=== PATIENT | female | born 1950 | race American Indian/Alaskan Native ===

== ENCOUNTER 2019-11-20 19:24 | Inpatient (IN) | payer MEDICAID, MEDICARE ==
--- NOTE | 2019-11-20 20:35 | Emergency Department Report ---
ED Shortness of Breath HPI - General Chief Complaint: Dyspnea/Respdistress Stated Complaint: SOB Time Seen by Provider: 11/20/19 20:21 Source: patient, old records reviewed Mode of arrival: Stretcher Limitations: No Limitations - History of Present Illness Initial Comments: 69-year-old female with a past medical history of morbid obesity, lymphedema, CH F, diabetes, hypertension, and on chronic anticoagulation/Eliquis presents to the hospital with complaints of shortness of breath that started earlier today. Patient is primarily wheelchair bound but also uses a walker on occasion Patient states while sitting she felt short of breath like her breath is been taking away. She denies associated symptoms including palpitations, chest pain, nausea, vomiting, and diaphoresis. Patient thinks she takes Eliquis due to previous blood clot but she is unsure. She was discharged 1 week ago from [facility] after 8 to 9 days of chest pain work-up. She states she tested negative for COVID at that time. She currently denies any cough but states she has been feeling slightly feverish since discharge. Unfortunately patient's current medications are unknown and there is no past medical history in [facility] for review since this is patient's first visit here. Patient also denies sleep apnea and home CPAP use/oxygen use. - Related Data Home Medications Medication Instructions Recorded Confirmed Last Taken Unobtainable 11/20/19 11/20/19 Unknown Allergies Allergy/AdvReac Type Severity Reaction Status Date / Time Sulfa (Sulfonamide Allergy Unknown Verified 11/20/19 20:05 Antibiotics) ED Review of Systems ROS: Stated complaint: SOB Other details as noted in HPI Comment: All other systems reviewed and negative ED Past Medical Hx - Past Medical History Previous Medical History?: Yes Hx Hypertension: Yes Hx Congestive Heart Failure: Yes Hx Diabetes: Yes - Surgical History Past Surgical History?: Yes Additional Surgical History: Right foot metatarsal amputation - Social History Smoking Status: Never Smoker Substance Use Type: None - Medications Home Medications: Home Medications Medication Instructions Recorded Confirmed Last Taken Type Unobtainable 11/20/19 11/20/19 Unknown History ED Physical Exam - General Limitations: No Limitations - Other Other exam information: General: No acute distress Head: Atraumatic Eyes: normal appearance ENT: Moist mucous membranes Neck: Normal appearance, no midline tenderness Chest: Clear to auscultation bilaterally, chest wall nontender CV: Bradycardic regular rhythm Abdomen: Soft, normal bowel sounds, nontender, nondistended, no rebound or guarding Back: Normal inspection Extremity: Right mid metatarsal foot amputation, bilateral lymphedema with chronic skin changes and superficial ulcerations without warmth, erythema, or drainage Neuro: Alert O x 3, no facial asymmetry, speech clear, no gross motor sensory deficit Psych: Appropriate behavior Skin: No rash ED Course Vital Signs 11/20/19 11/20/19 11/20/19 20:05 20:07 20:16 Temperature 100 F H Pulse Rate 46 L Respiratory 16 Rate Blood Pressure 115/50 115/50 O2 Sat by Pulse 96 98 96 Oximetry 11/20/19 11/20/19 11/20/19 20:30 20:46 21:00 Temperature Pulse Rate Respiratory Rate Blood Pressure 106/52 135/59 135/59 O2 Sat by Pulse 97 96 97 Oximetry 11/20/19 21:17 Temperature Pulse Rate Respiratory Rate Blood Pressure 135/59 O2 Sat by Pulse Oximetry - Reevaluation(s) Reevaluation #1: 11/20/19 23:05 pt moaning, complaining of chronic pain to bilateral legs and buttock area. She states that me prescribed ibuprofen 800 mg and tramadol for this pain. 1 dose of [place] ordered ED Medical Decision Making - Lab Data Result diagrams: 11/20/19 21:22 11/20/19 21:22 Lab Results 11/20/19 11/20/19 11/20/19 Range/Units 20:37 21:22 21:22 WBC 9.0 (4.5-11.0) K/mm3 RBC 3.38 L (3.65-5.03) M/mm3 Hgb 9.2 L (10.1-14.3) gm/dl Hct 28.7 L (30.3-42.9) % MCV 85 (79-97) fl MCH 27 L (28-32) pg MCHC 32 (30-34) % RDW 15.7 H (13.2-15.2) % Plt Count 496 H (140-440) K/mm3 Lymph % (Auto) 18.3 (13.4-35.0) % [place] % (Auto) 4.7 (0.0-7.3) % Eos % (Auto) 3.9 (0.0-4.3) % Baso % (Auto) 1.5 (0.0-1.8) % Lymph # 1.6 (1.2-5.4) K/mm3 [place] # 0.4 (0.0-0.8) K/mm3 Eos # 0.4 (0.0-0.4) K/mm3 Baso # 0.1 (0.0-0.1) K/mm3 Seg Neutrophils % 71.6 H (40.0-70.0) % Seg Neutrophils # 6.4 (1.8-7.7) K/mm3 PT (12.2-14.9) Sec. INR (0.87-1.13) APTT (24.2-36.6) Sec. D-Dimer (0-234) ng/mlDDU Sodium 135 L (137-145) mmol/L Potassium 4.2 (3.6-5.0) mmol/L Chloride 100.8 (98-107) mmol/L Carbon Dioxide 20 L (22-30) mmol/L Anion Gap 18 mmol/L BUN 45 H (7-17) mg/dL Creatinine 2.0 H (0.6-1.2) mg/dL Estimated GFR 25 ml/min BUN/Creatinine Ratio 23 % Glucose 298 H (65-100) mg/dL POC Glucose 286 H (70-105) Calcium 8.6 (8.4-10.2) mg/dL Total Bilirubin 0.20 (0.1-1.2) mg/dL AST 13 (5-40) units/L ALT 15 (7-56) units/L Alkaline Phosphatase 81 (35-129) units/L Troponin T (0.00-0.029) ng/mL NT-Pro-B Natriuret Pep (0-900) pg/mL Total Protein 7.1 (6.3-8.2) g/dL Albumin 2.9 L (3.9-5) g/dL Albumin/Globulin Ratio 0.7 % Triglycerides (2-149) mg/dL Cholesterol (50-199) mg/dL LDL Cholesterol Direct (50-130) mg/dL HDL Cholesterol (40-59) mg/dL Cholesterol/HDL Ratio % TSH (0.270-4.200) mlU/mL Free T4 (0.76-1.46) ng/dL 11/20/19 11/20/19 11/20/19 Range/Units 21:22 21:22 21:22 WBC (4.5-11.0) K/mm3 RBC (3.65-5.03) M/mm3 Hgb (10.1-14.3) gm/dl Hct (30.3-42.9) % MCV (79-97) fl MCH (28-32) pg MCHC (30-34) % RDW (13.2-15.2) % Plt Count (140-440) K/mm3 Lymph % (Auto) (13.4-35.0) % [place] % (Auto) (0.0-7.3) % Eos % (Auto) (0.0-4.3) % Baso % (Auto) (0.0-1.8) % Lymph # (1.2-5.4) K/mm3 [place] # (0.0-0.8) K/mm3 Eos # (0.0-0.4) K/mm3 Baso # (0.0-0.1) K/mm3 Seg Neutrophils % (40.0-70.0) % Seg Neutrophils # (1.8-7.7) K/mm3 PT 17.0 H (12.2-14.9) Sec. INR 1.35 H (0.87-1.13) APTT 38.8 H (24.2-36.6) Sec. D-Dimer 596.16 H (0-234) ng/mlDDU Sodium (137-145) mmol/L Potassium (3.6-5.0) mmol/L Chloride (98-107) mmol/L Carbon Dioxide (22-30) mmol/L Anion Gap mmol/L BUN (7-17) mg/dL Creatinine (0.6-1.2) mg/dL Estimated GFR ml/min BUN/Creatinine Ratio % Glucose (65-100) mg/dL POC Glucose (70-105) Calcium (8.4-10.2) mg/dL Total Bilirubin (0.1-1.2) mg/dL AST (5-40) units/L ALT (7-56) units/L Alkaline Phosphatase (35-129) units/L Troponin T 0.030 H (0.00-0.029) ng/mL NT-Pro-B Natriuret Pep 3993 H (0-900) pg/mL Total Protein (6.3-8.2) g/dL Albumin (3.9-5) g/dL Albumin/Globulin Ratio % Triglycerides 214 H (2-149) mg/dL Cholesterol 139 (50-199) mg/dL LDL Cholesterol Direct 96 (50-130) mg/dL HDL Cholesterol 30 L (40-59) mg/dL Cholesterol/HDL Ratio 4.63 % TSH 1.430 (0.270-4.200) mlU/mL Free T4 1.34 (0.76-1.46) ng/dL - EKG Data -: EKG Interpreted by Ga EKG shows normal: sinus rhythm, ST-T waves (no stemi) Rate: bradycardia - Radiology Data Radiology results: report reviewed (cxr: naf) Ventilation perfusion scintigraphy Indication: elevated ddimer sob, Covid positive COMPARISON: Portable chest x-ray today Ventilation study was not performed. Perfusion study was performed with intravenous administration of 5.4 mCi of 99m technetium MAA. Perfusion findings: Patient could not complete the examination due to pain and the RPO and MONTSERRATIAN images are not available. Only small peripheral bilateral perfusion defects are noted. Impression: Low probability for pulmonary thromboembolism. - Medical Decision Making Patient has shortness of breath with elevated BNP and mildly elevated troponin. Patient has underlying renal insufficiency. Patient states she was on Eliquis however full med list is not available. Patient does not have hypoxia on room air but does noticeable dyspnea with mild activity and a unremarkable chest x- ray. Patient is new to our facility with a recent [facility] admission and unfortunately these records are not available for review at this time. Mild troponin elevation noted however, patient has renal insufficiency. Repeat pending. Aspirin provided. 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 3rd set pending Critical Care Time: No Critical care attestation.: If time is entered above; I have spent that time in minutes in the direct care of this critically ill patient, excluding procedure time. ED Disposition Clinical Impression: Dyspnea, CHF (congestive heart failure), Lymphedema, Renal insufficiency, Elevated troponin, D-dimer, elevated, FDC (current) use of anticoagulants, Elevated brain natriuretic peptide (BNP) level Disposition: 09 OP ADMIT IP TO THIS HOSP Is pt being admited?: Yes Does the pt Need Aspirin: Yes Condition: Stable Referrals: PRIMARY CARE, [Primary Care Provider] - 3-5 Days Time of Disposition: 00:17 (Dr Rodriguez/hosp)
--- NOTE | 2019-11-20 21:03 | XRay Report ---
CHEST 1 VIEW INDICATION / CLINICAL INFORMATION: Dyspnea. COMPARISON: None available. FINDINGS: SUPPORT DEVICES: None. HEART / MEDIASTINUM: Enlargement of the cardiac silhouette may be related to AP technique. LUNGS / PLEURA: No significant pulmonary or pleural abnormality. No pneumothorax. ADDITIONAL FINDINGS: No significant additional findings. IMPRESSION: 1. No acute cardiac pulmonary abnormality. 2. Enlargement of the cardiac silhouette may be related to AP technique. Signer Name: Marvel Rodrigues MD Signed: 11/20/2019 8:59 PM Workstation Name: [id number]
[2019-11-20 21:43] LABS: Basophils # (Auto) 0.1 K/mm3 (0.0-0.1); Basophils % (Auto) 1.5 % (0.0-1.8); Eosinophils # (Auto) 0.4 K/mm3 (0.0-0.4); Eosinophils % (Auto) 3.9 % (0.0-4.3); Hematocrit 28.7 % (30.3-42.9); Hemoglobin 9.2 gm/dl (10.1-14.3); Lymphocytes # (Auto) 1.6 K/mm3 (1.2-5.4); Lymphocytes % (Auto) 18.3 % (13.4-35.0); Mean Corpuscular HGB Conc 32 % (30-34); Mean Corpuscular Volume 85 fl (79-97); Monocytes # (Auto) 0.4 K/mm3 (0.0-0.8); Monocytes % (Auto) 4.7 % (0.0-7.3); Platelet Count 496 K/mm3 (140-440); Red Blood Count 3.38 M/mm3 (3.65-5.03); Red Cell Distribution Width 15.7 % (13.2-15.2)
[2019-11-20 21:54] LABS: INR 1.35 (0.87-1.13); Partial Thromboplastin Time 38.8 Sec. (24.2-36.6)
[2019-11-20 21:59] LABS: Albumin 2.9 g/dL (3.9-5); Calcium 8.6 mg/dL (8.4-10.2)
[2019-11-20] MEDS ORDERED: ASPIRIN 325 MG TAB PO ONE (22:21)
[2019-11-20 22:33] LABS: Chol/HDL Ratio 4.63 %
[2019-11-20 22:39] LABS: Free T4 (Free Thyroxine) 1.34 ng/dL (0.76-1.46)
[2019-11-20] MEDS ORDERED: HYDROcodone/ACETAMINOPHEN 5-325 MG TAB PO ONE (23:04)
[2019-11-20] MEDS ORDERED: MORPHINE 4 MG/1 ML INJ IV ONE (23:42)
[2019-11-20] MEDS ORDERED: ONDANSETRON 4 MG/2 ML INJ IV ONE (23:42)
[2019-11-20] MEDS ORDERED: ONDANSETRON 4 MG/2 ML INJ ONE (23:44)
[2019-11-20] MEDS ORDERED: MORPHINE 4 MG/1 ML INJ ONE (23:44)
--- NOTE | 2019-11-21 00:17 | Nuclear Medicine Report ---
Ventilation perfusion scintigraphy Indication: elevated ddimer sob, Covid positive COMPARISON: Portable chest x-ray today Ventilation study was not performed. Perfusion study was performed with intravenous administration of 5.4 mCi of 99m technetium MAA. Perfusion findings: Patient could not complete the examination due to pain and the RPO and GEORGIAN images are not available. Only small peripheral bilateral perfusion defects are noted. Impression: Low probability for pulmonary thromboembolism. Signer Name: Faisal Thompson MD Signed: 11/21/2019 12:13 AM Workstation Name: [id number]
[2019-11-21] MEDS ORDERED: HYDROcodone/ACETAMINOPHEN 5-325 MG TAB ONE (01:11)
[2019-11-21] MEDS ORDERED: DEXTROSE 50% IN WATER (25GM) 50 ML SYRINGE IV PRN (03:19)
[2019-11-21] MEDS ORDERED: ONDANSETRON 4 MG/2 ML INJ IV PRN (03:19)
[2019-11-21] MEDS ORDERED: hydrALAZINE 20 MG/1 ML INJ IV PRN (03:19)
[2019-11-21] MEDS ORDERED: NITROGLYCERIN 0.4 MG TAB SUBL SL PRN (03:19)
--- NOTE | 2019-11-21 03:47 | History and Physical Report ---
History of Present Illness Date of examination: 11/21/19 Date of admission: 11/21/19 01:45 Chief complaint: Shortness of breath Chest pain History of present illness: 69-year-old female with known history of hypertension, diabetes mellitus, obesity and lymphedema presents to the emergency room complaining of shortness of breath and chest pain. Symptoms were said to started earlier today. Shortness of breath is worse on exertion. Patient is wheelchair-bound but she ambulates occasionally with a walker. She denies any nausea or vomiting, no headache or dizziness, no palpitation, no diaphoresis. Patient was recently discharged from [facility] for similar symptoms. She is chronically on Eliquis for anticoagulation-for possible previous blood clot. Patient is not a very good historian. She also indicates she was tested for COVID-19 while at [facility] and was found to be negative. She has had some mild cough which is nonproductive and he also indicates she had a low-grade fever when she was discharged. Evaluation here in the emergency shows elevated d-dimer , elevated troponin and elevated BNP. Chest x-ray shows cardiomegaly. VQ scan was not done was low probability for pulmonary embolism. Past History Past Medical History: diabetes, hypertension, other (Obesity, lymphedema) Past Surgical History: Other (Partial right foot amputation) Social history: no significant social history Family history: no significant family history Medications and Allergies Allergies Allergy/AdvReac Type Severity Reaction Status Date / Time Sulfa (Sulfonamide Allergy Unknown Verified 11/20/19 20:05 Antibiotics) Home Medications Medication Instructions Recorded Confirmed Last Taken Type Unobtainable 11/20/19 11/20/19 Unknown History Active Meds: Active Medications Acetaminophen (Tylenol) 650 mg PO Q4H PRN PRN Reason: Pain MILD(1-3)/Fever >100.5/AVERY Ondansetron HCl (Zofran) 4 mg IV Q8H PRN PRN Reason: Nausea And Vomiting Sodium Chloride (Sodium Chloride Flush Syringe 10 Ml) 10 ml IV BID GABRIELLE Review of Systems Constitutional: no fever, no chills Ears, nose, mouth and throat: no nasal congestion, no sore throat Cardiovascular: chest pain, no palpitations Respiratory: shortness of breath, no cough Gastrointestinal: no abdominal pain, no nausea, no vomiting, no diarrhea Genitourinary Female: no flank pain, no dysuria, no hematuria Musculoskeletal: no neck pain, no low back pain Integumentary: no rash, no pruritis Neurological: no headaches, no confusion Exam - Constitutional Vitals: Temp Pulse Resp BP Pulse Ox 98.7 F 42 L 18 107/66 97 11/21/19 02:30 11/21/19 02:30 11/21/19 02:30 11/21/19 02:30 11/21/19 02:30 General appearance: Present: no acute distress, well-nourished, obese - EENT Eyes: Present: PERRL, EOM intact. Absent: scleral icterus ENT: hearing intact, clear oral mucosa, dentition normal - Neck Neck: Present: supple, normal ROM - Respiratory Respiratory effort: normal Respiratory: bilateral: CTA - Cardiovascular Rhythm: regular Heart Sounds: Present: S1 & S2. Absent: gallop, systolic murmur, diastolic murmur, rub - Extremities Extremities: no ischemia, pulses intact, pulses symmetrical, No edema, Full ROM Extremity abnormal: edema (Bilateral lymphedema), pulses diminished, other (Partial right foot amputation) - Abdominal General gastrointestinal: Present: soft, non-tender, non-distended, normal bowel sounds. Absent: mass - Integumentary Integumentary: Present: clear, warm, dry - Musculoskeletal Musculoskeletal: strength equal bilaterally - Psychiatric Psychiatric: appropriate mood/affect, intact judgment & insight, memory intact, cooperative - Neurologic Neurologic: CNII-XII intact, no focal deficits, moves all extremities HEART Score - HEART Score Troponin: Troponin T 0.039 ng/mL (0.00-0.029) H D 11/21/19 00:19 Results - Labs CBC & Chem 7: 11/21/19 10:02 11/21/19 10:02 Labs: Abnormal lab results 11/20/19 11/20/19 11/20/19 Range/Units 20:37 21:22 21:22 RBC 3.38 L (3.65-5.03) M/mm3 Hgb 9.2 L (10.1-14.3) gm/dl Hct 28.7 L (30.3-42.9) % MCH 27 L (28-32) pg RDW 15.7 H (13.2-15.2) % Plt Count 496 H (140-440) K/mm3 Seg Neutrophils % 71.6 H (40.0-70.0) % PT (12.2-14.9) Sec. INR (0.87-1.13) APTT (24.2-36.6) Sec. D-Dimer (0-234) ng/mlDDU Sodium 135 L (137-145) mmol/L Carbon Dioxide 20 L (22-30) mmol/L BUN 45 H (7-17) mg/dL Creatinine 2.0 H (0.6-1.2) mg/dL Glucose 298 H (65-100) mg/dL POC Glucose 286 H (70-105) Troponin T (0.00-0.029) ng/mL NT-Pro-B Natriuret Pep (0-900) pg/mL Albumin 2.9 L (3.9-5) g/dL Triglycerides (2-149) mg/dL HDL Cholesterol (40-59) mg/dL 11/20/19 11/20/19 11/21/19 Range/Units 21:22 21:22 00:19 RBC (3.65-5.03) M/mm3 Hgb (10.1-14.3) gm/dl Hct (30.3-42.9) % MCH (28-32) pg RDW (13.2-15.2) % Plt Count (140-440) K/mm3 Seg Neutrophils % (40.0-70.0) % PT 17.0 H (12.2-14.9) Sec. INR 1.35 H (0.87-1.13) APTT 38.8 H (24.2-36.6) Sec. D-Dimer 596.16 H (0-234) ng/mlDDU Sodium (137-145) mmol/L Carbon Dioxide (22-30) mmol/L BUN (7-17) mg/dL Creatinine (0.6-1.2) mg/dL Glucose (65-100) mg/dL POC Glucose (70-105) Troponin T 0.030 H 0.039 H D (0.00-0.029) ng/mL NT-Pro-B Natriuret Pep 3993 H (0-900) pg/mL Albumin (3.9-5) g/dL Triglycerides 214 H (2-149) mg/dL HDL Cholesterol 30 L (40-59) mg/dL Assessment and Plan - Patient Problems (1) Dyspnea Current Visit: Yes Status: Acute Plan to address problem: Possibly secondary to underlying CHF.. Patient admitted and placed on telemetry. (2) CHF (congestive heart failure) Current Visit: Yes Status: Acute Plan to address problem: We will place patient on diuretics. Will monitor input and output and also monitor daily weight. We will schedule patient for echocardiogram. (3) Elevated troponin Current Visit: Yes Status: Acute Plan to address problem: We will check serial cardiac enzymes. Patient placed on aspirin, sublingual nitroglycerin and IV morphine as needed for chest pain. We will place a consult to cardiology for evaluation. (4) Diabetes mellitus Current Visit: Yes Status: Chronic Plan to address problem: We will monitor Accu-Cheks. (5) Renal insufficiency Current Visit: Yes Status: Acute Plan to address problem: Probably chronic. Will monitor. (6) DVT prophylaxis Current Visit: Yes Status: Acute Plan to address problem: We will place patient on subcutaneous heparin (7) Full code status Current Visit: Yes Status: Acute
[2019-11-21] MEDS: FUROSEMIDE 40 MG/4 ML INJ IV SCH ×2 (06:55→18:28)
[2019-11-21] MEDS: HEPARIN 5,000 UNIT/1 ML VIAL SUB-Q SCH ×2 (06:55→13:33)
[2019-11-21 10:16] LABS: Hematocrit 28.9 % (30.3-42.9); Hemoglobin 9.5 gm/dl (10.1-14.3); Mean Corpuscular HGB Conc 33 % (30-34); Mean Corpuscular Volume 83 fl (79-97); Platelet Count 469 K/mm3 (140-440); Red Blood Count 3.47 M/mm3 (3.65-5.03); Red Cell Distribution Width 15.2 % (13.2-15.2)
[2019-11-21] MEDS: INSULIN LISPRO 100 UNIT/ML VIAL 3 mL SUB-Q SCH ×4 (10:28→22:41)
[2019-11-21] MEDS ORDERED: LIDOCAINE-MPF (1%) 10 MG/1 ML VIAL 5 ML INFILTRATI ONE (10:30)
[2019-11-21] MEDS: ACETAMINOPHEN 325 MG TAB PO PRN ×3 (10:32→22:41)
--- NOTE | 2019-11-21 10:34 | Progress Note ---
Assessment and Plan v Assessment and Plan - Patient Problems (1) Dyspnea Current Visit: Yes Status: Acute Plan to address problem: Possibly secondary to underlying CHF.. Patient admitted and placed on telemetry. (2) CHF (congestive heart failure) Current Visit: Yes Status: Acute Plan to address problem: We will place patient on diuretics. Will monitor input and output and also monitor daily weight. We will schedule patient for echocardiogram. (3) Elevated troponin Current Visit: Yes Status: Acute Plan to address problem: Continue cardioprotective measure Check serial cardiac enzymes. continue aspirin, sublingual nitroglycerin and IV morphine as needed for chest pain. consulted cardiology for evaluation. (4) Diabetes mellitus Current Visit: Yes Status: Acute Plan to address problem: Monitor blood sugar [id number] with result (5) Renal insufficiency Current Visit: Yes Status: Acute Plan to address problem: Monitor kidney function Avoid nephrotoxic drugs Probably chronic. 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 Resume home cardiac regimen, including ASA 81, plavix, statin, Imdur. No BB in setting of bradycardia. No ACEI/ARB in setting of renal insufficiency. 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 Recommend nephrology consultation and will defer volume optimization to nephrology team in setting of renal insufficiency. The coronary flow reserve is severely impaired which may limit the diagnostic sensitivity this study for ischemia. TTE done 10/12/2019 showed EF 35-40%, grade 1 diastolic dysfunction. No plans for additional cardiac w/u at this time. - Patient Problems (1) Leukocytosis (leucocytosis) Current Visit: Yes Status: Acute Plan to address problem: start empiric abx Blood culture and urine culture-f/u with result Monitor WBC Subjective Date of service: 11/21/19 Interval history: patient seen-up sitting at bedside -on oxygen per N/C Reviewed specialist note-input greatly appreciated Objective - Constitutional Vitals: Vital Signs - 12hr 11/21/19 11/21/19 02:30 04:14 Temperature 98.7 F Pulse Rate 42 L 42 L Pulse Rate [ 44 L From Monitor] Respiratory 18 20 Rate Blood Pressure 107/66 [Left] O2 Sat by Pulse 97 97 Oximetry General appearance: Present: mild distress, well-nourished - EENT Eyes: PERRL, EOM intact ENT: hearing intact, clear oral mucosa Ears: bilateral: normal - Neck Neck: supple, normal ROM - Respiratory Respiratory effort: normal Respiratory: bilateral: diminished - Breasts Breasts: normal - Cardiovascular Rhythm: other (Bradycardia-hold BB) Heart Sounds: Present: S1 & S2. Absent: gallop, rub Extremities: pulses intact, No edema, normal color, Full ROM - Gastrointestinal General gastrointestinal: Present: soft, non-tender, non-distended, normal bowel sounds - Genitourinary Female genitourinary: normal - Integumentary Integumentary: clear, warm, dry - Musculoskeletal Musculoskeletal: 1, strength equal bilaterally - Neurologic Neurologic: moves all extremities - Psychiatric Psychiatric: memory intact, appropriate mood/affect, intact judgment & insight - Labs CBC & Chem 7: 11/21/19 10:02 11/21/19 10:02 Labs: Abnormal lab results 11/20/19 11/20/19 11/20/19 Range/Units 20:37 21:22 21:22 WBC (4.5-11.0) K/mm3 RBC 3.38 L (3.65-5.03) M/mm3 Hgb 9.2 L (10.1-14.3) gm/dl Hct 28.7 L (30.3-42.9) % MCH 27 L (28-32) pg RDW 15.7 H (13.2-15.2) % Plt Count 496 H (140-440) K/mm3 Seg Neutrophils % 71.6 H (40.0-70.0) % PT (12.2-14.9) Sec. INR (0.87-1.13) APTT (24.2-36.6) Sec. D-Dimer (0-234) ng/mlDDU Sodium 135 L (137-145) mmol/L Carbon Dioxide 20 L (22-30) mmol/L BUN 45 H (7-17) mg/dL Creatinine 2.0 H (0.6-1.2) mg/dL Glucose 298 H (65-100) mg/dL POC Glucose 286 H (70-105) Troponin T (0.00-0.029) ng/mL NT-Pro-B Natriuret Pep (0-900) pg/mL Albumin 2.9 L (3.9-5) g/dL Triglycerides (2-149) mg/dL HDL Cholesterol (40-59) mg/dL 11/20/19 11/20/19 11/21/19 Range/Units 21:22 21:22 00:19 WBC (4.5-11.0) K/mm3 RBC (3.65-5.03) M/mm3 Hgb (10.1-14.3) gm/dl Hct (30.3-42.9) % MCH (28-32) pg RDW (13.2-15.2) % Plt Count (140-440) K/mm3 Seg Neutrophils % (40.0-70.0) % PT 17.0 H (12.2-14.9) Sec. INR 1.35 H (0.87-1.13) APTT 38.8 H (24.2-36.6) Sec. D-Dimer 596.16 H (0-234) ng/mlDDU Sodium (137-145) mmol/L Carbon Dioxide (22-30) mmol/L BUN (7-17) mg/dL Creatinine (0.6-1.2) mg/dL Glucose (65-100) mg/dL POC Glucose (70-105) Troponin T 0.030 H 0.039 H D (0.00-0.029) ng/mL NT-Pro-B Natriuret Pep 3993 H (0-900) pg/mL Albumin (3.9-5) g/dL Triglycerides 214 H (2-149) mg/dL HDL Cholesterol 30 L (40-59) mg/dL 11/21/19 11/21/19 11/21/19 Range/Units 02:56 07:57 10:02 WBC 21.4 H (4.5-11.0) K/mm3 RBC 3.47 L (3.65-5.03) M/mm3 Hgb 9.5 L (10.1-14.3) gm/dl Hct 28.9 L (30.3-42.9) % MCH 27 L (28-32) pg RDW (13.2-15.2) % Plt Count 469 H (140-440) K/mm3 Seg Neutrophils % (40.0-70.0) % PT (12.2-14.9) Sec. INR (0.87-1.13) APTT (24.2-36.6) Sec. D-Dimer (0-234) ng/mlDDU Sodium (137-145) mmol/L Carbon Dioxide (22-30) mmol/L BUN (7-17) mg/dL Creatinine (0.6-1.2) mg/dL Glucose (65-100) mg/dL POC Glucose 349 H (70-105) Troponin T 0.030 H D (0.00-0.029) ng/mL NT-Pro-B Natriuret Pep (0-900) pg/mL Albumin (3.9-5) g/dL Triglycerides (2-149) mg/dL HDL Cholesterol (40-59) mg/dL HEART Score - HEART Score Troponin: Troponin T 0.030 ng/mL (0.00-0.029) H D 11/21/19 02:56
[2019-11-21 10:35] LABS: Calcium 8.4 mg/dL (8.4-10.2)
[2019-11-21] MEDS: MORPHINE 2 MG/1 ML INJ IV PRN (10:50)
[2019-11-21] MEDS ORDERED: cefTRIAXone/NS 2 GM/100 ML 2 GM/100 ML BAG IV SCH (11:00)
[2019-11-21 11:19] LABS: Anisocytosis 1+; Band Neutrophils # (Manual) 1.5 K/mm3; Basophils % (Manual) 0 % (0.0-1.8); Eosinophils % (Manual) 0 % (0.0-4.3); Platelet Estimate Consistent w Auto; Total Cells Counted 100
--- NOTE | 2019-11-21 11:20 | Consultation ---
History of Present Illness Consult date: 11/21/19 Requesting physician: VENKATA CHERRY Consult reason: shortness of breath History of present illness: The pt is a 69 YO female with a past medical history of HTN, DM, CKD III, PVD s/p right trans metatarsal amputation, lymphedema, DVT/PE, anticoagulated with Eliquis, obesity, bradycardia and junctional rhythm. She is previously unknown to our practice, although she has been hospitalized several times at [facility]. She presented with c/o SOB for the past several weeks. She denies any chest pain, palpitations, n/v, diaphoresis, dizziness or syncope. Pt was discharged from [facility] on 11/15/2019. Per discharge summary, pt presented with with chest pain, troponin peaked at 0.36, started on heparin drip NSTEMI and nitro drip for chest pain. Chest pain resolved. Cardiology consulted, patient refused angiogram. Medical management recommended. She completed heparin drip after 48 hours, continued on statin and aspirin. Was started on Plavix which is recommended for at least 1 year. Was also diuresed due to bilateral lower extremity edema. Cardiac PET done at [facility] 07/2019 showed a large (total defect 30-35%) defect over the mid to apical septal and apical segments consistent with predominant myocardial infarction with a smaller area of ischemia. There is a second defect (total defect 20-25%) over the basal to mid inferolateral and mid inferior willis consistent with predominant myocardial infarction with a smaller area of ischemia. Today's findings are grossly similar to the prior study with the exception of the overall defect territory and ischemia is slightly larger. The coronary flow reserve is severely impaired which may limit the diagnostic sensitivity this study for ischemia. TTE done 10/12/2019 showed EF 35-40%, grade 1 diastolic dysfunction. Past History Past Medical History: diabetes, hypertension, other (as per HPI) Past Surgical History: Other (Partial right foot amputation) Social history: no significant social history Family history: no significant family history Medications and Allergies Allergies Allergy/AdvReac Type Severity Reaction Status Date / Time Sulfa (Sulfonamide Allergy Unknown Verified 11/20/19 20:05 Antibiotics) Home Medications Medication Instructions Recorded Confirmed Last Taken Type Unobtainable 11/20/19 11/20/19 Unknown History Active Meds: Active Medications Acetaminophen (Tylenol) 650 mg PO Q4H PRN PRN Reason: Pain MILD(1-3)/Fever >100.5/AVERY Last Admin: 11/21/19 10:32 Dose: 650 mg Documented by: Aspirin (Ecotrin) 325 mg PO QDAY [facility] Dextrose (D50w (25gm) Syringe) 0 ml IV Q30MIN PRN; Protocol PRN Reason: Hypoglycemia Furosemide (Lasix) 40 mg IV BID@0600,1800 [facility] Last Admin: 11/21/19 06:55 Dose: 40 mg Documented by: Heparin Sodium (Porcine) (Heparin) 5,000 unit SUB-Q Q8HR [facility] Last Admin: 11/21/19 06:55 Dose: 5,000 unit Documented by: Hydralazine HCl (Apresoline) 10 mg IV Q6H PRN PRN Reason: FOR SBP > target Ceftriaxone Sodium (Rocephin/Ns 2 Gm/100 Ml) 2 gm in 100 mls @ 200 mls/hr IV Q24HR [facility]; Protocol Stop: 11/21/19 11:29 Insulin Human Lispro (Humalog) 0 unit SUB-Q ACHS [facility]; Protocol Last Admin: 11/21/19 10:28 Dose: 6 unit Documented by: Morphine Sulfate (Morphine) 2 mg IV Q5MIN PRN PRN Reason: Chest Pain unrelieved by NTG Last Admin: 11/21/19 10:50 Dose: 2 mg Documented by: Nitroglycerin (Nitrostat) 0.4 mg SL Q5M PRN PRN Reason: Chest Pain Ondansetron HCl (Zofran) 4 mg IV Q8H PRN PRN Reason: Nausea And Vomiting Sodium Chloride (Sodium Chloride Flush Syringe 10 Ml) 10 ml IV BID [facility] Last Admin: 11/21/19 10:29 Dose: 10 ml Documented by: Sodium Chloride (Sodium Chloride Flush Syringe 10 Ml) 10 ml IV PRN PRN PRN Reason: LINE FLUSH Sodium Chloride (Sodium Chloride Flush Syringe 10 Ml) 10 ml IV PRN PRN PRN Reason: LINE FLUSH Review of Systems Constitutional: no fever, no chills, no sweats Ears, nose, mouth and throat: no ear pain, no nose pain, no sinus pressure, no sinus pain Cardiovascular: orthopnea, edema, shortness of breath, dyspnea on exertion, leg edema, no chest pain, no palpitations, no rapid/irregular heart beat, no syncope, no lightheadedness Respiratory: shortness of breath, dyspnea on exertion, no cough, no congestion, no wheezing, no pain on inspiration Gastrointestinal: no abdominal pain, no nausea, no vomiting, no diarrhea, no constipation, no change in bowel habits Genitourinary Female: no pelvic pain, no flank pain, no dysuria, no urinary frequency, no urgency Musculoskeletal: no neck stiffness, no neck pain, no shooting arm pain, no arm numbness/tingling, no low back pain, no shooting leg pain Integumentary: other (BLE chronic skin changes noted, BLE blistering) Neurological: no head injury, no paralysis, no weakness, no parathesias, no numbness, no tingling, no seizures, no syncope Psychiatric: no anxiety Endocrine: no cold intolerance, no heat intolerance Hematologic/Lymphatic: no easy bruising, no easy bleeding Allergic/Immunologic: no urticaria Physical Examination Vital Signs Temp Pulse Resp BP Pulse Ox 100 F H 46 L 16 115/50 96 11/20/19 20:05 11/20/19 20:05 11/20/19 20:05 11/20/19 20:05 11/20/19 20:05 General appearance: no acute distress HEENT: Positive: PERRL, Normocephaly, Mucus Membranes Moist Neck: Positive: neck supple, trachea midline Cardiac: Positive: Regular Rhythm, S1/S2, Bradycardia Lungs: Positive: Decreased Breath Sounds Neuro: Positive: Grossly Intact Abdomen: Negative: Ascites Skin: Positive: Other (BLE chroc skin changes noted, BLE blistering) Musculoskeletal: other (right trans metatarsal amputation, BLE lymphedema) Extremities: Present: +3 Edema (lymphedema) Results 11/21/19 10:02 11/21/19 10:02 Cardiac Enzymes 11/20/19 Range/Units 21:22 AST 13 (5-40) units/L Coagulation 11/20/19 Range/Units 21:22 PT 17.0 H (12.2-14.9) Sec. INR 1.35 H (0.87-1.13) APTT 38.8 H (24.2-36.6) Sec. Lipids 11/20/19 Range/Units 21:22 Triglycerides 214 H (2-149) mg/dL Cholesterol 139 (50-199) mg/dL HDL Cholesterol 30 L (40-59) mg/dL Cholesterol/HDL Ratio 4.63 % CBC 11/20/19 11/21/19 Range/Units 21:22 10:02 WBC 9.0 21.4 H (4.5-11.0) K/mm3 RBC 3.38 L 3.47 L (3.65-5.03) M/mm3 Hgb 9.2 L 9.5 L (10.1-14.3) gm/dl Hct 28.7 L 28.9 L (30.3-42.9) % Plt Count 496 H 469 H (140-440) K/mm3 Lymph # 1.6 (1.2-5.4) K/mm3 Crisp # 0.4 (0.0-0.8) K/mm3 Eos # 0.4 (0.0-0.4) K/mm3 Baso # 0.1 (0.0-0.1) K/mm3 Comprehensive Metabolic Panel 11/20/19 11/21/19 Range/Units 21:22 10:02 Sodium 135 L 135 L (137-145) mmol/L Potassium 4.2 4.5 (3.6-5.0) mmol/L Chloride 100.8 103.8 (98-107) mmol/L Carbon Dioxide 20 L 16 L (22-30) mmol/L BUN 45 H 50 H (7-17) mg/dL Creatinine 2.0 H 2.4 H (0.6-1.2) mg/dL Glucose 298 H 399 H (65-100) mg/dL Calcium 8.6 8.4 (8.4-10.2) mg/dL AST 13 (5-40) units/L ALT 15 (7-56) units/L Alkaline Phosphatase 81 (35-129) units/L Total Protein 7.1 (6.3-8.2) g/dL Albumin 2.9 L (3.9-5) g/dL - Imaging and Cardiology Echo: report reviewed (10/12/2019 showed EF 35-40%, grade 1 diastolic dysfunction. ) EKG: report reviewed, image reviewed EKG interpretations - Telemetry EKG Rhythm: Junctional - EKG Supraventricular dysrhythmia: junctional rhythm Assessment and Plan DDimer elevated - V/Q scan low prob for PE. Resume home cardiac regimen, including ASA 81, plavix, statin, Imdur. No BB in setting of bradycardia. No ACEI/ARB in setting of renal insufficiency. 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 Pt is currently receiving IV lasix BID per primary - recommend nephrology consultation and will defer volume optimization to nephrology team in setting of renal insufficiency. Pt is noted to be in junctional rhythm, HR low 42bpm since initiation of remote telemetry. She has been noted to have intermittent junctional rhythm on [facility] documentation. She states that pacemaker implantation has been discussed with her in the past, she states "I'm afraid of a pacemaker". Thyroid profile WNL. Hold AV [place] blocking agents and cont to monitor on telemetry. Pt denies any current chest pain. ECG with no acute ischemic changes. Minimal troponin elevation appears nonspecific at this time. Cardiac PET done at [facility] 07/2019 showed a large (total defect 30-35%) defect over the mid to apical septal and apical segments consistent with predominant myocardial infarction with a smaller area of ischemia. There is a second defect (total defect 20-25%) over the basal to mid inferolateral and mid inferior willis consistent with predominant myocardial infarction with a smaller area of ischemia. Findings are grossly similar to the prior study with the exception of the overall defect territory and ischemia is slightly larger. The coronary flow reserve is severely impaired which may limit the diagnostic sensitivity this study for ischemia. TTE done 10/12/2019 showed EF 35-40%, grade 1 diastolic dysfunction. No plans for additional cardiac w/u at this time. Will follow. The patient has been seen in conjunction with Dr. Ybarra who agrees with the assessment and plan of care. - Patient Problems (1) Acute HFrEF (heart failure with reduced ejection fraction) Current Visit: Yes Status: Acute (2) Cardiomyopathy Current Visit: Yes Status: Acute (3) Junctional bradycardia Current Visit: Yes Status: Acute (4) CKD (chronic kidney disease) Current Visit: Yes Status: Acute Plan to address problem: per [facility] records, cr fluctuates between 2-3 (5) HTN (hypertension) Current Visit: Yes Status: Chronic (6) Diabetes mellitus Current Visit: Yes Status: Chronic (7) PVD (peripheral vascular disease) Current Visit: Yes Status: Chronic (8) S/P transmetatarsal amputation of foot Current Visit: Yes Status: Chronic (9) Lymphedema Current Visit: Yes Status: Chronic (10) Elevated troponin Current Visit: Yes Status: Acute (11) Obesity Current Visit: Yes Status: Chronic
--- NOTE | 2019-11-21 17:23 | Progress Note ---
Assessment and Plan (1) Acute HFrEF (heart failure with reduced ejection fraction) Current Visit: Yes Status: Acute (2) Cardiomyopathy Current Visit: Yes Status: Acute (3) Junctional bradycardia Current Visit: Yes Status: Acute (4) CKD (chronic kidney disease) Current Visit: Yes Status: Acute Plan to address problem: per [facility] records, cr fluctuates between 2-3 (5) HTN (hypertension) Current Visit: Yes Status: Chronic (6) Diabetes mellitus Current Visit: Yes Status: Chronic (7) PVD (peripheral vascular disease) Current Visit: Yes Status: Chronic (8) S/P transmetatarsal amputation of foot Current Visit: Yes Status: Chronic (9) Lymphedema Current Visit: Yes Status: Chronic (10) Elevated troponin Current Visit: Yes Status: Acute (11) Obesity Current Visit: Yes Status: Chronic Subjective Date of service: 11/21/19 Objective - Constitutional Vitals: Vital Signs - 12hr 11/21/19 11/21/19 11/21/19 09:49 11:55 12:14 Temperature 98.3 F Pulse Rate 53 L Pulse Rate [ 44 L From Monitor] Respiratory 20 20 Rate Blood Pressure 126/54 O2 Sat by Pulse 97 Oximetry - Labs CBC & Chem 7: 11/21/19 10:02 11/21/19 10:02 Labs: Abnormal lab results 11/20/19 11/20/19 11/20/19 Range/Units 20:37 21:22 21:22 WBC (4.5-11.0) K/mm3 RBC 3.38 L (3.65-5.03) M/mm3 Hgb 9.2 L (10.1-14.3) gm/dl Hct 28.7 L (30.3-42.9) % MCH 27 L (28-32) pg RDW 15.7 H (13.2-15.2) % Plt Count 496 H (140-440) K/mm3 Seg Neutrophils % 71.6 H (40.0-70.0) % Seg Neuts % (Manual) (40.0-70.0) % Lymphocytes % (Manual) (13.4-35.0) % Seg Neutrophils # Man (1.8-7.7) K/mm3 Lymphocytes # (Manual) (1.2-5.4) K/mm3 PT (12.2-14.9) Sec. INR (0.87-1.13) APTT (24.2-36.6) Sec. D-Dimer (0-234) ng/mlDDU Sodium 135 L (137-145) mmol/L Carbon Dioxide 20 L (22-30) mmol/L BUN 45 H (7-17) mg/dL Creatinine 2.0 H (0.6-1.2) mg/dL Glucose 298 H (65-100) mg/dL POC Glucose 286 H (70-105) Troponin T (0.00-0.029) ng/mL NT-Pro-B Natriuret Pep (0-900) pg/mL Albumin 2.9 L (3.9-5) g/dL Triglycerides (2-149) mg/dL HDL Cholesterol (40-59) mg/dL 11/20/19 11/20/19 11/21/19 Range/Units 21:22 21:22 00:19 WBC (4.5-11.0) K/mm3 RBC (3.65-5.03) M/mm3 Hgb (10.1-14.3) gm/dl Hct (30.3-42.9) % MCH (28-32) pg RDW (13.2-15.2) % Plt Count (140-440) K/mm3 Seg Neutrophils % (40.0-70.0) % Seg Neuts % (Manual) (40.0-70.0) % Lymphocytes % (Manual) (13.4-35.0) % Seg Neutrophils # Man (1.8-7.7) K/mm3 Lymphocytes # (Manual) (1.2-5.4) K/mm3 PT 17.0 H (12.2-14.9) Sec. INR 1.35 H (0.87-1.13) APTT 38.8 H (24.2-36.6) Sec. D-Dimer 596.16 H (0-234) ng/mlDDU Sodium (137-145) mmol/L Carbon Dioxide (22-30) mmol/L BUN (7-17) mg/dL Creatinine (0.6-1.2) mg/dL Glucose (65-100) mg/dL POC Glucose (70-105) Troponin T 0.030 H 0.039 H D (0.00-0.029) ng/mL NT-Pro-B Natriuret Pep 3993 H (0-900) pg/mL Albumin (3.9-5) g/dL Triglycerides 214 H (2-149) mg/dL HDL Cholesterol 30 L (40-59) mg/dL 11/21/19 11/21/19 11/21/19 Range/Units 02:56 07:57 10:02 WBC 21.4 H (4.5-11.0) K/mm3 RBC 3.47 L (3.65-5.03) M/mm3 Hgb 9.5 L (10.1-14.3) gm/dl Hct 28.9 L (30.3-42.9) % MCH 27 L (28-32) pg RDW (13.2-15.2) % Plt Count 469 H (140-440) K/mm3 Seg Neutrophils % (40.0-70.0) % Seg Neuts % (Manual) 89.0 H (40.0-70.0) % Lymphocytes % (Manual) 1.0 L (13.4-35.0) % Seg Neutrophils # Man 19.0 H (1.8-7.7) K/mm3 Lymphocytes # (Manual) 0.2 L (1.2-5.4) K/mm3 PT (12.2-14.9) Sec. INR (0.87-1.13) APTT (24.2-36.6) Sec. D-Dimer (0-234) ng/mlDDU Sodium (137-145) mmol/L Carbon Dioxide (22-30) mmol/L BUN (7-17) mg/dL Creatinine (0.6-1.2) mg/dL Glucose (65-100) mg/dL POC Glucose 349 H (70-105) Troponin T 0.030 H D (0.00-0.029) ng/mL NT-Pro-B Natriuret Pep (0-900) pg/mL Albumin (3.9-5) g/dL Triglycerides (2-149) mg/dL HDL Cholesterol (40-59) mg/dL 11/21/19 11/21/19 11/21/19 Range/Units 10:02 11:56 16:31 WBC (4.5-11.0) K/mm3 RBC (3.65-5.03) M/mm3 Hgb (10.1-14.3) gm/dl Hct (30.3-42.9) % MCH (28-32) pg RDW (13.2-15.2) % Plt Count (140-440) K/mm3 Seg Neutrophils % (40.0-70.0) % Seg Neuts % (Manual) (40.0-70.0) % Lymphocytes % (Manual) (13.4-35.0) % Seg Neutrophils # Man (1.8-7.7) K/mm3 Lymphocytes # (Manual) (1.2-5.4) K/mm3 PT (12.2-14.9) Sec. INR (0.87-1.13) APTT (24.2-36.6) Sec. D-Dimer (0-234) ng/mlDDU Sodium 135 L (137-145) mmol/L Carbon Dioxide 16 L (22-30) mmol/L BUN 50 H (7-17) mg/dL Creatinine 2.4 H (0.6-1.2) mg/dL Glucose 399 H (65-100) mg/dL POC Glucose 397 H 329 H (70-105) Troponin T (0.00-0.029) ng/mL NT-Pro-B Natriuret Pep (0-900) pg/mL Albumin (3.9-5) g/dL Triglycerides (2-149) mg/dL HDL Cholesterol (40-59) mg/dL HEART Score - HEART Score Troponin: Troponin T 0.023 ng/mL (0.00-0.029) 11/21/19 10:02
[2019-11-21] MEDS: APIXABAN 5 MG TAB PO SCH (22:41)
[2019-11-21] MEDS ORDERED: VANCOMYCIN PHARMACY TO DOSE IV SCH (23:00)
[2019-11-21] MEDS ORDERED: VANCOMYCIN 2,000 MG in SODIUM CHLORIDE 0.9% 500 ML 500 ML IV ONE (23:35)
[2019-11-22] MEDS: ACETAMINOPHEN 325 MG TAB PO PRN ×3 (05:28→20:59)
[2019-11-22] MEDS: FUROSEMIDE 40 MG/4 ML INJ IV SCH (05:50)
[2019-11-22 07:06] LABS: Bacteria,Urine 3+ /HPF (Negative); Bilirubin,Urine NEG (Negative); Blood,Urine MOD (Negative); Color,Urine Yellow (Yellow); Urobilinogen,Urine < 2.0 mg/dL (<2.0)
[2019-11-22 07:48] LABS: Hematocrit 26.6 % (30.3-42.9); Hemoglobin 8.7 gm/dl (10.1-14.3); Mean Corpuscular HGB Conc 33 % (30-34); Mean Corpuscular Volume 82 fl (79-97); Platelet Count 379 K/mm3 (140-440); Red Blood Count 3.24 M/mm3 (3.65-5.03); Red Cell Distribution Width 15.2 % (13.2-15.2)
[2019-11-22 07:58] LABS: INR 1.78 (0.87-1.13)
[2019-11-22 08:11] LABS: Calcium 8.3 mg/dL (8.4-10.2)
[2019-11-22] MEDS: INSULIN LISPRO 100 UNIT/ML VIAL 3 mL SUB-Q SCH ×4 (09:36→23:58)
[2019-11-22] MEDS: ASPIRIN 81 MG TAB CHEW PO SCH (09:37)
[2019-11-22] MEDS: APIXABAN 5 MG TAB PO SCH (09:37)
[2019-11-22] MEDS: CLOPIDOGREL 75 MG TAB PO SCH (09:37)
[2019-11-22 09:41] LABS: Anisocytosis 1+; Band Neutrophils # (Manual) 0.2 K/mm3; Basophils % (Manual) 0.5 % (0.0-1.8); Burr Cells Few; Eosinophils % (Manual) 0 % (0.0-4.3); Monocytes % (Manual) 1.5 % (0.0-7.3); Platelet Estimate Consistent w Auto; Total Cells Counted 200
[2019-11-22] MEDS ORDERED: ASPIRIN EC 325 MG TAB PO SCH (10:00)
--- NOTE | 2019-11-22 10:59 | Progress Note ---
Assessment and Plan DDimer elevated - V/Q scan low prob for PE. Resume home cardiac regimen, including ASA 81, plavix, statin, Imdur. No BB in setting of bradycardia. No ACEI/ARB in setting of renal insufficiency. 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 Pt is currently receiving IV lasix BID per primary - recommend nephrology consultation and will defer volume optimization to nephrology team in setting of renal insufficiency. Pt is noted to be in junctional rhythm, HR low 42bpm since initiation of remote telemetry. She has been noted to have intermittent junctional rhythm on [facility] documentation. She states that pacemaker implantation has been discussed with her in the past, she states "I'm afraid of a pacemaker". Thyroid profile WNL. Hold AV [place] blocking agents and cont to monitor on telemetry. Pt denies any current chest pain. ECG with no acute ischemic changes. Minimal troponin elevation appears nonspecific at this time. Cardiac PET done at [facility] 07/2019 showed a large (total defect 30-35%) defect over the mid to apical septal and apical segments consistent with predominant myocardial infarction with a smaller area of ischemia. There is a second defect (total defect 20-25%) over the basal to mid inferolateral and mid inferior willis consistent with predominant myocardial infarction with a smaller area of ischemia. Findings are grossly similar to the prior study with the exception of the overall defect territory and ischemia is slightly larger. The coronary flow reserve is severely impaired which may limit the diagnostic sensitivity this study for ischemia. TTE done 10/12/2019 showed EF 35-40%, grade 1 diastolic dysfunction. tte reviewed hold lasix - again, recommend nephrology consult Decrease eliquis dosing (GFR ~ 20) No plans for additional cardiac w/u at this time. Will follow. - Patient Problems (1) Acute HFrEF (heart failure with reduced ejection fraction) Current Visit: Yes Status: Acute (2) CHF (congestive heart failure) Current Visit: Yes Status: Acute (3) CKD (chronic kidney disease) Current Visit: Yes Status: Acute (4) Cardiomyopathy Current Visit: Yes Status: Acute (5) half-way (current) use of anticoagulants Current Visit: Yes Status: Acute (6) Renal insufficiency Current Visit: Yes Status: Acute (7) Diabetes mellitus Current Visit: Yes Status: Chronic (8) HTN (hypertension) Current Visit: Yes Status: Chronic (9) Lymphedema Current Visit: Yes Status: Chronic (10) PVD (peripheral vascular disease) Current Visit: Yes Status: Chronic (11) S/P transmetatarsal amputation of foot Current Visit: Yes Status: Chronic Subjective Date of service: 11/22/19 Interval history: pt feels better Objective Vital Signs Temp Pulse Pulse Resp BP BP Pulse Ox 11/22/19 09:37 119/70 11/22/19 08:31 119/65 11/22/19 08:25 95 11/22/19 04:41 101.5 F H 11/22/19 04:36 65 20 144/68 94 11/22/19 04:00 63 11/22/19 00:10 100.4 F H 11/21/19 23:00 20 11/21/19 22:15 101.2 F H 62 22 134/62 97 11/21/19 20:00 53 L 11/21/19 16:30 100.9 F H 55 L 20 144/85 100 11/21/19 12:14 53 L 11/21/19 11:55 44 L 20 97 - Physical Examination HEENT: Positive: PERRL, Normocephaly, Mucus Membranes Moist Neck: Positive: neck supple, trachea midline Neuro: Positive: Grossly Intact Abdomen: Negative: Ascites Skin: Positive: Other (BLE chroc skin changes noted, BLE blistering) Musculoskeletal: other (right trans metatarsal amputation, BLE lymphedema) Extremities: Present: +3 Edema (lymphedema) - Labs and Meds Coagulation 11/22/19 Range/Units 07:40 PT 21.1 H (12.2-14.9) Sec. INR 1.78 H (0.87-1.13) CBC 11/22/19 Range/Units 07:40 WBC 24.0 H (4.5-11.0) K/mm3 RBC 3.24 L (3.65-5.03) M/mm3 Hgb 8.7 L (10.1-14.3) gm/dl Hct 26.6 L (30.3-42.9) % Plt Count 379 (140-440) K/mm3 Comprehensive Metabolic Panel 11/22/19 Range/Units 07:40 Sodium 135 L (137-145) mmol/L Potassium 4.6 (3.6-5.0) mmol/L Chloride 104.1 (98-107) mmol/L Carbon Dioxide 16 L (22-30) mmol/L BUN 59 H (7-17) mg/dL Creatinine 2.9 H (0.6-1.2) mg/dL Glucose 277 H (65-100) mg/dL Calcium 8.3 L (8.4-10.2) mg/dL - Imaging and Cardiology EKG: report reviewed, image reviewed Echo: report reviewed (10/12/2019 showed EF 35-40%, grade 1 diastolic dysfunction. )
--- NOTE | 2019-11-22 14:42 | Event Note ---
Date: 11/21/19 Patient seen and examined The pt is a 69 YO female with a past medical history of HTN, DM, CKD III, PVD s/p right trans metatarsal amputation, chronic bilateral lymphedema, DVT/PE anticoagulated with Eliquis, morbid obesity presented to the hospital with worsening shortness of breath Patient being evaluated for possible PE and CHF exacerbation Continue current management and plan, cardiology following Monitor renal function, continue supportive care, resume home meds
--- NOTE | 2019-11-22 14:54 | Progress Note ---
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) - monitor at telemetry bed - monitor with serial CE and EKG - cont on Aspirin, statin, and Lasix IV - consulted cardiology -TTE done 10/12/2019 showed EF 35-40% with grade 1 diastolic dysfunction - daily weights, monitor in's and O's /Acute hypoxic respiratory failure -O2 sat on room air is 85% -Likely due to CHF exacerbation, continue diuretics and breathing treatment -Supplemental O2 to keep oxygen saturation greater than 92% //Acute metabolic encephalopathy, multifactorial - cont supportive care /Leukocytosis, cannot rule out sepsis -likely from UTI and bilateral lower extremity cellulitis UA suggestive for UTI, patient also have significant bilateral lower extremity erythremia and rash cont on antibiotics, follow blood culture We will consult ID /UTI with sepsis continue antibiotics for now follow culture /Bilateral lower extremity cellulitis, continue antibiotics, / CKD (chronic kidney disease) per [facility] records, cr fluctuates between 2-3 cr today 2.9, will consult nephrology / HTN (hypertension) resumed home meds / Diabetes mellitus type 2 Consistent carb diet, sliding scale of insulin / PVD (peripheral vascular disease) Continue aspirin and statin / S/P transmetatarsal amputation of foot Continue supportive care /Chronic lymphedema IV diuretics as tolerated / Elevated troponin-NSTEMI type II Continue medical management, cardiology following /Morbid obesity -Dietary education when clinically stable /Elevated d-dimer, VQ scan showed low probability for PE --DVT prophylaxis, continue on Eliquis 10/21: Patient's white count elevated up to 24,000, blood culture is negative. UA suggestive for UTI also has significant erythema and rash on bilateral lower extremity. Will change antibiotic to Rocephin. Will consult ID. We will continue IV diuretics. Creatinine increased from 2.0-2.9. We will also consult nephrology. Repeat BMP in the morning. Brief history: The pt is a 69 YO female with a past medical history of HTN, DM, CKD III, PVD s/p right trans metatarsal amputation, chronic bilateral lymphedema, DVT/PE anticoagulated with Eliquis, morbid obesity presented to the hospital with worsening shortness of breath. Patient also noted UTI and lower extremity cellulitis with sepsis. Subjective Date of service: 11/22/19 Interval history: Patient seen and examined appears appears confused, restless poor historian vitals noted Objective - Exam Narrative Exam: General appearance: Alert agiated confused in NAD Eyes: anicteric sclerae, moist conjunctivae; no lid-lag; PERRLA HENT: Atraumatic; oropharynx limited Lungs: CTA CV: RRR no murmur Abdomen: Soft, non-tender; unbilicus with nodules Extremities: alanna marked edema papillomatosis Skin: alanna legs lymphadema skin changes Psych: agitated confused Neuro: alert and oriented x 3. Moving all extermities - Constitutional Vitals: Vital Signs - 12hr 11/22/19 11/22/19 11/22/19 04:00 04:36 04:41 Temperature 101.5 F H Pulse Rate 63 65 Respiratory 20 Rate Blood Pressure 144/68 Blood Pressure [Left] O2 Sat by Pulse 94 Oximetry 11/22/19 11/22/19 11/22/19 08:25 08:31 09:37 Temperature Pulse Rate Respiratory Rate Blood Pressure 119/65 119/70 Blood Pressure [Left] O2 Sat by Pulse 95 Oximetry 11/22/19 11/22/19 11/22/19 09:45 11:00 12:49 Temperature 99.2 F 100.6 F H Pulse Rate 60 Respiratory 20 20 Rate Blood Pressure Blood Pressure 151/67 [Left] O2 Sat by Pulse Oximetry - Labs CBC & Chem 7: 11/24/19 09:55 11/24/19 04:50 Labs: Abnormal lab results 11/21/19 11/21/19 11/22/19 Range/Units 16:31 22:24 07:40 WBC 24.0 H (4.5-11.0) K/mm3 RBC 3.24 L (3.65-5.03) M/mm3 Hgb 8.7 L (10.1-14.3) gm/dl Hct 26.6 L (30.3-42.9) % MCH 27 L (28-32) pg Seg Neuts % (Manual) 96.0 H (40.0-70.0) % Lymphocytes % (Manual) 1.0 L (13.4-35.0) % Seg Neutrophils # Man 23.0 H (1.8-7.7) K/mm3 Lymphocytes # (Manual) 0.2 L (1.2-5.4) K/mm3 PT (12.2-14.9) Sec. INR (0.87-1.13) Sodium (137-145) mmol/L Carbon Dioxide (22-30) mmol/L BUN (7-17) mg/dL Creatinine (0.6-1.2) mg/dL Glucose (65-100) mg/dL POC Glucose 329 H 297 H (70-105) Calcium (8.4-10.2) mg/dL Urine WBC (Auto) (0.0-6.0) /HPF 11/22/19 11/22/19 11/22/19 Range/Units 07:40 07:40 11:17 WBC (4.5-11.0) K/mm3 RBC (3.65-5.03) M/mm3 Hgb (10.1-14.3) gm/dl Hct (30.3-42.9) % MCH (28-32) pg Seg Neuts % (Manual) (40.0-70.0) % Lymphocytes % (Manual) (13.4-35.0) % Seg Neutrophils # Man (1.8-7.7) K/mm3 Lymphocytes # (Manual) (1.2-5.4) K/mm3 PT 21.1 H (12.2-14.9) Sec. INR 1.78 H (0.87-1.13) Sodium 135 L (137-145) mmol/L Carbon Dioxide 16 L (22-30) mmol/L BUN 59 H (7-17) mg/dL Creatinine 2.9 H (0.6-1.2) mg/dL Glucose 277 H (65-100) mg/dL POC Glucose 265 H (70-105) Calcium 8.3 L (8.4-10.2) mg/dL Urine WBC (Auto) (0.0-6.0) /HPF 11/22/19 Range/Units Unknown WBC (4.5-11.0) K/mm3 RBC (3.65-5.03) M/mm3 Hgb (10.1-14.3) gm/dl Hct (30.3-42.9) % MCH (28-32) pg Seg Neuts % (Manual) (40.0-70.0) % Lymphocytes % (Manual) (13.4-35.0) % Seg Neutrophils # Man (1.8-7.7) K/mm3 Lymphocytes # (Manual) (1.2-5.4) K/mm3 PT (12.2-14.9) Sec. INR (0.87-1.13) Sodium (137-145) mmol/L Carbon Dioxide (22-30) mmol/L BUN (7-17) mg/dL Creatinine (0.6-1.2) mg/dL Glucose (65-100) mg/dL POC Glucose (70-105) Calcium (8.4-10.2) mg/dL Urine WBC (Auto) 159.0 H (0.0-6.0) /HPF HEART Score - HEART Score Troponin: Troponin T 0.023 ng/mL (0.00-0.029) 11/21/19 10:02
--- NOTE | 2019-11-22 15:24 | Consultation ---
History of Present Illness - Reason for Consult Consult date: 11/22/19 Sepsis Requesting physician: IRASEMA MCMANUS - History of Present Illness 69 years old female with history of hypertension, diabetes mellitus, obesity, bilateral leg lymphedema, CHF, possible DVT on Eliquis, admitted on 11/20/2019 due to 24 hours history of worsening shortness of breath and chest pain. Patient also reported dyspnea on exertion. She does report mild cough. Patient is a wheelchair-bound, ambulates occasionally with a walker. Patient denies any nausea, vomiting, headaches, diarrhea, cough. Patient was recently discharged from [facility] for similar symptoms. During that admission, COVID-19 test was negative. On arrival, temperature 100, HR 46, RR 16, O2 sat 96%, blood pressure 115/50. Initial WBC 21.4. Hemoglobin 9.2. Platelets 496. CRP 2. Glucose 286. Chest x-ray negative for consolidation. VQ scan low probability for PE. Urinalysis shows 159 WBCs and large leukocytes esterase. MRSA PCR positive. Blood culture 11/21/2019 no growth today. Review of Systems: positive in bold print General: fever, chills, malaise Cutaneous: rash, pruritus Head: headaches or injury Eyes: changes in vision, eye pain, double vision Ears: ear pain, ear discharge, ringing or hearing loss Nose: nose bleeding, stuffiness Mouth & throat: bleeding gums, horseness, no dental problems, or swollen glands Neck: no pain, node enlargement/lumps, tyroid enlargement or tenderness Respiratory: SOB, cough, PALACIOS, wheezing, sputum, hemoptysis, pleuritic chest pain Cardiovascular: chest pain, leg edema, cyanosis, PALACIOS, orthopnea Musculoskeletal: edema, deformities, pain Gastrointestinal: nausea, vomiting, hematemesis, diarrhea, constipation, melena, bright red blood in stools, fecal incontinence, jaundice Genitourinary/Reproductive: frequent urination, dysuria, hematuria, incontinence Neurogical: seizures, headaches, weakness, paresthesias, loss of speech or vision; memory loss, vertigo, tremors, numbness Psychiatric: stable mood; excessive anxiety, sadness or moodiness Past History Past Medical History: diabetes, hypertension, other (Obesity, lymphedema) Past Surgical History: Other (Partial right foot amputation) Social history: no significant social history Family history: no significant family history Medications and Allergies Allergies Allergy/AdvReac Type Severity Reaction Status Date / Time Sulfa (Sulfonamide Allergy Unknown Verified 11/20/19 20:05 Antibiotics) Home Medications Medication Instructions Recorded Confirmed Last Taken Type Unobtainable 11/20/19 11/20/19 Unknown History Active Meds: Active Medications Acetaminophen (Tylenol) 650 mg PO Q4H PRN PRN Reason: Pain MILD(1-3)/Fever >100.5/AVERY Last Admin: 11/22/19 12:08 Dose: 650 mg Documented by: Apixaban (Eliquis) 2.5 mg PO Q12HR [facility]; Protocol Aspirin (Baby Aspirin) 81 mg PO QDAY [facility] Last Admin: 11/22/19 09:37 Dose: 81 mg Documented by: Atorvastatin Calcium (Lipitor) 40 mg PO QHS [facility] Last Admin: 11/21/19 22:41 Dose: 40 mg Documented by: Clopidogrel Bisulfate (Plavix) 75 mg PO QDAY [facility] Last Admin: 11/22/19 09:37 Dose: 75 mg Documented by: Dextrose (D50w (25gm) Syringe) 0 ml IV Q30MIN PRN; Protocol PRN Reason: Hypoglycemia Hydralazine HCl (Apresoline) 10 mg IV Q6H PRN PRN Reason: FOR SBP > target Ceftriaxone Sodium (Rocephin/Ns 2 Gm/100 Ml) 2 gm in 100 mls @ 200 mls/hr IV Q12H [facility]; Protocol Insulin Human Lispro (Humalog) 0 unit SUB-Q ACHS [facility]; Protocol Last Admin: 11/22/19 12:44 Dose: 4 unit Documented by: Isosorbide Mononitrate (Imdur) 30 mg PO QDAY [facility] Last Admin: 11/22/19 09:37 Dose: 30 mg Documented by: Morphine Sulfate (Morphine) 2 mg IV Q5MIN PRN PRN Reason: Chest Pain unrelieved by NTG Last Admin: 11/21/19 10:50 Dose: 2 mg Documented by: Nitroglycerin (Nitrostat) 0.4 mg SL Q5M PRN PRN Reason: Chest Pain Ondansetron HCl (Zofran) 4 mg IV Q8H PRN PRN Reason: Nausea And Vomiting Sodium Chloride (Sodium Chloride Flush Syringe 10 Ml) 10 ml IV BID [facility] Last Admin: 11/22/19 09:46 Dose: 10 ml Documented by: Sodium Chloride (Sodium Chloride Flush Syringe 10 Ml) 10 ml IV PRN PRN PRN Reason: LINE FLUSH Physical Examination - Physical Exam Narrative exam: General appearance: Alert agiated confused in NAD Eyes: anicteric sclerae, moist conjunctivae; no lid-lag; PERRLA HENT: Atraumatic; oropharynx limited Lungs: CTA CV: RRR no murmur Abdomen: Soft, non-tender; unbilicus with nodules Extremities: alanna marked edema papillomatosis Skin: alanna legs lymphadema skin changes Psych: agitated confused Neuro: alert and oriented x 3. Moving all extermities - Constitutional Vitals: Vital Signs Temp Pulse Resp BP Pulse Ox 100.6 F H 60 20 151/67 95 11/22/19 12:49 11/22/19 12:49 11/22/19 12:49 11/22/19 12:49 11/22/19 08:25 Temperature -Last 24 Hours Temperature 100.6 F Temperature 99.2 F Temperature 101.5 F Temperature 100.4 F Temperature 101.2 F Temperature 100.9 F Results - Labs CBC & Chem 7: 11/22/19 07:40 11/22/19 07:40 Labs: Abnormal lab results 11/21/19 11/21/19 11/22/19 Range/Units 16:31 22:24 07:40 WBC 24.0 H (4.5-11.0) K/mm3 RBC 3.24 L (3.65-5.03) M/mm3 Hgb 8.7 L (10.1-14.3) gm/dl Hct 26.6 L (30.3-42.9) % MCH 27 L (28-32) pg Seg Neuts % (Manual) 96.0 H (40.0-70.0) % Lymphocytes % (Manual) 1.0 L (13.4-35.0) % Seg Neutrophils # Man 23.0 H (1.8-7.7) K/mm3 Lymphocytes # (Manual) 0.2 L (1.2-5.4) K/mm3 PT (12.2-14.9) Sec. INR (0.87-1.13) Sodium (137-145) mmol/L Carbon Dioxide (22-30) mmol/L BUN (7-17) mg/dL Creatinine (0.6-1.2) mg/dL Glucose (65-100) mg/dL POC Glucose 329 H 297 H (70-105) Calcium (8.4-10.2) mg/dL Urine WBC (Auto) (0.0-6.0) /HPF 11/22/19 11/22/19 11/22/19 Range/Units 07:40 07:40 11:17 WBC (4.5-11.0) K/mm3 RBC (3.65-5.03) M/mm3 Hgb (10.1-14.3) gm/dl Hct (30.3-42.9) % MCH (28-32) pg Seg Neuts % (Manual) (40.0-70.0) % Lymphocytes % (Manual) (13.4-35.0) % Seg Neutrophils # Man (1.8-7.7) K/mm3 Lymphocytes # (Manual) (1.2-5.4) K/mm3 PT 21.1 H (12.2-14.9) Sec. INR 1.78 H (0.87-1.13) Sodium 135 L (137-145) mmol/L Carbon Dioxide 16 L (22-30) mmol/L BUN 59 H (7-17) mg/dL Creatinine 2.9 H (0.6-1.2) mg/dL Glucose 277 H (65-100) mg/dL POC Glucose 265 H (70-105) Calcium 8.3 L (8.4-10.2) mg/dL Urine WBC (Auto) (0.0-6.0) /HPF 11/22/19 Range/Units Unknown WBC (4.5-11.0) K/mm3 RBC (3.65-5.03) M/mm3 Hgb (10.1-14.3) gm/dl Hct (30.3-42.9) % MCH (28-32) pg Seg Neuts % (Manual) (40.0-70.0) % Lymphocytes % (Manual) (13.4-35.0) % Seg Neutrophils # Man (1.8-7.7) K/mm3 Lymphocytes # (Manual) (1.2-5.4) K/mm3 PT (12.2-14.9) Sec. INR (0.87-1.13) Sodium (137-145) mmol/L Carbon Dioxide (22-30) mmol/L BUN (7-17) mg/dL Creatinine (0.6-1.2) mg/dL Glucose (65-100) mg/dL POC Glucose (70-105) Calcium (8.4-10.2) mg/dL Urine WBC (Auto) 159.0 H (0.0-6.0) /HPF Assessment and Plan Cultures: MRSA PCR positive Blood cultures no growth today Assessment: 69 years old female with history of hypertension, diabetes mellitus, morbid obesity, bilateral leg lymphedema, CHF, possible DVT on Eliquis, admitted on 11/20/2019 due to 24 hours history of worsening shortness of breath and chest pain: #Sepsis: present on admission with fever, hypoxia, source likely UTI #UTI: urine culture pending #Bilateral lymphedema with stasis dermatitis > cellulitis #Possible CHF exacerbation #Acute kidney disease: remally adjust abx #Diabetes mellitus with hyperglycemia Recommendations: Follow-up blood culture and urine culture Continue ceftriaxone 2 g IV once a day Continue vancomycin renally adjusted tight glucose control Will follow. Jacqueline Ac MD Infectious Diseases [employer] Supervisor [facility] M [phone] O [phone]
[2019-11-22 15:43] LABS: ABG Base Excess -4.4 mmol/L (-2.0-3.0); ABG HCO3 19.3 mmol/L (20.0-26.0); ABG Methemoglobin 0.6 % (0.0-1.5); ABG PCO2 30.2 mm Hg; ABG PH 7.424 pH Units (7.350-7.450); ABG PO2 66.5 mm Hg (80.0-90.0)
[2019-11-22] MEDS: cefTRIAXone/NS 2 GM/100 ML 2 GM/100 ML BAG IV SCH (16:21)
[2019-11-22] MEDS ORDERED: VANCOMYCIN/NS 1 GM/250 ML 1 GM/250 ML BAG IV SCH (17:00)
[2019-11-22] MEDS ORDERED: VANCOMYCIN PHARMACY TO DOSE IV SCH (17:00)
[2019-11-22] MEDS: APIXABAN 2.5 MG TAB PO SCH (21:00)
[2019-11-22] MEDS ORDERED: ACETAMINOPHEN 650 MG RECT SUPP PR PRN (21:06)
[2019-11-23] MEDS: cefTRIAXone/NS 2 GM/100 ML 2 GM/100 ML BAG IV SCH (04:12)
[2019-11-23] MEDS: ACETAMINOPHEN 325 MG TAB PO PRN ×3 (04:12→21:20)
[2019-11-23] MEDS: INSULIN LISPRO 100 UNIT/ML VIAL 3 mL SUB-Q SCH ×4 (07:30→21:21)
--- NOTE | 2019-11-23 09:02 | Consultation ---
History of Present Illness - Reason for Consult Consult date: 11/23/19 acute renal failure - History of Present Illness The patient is a 69 YO female with history significant for Morbid Obesity, Hypertension, Diabetes mellitus, chronic lymphedema and prior DVT/PE on Eliquis who presented to [facility] ED 11/19 with complaints of shortness of breath and chest pain of one day duration. Patient is a very poor historian and there was no family member at the bedside. Shortness of breath worse on exertion. Patient is wheelchair-bound but she ambulates occasionally with a walker. She denied any nausea, vomiting, headache, dizziness, palpitation or diaphoresis. Patient was recently discharged from [facility] for similar symptoms. Per notes she was tested for COVID-19 while at [facility] and was found to be negative. She has had some mild cough which was nonproductive and he also indicated she had a low-grade fever when she was discharged. Evaluation in the ED showed elevated d-dimer , elevated troponin and elevated BNP. Chest x-ray shows cardiomegaly. V/Q scan showed low probability for pulmonary embolism. Her BP has been low and having fever in the hospital. Creatinine level has gradually increased to 2.9 from 2. Nephrology was consulted for further evaluation. Past History Past Medical History: arrhythmia, CAD, diabetes, hypertension, pulmonary embolism, other (Obesity, lymphedema) Past Surgical History: Other (Partial right foot amputation) Social history: no significant social history Family history: no significant family history Medications and Allergies Allergies Allergy/AdvReac Type Severity Reaction Status Date / Time Sulfa (Sulfonamide Allergy Unknown Verified 11/20/19 20:05 Antibiotics) Home Medications Medication Instructions Recorded Confirmed Last Taken Type Unobtainable 11/20/19 11/20/19 Unknown History Active Meds: Active Medications Acetaminophen (Tylenol) 650 mg PO Q4H PRN PRN Reason: Pain MILD(1-3)/Fever >100.5/AVERY Last Admin: 11/23/19 04:12 Dose: 650 mg Documented by: Acetaminophen (Tylenol) 650 mg CO Q4H PRN PRN Reason: Pain, Mild (1-3) Last Admin: 11/22/19 21:15 Dose: 650 mg Documented by: Apixaban (Eliquis) 2.5 mg PO Q12HR [facility]; Protocol Last Admin: 11/22/19 21:00 Dose: 2.5 mg Documented by: Aspirin (Baby Aspirin) 81 mg PO QDAY [facility] Last Admin: 11/22/19 09:37 Dose: 81 mg Documented by: Atorvastatin Calcium (Lipitor) 40 mg PO QHS [facility] Last Admin: 11/22/19 21:00 Dose: 40 mg Documented by: Clopidogrel Bisulfate (Plavix) 75 mg PO QDAY [facility] Last Admin: 11/22/19 09:37 Dose: 75 mg Documented by: Dextrose (D50w (25gm) Syringe) 0 ml IV Q30MIN PRN; Protocol PRN Reason: Hypoglycemia Hydralazine HCl (Apresoline) 10 mg IV Q6H PRN PRN Reason: FOR SBP > target Ceftriaxone Sodium (Rocephin/Ns 2 Gm/100 Ml) 2 gm in 100 mls @ 200 mls/hr IV Q24HR [facility]; Protocol Insulin Human Lispro (Humalog) 0 unit SUB-Q ACHS [facility]; Protocol Last Admin: 11/22/19 23:58 Dose: 3 unit Documented by: Isosorbide Mononitrate (Imdur) 30 mg PO QDAY [facility] Last Admin: 11/22/19 09:37 Dose: 30 mg Documented by: Morphine Sulfate (Morphine) 2 mg IV Q5MIN PRN PRN Reason: Chest Pain unrelieved by NTG Last Admin: 11/21/19 10:50 Dose: 2 mg Documented by: Nitroglycerin (Nitrostat) 0.4 mg SL Q5M PRN PRN Reason: Chest Pain Ondansetron HCl (Zofran) 4 mg IV Q8H PRN PRN Reason: Nausea And Vomiting Sodium Chloride (Sodium Chloride Flush Syringe 10 Ml) 10 ml IV BID [facility] Last Admin: 11/22/19 21:00 Dose: 10 ml Documented by: Sodium Chloride (Sodium Chloride Flush Syringe 10 Ml) 10 ml IV PRN PRN PRN Reason: LINE FLUSH Review of Systems ROS unobtainable: due to mental status Exam - Vital Signs Vital signs: Vital Signs Temp Pulse Resp BP Pulse Ox 100 F H 46 L 16 115/50 96 11/20/19 20:05 11/20/19 20:05 11/20/19 20:05 11/20/19 20:05 11/20/19 20:05 - General Appearance General appearance: well-developed, well-nourished, appears stated age, obese, other (no distress) EENT: ATNC, PERRL, hearing intact, vision intact Neck: Present: neck supple, trachea midline Respiratory: Clear to Ascultation Heart: regular, S1S2, no murmurs Gastrointestinal: Present: normoactive bowel sounds, obese. Absent: tenderness Integumentary: chronic venous stasis, other (R leg dressing) Neurologic: confused, disoriented, other (able to move extremities) Musculoskeletal: Present: other (b/l LE lymphedema noted, R TMA) Psychiatric: cooperative Results - Lab Results 11/22/19 07:40 11/23/19 08:57 Most recent lab results ABG pH 7.424 pH Units (7.350-7.450) 11/22/19 15:24 ABG pCO2 30.2 mm Hg 11/22/19 15:24 ABG pO2 66.5 mm Hg (80.0-90.0) L 11/22/19 15:24 ABG HCO3 19.3 mmol/L (20.0-26.0) L 11/22/19 15:24 ABG O2 Saturation 94.0 % (95.0-99.0) L 11/22/19 15:24 Calcium 8.3 mg/dL (8.4-10.2) L 11/22/19 07:40 - Image Kidney/bladder ultrasound: pending Assessment and Plan 1. Acute kidney injury: Vasomotor JI superimposed on CKD stage 3 in the setting of hypotension. Urine studies and Renal US ordered. Monitor renal function. Creatinine level is slightly better today. Avoid nephrotoxic agents. Meds dosage based on GFR. 2. FEN: Metabolic acidosis, Sodium bicarbonate, monitor. Monitor lytes and volume status. 3. Acute combined systolic and diastolic HFrEF: Followed Cardiology. TTE done 10/12/2019 showed EF 35-40% with grade 1 diastolic dysfunction Daily weights, monitor in's and O's. 4. Elevated troponin-NSTEMI type II: Continue medical management, Cardiology following. 5. Acute hypoxic respiratory failure: O2 sat on room air was 85%. Likely due to CHF exacerbation. Supplemental O2. 6. SIRS: Leukocytosis. UTI vs LE wound infection. Continue abx. 7. Acute metabolic encephalopathy, POA. Continue supportive care. 8. Hypertension: BP is on the lowside. Monitor. 9. Normochromic anemia, POA. 10. Diabetes mellitus type 2: Consistent low carb diet and sliding scale of insulin. 11. Chronic lymphedema. 12. Elevated d-dimer: V/Q scan showed low probability for PE.
[2019-11-23 09:30] LABS: Calcium 8.7 mg/dL (8.4-10.2)
[2019-11-23] MEDS: CLOPIDOGREL 75 MG TAB PO SCH (09:49)
[2019-11-23] MEDS: APIXABAN 2.5 MG TAB PO SCH ×2 (09:49→21:21)
[2019-11-23] MEDS: ASPIRIN 81 MG TAB CHEW PO SCH (09:49)
[2019-11-23] MEDS: MORPHINE 2 MG/1 ML INJ IV PRN ×2 (10:43→14:50)
[2019-11-23] MEDS ORDERED: VANCOMYCIN/NS 1 GM/250 ML 1 GM/250 ML BAG IV ONE (11:00)
--- NOTE | 2019-11-23 11:00 | Progress Note ---
Assessment and Plan clinically improving tele unremarkable tte reviewed nephrology on board for a/ckd Decrease eliquis dosing (GFR ~ 20) No plans for additional cardiac w/u at this time. Will follow. - Patient Problems (1) Acute HFrEF (heart failure with reduced ejection fraction) Current Visit: Yes Status: Acute (2) CHF (congestive heart failure) Current Visit: Yes Status: Acute (3) CKD (chronic kidney disease) Current Visit: Yes Status: Acute (4) Cardiomyopathy Current Visit: Yes Status: Acute (5) custodial (current) use of anticoagulants Current Visit: Yes Status: Acute (6) Renal insufficiency Current Visit: Yes Status: Acute (7) Diabetes mellitus Current Visit: Yes Status: Chronic (8) HTN (hypertension) Current Visit: Yes Status: Chronic (9) Lymphedema Current Visit: Yes Status: Chronic (10) PVD (peripheral vascular disease) Current Visit: Yes Status: Chronic (11) S/P transmetatarsal amputation of foot Current Visit: Yes Status: Chronic Subjective Interval history: pt feels better Objective Vital Signs Temp Pulse Resp BP BP Pulse Ox 11/23/19 09:49 106 H 132/76 11/23/19 08:00 97.9 F 106 H 19 132/70 2 L 11/23/19 04:41 99.6 F 108 H 22 141/71 96 11/23/19 04:00 101 H 11/23/19 00:26 99.7 F H 99 H 18 165/78 100 11/22/19 23:00 20 11/22/19 22:19 100.8 F H 11/22/19 21:10 98 11/22/19 20:24 102.5 F H 99 H 22 154/77 97 11/22/19 15:32 98.9 F 86 20 137/74 97 11/22/19 12:49 100.6 F H 60 20 151/67 11/22/19 12:00 88 11/22/19 11:00 20 - Physical Examination HEENT: Positive: PERRL, Normocephaly, Mucus Membranes Moist Neck: Positive: neck supple, trachea midline Neuro: Positive: Grossly Intact Abdomen: Negative: Ascites Skin: Positive: Other (BLE chroc skin changes noted, BLE blistering) Musculoskeletal: other (right trans metatarsal amputation, BLE lymphedema) Extremities: Present: +3 Edema (lymphedema) - Labs and Meds Comprehensive Metabolic Panel 11/23/19 Range/Units 08:57 Sodium 141 (137-145) mmol/L Potassium 3.8 (3.6-5.0) mmol/L Chloride 108.5 H (98-107) mmol/L Carbon Dioxide 16 L (22-30) mmol/L BUN 53 H (7-17) mg/dL Creatinine 2.3 H (0.6-1.2) mg/dL Glucose 244 H (65-100) mg/dL Calcium 8.7 (8.4-10.2) mg/dL - Imaging and Cardiology EKG: report reviewed, image reviewed Echo: report reviewed (10/12/2019 showed EF 35-40%, grade 1 diastolic dysfunction. )
[2019-11-23] MEDS: SODIUM BICARBONATE 650 MG TAB PO SCH ×2 (13:18→21:20)
[2019-11-23 14:44] LABS: Hematocrit 29.2 % (30.3-42.9); Hemoglobin 9.2 gm/dl (10.1-14.3); Mean Corpuscular HGB Conc 31 % (30-34); Mean Corpuscular Volume 87 fl (79-97); Platelet Count 448 K/mm3 (140-440); Red Blood Count 3.36 M/mm3 (3.65-5.03); Red Cell Distribution Width 15.9 % (13.2-15.2)
--- NOTE | 2019-11-23 17:47 | Progress Note ---
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) - monitor at telemetry bed - monitor with serial CE and EKG - cont on Aspirin, statin, and Lasix IV - consulted cardiology -TTE done 10/12/2019 showed EF 35-40% with grade 1 diastolic dysfunction - daily weights, monitor in's and O's /Acute hypoxic respiratory failure -O2 sat on room air is 85% -Likely due to CHF exacerbation, continue diuretics and breathing treatment -Supplemental O2 to keep oxygen saturation greater than 92% /Acute metabolic encephalopathy, multifactorial - cont supportive care /Leukocytosis with sepsis -likely from UTI and bilateral lower extremity cellulitis UA suggestive for UTI, patient also have significant bilateral lower extremity erythremia and rash cont on antibiotics, follow blood culture consulted ID /UTI with sepsis continue antibiotics for now follow culture /Bilateral lower extremity cellulitis, continue antibiotics, / CKD (chronic kidney disease) per [place] records, cr fluctuates between 2-3 cr today 2.9, will consult nephrology / HTN (hypertension) resumed home meds / Diabetes mellitus type 2 Consistent carb diet, sliding scale of insulin / PVD (peripheral vascular disease) Continue aspirin and statin / S/P transmetatarsal amputation of foot Continue supportive care /Chronic lymphedema IV diuretics as tolerated / Elevated troponin-NSTEMI type II Continue medical management, cardiology following /Morbid obesity -Dietary education when clinically stable /Elevated d-dimer, VQ scan showed low probability for PE --DVT prophylaxis, continue on Eliquis 10/21: Patient's white count elevated up to 24,000, blood culture is negative. UA suggestive for UTI also has significant erythema and rash on bilateral lower extremity. Will change antibiotic to Rocephin. Will consult ID. We will continue IV diuretics. Creatinine increased from 2.0-2.9. We will also consult nephrology. Repeat BMP in the morning. 10/22: pt not eating, add nutrition boost, follow BMP and ID recommendation Brief history: The pt is a 69 YO female with a past medical history of HTN, DM, CKD III, PVD s/p right trans metatarsal amputation, chronic bilateral lymphedema, DVT/PE anticoagulated with Eliquis, morbid obesity presented to the hospital with worsening shortness of breath. Patient also noted UTI and lower extremity cellulitis with sepsis. Subjective Date of service: 11/23/19 Interval history: Patient seen and examined appears remains confused, restless poor historian vitals noted Objective - Exam Narrative Exam: General appearance: Alert agiated confused in NAD Eyes: anicteric sclerae, moist conjunctivae; no lid-lag; PERRLA HENT: Atraumatic; oropharynx limited Lungs: CTA CV: RRR no murmur Abdomen: Soft, non-tender; unbilicus with nodules Extremities: alanna marked edema papillomatosis Skin: alanna legs lymphadema skin changes Psych: agitated confused Neuro: alert and oriented x 3. Moving all extermities - Constitutional Vitals: Vital Signs - 12hr 11/23/19 11/23/19 11/23/19 08:00 09:49 10:00 Temperature 97.9 F Pulse Rate 106 H 106 H 96 H Pulse Rate [ From Monitor] Respiratory 19 Rate Blood Pressure 132/76 Blood Pressure 132/70 [Left] O2 Sat by Pulse 2 L 98 Oximetry 11/23/19 11:00 Temperature Pulse Rate Pulse Rate [ 106 H From Monitor] Respiratory 22 Rate Blood Pressure Blood Pressure [Left] O2 Sat by Pulse Oximetry - Labs CBC & Chem 7: 11/24/19 09:55 11/24/19 04:50 Labs: Abnormal lab results 11/22/19 11/23/19 11/23/19 Range/Units 22:48 07:55 08:57 WBC (4.5-11.0) K/mm3 RBC (3.65-5.03) M/mm3 Hgb (10.1-14.3) gm/dl Hct (30.3-42.9) % MCH (28-32) pg RDW (13.2-15.2) % Plt Count (140-440) K/mm3 Chloride 108.5 H (98-107) mmol/L Carbon Dioxide 16 L (22-30) mmol/L BUN 53 H (7-17) mg/dL Creatinine 2.3 H (0.6-1.2) mg/dL Glucose 244 H (65-100) mg/dL POC Glucose 226 H 219 H (70-105) 11/23/19 11/23/19 11/23/19 Range/Units 11:56 13:59 16:12 WBC 27.3 H (4.5-11.0) K/mm3 RBC 3.36 L (3.65-5.03) M/mm3 Hgb 9.2 L (10.1-14.3) gm/dl Hct 29.2 L (30.3-42.9) % MCH 27 L (28-32) pg RDW 15.9 H (13.2-15.2) % Plt Count 448 H (140-440) K/mm3 Chloride (98-107) mmol/L Carbon Dioxide (22-30) mmol/L BUN (7-17) mg/dL Creatinine (0.6-1.2) mg/dL Glucose (65-100) mg/dL POC Glucose 333 H 288 H (70-105) HEART Score - HEART Score Troponin: Troponin T 0.023 ng/mL (0.00-0.029) 11/21/19 10:02
[2019-11-24 05:34] LABS: Calcium 8.6 mg/dL (8.4-10.2)
--- NOTE | 2019-11-24 10:19 | Progress Note ---
Assessment and Plan 1. Acute kidney injury: Vasomotor JI superimposed on CKD stage 3 in the setting of hypotension. Urine studies and Renal US ordered. Monitor renal function. Creatinine level is improving. Avoid nephrotoxic agents. Meds dosage based on GFR. 2. FEN: Metabolic acidosis, PO Sodium bicarbonate, monitor. Monitor lytes and volume status. 3. Acute combined systolic and diastolic HFrEF: Followed Cardiology. TTE done 10/12/2019 showed EF 35-40% with grade 1 diastolic dysfunction Daily weights, monitor in's and O's. 4. Elevated troponin-NSTEMI type II: Continue medical management, Cardiology following. 5. Acute hypoxic respiratory failure: O2 sat on room air was 85%. Likely due to CHF exacerbation. Supplemental O2. 6. SIRS: Leukocytosis. UTI vs LE wound infection. Continue abx. 7. Acute metabolic encephalopathy, POA. Continue supportive care. 8. Hypertension: Monitor BP. 9. Normochromic anemia, POA. 10. Diabetes mellitus type 2: Consistent low carb diet and sliding scale of insulin. 11. Chronic lymphedema. 12. Elevated d-dimer: V/Q scan showed low probability for PE. - Subjective: Patient was seen and examined at the bedside. No new complaint. - General Appearance General appearance: well-developed, well-nourished, appears stated age, obese, no distress HEENT: ATNC, PERRL, hearing intact, vision intact Neck: neck supple, trachea midline Respiratory: Clear to Ascultation Heart: regular, S1S2, no murmurs Gastrointestinal: obese, normoactive bowel sounds, not tenderness Integumentary: chronic venous stasis, R leg dressing Neurologic: confused, disoriented, able to move extremities Ext: b/l LE lymphedema noted, R TMA Psychiatric: cooperative Subjective Date of service: 11/24/19 Principal diagnosis: HF; CKD; PVD Objective - Vital Signs Vital signs: Vital Signs - 12hr 11/23/19 11/23/19 11/24/19 23:23 23:24 03:53 Temperature 99.4 F 99.5 F Pulse Rate 81 100 H Respiratory 18 18 Rate Blood Pressure 116/62 145/83 O2 Sat by Pulse 96 96 Oximetry 11/24/19 11/24/19 04:00 07:40 Temperature 101.3 F H Pulse Rate 98 H 100 H Respiratory 17 Rate Blood Pressure 143/77 O2 Sat by Pulse 93 Oximetry - Lab 11/24/19 09:55 11/24/19 04:50 Most recent lab results ABG pH 7.424 pH Units (7.350-7.450) 11/22/19 15:24 ABG pCO2 30.2 mm Hg 11/22/19 15:24 ABG pO2 66.5 mm Hg (80.0-90.0) L 11/22/19 15:24 ABG HCO3 19.3 mmol/L (20.0-26.0) L 11/22/19 15:24 ABG O2 Saturation 94.0 % (95.0-99.0) L 11/22/19 15:24 Calcium 8.6 mg/dL (8.4-10.2) 11/24/19 04:50 Phosphorus 2.70 mg/dL (2.5-4.5) 11/24/19 04:50 Medications & Allergies - Medications Allergies/Adverse Reactions: Allergies Sulfa (Sulfonamide Antibiotics) Allergy (Verified 11/20/19 20:05) Unknown Home Medications: Home Medications Medication Instructions Recorded Confirmed Last Taken Type Unobtainable 11/20/19 11/20/19 Unknown History Active Medications: Generic Name Dose Route Start Last Admin Trade Name Freq PRN Reason Stop Dose Admin Acetaminophen 650 mg 11/21/19 03:19 11/23/19 21:20 Tylenol PO 650 mg Q4H PRN Administration Pain MILD(1-3)/Fever >100.5/AVERY Acetaminophen 650 mg 11/22/19 21:06 11/22/19 21:15 Tylenol [place] 650 mg Q4H PRN Administration Pain, Mild (1-3) Apixaban 2.5 mg 11/22/19 22:00 11/23/19 21:21 Eliquis PO 2.5 mg Q12HR GABRIELLE Administration Protocol Aspirin 81 mg 11/22/19 10:00 11/23/19 09:49 Baby Aspirin PO 81 mg QDAY GABRIELLE Administration Atorvastatin Calcium 40 mg 11/21/19 22:00 11/23/19 21:21 Lipitor PO 40 mg QHS GABRIELLE Administration Clopidogrel Bisulfate 75 mg 11/22/19 10:00 11/23/19 09:49 Plavix PO 75 mg QDAY GABRIELLE Administration Dextrose 0 ml 11/21/19 03:19 D50w (25gm) Syringe IV Q30MIN PRN Hypoglycemia Protocol Hydralazine HCl 10 mg 11/21/19 03:19 Apresoline IV Q6H PRN FOR SBP > target Ceftriaxone Sodium 2 gm in 100 mls @ 200 mls/hr 11/24/19 10:00 Rocephin/Ns 2 Gm/100 Ml IV Q24HR GABRIELLE Protocol Insulin Human Lispro 0 unit 11/21/19 07:30 11/23/19 21:21 Humalog SUB-Q 2 unit ACHS GABRIELLE Administration Protocol Isosorbide Mononitrate 30 mg 11/22/19 10:00 11/23/19 09:49 Imdur PO 30 mg QDAY GABRIELLE Administration Morphine Sulfate 2 mg 11/21/19 03:19 11/23/19 14:50 Morphine IV 2 mg Q5MIN PRN Administration Chest Pain unrelieved by NTG Nitroglycerin 0.4 mg 11/21/19 03:19 Nitrostat SL Q5M PRN Chest Pain Ondansetron HCl 4 mg 11/21/19 03:19 Zofran IV Q8H PRN Nausea And Vomiting Sodium Bicarbonate 650 mg 11/23/19 14:00 11/23/19 21:20 Sodium Bicarbonate PO 650 mg TID GABRIELLE Administration Sodium Chloride 10 ml 11/21/19 10:00 11/23/19 21:22 Sodium Chloride Flush Syringe 10 Ml IV 10 ml BID GABRIELLE Administration Sodium Chloride 10 ml 11/21/19 03:19 Sodium Chloride Flush Syringe 10 Ml IV PRN PRN LINE FLUSH
--- NOTE | 2019-11-24 10:19 | Progress Note ---
Assessment and Plan clinically improving tele unremarkable - in SR tte reviewed nephrology on board for a/ckd Decrease eliquis dosing (GFR ~ 20) No plans for additional cardiac w/u at this time. Will follow. The patient has been seen in conjunction with Dr. Jennifer Noriega who agrees with the assessment and plan of care. - Patient Problems (1) Acute HFrEF (heart failure with reduced ejection fraction) Current Visit: Yes Status: Acute (2) Cardiomyopathy Current Visit: Yes Status: Acute (3) Junctional bradycardia Current Visit: Yes Status: Acute Plan to address problem: intermittent (4) CKD (chronic kidney disease) Current Visit: Yes Status: Acute Plan to address problem: per [place] records, cr fluctuates between 2-3 (5) HTN (hypertension) Current Visit: Yes Status: Chronic (6) Diabetes mellitus Current Visit: Yes Status: Chronic (7) PVD (peripheral vascular disease) Current Visit: Yes Status: Chronic (8) S/P transmetatarsal amputation of foot Current Visit: Yes Status: Chronic (9) Lymphedema Current Visit: Yes Status: Chronic (10) Elevated troponin Current Visit: Yes Status: Acute (11) Obesity Current Visit: Yes Status: Chronic Subjective Date of service: 11/24/19 Principal diagnosis: HF; CKD; PVD Interval history: pt resting in bed, feeling better. tele reviewed - in SR HR 90s. Objective Last Vital Signs Temp 101.3 F H 11/24/19 07:40 Pulse 100 H 11/24/19 07:40 Resp 17 11/24/19 07:40 BP 143/77 11/24/19 07:40 Pulse Ox 93 11/24/19 07:40 - Physical Examination General: No Apparent Distress HEENT: Positive: PERRL, Normocephaly, Mucus Membranes Moist Neck: Positive: neck supple, trachea midline Cardiac: Positive: Reg Rate and Rhythm, S1/S2 Lungs: Positive: Decreased Breath Sounds Neuro: Positive: Grossly Intact Abdomen: Negative: Ascites Skin: Positive: Other (BLE chroc skin changes noted, BLE blistering) Musculoskeletal: other (right trans metatarsal amputation, BLE lymphedema) Extremities: Present: +3 Edema (lymphedema) - Labs and Meds CBC 11/23/19 Range/Units 13:59 WBC 27.3 H (4.5-11.0) K/mm3 RBC 3.36 L (3.65-5.03) M/mm3 Hgb 9.2 L (10.1-14.3) gm/dl Hct 29.2 L (30.3-42.9) % Plt Count 448 H (140-440) K/mm3 Comprehensive Metabolic Panel 11/24/19 Range/Units 04:50 Sodium 144 (137-145) mmol/L Potassium 3.7 (3.6-5.0) mmol/L Chloride 110.4 H (98-107) mmol/L Carbon Dioxide 21 L (22-30) mmol/L BUN 45 H (7-17) mg/dL Creatinine 2.0 H (0.6-1.2) mg/dL Glucose 171 H (65-100) mg/dL Calcium 8.6 (8.4-10.2) mg/dL - Imaging and Cardiology EKG: report reviewed, image reviewed Echo: report reviewed (10/12/2019 showed EF 35-40%, grade 1 diastolic dysfunction. )
[2019-11-24] MEDS: cefTRIAXone/NS 2 GM/100 ML 2 GM/100 ML BAG IV SCH (10:32)
[2019-11-24] MEDS: INSULIN LISPRO 100 UNIT/ML VIAL 3 mL SUB-Q SCH ×4 (10:33→22:15)
[2019-11-24] MEDS: SODIUM BICARBONATE 650 MG TAB PO SCH ×3 (10:34→22:14)
[2019-11-24] MEDS: CLOPIDOGREL 75 MG TAB PO SCH (10:35)
[2019-11-24] MEDS: APIXABAN 2.5 MG TAB PO SCH ×2 (10:35→22:14)
[2019-11-24] MEDS: ASPIRIN 81 MG TAB CHEW PO SCH (10:35)
[2019-11-24 10:42] LABS: Hematocrit 27.2 % (30.3-42.9); Hemoglobin 8.7 gm/dl (10.1-14.3); Mean Corpuscular HGB Conc 32 % (30-34); Mean Corpuscular Volume 84 fl (79-97); Platelet Count 446 K/mm3 (140-440); Red Blood Count 3.22 M/mm3 (3.65-5.03); Red Cell Distribution Width 15.7 % (13.2-15.2)
[2019-11-24] MEDS: MORPHINE 2 MG/1 ML INJ IV PRN ×3 (11:17→23:25)
[2019-11-24] MEDS: LINEZOLID 600 MG/300 ML BAG IV SCH ×2 (15:55→22:14)
--- NOTE | 2019-11-24 16:22 | Progress Note ---
Assessment and Plan Cultures: MRSA PCR positive Urine cx 10-100 mixed Blood cultures 11/21/2019 no growth today Blood cultures 11/24/2019 no growth today Assessment: 69 years old female with history of hypertension, diabetes mellitus, morbid obesity, bilateral leg lymphedema, CHF, possible DVT on Eliquis, admitted on 11/20/2019 due to 24 hours history of worsening shortness of breath and chest pain: #Sepsis: present on admission with fever, hypoxia, source likely UTI. Remains with high fever and worsening leukocytosis. #UTI: urine culture mixed bacteria #Bilateral lymphedema with stasis dermatitis > cellulitis #Possible CHF exacerbation #Acute kidney disease: renally adjust abx #Diabetes mellitus with hyperglycemia Recommendations: -Obtain CT chest, abdomen, pelvis without IV contrast -Follow-up blood culture and urine culture -Continue ceftriaxone 2 g IV once a day -Continue vancomycin renally adjusted -tight glucose control Will follow. Jacqueline Ac MD Infectious Diseases Tool Programmer [facility] ([facility]) M [phone] O [phone] Subjective Date of service: 11/24/19 Principal diagnosis: HF; CKD; PVD Objective - Constitutional Vitals: Vital Signs Temp Pulse Resp BP Pulse Ox 100.3 F H 98 H 20 106/49 93 11/24/19 11:59 11/24/19 12:00 11/24/19 16:00 11/24/19 11:59 11/24/19 11:59 Temperature -Last 24 Hours Temperature 100.3 F Temperature 101.3 F Temperature 99.5 F Temperature 99.4 F Temperature 100.9 F - Labs CBC & Chem 7: 11/24/19 09:55 11/24/19 04:50 Labs: Abnormal lab results 11/23/19 11/23/19 11/24/19 Range/Units 16:12 20:47 04:50 WBC (4.5-11.0) K/mm3 RBC (3.65-5.03) M/mm3 Hgb (10.1-14.3) gm/dl Hct (30.3-42.9) % MCH (28-32) pg RDW (13.2-15.2) % Plt Count (140-440) K/mm3 Chloride 110.4 H (98-107) mmol/L Carbon Dioxide 21 L (22-30) mmol/L BUN 45 H (7-17) mg/dL Creatinine 2.0 H (0.6-1.2) mg/dL Glucose 171 H (65-100) mg/dL POC Glucose 288 H 199 H (70-105) 11/24/19 11/24/19 11/24/19 Range/Units 08:02 09:55 12:16 WBC 27.4 H (4.5-11.0) K/mm3 RBC 3.22 L (3.65-5.03) M/mm3 Hgb 8.7 L (10.1-14.3) gm/dl Hct 27.2 L (30.3-42.9) % MCH 27 L (28-32) pg RDW 15.7 H (13.2-15.2) % Plt Count 446 H (140-440) K/mm3 Chloride (98-107) mmol/L Carbon Dioxide (22-30) mmol/L BUN (7-17) mg/dL Creatinine (0.6-1.2) mg/dL Glucose (65-100) mg/dL POC Glucose 195 H 231 H (70-105)
--- NOTE | 2019-11-24 16:34 | Progress Note ---
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) - monitor at telemetry bed - monitor with serial CE and EKG - cont on Aspirin, statin, and Lasix IV - consulted cardiology -TTE done 10/12/2019 showed EF 35-40% with grade 1 diastolic dysfunction - daily weights, monitor in's and O's /Acute hypoxic respiratory failure -O2 sat on room air is 85% -Likely due to CHF exacerbation, continue diuretics and breathing treatment -Supplemental O2 to keep oxygen saturation greater than 92% /Leukocytosis with sepsis -likely from UTI and bilateral lower extremity cellulitis UA suggestive for UTI, patient also have significant bilateral lower extremity erythremia and rash cont on antibiotics, follow blood culture consulted ID, ordered CT chest/abdomen/pelvis /UTI with sepsis continue antibiotics for now follow culture /Bilateral lower extremity cellulitis, continue antibiotics, / CKD (chronic kidney disease) per [place] records, cr fluctuates between 2-3 cr today 2.9, will consult nephrology / HTN (hypertension) resumed home meds / Diabetes mellitus type 2 Consistent carb diet, sliding scale of insulin / PVD (peripheral vascular disease) Continue aspirin and statin / S/P transmetatarsal amputation of foot Continue supportive care /Chronic lymphedema IV diuretics as tolerated / Elevated troponin-NSTEMI type II Continue medical management, cardiology following /Morbid obesity -Dietary education when clinically stable /Elevated d-dimer, VQ scan showed low probability for PE --DVT prophylaxis, continue on Eliquis 10/21: Patient's white count elevated up to 24,000, blood culture is negative. UA suggestive for UTI also has significant erythema and rash on bilateral lower extremity. Will change antibiotic to Rocephin. Will consult ID. We will continue IV diuretics. Creatinine increased from 2.0-2.9. We will also consult nephrology. Repeat BMP in the morning. 10/22: pt not eating, add nutrition boost, follow BMP and ID recommendation 10/23: cont to have leukocytosis with low grade fever. Obtain CT chest, abdomen, pelvis without IV contrast per ID recommendation. PT eval Brief history: The pt is a 69 YO female with a past medical history of HTN, DM, CKD III, PVD s/p right trans metatarsal amputation, chronic bilateral lymphedema, DVT/PE anticoagulated with Eliquis, morbid obesity presented to the hospital with worsening shortness of breath. Patient also noted UTI and lower extremity cellulitis with sepsis. Subjective Date of service: 11/24/19 Principal diagnosis: HF; CKD; PVD Interval history: Patient seen and examined patient follows commend today poor historian only wants to eal darian vitals noted Objective - Exam Narrative Exam: General appearance: Alert in NAD Eyes: anicteric sclerae, moist conjunctivae; no lid-lag; PERRLA HENT: Atraumatic; oropharynx limited Lungs: CTA CV: RRR no murmur Abdomen: Soft, non-tender; unbilicus with nodules Extremities: alanna marked edema papillomatosis Skin: alanna legs lymphadema skin changes Psych: agitated confused Neuro: Moving all extermities - Constitutional Vitals: Vital Signs - 12hr 11/24/19 11/24/19 11/24/19 07:40 10:34 11:00 Temperature 101.3 F H Pulse Rate 100 H 100 H Pulse Rate [ 98 H From Monitor] Respiratory 17 20 Rate Respiratory Rate [Bilateral Lower] Respiratory Rate [denies] Blood Pressure 143/77 143/77 O2 Sat by Pulse 93 93 Oximetry 11/24/19 11/24/19 11/24/19 11:17 11:47 11:59 Temperature 100.3 F H Pulse Rate 90 Pulse Rate [ From Monitor] Respiratory 20 20 17 Rate Respiratory Rate [Bilateral Lower] Respiratory Rate [denies] Blood Pressure 106/49 O2 Sat by Pulse 93 Oximetry 11/24/19 11/24/19 11/24/19 12:00 14:46 15:16 Temperature Pulse Rate 98 H Pulse Rate [ From Monitor] Respiratory 20 20 Rate Respiratory Rate [Bilateral Lower] Respiratory Rate [denies] Blood Pressure O2 Sat by Pulse Oximetry 11/24/19 11/24/19 16:00 16:21 Temperature 99.5 F Pulse Rate 86 Pulse Rate [ From Monitor] Respiratory 17 Rate Respiratory 20 Rate [Bilateral Lower] Respiratory 20 Rate [denies] Blood Pressure 139/71 O2 Sat by Pulse 96 Oximetry - Labs CBC & Chem 7: 11/24/19 09:55 11/24/19 04:50 Labs: Abnormal lab results 11/23/19 11/24/19 11/24/19 Range/Units 20:47 04:50 08:02 WBC (4.5-11.0) K/mm3 RBC (3.65-5.03) M/mm3 Hgb (10.1-14.3) gm/dl Hct (30.3-42.9) % MCH (28-32) pg RDW (13.2-15.2) % Plt Count (140-440) K/mm3 Chloride 110.4 H (98-107) mmol/L Carbon Dioxide 21 L (22-30) mmol/L BUN 45 H (7-17) mg/dL Creatinine 2.0 H (0.6-1.2) mg/dL Glucose 171 H (65-100) mg/dL POC Glucose 199 H 195 H (70-105) 11/24/19 11/24/19 11/24/19 Range/Units 09:55 12:16 16:38 WBC 27.4 H (4.5-11.0) K/mm3 RBC 3.22 L (3.65-5.03) M/mm3 Hgb 8.7 L (10.1-14.3) gm/dl Hct 27.2 L (30.3-42.9) % MCH 27 L (28-32) pg RDW 15.7 H (13.2-15.2) % Plt Count 446 H (140-440) K/mm3 Chloride (98-107) mmol/L Carbon Dioxide (22-30) mmol/L BUN (7-17) mg/dL Creatinine (0.6-1.2) mg/dL Glucose (65-100) mg/dL POC Glucose 231 H 220 H (70-105) HEART Score - HEART Score Troponin: Troponin T 0.023 ng/mL (0.00-0.029) 11/21/19 10:02
[2019-11-24] MEDS: ACETAMINOPHEN 325 MG TAB PO PRN (22:14)
[2019-11-25 06:10] LABS: Hematocrit 25.4 % (30.3-42.9); Mean Corpuscular HGB Conc 32 % (30-34); Mean Corpuscular Volume 85 fl (79-97); Platelet Count 462 K/mm3 (140-440); Red Blood Count 2.98 M/mm3 (3.65-5.03)
[2019-11-25 07:39] LABS: Basophils % (Manual) 0 % (0.0-1.8); Eosinophils % (Manual) 0 % (0.0-4.3); Total Cells Counted 100
[2019-11-25 07:40] LABS: Burr Cells Few; Schistocytes Rare
[2019-11-25 07:41] LABS: Anisocytosis Few; Platelet Estimate Consistent w Auto
[2019-11-25] MEDS: SODIUM BICARBONATE 650 MG TAB PO SCH ×3 (08:00→21:09)
--- NOTE | 2019-11-25 08:32 | Progress Note ---
Assessment and Plan Cultures: MRSA PCR positive Urine cx 10-100 mixed Blood cultures 11/21/2019 no growth today Blood cultures 11/24/2019 no growth today Assessment: 69 years old female with history of hypertension, diabetes mellitus, morbid obesity, bilateral leg lymphedema, CHF, possible DVT on Eliquis, admitted on 11/20/2019 due to 24 hours history of worsening shortness of breath and chest pain: #Sepsis: fever and leukocytosis improving, source likely UTI / ?legs cellulitis. #UTI: urine culture mixed bacteria #Bilateral lymphedema with stasis dermatitis > cellulitis #Possible CHF exacerbation #Acute kidney disease: renally adjust abx #Diabetes mellitus with hyperglycemia #Right heel pressure ulcer: not infected #Vaginal/perineal intertrigo Recommendations: -Obtain CT chest, abdomen, pelvis without IV contrast - patient refused -right heel offloading -right heel XR -Follow-up blood culture and urine culture -Continue ceftriaxone 2 g IV once a day total 3 days -Continue linezolid day 2 -Start fluconazole 150 mg po qweek x 2 -tight glucose control -monitor fever and leukocytosis, if continue to improve ok to d/c on oral abx Will follow. Jacqueline Ac MD Infectious Diseases Chip Separator [facility] ([facility]) M [phone] O [phone] Subjective Date of service: 11/25/19 Principal diagnosis: HF; CKD; PVD Interval history: Patient feels some better, refused CT, no complaints, fever trending down Objective - Exam Narrative Exam: General appearance: Alert confused in NAD Eyes: anicteric sclerae, moist conjunctivae; no lid-lag; PERRLA HENT: Atraumatic; oropharynx limited Lungs: CTA CV: RRR no murmur Abdomen: Soft, non-tender; unbilicus with nodules Extremities: alanna marked edema papillomatosis Skin: alanna legs lymphadema skin changes, right foot TMA healed. right heel ulcer clean, no purulence, no necrosis Psych: no agitated confused Neuro: alert and oriented x 2 non focal - Constitutional Vitals: Vital Signs Temp Pulse Resp BP Pulse Ox 99.0 F 80 17 133/68 92 11/25/19 03:24 11/25/19 04:00 11/25/19 03:24 11/25/19 03:24 08/11/20 03:24 Temperature -Last 24 Hours Temperature 99.0 F Temperature 98.5 F Temperature 99.5 F Temperature 99.5 F Temperature 100.3 F - Labs CBC & Chem 7: 11/25/19 05:57 11/25/19 05:57 Labs: Abnormal lab results 11/24/19 11/24/19 11/24/19 Range/Units 08:02 09:55 12:16 WBC 27.4 H (4.5-11.0) K/mm3 RBC 3.22 L (3.65-5.03) M/mm3 Hgb 8.7 L (10.1-14.3) gm/dl Hct 27.2 L (30.3-42.9) % MCH 27 L (28-32) pg RDW 15.7 H (13.2-15.2) % Plt Count 446 H (140-440) K/mm3 Seg Neuts % (Manual) (40.0-70.0) % Lymphocytes % (Manual) (13.4-35.0) % Seg Neutrophils # Man (1.8-7.7) K/mm3 Lymphocytes # (Manual) (1.2-5.4) K/mm3 Carbon Dioxide (22-30) mmol/L BUN (7-17) mg/dL Creatinine (0.6-1.2) mg/dL Glucose (65-100) mg/dL POC Glucose 195 H 231 H (70-105) Calcium (8.4-10.2) mg/dL 11/24/19 11/24/19 11/25/19 Range/Units 16:38 21:02 05:57 WBC 18.9 H (4.5-11.0) K/mm3 RBC 2.98 L (3.65-5.03) M/mm3 Hgb 8.0 L (10.1-14.3) gm/dl Hct 25.4 L (30.3-42.9) % MCH 27 L (28-32) pg RDW 16.0 H (13.2-15.2) % Plt Count 462 H (140-440) K/mm3 Seg Neuts % (Manual) 95.0 H (40.0-70.0) % Lymphocytes % (Manual) 2.0 L (13.4-35.0) % Seg Neutrophils # Man 18.0 H (1.8-7.7) K/mm3 Lymphocytes # (Manual) 0.4 L (1.2-5.4) K/mm3 Carbon Dioxide (22-30) mmol/L BUN (7-17) mg/dL Creatinine (0.6-1.2) mg/dL Glucose (65-100) mg/dL POC Glucose 220 H 225 H (70-105) Calcium (8.4-10.2) mg/dL 11/25/19 11/25/19 Range/Units 05:57 07:47 WBC (4.5-11.0) K/mm3 RBC (3.65-5.03) M/mm3 Hgb (10.1-14.3) gm/dl Hct (30.3-42.9) % MCH (28-32) pg RDW (13.2-15.2) % Plt Count (140-440) K/mm3 Seg Neuts % (Manual) (40.0-70.0) % Lymphocytes % (Manual) (13.4-35.0) % Seg Neutrophils # Man (1.8-7.7) K/mm3 Lymphocytes # (Manual) (1.2-5.4) K/mm3 Carbon Dioxide 21 L (22-30) mmol/L BUN 42 H (7-17) mg/dL Creatinine 2.0 H (0.6-1.2) mg/dL Glucose 265 H (65-100) mg/dL POC Glucose 301 H (70-105) Calcium 8.0 L (8.4-10.2) mg/dL
--- NOTE | 2019-11-25 09:47 | XRay Report ---
XR foot 3+V RT INDICATION: eval for calcaneal osteomyelitis. COMPARISON: None available. FINDINGS: There is diffuse soft tissue swelling in the foot. There has been previous amputation of the toes to the level of the mid metatarsal shafts. There are no radiopaque foreign bodies and there is no soft tissue gas. There is no appreciable focal bone lysis to suggest osteomyelitis, although there is diffuse subjecti ve bony demineralization. Signer Name: Leobardo Jiménez MD Signed: 11/25/2019 9:43 AM Workstation Name: [id number]
--- NOTE | 2019-11-25 09:49 | Progress Note ---
Assessment and Plan 1. Acute kidney injury: Vasomotor JI superimposed on CKD stage 3 in the setting of hypotension. Urine studies and Renal US ordered. Monitor renal function. Creatinine level is better and stable. Avoid nephrotoxic agents. Meds dosage based on GFR. 2. FEN: Metabolic acidosis, PO Sodium bicarbonate, monitor. Monitor lytes and volume status. 3. Acute combined systolic and diastolic HFrEF: Followed by Cardiology. TTE done 10/12/2019 showed EF 35-40% with grade 1 diastolic dysfunction Daily weights, monitor in's and O's. 4. Elevated troponin-NSTEMI type II: Continue medical management, Cardiology following. 5. Acute hypoxic respiratory failure: O2 sat on room air was 85%. Likely due to CHF exacerbation. Supplemental O2. 6. SIRS: Leukocytosis. UTI vs LE wound infection. Continue abx. 7. Acute metabolic encephalopathy, POA. Continue supportive care. 8. Hypertension: Monitor BP. 9. Normochromic anemia, POA. 10. Diabetes mellitus type 2: Consistent low carb diet and sliding scale of insulin. 11. Chronic lymphedema. 12. Elevated d-dimer: V/Q scan showed low probability for PE. - Subjective: Patient was seen and examined at the bedside. No new complaint. - General Appearance General appearance: well-developed, well-nourished, appears stated age, obese, no distress HEENT: ATNC, PERRL, hearing intact, vision intact Neck: neck supple, trachea midline Respiratory: Clear to Ascultation Heart: regular, S1S2, no murmurs Gastrointestinal: obese, normoactive bowel sounds, not tenderness Integumentary: chronic venous stasis, R leg dressing Neurologic: confused, disoriented, able to move extremities Ext: b/l LE lymphedema noted, R TMA Psychiatric: cooperative Subjective Date of service: 11/25/19 Principal diagnosis: HF; CKD; PVD Objective - Vital Signs Vital signs: Vital Signs - 12hr 11/24/19 11/24/19 11/25/19 23:00 23:01 03:24 Temperature 98.5 F 99.0 F Pulse Rate 82 80 Respiratory 20 18 17 Rate Blood Pressure 135/61 133/68 O2 Sat by Pulse 95 100 92 Oximetry 11/25/19 04:00 Temperature Pulse Rate 80 Respiratory Rate Blood Pressure O2 Sat by Pulse Oximetry - Lab 11/25/19 05:57 11/25/19 05:57 Most recent lab results ABG pH 7.424 pH Units (7.350-7.450) 11/22/19 15:24 ABG pCO2 30.2 mm Hg 11/22/19 15:24 ABG pO2 66.5 mm Hg (80.0-90.0) L 11/22/19 15:24 ABG HCO3 19.3 mmol/L (20.0-26.0) L 11/22/19 15:24 ABG O2 Saturation 94.0 % (95.0-99.0) L 11/22/19 15:24 Calcium 8.0 mg/dL (8.4-10.2) L 11/25/19 05:57 Phosphorus 2.70 mg/dL (2.5-4.5) 11/24/19 04:50 Medications & Allergies - Medications Allergies/Adverse Reactions: Allergies Sulfa (Sulfonamide Antibiotics) Allergy (Verified 11/20/19 20:05) Unknown Home Medications: Home Medications Medication Instructions Recorded Confirmed Last Taken Type Unobtainable 11/20/19 11/20/19 Unknown History Active Medications: Generic Name Dose Route Start Last Admin Trade Name Freq PRN Reason Stop Dose Admin Acetaminophen 650 mg 11/21/19 03:19 11/24/19 22:14 Tylenol PO 650 mg Q4H PRN Administration Pain MILD(1-3)/Fever >100.5/AVERY Acetaminophen 650 mg 11/22/19 21:06 11/22/19 21:15 Tylenol NE 650 mg Q4H PRN Administration Pain, Mild (1-3) Apixaban 2.5 mg 11/22/19 22:00 11/24/19 22:14 Eliquis PO 2.5 mg Q12HR GABRIELLE Administration Protocol Aspirin 81 mg 11/22/19 10:00 11/24/19 10:35 Baby Aspirin PO 81 mg QDAY GABRIELLE Administration Atorvastatin Calcium 40 mg 11/21/19 22:00 11/24/19 22:14 Lipitor PO 40 mg QHS GABRIELLE Administration Clopidogrel Bisulfate 75 mg 11/22/19 10:00 11/24/19 10:35 Plavix PO 75 mg QDAY GABRIELLE Administration Dextrose 0 ml 11/21/19 03:19 D50w (25gm) Syringe IV Q30MIN PRN Hypoglycemia Protocol Fluconazole 150 mg 11/25/19 10:00 Diflucan PO 12/02/19 10:01 Tu [facility] Hydralazine HCl 10 mg 11/21/19 03:19 Apresoline IV Q6H PRN FOR SBP > target Ceftriaxone Sodium 2 gm in 100 mls @ 200 mls/hr 11/24/19 10:00 11/24/19 10:32 Rocephin/Ns 2 Gm/100 Ml IV 11/26/19 10:29 200 mls/hr Q24HR GABRIELLE Administration Protocol Linezolid 600 mg in 300 mls @ 300 mls/hr 11/24/19 14:00 11/24/19 22:14 Zyvox 600mg/300ml IV 300 mls/hr Q12HR GABRIELLE Administration Protocol Insulin Human Lispro 0 unit 11/21/19 07:30 11/24/19 22:15 Humalog SUB-Q 3 unit ACHS GABRIELLE Administration Protocol Isosorbide Mononitrate 30 mg 11/22/19 10:00 11/24/19 10:34 Imdur PO 30 mg QDAY GABRIELLE Administration Morphine Sulfate 2 mg 11/21/19 03:19 11/24/19 23:25 Morphine IV 2 mg Q5MIN PRN Administration Chest Pain unrelieved by NTG Nitroglycerin 0.4 mg 11/21/19 03:19 Nitrostat SL Q5M PRN Chest Pain Ondansetron HCl 4 mg 11/21/19 03:19 Zofran IV Q8H PRN Nausea And Vomiting Sodium Bicarbonate 650 mg 11/23/19 14:00 11/24/19 22:14 Sodium Bicarbonate PO 650 mg TID GABRIELLE Administration Sodium Chloride 10 ml 11/21/19 10:00 11/24/19 22:16 Sodium Chloride Flush Syringe 10 Ml IV 10 ml BID GABRIELLE Administration Sodium Chloride 10 ml 11/21/19 03:19 Sodium Chloride Flush Syringe 10 Ml IV PRN PRN LINE FLUSH
--- NOTE | 2019-11-25 10:13 | Progress Note ---
Assessment and Plan clinically improving tele unremarkable - in SR tte reviewed nephrology on board for a/ckd Decrease eliquis dosing (GFR ~ 20) No plans for additional cardiac w/u at this time. Will follow. The patient has been seen in conjunction with Dr. Jennifer Noriega who agrees with the assessment and plan of care. - Patient Problems (1) Acute HFrEF (heart failure with reduced ejection fraction) Current Visit: Yes Status: Acute (2) Cardiomyopathy Current Visit: Yes Status: Acute (3) Junctional bradycardia Current Visit: Yes Status: Acute (4) CKD (chronic kidney disease) Current Visit: Yes Status: Acute (5) HTN (hypertension) Current Visit: Yes Status: Chronic (6) Diabetes mellitus Current Visit: Yes Status: Chronic (7) PVD (peripheral vascular disease) Current Visit: Yes Status: Chronic (8) S/P transmetatarsal amputation of foot Current Visit: Yes Status: Chronic (9) Lymphedema Current Visit: Yes Status: Chronic (10) Elevated troponin Current Visit: Yes Status: Acute (11) Obesity Current Visit: Yes Status: Chronic Subjective Date of service: 11/25/19 Principal diagnosis: HF; CKD; PVD Interval history: pt resting in bed, no current cardiac complaints. tele reviewed - in SR HR 80s. Objective Last Vital Signs Temp 99.0 F 11/25/19 03:24 Pulse 80 11/25/19 04:00 Resp 17 11/25/19 03:24 BP 133/68 11/25/19 03:24 Pulse Ox 92 11/25/19 03:24 - Physical Examination General: No Apparent Distress HEENT: Positive: PERRL, Normocephaly, Mucus Membranes Moist Neck: Positive: neck supple, trachea midline Cardiac: Positive: Reg Rate and Rhythm, S1/S2 Lungs: Positive: Decreased Breath Sounds Neuro: Positive: Grossly Intact Abdomen: Negative: Ascites Skin: Positive: Other (BLE chroc skin changes noted, BLE blistering) Musculoskeletal: other (right trans metatarsal amputation, BLE lymphedema) Extremities: Present: +3 Edema (lymphedema) - Labs and Meds CBC 11/24/19 11/25/19 Range/Units 09:55 05:57 WBC 27.4 H 18.9 H (4.5-11.0) K/mm3 RBC 3.22 L 2.98 L (3.65-5.03) M/mm3 Hgb 8.7 L 8.0 L (10.1-14.3) gm/dl Hct 27.2 L 25.4 L (30.3-42.9) % Plt Count 446 H 462 H (140-440) K/mm3 Comprehensive Metabolic Panel 11/25/19 Range/Units 05:57 Sodium 139 (137-145) mmol/L Potassium 3.9 (3.6-5.0) mmol/L Chloride 104.9 (98-107) mmol/L Carbon Dioxide 21 L (22-30) mmol/L BUN 42 H (7-17) mg/dL Creatinine 2.0 H (0.6-1.2) mg/dL Glucose 265 H (65-100) mg/dL Calcium 8.0 L (8.4-10.2) mg/dL - Imaging and Cardiology EKG: report reviewed, image reviewed Echo: report reviewed (10/12/2019 showed EF 35-40%, grade 1 diastolic dysfunction. )
[2019-11-25] MEDS: INSULIN LISPRO 100 UNIT/ML VIAL 3 mL SUB-Q SCH ×4 (11:43→21:10)
[2019-11-25] MEDS: CLOPIDOGREL 75 MG TAB PO SCH (11:48)
[2019-11-25] MEDS: ASPIRIN 81 MG TAB CHEW PO SCH (11:48)
[2019-11-25] MEDS: APIXABAN 2.5 MG TAB PO SCH ×2 (11:48→21:09)
[2019-11-25] MEDS: cefTRIAXone/NS 2 GM/100 ML 2 GM/100 ML BAG IV SCH (11:49)
[2019-11-25] MEDS: LINEZOLID 600 MG/300 ML BAG IV SCH ×2 (13:15→21:09)
[2019-11-25] MEDS: FLUCONAZOLE 100 MG TAB PO SCH (14:28)
[2019-11-25] MEDS: INSULIN NPH/REGULAR 70/30 INJ SUB-Q SCH (17:25)
[2019-11-25] MEDS: ACETAMINOPHEN 325 MG TAB PO PRN (17:33)
[2019-11-25] MEDS: MORPHINE 2 MG/1 ML INJ IV PRN (19:48)
--- NOTE | 2019-11-25 21:05 | Progress Note ---
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) - monitor at telemetry bed - monitor with serial CE and EKG - cont on Aspirin, statin, and Lasix IV - consulted cardiology -TTE done 10/12/2019 showed EF 35-40% with grade 1 diastolic dysfunction - daily weights, monitor in's and O's /Acute hypoxic respiratory failure -O2 sat on room air is 85% -Likely due to CHF exacerbation, continue diuretics and breathing treatment -Supplemental O2 to keep oxygen saturation greater than 92% /Leukocytosis with sepsis -likely from UTI and bilateral lower extremity celluli tis UA suggestive for UTI, patient also have significant bilateral lower extremity erythremia and rash cont on antibiotics, follow blood culture consulted ID, ordered CT chest/abdomen/pelvis /UTI with sepsis continue antibiotics for now follow culture /Bilateral lower extremity cellulitis, continue antibiotics, / CKD (chronic kidney disease) per [facility] records, cr fluctuates between 2-3 cr today 2.9, will consult nephrology / HTN (hypertension) resumed home meds / Diabetes mellitus type 2 Consistent carb diet, sliding scale of insulin / PVD (peripheral vascular disease) Continue aspirin and statin / S/P transmetatarsal amputation of foot Continue supportive care /Chronic lymphedema IV diuretics as tolerated / Elevated troponin-NSTEMI type II Continue medical management, cardiology following /Morbid obesity -Dietary education when clinically stable /Elevated d-dimer, VQ scan showed low probability for PE --DVT prophylaxis, continue on Eliquis 10/21: Patient's white count elevated up to 24,000, blood culture is negative. UA suggestive for UTI also has significant erythema and rash on bilateral lower extremity. Will change antibiotic to Rocephin. Will consult ID. We will continue IV diuretics. Creatinine increased from 2.0-2.9. We will also consult nephrology. Repeat BMP in the morning. 10/22: pt not eating, add nutrition boost, follow BMP and ID recommendation 10/23: cont to have leukocytosis with low grade fever. Obtain CT chest, abdomen, pelvis without IV contrast per ID recommendation. PT eval 10/24; patient continues to have low-grade fever, and leukocytosis, x-ray foot generalized soft tissue swelling, no foreign body no osteomyelitis History Interval history: I have seen and examined the patient at the bedside Patient's chart and medications reviewed Patient feels slightly better no new complaints Vital signs noted Hospitalist Physical - Constitutional Vitals: Temp Pulse Resp BP Pulse Ox 98.6 F 85 18 142/70 96 11/25/19 19:50 11/25/19 19:50 11/25/19 19:50 11/25/19 19:50 11/25/19 19:50 General appearance: Present: no acute distress, well-nourished, obese - EENT Eyes: Present: PERRL, EOM intact - Neck Neck: Present: supple, normal ROM - Respiratory Respiratory effort: normal Respiratory: bilateral: diminished, negative: rales, rhonchi, wheezing - Cardiovascular Rhythm: regular Heart Sounds: Present: S1 & S2 - Extremities Extremities: no ischemia, No edema - Abdominal General gastrointestinal: soft, non-tender, non-distended, normal bowel sounds - Integumentary Integumentary: Present: clear, warm - Psychiatric Psychiatric: appropriate mood/affect, cooperative - Neurologic Neurologic: CNII-XII intact, moves all extremities HEART Score - HEART Score Troponin: Troponin T 0.023 ng/mL (0.00-0.029) 11/21/19 10:02 Results - Labs CBC & Chem 7: 11/27/19 07:21 11/29/19 06:24 Labs: Laboratory Last Values WBC 18.9 K/mm3 (4.5-11.0) H 11/25/19 05:57 RBC 2.98 M/mm3 (3.65-5.03) L 11/25/19 05:57 Hgb 8.0 gm/dl (10.1-14.3) L 11/25/19 05:57 Hct 25.4 % (30.3-42.9) L 11/25/19 05:57 MCV 85 fl (79-97) 11/25/19 05:57 MCH 27 pg (28-32) L 11/25/19 05:57 MCHC 32 % (30-34) 11/25/19 05:57 RDW 16.0 % (13.2-15.2) H 11/25/19 05:57 Plt Count 462 K/mm3 (140-440) H 11/25/19 05:57 Lymph % (Auto) 18.3 % (13.4-35.0) 11/20/19 21:22 Delta % (Auto) 4.7 % (0.0-7.3) 11/20/19 21:22 Eos % (Auto) 3.9 % (0.0-4.3) 11/20/19 21:22 Baso % (Auto) 1.5 % (0.0-1.8) 11/20/19 21:22 Lymph # 1.6 K/mm3 (1.2-5.4) 11/20/19 21:22 Delta # 0.4 K/mm3 (0.0-0.8) 11/20/19 21:22 Eos # 0.4 K/mm3 (0.0-0.4) 11/20/19 21:22 Baso # 0.1 K/mm3 (0.0-0.1) 11/20/19 21:22 Add Manual Diff Complete 11/25/19 05:57 Total Counted 100 11/25/19 05:57 Seg Neutrophils % Cogeneration Operator 11/22/19 07:40 Seg Neuts % (Manual) 95.0 % (40.0-70.0) H 11/25/19 05:57 Band Neutrophils % 0 % 11/25/19 05:57 Lymphocytes % (Manual) 2.0 % (13.4-35.0) L 11/25/19 05:57 Reactive Lymphs % (Man) 0 % 11/25/19 05:57 Monocytes % (Manual) 3.0 % (0.0-7.3) 11/25/19 05:57 Eosinophils % (Manual) 0 % (0.0-4.3) 11/25/19 05:57 Basophils % (Manual) 0 % (0.0-1.8) 11/25/19 05:57 Metamyelocytes % 0 % 11/25/19 05:57 Myelocytes % 0 % 11/25/19 05:57 Promyelocytes % 0 % 11/25/19 05:57 Blast Cells % 0 % 11/25/19 05:57 Nucleated RBC % Not Reportable 11/25/19 05:57 Seg Neutrophils # 6.4 K/mm3 (1.8-7.7) 11/20/19 21:22 Seg Neutrophils # Man 18.0 K/mm3 (1.8-7.7) H 11/25/19 05:57 Band Neutrophils # 0.0 K/mm3 11/25/19 05:57 Lymphocytes # (Manual) 0.4 K/mm3 (1.2-5.4) L 11/25/19 05:57 Abs React Lymphs (Man) 0.0 K/mm3 11/25/19 05:57 Monocytes # (Manual) 0.6 K/mm3 (0.0-0.8) 11/25/19 05:57 Eosinophils # (Manual) 0.0 K/mm3 (0.0-0.4) 11/25/19 05:57 Basophils # (Manual) 0.0 K/mm3 (0.0-0.1) 11/25/19 05:57 Metamyelocytes # 0.0 K/mm3 11/25/19 05:57 Myelocytes # 0.0 K/mm3 11/25/19 05:57 Promyelocytes # 0.0 K/mm3 11/25/19 05:57 Blast Cells # 0.0 K/mm3 11/25/19 05:57 WBC Morphology Not Reportable 11/25/19 05:57 Hypersegmented Neuts Not Reportable 11/25/19 05:57 Hyposegmented Neuts Not Reportable 11/25/19 05:57 Hypogranular Neuts Not Reportable 11/25/19 05:57 Smudge Cells Not Reportable 11/25/19 05:57 Toxic Granulation Not Reportable 11/25/19 05:57 Toxic Vacuolation Not Reportable 11/25/19 05:57 Dohle Bodies Not Reportable 11/25/19 05:57 Pelger-Huet Anomaly Not Reportable 11/25/19 05:57 Daniel Rods Not Reportable 11/25/19 05:57 Platelet Estimate Consistent w auto 11/25/19 05:57 Clumped Platelets Not Reportable 11/25/19 05:57 Plt Clumps, EDTA Not Reportable 11/25/19 05:57 Large Platelets Not Reportable 11/25/19 05:57 Giant Platelets Not Reportable 11/25/19 05:57 Platelet Satelliting Not Reportable 11/25/19 05:57 Plt Morphology Comment Not Reportable 11/25/19 05:57 RBC Morphology Not Reportable 11/25/19 05:57 Dimorphic RBCs Not Reportable 11/25/19 05:57 Polychromasia Not Reportable 11/25/19 05:57 Hypochromasia Not Reportable 11/25/19 05:57 Poikilocytosis Not Reportable 11/25/19 05:57 Anisocytosis Few 11/25/19 05:57 Microcytosis Not Reportable 11/25/19 05:57 Macrocytosis Not Reportable 11/25/19 05:57 Spherocytes Not Reportable 11/25/19 05:57 Pappenheimer Bodies Not Reportable 11/25/19 05:57 Sickle Cells Not Reportable 11/25/19 05:57 Target Cells Not Reportable 11/25/19 05:57 Tear Drop Cells Not Reportable 11/25/19 05:57 Ovalocytes Not Reportable 11/25/19 05:57 Helmet Cells Not Reportable 11/25/19 05:57 Dailey-Dearborn Bodies Not Reportable 11/25/19 05:57 [place] Rings Not Reportable 11/25/19 05:57 [place] Cells Few 11/25/19 05:57 Bite Cells Not Reportable 11/25/19 05:57 Crenated Cell Not Reportable 11/25/19 05:57 Elliptocytes Not Reportable 11/25/19 05:57 Acanthocytes (Spur) Not Reportable 11/25/19 05:57 Rouleaux Not Reportable 11/25/19 05:57 Hemoglobin C Crystals Not Reportable 11/25/19 05:57 Schistocytes Rare 11/25/19 05:57 Malaria parasites Not Reportable 11/25/19 05:57 Adarsh Bodies Not Reportable 11/25/19 05:57 Hem Pathologist Commnt No 11/25/19 05:57 PT 21.1 Sec. (12.2-14.9) H 11/22/19 07:40 INR 1.78 (0.87-1.13) H 11/22/19 07:40 APTT 38.8 Sec. (24.2-36.6) H 11/20/19 21:22 D-Dimer 596.16 ng/mlDDU (0-234) H 11/20/19 21:22 ABG pH 7.424 pH Units (7.350-7.450) 11/22/19 15:24 ABG pCO2 30.2 mm Hg 11/22/19 15:24 ABG pO2 66.5 mm Hg (80.0-90.0) L 11/22/19 15:24 ABG HCO3 19.3 mmol/L (20.0-26.0) L 11/22/19 15:24 ABG O2 Saturation 94.0 % (95.0-99.0) L 11/22/19 15:24 ABG O2 Content 11.5 (0.0-44) 11/22/19 15:24 ABG Base Excess -4.4 mmol/L (-2.0-3.0) L 11/22/19 15:24 ABG Hemoglobin 8.9 gm/dl (12.0-16.0) L 11/22/19 15:24 ABG Carboxyhemoglobin 1.7 % (0.0-5.0) 11/22/19 15:24 ABG Methemoglobin 0.6 % (0.0-1.5) 11/22/19 15:24 Oxyhemoglobin 91.8 % (95.0-99.0) L 11/22/19 15:24 FiO2 28 % 11/22/19 15:24 Sodium 139 mmol/L (137-145) 11/25/19 05:57 Potassium 3.9 mmol/L (3.6-5.0) 11/25/19 05:57 Chloride 104.9 mmol/L (98-107) 11/25/19 05:57 Carbon Dioxide 21 mmol/L (22-30) L 11/25/19 05:57 Anion Gap 17 mmol/L 11/25/19 05:57 BUN 42 mg/dL (7-17) H 11/25/19 05:57 Creatinine 2.0 mg/dL (0.6-1.2) H 11/25/19 05:57 Estimated GFR 30 ml/min 11/25/19 05:57 BUN/Creatinine Ratio 21 % 11/25/19 05:57 Glucose 265 mg/dL (65-100) H 11/25/19 05:57 POC Glucose 227 (70-105) H 11/25/19 20:42 Calcium 8.0 mg/dL (8.4-10.2) L 11/25/19 05:57 Phosphorus 2.70 mg/dL (2.5-4.5) 11/24/19 04:50 Total Bilirubin 0.20 mg/dL (0.1-1.2) 11/20/19 21:22 AST 13 units/L (5-40) 11/20/19 21:22 ALT 15 units/L (7-56) 11/20/19 21:22 Alkaline Phosphatase 81 units/L (35-129) 11/20/19 21:22 Troponin T 0.023 ng/mL (0.00-0.029) 11/21/19 10:02 NT-Pro-B Natriuret Pep 3993 pg/mL (0-900) H 11/20/19 21:22 Total Protein 7.1 g/dL (6.3-8.2) 11/20/19 21:22 Albumin 2.9 g/dL (3.9-5) L 11/20/19 21:22 Albumin/Globulin Ratio 0.7 % 11/20/19 21:22 Triglycerides 214 mg/dL (2-149) H 11/20/19 21:22 Cholesterol 139 mg/dL (50-199) 11/20/19 21:22 LDL Cholesterol Direct 96 mg/dL (50-130) 11/20/19 21:22 HDL Cholesterol 30 mg/dL (40-59) L 11/20/19 21:22 Cholesterol/HDL Ratio 4.63 % 11/20/19 21:22 TSH 1.430 mlU/mL (0.270-4.200) 11/20/19 21:22 Free T4 1.34 ng/dL (0.76-1.46) 11/20/19 21:22 PTH Intact 62.13 pg/mL (15-65) 11/24/19 04:50 Urine Color Yellow (Yellow) 11/22/19 Unknown Urine Turbidity Turbid (Clear) 11/22/19 Unknown Urine pH 5.0 (5.0-7.0) 11/22/19 Unknown Ur Specific [place] 1.017 (1.003-1.030) 11/22/19 Unknown Urine Protein 30 mg/dl mg/dL (Negative) 11/22/19 Unknown Urine Glucose (UA) 50 mg/dL (Negative) 11/22/19 Unknown Urine Ketones Neg mg/dL (Negative) 11/22/19 Unknown Urine Blood Mod (Negative) 11/22/19 Unknown Urine Nitrite Neg (Negative) 11/22/19 Unknown Urine Bilirubin Neg (Negative) 11/22/19 Unknown Urine Urobilinogen < 2.0 mg/dL (<2.0) 11/22/19 Unknown Ur Leukocyte Esterase Lg (Negative) 11/22/19 Unknown Urine WBC (Auto) 159.0 /HPF (0.0-6.0) H 11/22/19 Unknown Urine RBC (Auto) 68.0 /HPF (0.0-6.0) 11/22/19 Unknown U Epithel Cells (Auto) 2.0 /HPF (0-13.0) 11/22/19 Unknown Urine Bacteria (Auto) 3+ /HPF (Negative) 11/22/19 Unknown Urine WBC Clumps 3+ /HPF 11/22/19 Unknown Uric Acid Crystals Not Reportable 11/22/19 Unknown Urine Yeast (Budding) 3+ /HPF 11/22/19 Unknown Nasal Screen MRSA (PCR) Positive (Negative) 11/21/19 Unknown Random Vancomycin 9.6 ug/mL (0-40.0) 11/23/19 08:57 Microbiology: Microbiology 11/24/19 13:44 Peripheral/Venous Blood Culture - Preliminary NO GROWTH AFTER 24 HOURS 11/24/19 13:44 Peripheral/Venous Blood Culture - Preliminary NO GROWTH AFTER 24 HOURS 11/21/19 12:45 Peripheral/Venous Blood Culture - Preliminary NO GROWTH AFTER 4 DAYS 11/21/19 13:22 Peripheral/Venous Blood Culture - Preliminary NO GROWTH AFTER 4 DAYS - Diagnostic Impressions Diagnostic Impressions: Echocardiogram 11/21/19 03:29 Transthoracic Echocardiogram Indication: Chest Pain BP: 107/66 HR: 50 Conclusions *The study is technically very limited due to patient body habitus. Patient unable to consent to Opt[facility]. *Global left ventricular systolic function is normal. *The estimated ejection fraction is 50-55%. *Abnormal left ventricular diastolic function is observed. *There is no pericardial effusion. Findings Procedure Info: The study is technically limited due to patient body habitus. Patient unable to consent to Optison. The study was technically limited due to the patient's inability to lay in the left lateral decubitus position. Left Ventricle: The left ventricle is not well visualized. Global left ventricular systolic function is normal. The estimated ejection fraction is 50-55%. Abnormal left ventricular diastolic function is observed. Left Atrium: The left atrium is not well visualized. Right Ventricle: The right ventricle is not well visualized. Right Atrium: The right atrium is not well visualized. Aortic Valve: The aortic valve is not well visualized. Mitral Valve: There is mitral annular calcification. The mitral valve leaflets are mildly thickened. There is trace of mitral regurgitation. Tricuspid Valve: The tricuspid valve is not well visualized. There is mild tricuspid regurgitation. Pulmonic Valve: The pulmonic valve is not well visualized. Pericardium: There is no pericardial effusion. Aorta: The aorta appears normal. Venous: The inferior vena cava is dilated. Measurements Chambers 2D Name Value Normal Range IVSd (2D) 1.3 cm (0.6 - 1.1) LVPWd (2D) 0.37 cm (0.6 - 1.1) LVIDd (2D) 4.89 cm (3.7 - 5.6) LVIDs (2D) 3.78 cm (2 - 3.8) LV FS (2D) 22.67 % - EF Teichholz (2D) 45.46 % - Ao root diameter (2D) 2.64 cm (2 - 3.7) Volumes/Mass Name Value Normal Range LA ESV SP 2CH (A/L) 85.32 ml - LA ESV SP 2CH (MOD) 78.59 ml - Diastolic/Systolic Function Name Value Normal Range MV E-wave Vmax 0.75 m/sec - MV deceleration time 351.73 msec - MV A-wave Vmax 0.88 m/sec - MV E:A ratio 0.86 ratio - Aortic Valve Name Value Normal Range LVOT diameter 1.97 cm - Mitral Valve Name Value Normal Range MV Vmax 0.92 m/sec - MV VTI 35.79 cm - MV peak gradient 3.4 mmHg - MV mean gradient 0.88 mmHg - MV PHT 133.09 msec - MVA (PHT) 1.65 cm2 - Tricuspid Valve Name Value Normal Range TR Vmax 2.8 m/sec - TR peak gradient 31.39 mmHg - IVC diameter 2.42 cm (1.2 - 2.3) Pulmonic Valve/Qp:Qs Name Value Normal Range PV Vmax 0.96 m/sec - PV VTI 22.47 cm - PV peak gradient 3.69 mmHg - PV mean gradient 1.34 mmHg - [place] end-diastolic Vmax 0.93 m/sec - RVOT Vmax 0.73 m/sec - RVOT VTI 17.4 cm - RVOT peak gradient 2.14 mmHg - Izquierdo/IV: Voiding Method External Female Catheter IV Catheter Type [Right INT / Saline Lock Forearm] IV Catheter Type [Left Hand] INT / Saline Lock IV Catheter Type [Right INT / Saline Lock Antecubital] Active Medications - Current Medications Current Medications: Generic Name Dose Route Start Last Admin Trade Name Freq PRN Reason Stop Dose Admin Acetaminophen 650 mg 11/21/19 03:19 11/25/19 17:33 Tylenol PO 650 mg Q4H PRN Administration Pain MILD(1-3)/Fever >100.5/AVERY Acetaminophen 650 mg 11/22/19 21:06 11/22/19 21:15 Tylenol [place] 650 mg Q4H PRN Administration Pain, Mild (1-3) Apixaban 2.5 mg 11/22/19 22:00 11/25/19 11:48 Eliquis PO 2.5 mg Q12HR GABRIELLE Administration Protocol Aspirin 81 mg 11/22/19 10:00 11/25/19 11:48 Baby Aspirin PO 81 mg QDAY GABRIELLE Administration Atorvastatin Calcium 40 mg 11/21/19 22:00 11/24/19 22:14 Lipitor PO 40 mg QHS GABRIELLE Administration Clopidogrel Bisulfate 75 mg 11/22/19 10:00 11/25/19 11:48 Plavix PO 75 mg QDAY GABRIELLE Administration Dextrose 0 ml 11/21/19 03:19 D50w (25gm) Syringe IV Q30MIN PRN Hypoglycemia Protocol Fluconazole 150 mg 11/25/19 10:00 11/25/19 14:28 Diflucan PO 12/02/19 10:01 150 mg Tu GABRIELLE Administration Hydralazine HCl 10 mg 11/21/19 03:19 Apresoline IV Q6H PRN FOR SBP > target Ceftriaxone Sodium 2 gm in 100 mls @ 200 mls/hr 11/24/19 10:00 11/25/19 11:49 Rocephin/Ns 2 Gm/100 Ml IV 11/26/19 10:29 200 mls/hr Q24HR GABRIELLE Administration Protocol Linezolid 600 mg in 300 mls @ 300 mls/hr 11/24/19 14:00 11/25/19 13:15 Zyvox 600mg/300ml IV 300 mls/hr Q12HR GABRIELLE Administration Protocol Insulin Human Isoph/Insulin Regular 10 unit 11/25/19 17:00 11/25/19 17:25 Humulin 70/30 SUB-Q 10 unit BIDDIAB GABRIELLE Administration Insulin Human Lispro 0 unit 11/21/19 07:30 11/25/19 17:27 Humalog SUB-Q 4 unit ACHS GABRIELLE Administration Protocol Isosorbide Mononitrate 30 mg 11/22/19 10:00 11/25/19 11:48 Imdur PO 30 mg QDAY GABRIELLE Administration Morphine Sulfate 2 mg 11/21/19 03:19 11/25/19 19:48 Morphine IV 2 mg Q5MIN PRN Administration Chest Pain unrelieved by NTG Nitroglycerin 0.4 mg 11/21/19 03:19 Nitrostat SL Q5M PRN Chest Pain Ondansetron HCl 4 mg 11/21/19 03:19 Zofran IV Q8H PRN Nausea And Vomiting Sodium Bicarbonate 650 mg 11/23/19 14:00 11/25/19 13:22 Sodium Bicarbonate PO 650 mg TID GABRIELLE Administration Sodium Chloride 10 ml 11/21/19 10:00 11/25/19 11:50 Sodium Chloride Flush Syringe 10 Ml IV 10 ml BID GABRIELLE Administration Sodium Chloride 10 ml 11/21/19 03:19 Sodium Chloride Flush Syringe 10 Ml IV PRN PRN LINE FLUSH Nutrition/Malnutrition Assess - Dietary Evaluation Nutrition/Malnutrition Findings: Nutrition Notes Start: 11/21/19 14:25 Freq: Status: Active Protocol: Document 11/24/19 14:14 MARIBELL (Rec: 11/24/19 14:24 [facility] SRW- [id number]) Nutrition Notes Initial or Follow up Assessment Current Diagnosis CKD(stage I-IV),Diabetes, Hypertension,Heart Failure, Respiratory Failure Other Pertinent Diagnosis Bilat LE cellulitis Current Diet Consistent CHO Labs/Tests reviewed Pertinent Medications reviewed Height 5 ft 6 in Weight 127.7 kg [place] Body Weight (kg) 59.09 BMI 45.4 Weight change and time frame Wt gain noted - fluid? Weight Status Morbidly Obese Subjective/Other Information Unable to reach pt via phone at 13:18. Per RN note, pt alert and oriented to self only; not appropriate for diet education at this time. No PO intakes documented. Per MD note yesterday, pt not eating . Pt with hx of (R) transmetatarsal amputation. Burn Absent Trauma Absent Minimum of two criteria No #1 Nutrition Diagnosis Predicted suboptimal energy intake Etiology medical dx; alert and oriented x 1 As Evidenced by Signs and Symptoms pt reported with poor PO intake Is patient on ventilator? No Is Patient Ambulatory and/or Out of Bed No REE-([facility]-confined to bed) 2199.396 Kcal/Kg value to use for calculation 13 Approximate Energy Requirements Using 1660 kcal/Kg Calculation Used for Recommendations Kcal/kg Additional Notes Pro needs 0.8-0.9g/kg adjBW: 75-84g/day Fluid needs 1ml/kcal Nutrition Intervention Change Diet Order: Continue current diet order Add Supplement/Snack (indicate name/kcal Glucerna BID /protein ) Provides kCal: 440 Provides Protein (gm) 20 Goal #1 PO intakes of meals plus ONS to meet at least 75% energy and pro needs Anticipated Discharge Needs: Continue ONS if PO intakes remain suboptimal Follow-Up By: 11/27/19 Additional Comments F/U: intakes (meals/ONS)
[2019-11-26] MEDS: MORPHINE 2 MG/1 ML INJ IV PRN ×3 (05:43→21:56)
[2019-11-26 05:49] LABS: Calcium 7.8 mg/dL (8.4-10.2)
[2019-11-26] MEDS: INSULIN LISPRO 100 UNIT/ML VIAL 3 mL SUB-Q SCH ×4 (08:45→21:56)
[2019-11-26] MEDS: INSULIN NPH/REGULAR 70/30 INJ SUB-Q SCH ×2 (08:47→17:56)
[2019-11-26] MEDS: APIXABAN 2.5 MG TAB PO SCH ×2 (09:33→21:55)
[2019-11-26] MEDS: SODIUM BICARBONATE 650 MG TAB PO SCH ×3 (09:33→21:55)
[2019-11-26] MEDS: ASPIRIN 81 MG TAB CHEW PO SCH (09:33)
[2019-11-26] MEDS: CLOPIDOGREL 75 MG TAB PO SCH (09:33)
[2019-11-26] MEDS: cefTRIAXone/NS 2 GM/100 ML 2 GM/100 ML BAG IV SCH (09:34)
--- NOTE | 2019-11-26 10:25 | Progress Note ---
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) Continue current management, cardiology following TTE done 10/12/2019 showed EF 35-40% with grade 1 diastolic dysfunction Input output monitoring, low-sodium diet, fluid restriction --Acute hypoxic respiratory failure -O2 sat on room air is 85% -Likely due to CHF exacerbation, continue diuretics and breathing treatment -Supplemental O2 to keep oxygen saturation greater than 92% --Leukocytosis with sepsis -likely from UTI and bilateral lower extremity cellulitis UA suggestive for UTI, patient also have significant bilateral lower extremity erythremia and rash cont on antibiotics, follow blood culture consulted ID, ordered CT chest/abdomen/pelvis --UTI with sepsis continue antibiotics for now follow culture --CKD (chronic kidney disease) per [place] records, cr fluctuates between 2-3 cr today 2.9, will consult nephrology --HTN (hypertension); moderate control Continue current antihypertensives and PRN medications -- Diabetes mellitus type 2 Consistent carb diet, sliding scale of insulin --PVD (peripheral vascular disease) Continue aspirin and statin --S/P transmetatarsal amputation of foot Continue supportive care --Chronic lymphedema IV diuretics as tolerated -- Elevated troponin-NSTEMI type II Continue medical management, cardiology following --Morbid obesity -Dietary education when clinically stable --Elevated d-dimer, VQ scan showed low probability for PE --DVT prophylaxis, continue on Eliquis Monitor closely and adjust management as needed History Interval history: I have seen and examined the patient at the bedside this morning Patient's chart and medications reviewed Patient is on IV antibiotics for sepsis No new complaints Vital signs noted Hospitalist Physical - Constitutional Vitals: Temp Pulse Resp BP Pulse Ox 99.8 F H 84 20 146/74 95 11/26/19 08:18 11/26/19 09:34 11/26/19 08:18 11/26/19 09:34 11/26/19 09:13 General appearance: Present: no acute distress, well-nourished, obese - EENT Eyes: Present: PERRL, EOM intact - Neck Neck: Present: supple, normal ROM - Respiratory Respiratory effort: normal Respiratory: bilateral: diminished, negative: rales, rhonchi, wheezing - Cardiovascular Rhythm: regular Heart Sounds: Present: S1 & S2 - Extremities Extremities: no ischemia, abnormal (Cellulitis lower extremity) - Abdominal General gastrointestinal: soft, non-tender, non-distended, normal bowel sounds - Integumentary Integumentary: Present: clear, warm - Psychiatric Psychiatric: appropriate mood/affect, cooperative - Neurologic Neurologic: moves all extremities HEART Score - HEART Score Troponin: Troponin T 0.023 ng/mL (0.00-0.029) 11/21/19 10:02 Results - Labs CBC & Chem 7: 11/26/19 14:42 11/26/19 05:09 Labs: Laboratory Last Values WBC 18.9 K/mm3 (4.5-11.0) H 11/25/19 05:57 RBC 2.98 M/mm3 (3.65-5.03) L 11/25/19 05:57 Hgb 8.0 gm/dl (10.1-14.3) L 11/25/19 05:57 Hct 25.4 % (30.3-42.9) L 11/25/19 05:57 MCV 85 fl (79-97) 11/25/19 05:57 MCH 27 pg (28-32) L 11/25/19 05:57 MCHC 32 % (30-34) 11/25/19 05:57 RDW 16.0 % (13.2-15.2) H 11/25/19 05:57 Plt Count 462 K/mm3 (140-440) H 11/25/19 05:57 Lymph % (Auto) 18.3 % (13.4-35.0) 11/20/19 21:22 Lamb % (Auto) 4.7 % (0.0-7.3) 11/20/19 21:22 Eos % (Auto) 3.9 % (0.0-4.3) 11/20/19 21:22 Baso % (Auto) 1.5 % (0.0-1.8) 11/20/19 21:22 Lymph # 1.6 K/mm3 (1.2-5.4) 11/20/19 21:22 Lamb # 0.4 K/mm3 (0.0-0.8) 11/20/19 21:22 Eos # 0.4 K/mm3 (0.0-0.4) 11/20/19 21:22 Baso # 0.1 K/mm3 (0.0-0.1) 11/20/19 21:22 Add Manual Diff Complete 11/25/19 05:57 Total Counted 100 11/25/19 05:57 Seg Neutrophils % [employer] Assistant Department Head 11/22/19 07:40 Seg Neuts % (Manual) 95.0 % (40.0-70.0) H 11/25/19 05:57 Band Neutrophils % 0 % 11/25/19 05:57 Lymphocytes % (Manual) 2.0 % (13.4-35.0) L 11/25/19 05:57 Reactive Lymphs % (Man) 0 % 11/25/19 05:57 Monocytes % (Manual) 3.0 % (0.0-7.3) 11/25/19 05:57 Eosinophils % (Manual) 0 % (0.0-4.3) 11/25/19 05:57 Basophils % (Manual) 0 % (0.0-1.8) 11/25/19 05:57 Metamyelocytes % 0 % 11/25/19 05:57 Myelocytes % 0 % 11/25/19 05:57 Promyelocytes % 0 % 11/25/19 05:57 Blast Cells % 0 % 11/25/19 05:57 Nucleated RBC % Not Reportable 11/25/19 05:57 Seg Neutrophils # 6.4 K/mm3 (1.8-7.7) 11/20/19 21:22 Seg Neutrophils # Man 18.0 K/mm3 (1.8-7.7) H 11/25/19 05:57 Band Neutrophils # 0.0 K/mm3 11/25/19 05:57 Lymphocytes # (Manual) 0.4 K/mm3 (1.2-5.4) L 11/25/19 05:57 Abs React Lymphs (Man) 0.0 K/mm3 11/25/19 05:57 Monocytes # (Manual) 0.6 K/mm3 (0.0-0.8) 11/25/19 05:57 Eosinophils # (Manual) 0.0 K/mm3 (0.0-0.4) 11/25/19 05:57 Basophils # (Manual) 0.0 K/mm3 (0.0-0.1) 11/25/19 05:57 Metamyelocytes # 0.0 K/mm3 11/25/19 05:57 Myelocytes # 0.0 K/mm3 11/25/19 05:57 Promyelocytes # 0.0 K/mm3 11/25/19 05:57 Blast Cells # 0.0 K/mm3 11/25/19 05:57 WBC Morphology Not Reportable 11/25/19 05:57 Hypersegmented Neuts Not Reportable 11/25/19 05:57 Hyposegmented Neuts Not Reportable 11/25/19 05:57 Hypogranular Neuts Not Reportable 11/25/19 05:57 Smudge Cells Not Reportable 11/25/19 05:57 Toxic Granulation Not Reportable 11/25/19 05:57 Toxic Vacuolation Not Reportable 11/25/19 05:57 Dohle Bodies Not Reportable 11/25/19 05:57 Pelger-Huet Anomaly Not Reportable 11/25/19 05:57 Daniel Rods Not Reportable 11/25/19 05:57 Platelet Estimate Consistent w auto 11/25/19 05:57 Clumped Platelets Not Reportable 11/25/19 05:57 Plt Clumps, EDTA Not Reportable 11/25/19 05:57 Large Platelets Not Reportable 11/25/19 05:57 Giant Platelets Not Reportable 11/25/19 05:57 Platelet Satelliting Not Reportable 11/25/19 05:57 Plt Morphology Comment Not Reportable 11/25/19 05:57 RBC Morphology Not Reportable 11/25/19 05:57 Dimorphic RBCs Not Reportable 11/25/19 05:57 Polychromasia Not Reportable 11/25/19 05:57 Hypochromasia Not Reportable 11/25/19 05:57 Poikilocytosis Not Reportable 11/25/19 05:57 Anisocytosis Few 11/25/19 05:57 Microcytosis Not Reportable 11/25/19 05:57 Macrocytosis Not Reportable 11/25/19 05:57 Spherocytes Not Reportable 11/25/19 05:57 Pappenheimer Bodies Not Reportable 11/25/19 05:57 Sickle Cells Not Reportable 11/25/19 05:57 Target Cells Not Reportable 11/25/19 05:57 Tear Drop Cells Not Reportable 11/25/19 05:57 Ovalocytes Not Reportable 11/25/19 05:57 Helmet Cells Not Reportable 11/25/19 05:57 Dailey-Homedale Bodies Not Reportable 11/25/19 05:57 [place] Rings Not Reportable 11/25/19 05:57 [place] Cells Few 11/25/19 05:57 Bite Cells Not Reportable 11/25/19 05:57 Crenated Cell Not Reportable 11/25/19 05:57 Elliptocytes Not Reportable 11/25/19 05:57 Acanthocytes (Spur) Not Reportable 11/25/19 05:57 Rouleaux Not Reportable 11/25/19 05:57 Hemoglobin C Crystals Not Reportable 11/25/19 05:57 Schistocytes Rare 11/25/19 05:57 Malaria parasites Not Reportable 11/25/19 05:57 Adarsh Bodies Not Reportable 11/25/19 05:57 Hem Pathologist Commnt No 11/25/19 05:57 PT 21.1 Sec. (12.2-14.9) H 11/22/19 07:40 INR 1.78 (0.87-1.13) H 11/22/19 07:40 APTT 38.8 Sec. (24.2-36.6) H 11/20/19 21:22 D-Dimer 596.16 ng/mlDDU (0-234) H 11/20/19 21:22 ABG pH 7.424 pH Units (7.350-7.450) 11/22/19 15:24 ABG pCO2 30.2 mm Hg 11/22/19 15:24 ABG pO2 66.5 mm Hg (80.0-90.0) L 11/22/19 15:24 ABG HCO3 19.3 mmol/L (20.0-26.0) L 11/22/19 15:24 ABG O2 Saturation 94.0 % (95.0-99.0) L 11/22/19 15:24 ABG O2 Content 11.5 (0.0-44) 11/22/19 15:24 ABG Base Excess -4.4 mmol/L (-2.0-3.0) L 11/22/19 15:24 ABG Hemoglobin 8.9 gm/dl (12.0-16.0) L 11/22/19 15:24 ABG Carboxyhemoglobin 1.7 % (0.0-5.0) 11/22/19 15:24 ABG Methemoglobin 0.6 % (0.0-1.5) 11/22/19 15:24 Oxyhemoglobin 91.8 % (95.0-99.0) L 11/22/19 15:24 FiO2 28 % 11/22/19 15:24 Sodium 136 mmol/L (137-145) L 11/26/19 05:09 Potassium 3.6 mmol/L (3.6-5.0) 11/26/19 05:09 Chloride 104.3 mmol/L (98-107) 11/26/19 05:09 Carbon Dioxide 21 mmol/L (22-30) L 11/26/19 05:09 Anion Gap 14 mmol/L 11/26/19 05:09 BUN 35 mg/dL (7-17) H 11/26/19 05:09 Creatinine 1.8 mg/dL (0.6-1.2) H 11/26/19 05:09 Estimated GFR 34 ml/min 11/26/19 05:09 BUN/Creatinine Ratio 19 % 11/26/19 05:09 Glucose 216 mg/dL (65-100) H 11/26/19 05:09 POC Glucose 257 (70-105) H 11/26/19 07:58 Calcium 7.8 mg/dL (8.4-10.2) L 11/26/19 05:09 Phosphorus 2.70 mg/dL (2.5-4.5) 11/24/19 04:50 Total Bilirubin 0.20 mg/dL (0.1-1.2) 11/20/19 21:22 AST 13 units/L (5-40) 11/20/19 21:22 ALT 15 units/L (7-56) 11/20/19 21:22 Alkaline Phosphatase 81 units/L (35-129) 11/20/19 21:22 Troponin T 0.023 ng/mL (0.00-0.029) 11/21/19 10:02 NT-Pro-B Natriuret Pep 3993 pg/mL (0-900) H 11/20/19 21:22 Total Protein 7.1 g/dL (6.3-8.2) 11/20/19 21:22 Albumin 2.9 g/dL (3.9-5) L 11/20/19 21:22 Albumin/Globulin Ratio 0.7 % 11/20/19 21:22 Triglycerides 214 mg/dL (2-149) H 11/20/19 21:22 Cholesterol 139 mg/dL (50-199) 11/20/19 21:22 LDL Cholesterol Direct 96 mg/dL (50-130) 11/20/19 21:22 HDL Cholesterol 30 mg/dL (40-59) L 11/20/19 21:22 Cholesterol/HDL Ratio 4.63 % 11/20/19 21:22 Procalcitonin 15.13 ng/mL (<0.15) 11/24/19 13:44 TSH 1.430 mlU/mL (0.270-4.200) 11/20/19 21:22 Free T4 1.34 ng/dL (0.76-1.46) 11/20/19 21: PTH Intact 62.13 pg/mL (15-65) 11/24/19 04:50 Urine Color Yellow (Yellow) 11/22/19 Unknown Urine Turbidity Turbid (Clear) 11/22/19 Unknown Urine pH 5.0 (5.0-7.0) 11/22/19 Unknown Ur Specific [place] 1.017 (1.003-1.030) 11/22/19 Unknown Urine Protein 30 mg/dl mg/dL (Negative) 11/22/19 Unknown Urine Glucose (UA) 50 mg/dL (Negative) 11/22/19 Unknown Urine Ketones Neg mg/dL (Negative) 11/22/19 Unknown Urine Blood Mod (Negative) 11/22/19 Unknown Urine Nitrite Neg (Negative) 11/22/19 Unknown Urine Bilirubin Neg (Negative) 11/22/19 Unknown Urine Urobilinogen < 2.0 mg/dL (<2.0) 11/22/19 Unknown Ur Leukocyte Esterase Lg (Negative) 11/22/19 Unknown Urine WBC (Auto) 159.0 /HPF (0.0-6.0) H 11/22/19 Unknown Urine RBC (Auto) 68.0 /HPF (0.0-6.0) 11/22/19 Unknown U Epithel Cells (Auto) 2.0 /HPF (0-13.0) 11/22/19 Unknown Urine Bacteria (Auto) 3+ /HPF (Negative) 11/22/19 Unknown Urine WBC Clumps 3+ /HPF 11/22/19 Unknown Uric Acid Crystals Not Reportable 11/22/19 Unknown Urine Yeast (Budding) 3+ /HPF 11/22/19 Unknown Nasal Screen MRSA (PCR) Positive (Negative) 11/21/19 Unknown Random Vancomycin 9.6 ug/mL (0-40.0) 11/23/19 08:57 Microbiology: Microbiology 11/24/19 13:44 Peripheral/Venous Blood Culture - Preliminary NO GROWTH AFTER 24 HOURS 11/24/19 13:44 Peripheral/Venous Blood Culture - Preliminary NO GROWTH AFTER 24 HOURS 11/21/19 12:45 Peripheral/Venous Blood Culture - Preliminary NO GROWTH AFTER 4 DAYS 11/21/19 13:22 Peripheral/Venous Blood Culture - Preliminary NO GROWTH AFTER 4 DAYS - Diagnostic Impressions Diagnostic Impressions: Echocardiogram 11/21/19 03:29 Transthoracic Echocardiogram Indication: Chest Pain BP: 107/66 HR: 50 Conclusions *The study is technically very limited due to patient body habitus. Patient unable to consent to Opt[facility]. *Global left ventricular systolic function is normal. *The estimated ejection fraction is 50-55%. *Abnormal left ventricular diastolic function is observed. *There is no pericardial effusion. Findings Procedure Info: The study is technically limited due to patient body habitus. Patient unable to consent to Optison. The study was technically limited due to the patient's inability to lay in the left lateral decubitus position. Left Ventricle: The left ventricle is not well visualized. Global left ventricular systolic function is normal. The estimated ejection fraction is 50-55%. Abnormal left ventricular diastolic function is observed. Left Atrium: The left atrium is not well visualized. Right Ventricle: The right ventricle is not well visualized. Right Atrium: The right atrium is not well visualized. Aortic Valve: The aortic valve is not well visualized. Mitral Valve: There is mitral annular calcification. The mitral valve leaflets are mildly thickened. There is trace of mitral regurgitation. Tricuspid Valve: The tricuspid valve is not well visualized. There is mild tricuspid regurgitation. Pulmonic Valve: The pulmonic valve is not well visualized. Pericardium: There is no pericardial effusion. Aorta: The aorta appears normal. Venous: The inferior vena cava is dilated. Measurements Chambers 2D Name Value Normal Range IVSd (2D) 1.3 cm (0.6 - 1.1) LVPWd (2D) 0.37 cm (0.6 - 1.1) LVIDd (2D) 4.89 cm (3.7 - 5.6) LVIDs (2D) 3.78 cm (2 - 3.8) LV FS (2D) 22.67 % - EF Teichholz (2D) 45.46 % - Ao root diameter (2D) 2.64 cm (2 - 3.7) Volumes/Mass Name Value Normal Range LA ESV SP 2CH (A/L) 85.32 ml - LA ESV SP 2CH (MOD) 78.59 ml - Diastolic/Systolic Function Name Value Normal Range MV E-wave Vmax 0.75 m/sec - MV deceleration time 351.73 msec - MV A-wave Vmax 0.88 m/sec - MV E:A ratio 0.86 ratio - Aortic Valve Name Value Normal Range LVOT diameter 1.97 cm - Mitral Valve Name Value Normal Range MV Vmax 0.92 m/sec - MV VTI 35.79 cm - MV peak gradient 3.4 mmHg - MV mean gradient 0.88 mmHg - MV PHT 133.09 msec - MVA (PHT) 1.65 cm2 - Tricuspid Valve Name Value Normal Range TR Vmax 2.8 m/sec - TR peak gradient 31.39 mmHg - IVC diameter 2.42 cm (1.2 - 2.3) Pulmonic Valve/Qp:Qs Name Value Normal Range PV Vmax 0.96 m/sec - PV VTI 22.47 cm - PV peak gradient 3.69 mmHg - PV mean gradient 1.34 mmHg - FL end-diastolic Vmax 0.93 m/sec - RVOT Vmax 0.73 m/sec - RVOT VTI 17.4 cm - RVOT peak gradient 2.14 mmHg - Izquierdo/IV: Voiding Method External Female Catheter IV Catheter Type [Right INT / Saline Lock Forearm] IV Catheter Type [Left Hand] INT / Saline Lock IV Catheter Type [Right INT / Saline Lock Antecubital] Active Medications - Current Medications Current Medications: Generic Name Dose Route Start Last Admin Trade Name Freq PRN Reason Stop Dose Admin Acetaminophen 650 mg 11/21/19 03:19 11/25/19 17:33 Tylenol PO 650 mg Q4H PRN Administration Pain MILD(1-3)/Fever >100.5/AVERY Acetaminophen 650 mg 11/22/19 21:06 11/22/19 21:15 Tylenol FL 650 mg Q4H PRN Administration Pain, Mild (1-3) Apixaban 2.5 mg 11/22/19 22:00 11/26/19 09:33 Eliquis PO 2.5 mg Q12HR GABRIELLE Administration Protocol Aspirin 81 mg 11/22/19 10:00 11/26/19 09:33 Baby Aspirin PO 81 mg QDAY GABRIELLE Administration Atorvastatin Calcium 40 mg 11/21/19 22:00 11/25/19 21:09 Lipitor PO 40 mg QHS GABRIELLE Administration Clopidogrel Bisulfate 75 mg 11/22/19 10:00 11/26/19 09:33 Plavix PO 75 mg QDAY GABRIELLE Administration Dextrose 0 ml 11/21/19 03:19 D50w (25gm) Syringe IV Q30MIN PRN Hypoglycemia Protocol Fluconazole 150 mg 11/25/19 10:00 11/25/19 14:28 Diflucan PO 12/02/19 10:01 150 mg Tu GABRIELLE Administration Hydralazine HCl 10 mg 11/21/19 03:19 Apresoline IV Q6H PRN FOR SBP > target Ceftriaxone Sodium 2 gm in 100 mls @ 200 mls/hr 11/24/19 10:00 11/26/19 09:34 Rocephin/Ns 2 Gm/100 Ml IV 11/26/19 10:29 200 mls/hr Q24HR GABRIELLE Administration Protocol Linezolid 600 mg in 300 mls @ 300 mls/hr 11/24/19 14:00 11/25/19 21:09 Zyvox 600mg/300ml IV 300 mls/hr Q12HR GABRIELLE Administration Protocol Insulin Human Isoph/Insulin Regular 10 unit 11/25/19 17:00 11/26/19 08:47 Humulin 70/30 SUB-Q 10 unit BIDDIAB GABRIELLE Administration Insulin Human Lispro 0 unit 11/21/19 07:30 11/26/19 08:45 Humalog SUB-Q 4 unit ACHS GABRIELLE Administration Protocol Isosorbide Mononitrate 30 mg 11/22/19 10:00 11/26/19 09:34 Imdur PO 30 mg QDAY GABRIELLE Administration Morphine Sulfate 2 mg 11/26/19 03:02 11/26/19 05:43 Morphine IV 2 mg Q4H PRN Administration Pain, Moderate (4-6) Nitroglycerin 0.4 mg 11/21/19 03:19 Nitrostat SL Q5M PRN Chest Pain Ondansetron HCl 4 mg 11/21/19 03:19 Zofran IV Q8H PRN Nausea And Vomiting Sodium Bicarbonate 650 mg 11/23/19 14:00 11/26/19 09:33 Sodium Bicarbonate PO 650 mg TID GABRIELLE Administration Sodium Chloride 10 ml 11/21/19 10:00 11/25/19 21:10 Sodium Chloride Flush Syringe 10 Ml IV 10 ml BID GABRIELLE Administration Sodium Chloride 10 ml 11/21/19 03:19 Sodium Chloride Flush Syringe 10 Ml IV PRN PRN LINE FLUSH Nutrition/Malnutrition Assess - Dietary Evaluation Nutrition/Malnutrition Findings: Nutrition Notes Start: 11/21/19 14:25 Freq: Status: Active Protocol: Document 11/24/19 14:14 MARIBELL (Rec: 11/24/19 14:24 [email or web address] [email or web address]) Nutrition Notes Initial or Follow up Assessment Current Diagnosis CKD(stage I-IV),Diabetes, Hypertension,Heart Failure, Respiratory Failure Other Pertinent Diagnosis Bilat LE cellulitis Current Diet Consistent CHO Labs/Tests reviewed Pertinent Medications reviewed Height 5 ft 6 in Weight 127.7 kg [place] Body Weight (kg) 59.09 BMI 45.4 Weight change and time frame Wt gain noted - fluid? Weight Status Morbidly Obese Subjective/Other Information Unable to reach pt via phone at 13:18. Per RN note, pt alert and oriented to self only; not appropriate for diet education at this time. No PO intakes documented. Per MD note yesterday, pt not eating . Pt with hx of (R) transmetatarsal amputation. Burn Absent Trauma Absent Minimum of two criteria No #1 Nutrition Diagnosis Predicted suboptimal energy intake Etiology medical dx; alert and oriented x 1 As Evidenced by Signs and Symptoms pt reported with poor PO intake Is patient on ventilator? No Is Patient Ambulatory and/or Out of Bed No REE-([facility]-confined to bed) 2199.396 Kcal/Kg value to use for calculation 13 Approximate Energy Requirements Using 1660 kcal/Kg Calculation Used for Recommendations Kcal/kg Additional Notes Pro needs 0.8-0.9g/kg adjBW: 75-84g/day Fluid needs 1ml/kcal Nutrition Intervention Change Diet Order: Continue current diet order Add Supplement/Snack (indicate name/kcal Glucerna BID /protein ) Provides kCal: 440 Provides Protein (gm) 20 Goal #1 PO intakes of meals plus ONS to meet at least 75% energy and pro needs Anticipated Discharge Needs: Continue ONS if PO intakes remain suboptimal Follow-Up By: 11/27/19 Additional Comments F/U: intakes (meals/ONS)
--- NOTE | 2019-11-26 10:44 | Progress Note ---
Assessment and Plan clinically improving tele unremarkable - in SR tte reviewed nephrology on board for a/ckd No plans for additional cardiac w/u at this time. Will follow. The patient has been seen in conjunction with Dr. Jennifer Noriega who agrees with the assessment and plan of care. - Patient Problems (1) Acute HFrEF (heart failure with reduced ejection fraction) Current Visit: Yes Status: Acute (2) Cardiomyopathy Current Visit: Yes Status: Acute (3) Junctional bradycardia Current Visit: Yes Status: Acute (4) CKD (chronic kidney disease) Current Visit: Yes Status: Acute (5) HTN (hypertension) Current Visit: Yes Status: Chronic (6) Diabetes mellitus Current Visit: Yes Status: Chronic (7) PVD (peripheral vascular disease) Current Visit: Yes Status: Chronic (8) S/P transmetatarsal amputation of foot Current Visit: Yes Status: Chronic (9) Lymphedema Current Visit: Yes Status: Chronic (10) Elevated troponin Current Visit: Yes Status: Acute (11) Obesity Current Visit: Yes Status: Chronic Subjective Date of service: 11/26/19 Principal diagnosis: HF; CKD; PVD Interval history: pt resting in bed, feeling a little better, tele reviewed - in SR HR 80s. Objective Last Vital Signs Temp 99.8 F H 11/26/19 08:18 Pulse 84 11/26/19 09:34 Resp 20 11/26/19 08:18 BP 146/74 11/26/19 09:34 Pulse Ox 95 11/26/19 09:13 - Physical Examination General: No Apparent Distress HEENT: Positive: PERRL, Normocephaly, Mucus Membranes Moist Neck: Positive: neck supple, trachea midline Cardiac: Positive: Reg Rate and Rhythm, S1/S2 Lungs: Positive: Decreased Breath Sounds Neuro: Positive: Grossly Intact Abdomen: Negative: Ascites Skin: Positive: Other (BLE chroc skin changes noted, BLE blistering) Musculoskeletal: other (right trans metatarsal amputation, BLE lymphedema) Extremities: Present: +3 Edema (lymphedema) - Labs and Meds Comprehensive Metabolic Panel 11/26/19 Range/Units 05:09 Sodium 136 L (137-145) mmol/L Potassium 3.6 (3.6-5.0) mmol/L Chloride 104.3 (98-107) mmol/L Carbon Dioxide 21 L (22-30) mmol/L BUN 35 H (7-17) mg/dL Creatinine 1.8 H (0.6-1.2) mg/dL Glucose 216 H (65-100) mg/dL Calcium 7.8 L (8.4-10.2) mg/dL - Imaging and Cardiology EKG: report reviewed, image reviewed Echo: report reviewed (10/12/2019 showed EF 35-40%, grade 1 diastolic dysfunction. )
--- NOTE | 2019-11-26 10:47 | Ultrasound Report ---
ULTRASOUND RENAL INDICATION: Acute renal failure.. Acute renal failure. COMPARISON: No relevant prior imaging study available. FINDINGS: RIGHT KIDNEY: Size: 12.67 cm. Echogenicity: Normal. Cortical thickness: 1.62 cm. Hydronephrosis: None. Cyst or mass: None. Stones: None. LEFT KIDNEY: Not identified Urinary Bladder: No significant abnormality. Free Fluid: None. Additional Findings: None. IMPRESSION 1. Normal-appearing right kidney Signer Name: Huy Booker MD Signed: 11/26/2019 10:42 AM Workstation Name: [id number]
[2019-11-26] MEDS: LINEZOLID 600 MG/300 ML BAG IV SCH ×2 (11:34→21:55)
--- NOTE | 2019-11-26 11:56 | Progress Note ---
Assessment and Plan 1. Acute kidney injury: Vasomotor JI superimposed on CKD stage 3 in the setting of hypotension. Renal US normal R kidney and non-visualization of L kidney. Urine studies ordered. Monitor renal function. Creatinine level is better and stable. Avoid nephrotoxic agents. Meds dosage based on GFR. 2. FEN: Metabolic acidosis, PO Sodium bicarbonate, monitor. Monitor lytes and volume status. 3. Acute combined systolic and diastolic HFrEF: Followed by Cardiology. TTE done 10/12/2019 showed EF 35-40% with grade 1 diastolic dysfunction Daily weights, monitor in's and O's. 4. Elevated troponin-NSTEMI type II: Continue medical management, Cardiology following. 5. Acute hypoxic respiratory failure: O2 sat on room air was 85%. Likely due to CHF exacerbation. Supplemental O2. 6. SIRS: Leukocytosis. UTI vs LE wound infection. Continue abx. 7. Acute metabolic encephalopathy, POA. Continue supportive care. 8. Hypertension: Monitor BP. 9. Normochromic anemia, POA. 10. Diabetes mellitus type 2: Consistent low carb diet and sliding scale of insulin. 11. Chronic lymphedema. 12. Elevated d-dimer: V/Q scan showed low probability for PE. - Subjective: Patient was seen and examined at the bedside. No new complaint. - General Appearance General appearance: well-developed, well-nourished, appears stated age, obese, no distress HEENT: ATNC, PERRL, hearing intact, vision intact Neck: neck supple, trachea midline Respiratory: Clear to Ascultation Heart: regular, S1S2, no murmurs Gastrointestinal: obese, normoactive bowel sounds, not tenderness Integumentary: chronic venous stasis, R leg dressing Neurologic: confused, disoriented, able to move extremities Ext: b/l LE lymphedema noted, R TMA Psychiatric: cooperative Subjective Date of service: 11/26/19 Principal diagnosis: HF; CKD; PVD Objective - Vital Signs Vital signs: Vital Signs - 12hr 11/26/19 11/26/19 11/26/19 03:29 04:00 08:18 Temperature 99.1 F 99.8 F H Pulse Rate 82 83 81 Respiratory 18 20 Rate Blood Pressure 144/72 146/74 O2 Sat by Pulse 92 95 Oximetry 11/26/19 11/26/19 09:13 09:34 Temperature Pulse Rate 84 Respiratory Rate Blood Pressure 146/74 O2 Sat by Pulse 95 Oximetry - Lab 11/25/19 05:57 11/26/19 05:09 Most recent lab results ABG pH 7.424 pH Units (7.350-7.450) 11/22/19 15:24 ABG pCO2 30.2 mm Hg 11/22/19 15:24 ABG pO2 66.5 mm Hg (80.0-90.0) L 11/22/19 15:24 ABG HCO3 19.3 mmol/L (20.0-26.0) L 11/22/19 15:24 ABG O2 Saturation 94.0 % (95.0-99.0) L 11/22/19 15:24 Calcium 7.8 mg/dL (8.4-10.2) L 11/26/19 05:09 Phosphorus 2.70 mg/dL (2.5-4.5) 11/24/19 04:50 Medications & Allergies - Medications Allergies/Adverse Reactions: Allergies Sulfa (Sulfonamide Antibiotics) Allergy (Verified 11/20/19 20:05) Unknown Home Medications: Home Medications Medication Instructions Recorded Confirmed Last Taken Type Unobtainable 11/20/19 11/20/19 Unknown History Active Medications: Generic Name Dose Route Start Last Admin Trade Name Freq PRN Reason Stop Dose Admin Acetaminophen 650 mg 11/21/19 03:19 11/25/19 17:33 Tylenol PO 650 mg Q4H PRN Administration Pain MILD(1-3)/Fever >100.5/AVERY Acetaminophen 650 mg 11/22/19 21:06 11/22/19 21:15 Tylenol ID 650 mg Q4H PRN Administration Pain, Mild (1-3) Apixaban 2.5 mg 11/22/19 22:00 11/26/19 09:33 Eliquis PO 2.5 mg Q12HR GABRIELLE Administration Protocol Aspirin 81 mg 11/22/19 10:00 11/26/19 09:33 Baby Aspirin PO 81 mg QDAY GABRIELLE Administration Atorvastatin Calcium 40 mg 11/21/19 22:00 11/25/19 21:09 Lipitor PO 40 mg QHS GABRIELLE Administration Clopidogrel Bisulfate 75 mg 11/22/19 10:00 11/26/19 09:33 Plavix PO 75 mg QDAY GABRIELLE Administration Dextrose 0 ml 11/21/19 03:19 D50w (25gm) Syringe IV Q30MIN PRN Hypoglycemia Protocol Fluconazole 150 mg 11/25/19 10:00 11/25/19 14:28 Diflucan PO 12/02/19 10:01 150 mg Tu GABRIELLE Administration Hydralazine HCl 10 mg 11/21/19 03:19 Apresoline IV Q6H PRN FOR SBP > target Linezolid 600 mg in 300 mls @ 300 mls/hr 11/24/19 14:00 11/26/19 11:34 Zyvox 600mg/300ml IV 300 mls/hr Q12HR GABRIELLE Administration Protocol Insulin Human Isoph/Insulin Regular 10 unit 11/25/19 17:00 11/26/19 08:47 Humulin 70/30 SUB-Q 10 unit BIDDIAB GABRIELLE Administration Insulin Human Lispro 0 unit 11/21/19 07:30 11/26/19 08:45 Humalog SUB-Q 4 unit ACHS GABRIELLE Administration Protocol Isosorbide Mononitrate 30 mg 11/22/19 10:00 11/26/19 09:34 Imdur PO 30 mg QDAY GABRIELLE Administration Morphine Sulfate 2 mg 11/26/19 03:02 11/26/19 05:43 Morphine IV 2 mg Q4H PRN Administration Pain, Moderate (4-6) Nitroglycerin 0.4 mg 11/21/19 03:19 Nitrostat SL Q5M PRN Chest Pain Ondansetron HCl 4 mg 11/21/19 03:19 Zofran IV Q8H PRN Nausea And Vomiting Sodium Bicarbonate 650 mg 11/23/19 14:00 11/26/19 09:33 Sodium Bicarbonate PO 650 mg TID GABRIELLE Administration Sodium Chloride 10 ml 11/21/19 10:00 11/26/19 11:39 Sodium Chloride Flush Syringe 10 Ml IV 10 ml BID GABRIELLE Administration Sodium Chloride 10 ml 11/21/19 03:19 Sodium Chloride Flush Syringe 10 Ml IV PRN PRN LINE FLUSH
--- NOTE | 2019-11-26 14:13 | Progress Note ---
Assessment and Plan Cultures: MRSA PCR positive Urine cx 10-100 mixed Blood cultures 11/21/2019 no growth today Blood cultures 11/24/2019 no growth today Assessment: 69 years old female with history of hypertension, diabetes mellitus, morbid obesity, bilateral leg lymphedema, CHF, possible DVT on Eliquis, admitted on 11/20/2019 due to 24 hours history of worsening shortness of breath and chest pain: #Sepsis: fever and leukocytosis improving, source likely UTI / ?legs cellulitis. #UTI: urine culture mixed bacteria #Bilateral lymphedema with stasis dermatitis > cellulitis #Possible CHF exacerbation #Acute kidney disease: renally adjust abx, improving #Diabetes mellitus with hyperglycemia #Right heel pressure ulcer: not infected, XR no osteomyelitis. #Vaginal/perineal intertrigo Recommendations: -right foot MRI w/o contrast -recheck CBC today -right heel offloading -Follow-up blood culture and urine culture -Continue ceftriaxone 2 g IV once a day -Continue linezolid day 3 -s/p fluconazole 150 mg po qweek x 2 - week 1 -tight glucose control Will follow. Jacqueline Ac MD Infectious Diseases [employer] [facility] ([facility]) M [phone] O [phone] Subjective Date of service: 11/26/19 Principal diagnosis: HF; CKD; PVD Interval history: Patient feels better, no complaints, no fever Objective - Exam Narrative Exam: General appearance: Alert confused in NAD Eyes: anicteric sclerae, moist conjunctivae; no lid-lag; PERRLA HENT: Atraumatic; oropharynx limited Lungs: CTA CV: RRR no murmur Abdomen: Soft, non-tender; unbilicus with nodules Extremities: alanna marked edema papillomatosis Skin: alanna legs lymphadema skin changes, right foot TMA healed. right heel ulcer clean, no purulence, no necrosis Psych: no agitated confused Neuro: alert and oriented x 2 non focal - Constitutional Vitals: Vital Signs Temp Pulse Resp BP Pulse Ox 99.2 F 79 20 137/73 98 11/26/19 11:21 11/26/19 11:21 11/26/19 11:21 11/26/19 11:21 11/26/19 11:21 Temperature -Last 24 Hours Temperature 99.2 F Temperature 99.8 F Temperature 99.1 F Temperature 99.1 F Temperature 98.6 F Temperature 98.9 F - Labs CBC & Chem 7: 11/25/19 05:57 11/26/19 05:09 Labs: Abnormal lab results 11/25/19 11/25/19 11/26/19 Range/Units 17:33 20:42 05:09 Sodium 136 L (137-145) mmol/L Carbon Dioxide 21 L (22-30) mmol/L BUN 35 H (7-17) mg/dL Creatinine 1.8 H (0.6-1.2) mg/dL Glucose 216 H (65-100) mg/dL POC Glucose 278 H 227 H (70-105) Calcium 7.8 L (8.4-10.2) mg/dL 11/26/19 11/26/19 Range/Units 07:58 11:36 Sodium (137-145) mmol/L Carbon Dioxide (22-30) mmol/L BUN (7-17) mg/dL Creatinine (0.6-1.2) mg/dL Glucose (65-100) mg/dL POC Glucose 257 H 243 H (70-105) Calcium (8.4-10.2) mg/dL
[2019-11-26 15:40] LABS: Hematocrit 25.1 % (30.3-42.9); Mean Corpuscular HGB Conc 32 % (30-34); Mean Corpuscular Volume 84 fl (79-97); Platelet Count 470 K/mm3 (140-440); Red Cell Distribution Width 15.7 % (13.2-15.2)
[2019-11-26 15:54] LABS: Red Blood Count 2.98 M/mm3 (3.65-5.03)
[2019-11-27 08:18] LABS: Calcium 7.8 mg/dL (8.4-10.2)
[2019-11-27 08:19] LABS: Basophils # (Auto) 0.1 K/mm3 (0.0-0.1); Basophils % (Auto) 0.7 % (0.0-1.8); Eosinophils # (Auto) 0.5 K/mm3 (0.0-0.4); Eosinophils % (Auto) 4.4 % (0.0-4.3); Hematocrit 23.6 % (30.3-42.9); Hemoglobin 7.7 gm/dl (10.1-14.3); Lymphocytes # (Auto) 1.7 K/mm3 (1.2-5.4); Lymphocytes % (Auto) 13.7 % (13.4-35.0); Mean Corpuscular HGB Conc 33 % (30-34); Mean Corpuscular Volume 84 fl (79-97); Monocytes # (Auto) 0.8 K/mm3 (0.0-0.8); Monocytes % (Auto) 6.7 % (0.0-7.3); Platelet Count 480 K/mm3 (140-440); Red Blood Count 2.81 M/mm3 (3.65-5.03); Red Cell Distribution Width 15.5 % (13.2-15.2)
--- NOTE | 2019-11-27 08:32 | Progress Note ---
Assessment and Plan Cultures: MRSA PCR positive Urine cx 10-100 mixed Blood cultures 11/21/2019 no growth today Blood cultures 11/24/2019 no growth today Assessment: 69 years old female with history of hypertension, diabetes mellitus, morbid obesity, bilateral leg lymphedema, CHF, possible DVT on Eliquis, admitted on 11/20/2019 due to 24 hours history of worsening shortness of breath and chest pain: #Sepsis: fever and leukocytosis improving, source likely UTI / ?legs cellulitis. #UTI: urine culture mixed bacteria #Right heel pressure ulcer: not infected, XR no osteomyelitis. CRP 19 - very high #Bilateral lymphedema with stasis dermatitis > cellulitis #Possible CHF exacerbation #Acute kidney disease: renally adjust abx, improving #Diabetes mellitus with hyperglycemia #Vaginal/perineal intertrigo s/p fluconazole x 1 #Thrombocytosis: likely reactive to right foot infection Recommendations: -right foot MRI w/o contrast - ordered - if osteomyelitis then will need IV abx for 6 weeks -right heel offloading -Follow-up blood culture and urine culture -Continue ceftriaxone 2 g IV once a day -Continue linezolid day 4 -tight glucose control Will follow. Jacqueline Ac MD Infectious Diseases [employer] [facility] ([facility]) M [phone] O [phone] Subjective Date of service: 11/27/19 Principal diagnosis: HF; CKD; PVD Interval history: Patient feels better, no complaints, no fever Objective - Exam Narrative Exam: General appearance: Alert confused in NAD Eyes: anicteric sclerae, moist conjunctivae; no lid-lag; PERRLA HENT: Atraumatic; oropharynx limited Lungs: CTA CV: RRR no murmur Abdomen: Soft, non-tender; unbilicus with nodules Extremities: alanna marked edema papillomatosis Skin: alanna legs lymphadema skin changes, right foot TMA healed, right heel ulcer clean, draining serosanguinous Psych: no agitated confused Neuro: alert and oriented x 2 non focal - Constitutional Vitals: Vital Signs Temp Pulse Resp BP Pulse Ox 98.0 F 82 18 126/61 97 11/26/19 23:54 11/27/19 04:00 11/26/19 23:54 11/26/19 23:54 11/26/19 23:54 Temperature -Last 24 Hours Temperature 98.0 F Temperature 98.0 F Temperature 98.9 F Temperature 99.2 F - Labs CBC & Chem 7: 11/27/19 07:21 11/27/19 07:21 Labs: Abnormal lab results 11/26/19 11/26/19 11/26/19 Range/Units 11:36 14:42 14:42 WBC 12.9 H (4.5-11.0) K/mm3 RBC 2.98 L (3.65-5.03) M/mm3 Hgb 8.0 L (10.1-14.3) gm/dl Hct 25.1 L (30.3-42.9) % MCH 27 L (28-32) pg RDW 15.7 H (13.2-15.2) % Plt Count 470 H (140-440) K/mm3 Eos % (Auto) (0.0-4.3) % Eos # (0.0-0.4) K/mm3 Seg Neutrophils % (40.0-70.0) % Seg Neutrophils # (1.8-7.7) K/mm3 BUN (7-17) mg/dL Creatinine (0.6-1.2) mg/dL Glucose (65-100) mg/dL POC Glucose 243 H (70-105) Calcium (8.4-10.2) mg/dL C-Reactive Protein 19.70 H (0.00-1.30) mg/dL 11/26/19 11/26/19 11/27/19 Range/Units 16:22 21:30 07:21 WBC (4.5-11.0) K/mm3 RBC (3.65-5.03) M/mm3 Hgb (10.1-14.3) gm/dl Hct (30.3-42.9) % MCH (28-32) pg RDW (13.2-15.2) % Plt Count (140-440) K/mm3 Eos % (Auto) (0.0-4.3) % Eos # (0.0-0.4) K/mm3 Seg Neutrophils % (40.0-70.0) % Seg Neutrophils # (1.8-7.7) K/mm3 BUN 29 H (7-17) mg/dL Creatinine 1.6 H (0.6-1.2) mg/dL Glucose 235 H (65-100) mg/dL POC Glucose 258 H 250 H (70-105) Calcium 7.8 L (8.4-10.2) mg/dL C-Reactive Protein (0.00-1.30) mg/dL 11/27/19 Range/Units 07:21 WBC 12.2 H (4.5-11.0) K/mm3 RBC 2.81 L (3.65-5.03) M/mm3 Hgb 7.7 L (10.1-14.3) gm/dl Hct 23.6 L (30.3-42.9) % MCH 27 L (28-32) pg RDW 15.5 H (13.2-15.2) % Plt Count 480 H (140-440) K/mm3 Eos % (Auto) 4.4 H (0.0-4.3) % Eos # 0.5 H (0.0-0.4) K/mm3 Seg Neutrophils % 74.5 H (40.0-70.0) % Seg Neutrophils # 9.1 H (1.8-7.7) K/mm3 BUN (7-17) mg/dL Creatinine (0.6-1.2) mg/dL Glucose (65-100) mg/dL POC Glucose (70-105) Calcium (8.4-10.2) mg/dL C-Reactive Protein (0.00-1.30) mg/dL
[2019-11-27] MEDS: INSULIN LISPRO 100 UNIT/ML VIAL 3 mL SUB-Q SCH ×5 (09:48→23:27)
--- NOTE | 2019-11-27 10:15 | Progress Note ---
Assessment and Plan 1. Acute kidney injury: Vasomotor JI superimposed on CKD stage 3 in the setting of hypotension. Renal US normal R kidney and non-visualization of L kidney. Urine studies ordered. Monitor renal function. Creatinine level is improving. Avoid nephrotoxic agents. Meds dosage based on GFR. 2. FEN: Metabolic acidosis, PO Sodium bicarbonate, monitor. Monitor lytes and volume status. 3. Acute combined systolic and diastolic HFrEF: Followed by Cardiology. TTE done 10/12/2019 showed EF 35-40% with grade 1 diastolic dysfunction Daily weights, monitor in's and O's. 4. Elevated troponin-NSTEMI type II: Continue medical management, Cardiology following. 5. Acute hypoxic respiratory failure: O2 sat on room air was 85%. Likely due to CHF exacerbation. Supplemental O2. 6. SIRS: Leukocytosis. UTI vs LE wound infection. Continue abx. 7. Acute metabolic encephalopathy, POA. Continue supportive care. 8. Hypertension: Monitor BP. 9. Normochromic anemia, POA. 10. Diabetes mellitus type 2: Consistent low carb diet and sliding scale of insulin. 11. Chronic lymphedema. 12. Elevated d-dimer: V/Q scan showed low probability for PE. - Subjective: Patient was seen and examined at the bedside. No new complaint. - General Appearance General appearance: well-developed, well-nourished, appears stated age, obese, no distress HEENT: ATNC, PERRL, hearing intact, vision intact Neck: neck supple, trachea midline Respiratory: Clear to Ascultation Heart: regular, S1S2, no murmurs Gastrointestinal: obese, normoactive bowel sounds, not tenderness Integumentary: chronic venous stasis, R leg dressing Neurologic: confused, disoriented, able to move extremities Ext: b/l LE lymphedema noted, R TMA Psychiatric: cooperative Subjective Date of service: 11/27/19 Principal diagnosis: HF; CKD; PVD Objective - Vital Signs Vital signs: Vital Signs - 12hr 11/26/19 11/26/19 11/27/19 23:00 23:54 04:00 Temperature 98.0 F Pulse Rate 83 82 Respiratory 20 18 Rate Blood Pressure 126/61 O2 Sat by Pulse 97 97 Oximetry 11/27/19 08:27 Temperature 97.9 F Pulse Rate 79 Respiratory 15 Rate Blood Pressure 106/73 O2 Sat by Pulse 91 Oximetry - Lab 11/27/19 07:21 11/27/19 07:21 Most recent lab results ABG pH 7.424 pH Units (7.350-7.450) 11/22/19 15:24 ABG pCO2 30.2 mm Hg 11/22/19 15:24 ABG pO2 66.5 mm Hg (80.0-90.0) L 11/22/19 15:24 ABG HCO3 19.3 mmol/L (20.0-26.0) L 11/22/19 15:24 ABG O2 Saturation 94.0 % (95.0-99.0) L 11/22/19 15:24 Calcium 7.8 mg/dL (8.4-10.2) L 11/27/19 07:21 Phosphorus 2.70 mg/dL (2.5-4.5) 11/24/19 04:50 Medications & Allergies - Medications Allergies/Adverse Reactions: Allergies Sulfa (Sulfonamide Antibiotics) Allergy (Verified 11/20/19 20:05) Unknown Home Medications: Home Medications Medication Instructions Recorded Confirmed Last Taken Type Unobtainable 11/20/19 11/20/19 Unknown History Active Medications: Generic Name Dose Route Start Last Admin Trade Name Freq PRN Reason Stop Dose Admin Acetaminophen 650 mg 11/21/19 03:19 11/25/19 17:33 Tylenol PO 650 mg Q4H PRN Administration Pain MILD(1-3)/Fever >100.5/AVERY Acetaminophen 650 mg 11/22/19 21:06 11/22/19 21:15 Tylenol NV 650 mg Q4H PRN Administration Pain, Mild (1-3) Apixaban 2.5 mg 11/22/19 22:00 11/26/19 21:55 Eliquis PO 2.5 mg Q12HR GABRIELLE Administration Protocol Aspirin 81 mg 11/22/19 10:00 11/26/19 09:33 Baby Aspirin PO 81 mg QDAY GABRIELLE Administration Atorvastatin Calcium 40 mg 11/21/19 22:00 11/26/19 21:55 Lipitor PO 40 mg QHS GABRIELLE Administration Clopidogrel Bisulfate 75 mg 11/22/19 10:00 11/26/19 09:33 Plavix PO 75 mg QDAY GABRIELLE Administration Dextrose 0 ml 11/21/19 03:19 D50w (25gm) Syringe IV Q30MIN PRN Hypoglycemia Protocol Fluconazole 150 mg 11/25/19 10:00 11/25/19 14:28 Diflucan PO 12/02/19 10:01 150 mg Tu GABRIELLE Administration Hydralazine HCl 10 mg 11/21/19 03:19 Apresoline IV Q6H PRN FOR SBP > target Linezolid 600 mg in 300 mls @ 300 mls/hr 11/24/19 14:00 11/26/19 21:55 Zyvox 600mg/300ml IV 300 mls/hr Q12HR GABRIELEL Administration Protocol Insulin Human Isoph/Insulin Regular 10 unit 11/25/19 17:00 11/26/19 17:56 Humulin 70/30 SUB-Q 10 unit BIDDIAB GABRIELLE Administration Insulin Human Lispro 0 unit 11/21/19 07:30 11/27/19 09:48 Humalog SUB-Q Not Given ACHS [facility] Protocol Isosorbide Mononitrate 30 mg 11/22/19 10:00 11/26/19 09:34 Imdur PO 30 mg QDAY GABRIELLE Administration Morphine Sulfate 2 mg 11/26/19 03:02 11/26/19 21:56 Morphine IV 2 mg Q4H PRN Administration Pain, Moderate (4-6) Nitroglycerin 0.4 mg 11/21/19 03:19 Nitrostat SL Q5M PRN Chest Pain Ondansetron HCl 4 mg 11/21/19 03:19 Zofran IV Q8H PRN Nausea And Vomiting Sodium Bicarbonate 650 mg 11/23/19 14:00 11/26/19 21:55 Sodium Bicarbonate PO 650 mg TID GABRIELLE Administration Sodium Chloride 10 ml 11/21/19 10:00 11/26/19 21:56 Sodium Chloride Flush Syringe 10 Ml IV 10 ml BID GABRIELLE Administration Sodium Chloride 10 ml 11/21/19 03:19 Sodium Chloride Flush Syringe 10 Ml IV PRN PRN LINE FLUSH
--- NOTE | 2019-11-27 10:19 | Progress Note ---
Assessment and Plan clinically improving tele unremarkable - in SR tte reviewed nephrology on board for a/ckd No plans for additional cardiac w/u at this time. Currently stable cardiac status. Nothing further to add from cardiac perspective at this time. Will sign off. Recommend pt follow up in our office with Dr. Ybarra within 2 weeks of discharge ([phone]). The patient has been seen in conjunction with Dr. Jennifer Noriega who agrees with the assessment and plan of care. - Patient Problems (1) Acute HFrEF (heart failure with reduced ejection fraction) Current Visit: Yes Status: Acute (2) Cardiomyopathy Current Visit: Yes Status: Acute (3) Junctional bradycardia Current Visit: Yes Status: Acute (4) CKD (chronic kidney disease) Current Visit: Yes Status: Acute (5) HTN (hypertension) Current Visit: Yes Status: Chronic (6) Diabetes mellitus Current Visit: Yes Status: Chronic (7) PVD (peripheral vascular disease) Current Visit: Yes Status: Chronic (8) S/P transmetatarsal amputation of foot Current Visit: Yes Status: Chronic (9) Lymphedema Current Visit: Yes Status: Chronic (10) Elevated troponin Current Visit: Yes Status: Acute (11) Obesity Current Visit: Yes Status: Chronic Subjective Date of service: 11/27/19 Principal diagnosis: HF; CKD; PVD Interval history: pt resting in bed, feeling better, tele reviewed - in SR HR 80s. Objective Last Vital Signs Temp 97.9 F 11/27/19 08:27 Pulse 79 11/27/19 08:27 Resp 15 11/27/19 08:27 BP 106/73 11/27/19 08:27 Pulse Ox 91 11/27/19 08:27 - Physical Examination General: No Apparent Distress HEENT: Positive: PERRL, Normocephaly, Mucus Membranes Moist Neck: Positive: neck supple, trachea midline Cardiac: Positive: Reg Rate and Rhythm, S1/S2 Lungs: Positive: Decreased Breath Sounds Neuro: Positive: Grossly Intact Abdomen: Negative: Ascites Skin: Positive: Other (BLE chroc skin changes noted, BLE blistering) Musculoskeletal: other (right trans metatarsal amputation, BLE lymphedema) Extremities: Present: +3 Edema (lymphedema) - Labs and Meds CBC 11/26/19 11/27/19 Range/Units 14:42 07:21 WBC 12.9 H 12.2 H (4.5-11.0) K/mm3 RBC 2.98 L 2.81 L (3.65-5.03) M/mm3 Hgb 8.0 L 7.7 L (10.1-14.3) gm/dl Hct 25.1 L 23.6 L (30.3-42.9) % Plt Count 470 H 480 H (140-440) K/mm3 Lymph # Promotions Representative 1.7 [place] # Promotions Representative 0.8 Eos # Promotions Representative 0.5 H Baso # Promotions Representative 0.1 Comprehensive Metabolic Panel 11/27/19 Range/Units 07:21 Sodium 137 (137-145) mmol/L Potassium 3.8 (3.6-5.0) mmol/L Chloride 102.6 (98-107) mmol/L Carbon Dioxide 22 (22-30) mmol/L BUN 29 H (7-17) mg/dL Creatinine 1.6 H (0.6-1.2) mg/dL Glucose 235 H (65-100) mg/dL Calcium 7.8 L (8.4-10.2) mg/dL - Imaging and Cardiology EKG: report reviewed, image reviewed Echo: report reviewed (10/12/2019 showed EF 35-40%, grade 1 diastolic dysfunction. )
[2019-11-27] MEDS ORDERED: LORazepam 2 MG/ML VIAL IV ONE (11:00)
[2019-11-27] MEDS: ASPIRIN 81 MG TAB CHEW PO SCH (11:14)
[2019-11-27] MEDS: APIXABAN 2.5 MG TAB PO SCH ×2 (11:14→23:12)
[2019-11-27] MEDS: SODIUM BICARBONATE 650 MG TAB PO SCH ×3 (11:14→23:12)
[2019-11-27] MEDS: CLOPIDOGREL 75 MG TAB PO SCH (11:15)
[2019-11-27] MEDS: INSULIN NPH/REGULAR 70/30 INJ SUB-Q SCH ×2 (11:16→16:47)
[2019-11-27] MEDS: LINEZOLID 600 MG/300 ML BAG IV SCH ×2 (11:24→23:12)
[2019-11-27] MEDS: cefTRIAXone/NS 2 GM/100 ML 2 GM/100 ML BAG IV SCH (16:46)
--- NOTE | 2019-11-27 21:59 | Progress Note ---
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) Continue current management, cardiology following TTE done 10/12/2019 showed EF 35-40% with grade 1 diastolic dysfunction Input output monitoring, low-sodium diet, fluid restriction --Acute hypoxic respiratory failure -O2 sat on room air is 85% -Likely due to CHF exacerbation, continue diuretics and breathing treatment -Supplemental O2 to keep oxygen saturation greater than 92% --Bilateral lower extremity cellulitis, continue antibiotics, Right foot MRI without contrast --Leukocytosis with sepsis -likely from UTI and bilateral lower extremity cellulitis UA suggestive for UTI, patient also have significant bilateral lower extremity erythremia and rash cont on antibiotics, follow blood culture consulted ID, ordered CT chest/abdomen/pelvis --UTI with sepsis continue antibiotics for now follow culture --CKD (chronic kidney disease) per [facility] records, cr fluctuates between 2-3 cr today 2.9, will consult nephrology --HTN (hypertension); moderate control Continue current antihypertensives and PRN medications -- Diabetes mellitus type 2 Consistent carb diet, sliding scale of insulin --PVD (peripheral vascular disease) Continue aspirin and statin --S/P transmetatarsal amputation of foot Continue supportive care --Chronic lymphedema IV diuretics as tolerated -- Elevated troponin-NSTEMI type II Continue medical management, cardiology following --Morbid obesity -Dietary education when clinically stable --Elevated d-dimer, VQ scan showed low probability for PE --DVT prophylaxis, continue on Eliquis Monitor closely and adjust management as needed History Interval history: I have seen and examined the patient medical records reviewed Patient is alert and awake, not in acute distress Patient is septic on IV antibiotics Zyvox completed Rocephin Vital signs noted Hospitalist Physical - Constitutional Vitals: Temp Pulse Resp BP Pulse Ox 98.3 F 79 20 161/87 99 11/27/19 20:54 11/27/19 20:54 11/27/19 20:54 11/27/19 20:54 11/27/19 20:54 General appearance: Present: no acute distress, well-nourished, obese - EENT Eyes: Present: PERRL, EOM intact - Neck Neck: Present: supple, normal ROM - Respiratory Respiratory effort: normal Respiratory: bilateral: diminished, negative: rales, rhonchi, wheezing - Cardiovascular Rhythm: regular Heart Sounds: Present: S1 & S2 - Extremities Extremities: no ischemia, No edema - Abdominal General gastrointestinal: soft, non-tender, non-distended, normal bowel sounds - Integumentary Integumentary: Present: clear, warm - Psychiatric Psychiatric: appropriate mood/affect, memory intact - Neurologic Neurologic: moves all extremities HEART Score - HEART Score Troponin: Troponin T 0.023 ng/mL (0.00-0.029) 11/21/19 10:02 Results - Labs CBC & Chem 7: 11/27/19 07:21 11/27/19 07:21 Labs: Laboratory Last Values WBC 12.2 K/mm3 (4.5-11.0) H 11/27/19 07:21 RBC 2.81 M/mm3 (3.65-5.03) L 11/27/19 07:21 Hgb 7.7 gm/dl (10.1-14.3) L 11/27/19 07:21 Hct 23.6 % (30.3-42.9) L 11/27/19 07:21 MCV 84 fl (79-97) 11/27/19 07:21 MCH 27 pg (28-32) L 11/27/19 07:21 MCHC 33 % (30-34) 11/27/19 07: RDW 15.5 % (13.2-15.2) H 11/27/19 07:21 Plt Count 480 K/mm3 (140-440) H 11/27/19 07:21 Lymph % (Auto) 13.7 % (13.4-35.0) 11/27/19 07:21 [place] % (Auto) 6.7 % (0.0-7.3) 11/27/19 07:21 Eos % (Auto) 4.4 % (0.0-4.3) H 11/27/19 07:21 Baso % (Auto) 0.7 % (0.0-1.8) 11/27/19 07: Lymph # 1.7 K/mm3 (1.2-5.4) 11/27/19 07:21 Campbell # 0.8 K/mm3 (0.0-0.8) 11/27/19 07:21 Eos # 0.5 K/mm3 (0.0-0.4) H 08/13/20 07:21 Baso # 0.1 K/mm3 (0.0-0.1) 11/27/19 07:21 Add Manual Diff Complete 11/25/19 05:57 Total Counted 100 11/25/19 05:57 Seg Neutrophils % 74.5 % (40.0-70.0) H 11/27/19 07:21 Seg Neuts % (Manual) 95.0 % (40.0-70.0) H 11/25/19 05:57 Band Neutrophils % 0 % 11/25/19 05:57 Lymphocytes % (Manual) 2.0 % (13.4-35.0) L 11/25/19 05:57 Reactive Lymphs % (Man) 0 % 11/25/19 05:57 Monocytes % (Manual) 3.0 % (0.0-7.3) 11/25/19 05:57 Eosinophils % (Manual) 0 % (0.0-4.3) 11/25/19 05:57 Basophils % (Manual) 0 % (0.0-1.8) 11/25/19 05:57 Metamyelocytes % 0 % 11/25/19 05:57 Myelocytes % 0 % 11/25/19 05:57 Promyelocytes % 0 % 11/25/19 05:57 Blast Cells % 0 % 11/25/19 05:57 Nucleated RBC % Not Reportable 11/25/19 05:57 Seg Neutrophils # 9.1 K/mm3 (1.8-7.7) H 11/27/19 07:21 Seg Neutrophils # Man 18.0 K/mm3 (1.8-7.7) H 11/25/19 05:57 Band Neutrophils # 0.0 K/mm3 11/25/19 05:57 Lymphocytes # (Manual) 0.4 K/mm3 (1.2-5.4) L 11/25/19 05:57 Abs React Lymphs (Man) 0.0 K/mm3 11/25/19 05:57 Monocytes # (Manual) 0.6 K/mm3 (0.0-0.8) 11/25/19 05:57 Eosinophils # (Manual) 0.0 K/mm3 (0.0-0.4) 11/25/19 05:57 Basophils # (Manual) 0.0 K/mm3 (0.0-0.1) 11/25/19 05:57 Metamyelocytes # 0.0 K/mm3 11/25/19 05:57 Myelocytes # 0.0 K/mm3 11/25/19 05:57 Promyelocytes # 0.0 K/mm3 11/25/19 05:57 Blast Cells # 0.0 K/mm3 11/25/19 05:57 WBC Morphology Not Reportable 11/25/19 05:57 Hypersegmented Neuts Not Reportable 11/25/19 05:57 Hyposegmented Neuts Not Reportable 11/25/19 05:57 Hypogranular Neuts Not Reportable 11/25/19 05:57 Smudge Cells Not Reportable 11/25/19 05:57 Toxic Granulation Not Reportable 11/25/19 05:57 Toxic Vacuolation Not Reportable 11/25/19 05:57 Dohle Bodies Not Reportable 11/25/19 05:57 Pelger-Huet Anomaly Not Reportable 11/25/19 05:57 Daniel Rods Not Reportable 11/25/19 05:57 Platelet Estimate Consistent w auto 11/25/19 05:57 Clumped Platelets Not Reportable 11/25/19 05:57 Plt Clumps, EDTA Not Reportable 11/25/19 05:57 Large Platelets Not Reportable 11/25/19 05:57 Giant Platelets Not Reportable 11/25/19 05:57 Platelet Satelliting Not Reportable 11/25/19 05:57 Plt Morphology Comment Not Reportable 11/25/19 05:57 RBC Morphology Not Reportable 11/25/19 05:57 Dimorphic RBCs Not Reportable 11/25/19 05:57 Polychromasia Not Reportable 11/25/19 05:57 Hypochromasia Not Reportable 11/25/19 05:57 Poikilocytosis Not Reportable 11/25/19 05:57 Anisocytosis Few 11/25/19 05:57 Microcytosis Not Reportable 11/25/19 05:57 Macrocytosis Not Reportable 11/25/19 05:57 Spherocytes Not Reportable 11/25/19 05:57 Pappenheimer Bodies Not Reportable 11/25/19 05:57 Sickle Cells Not Reportable 11/25/19 05:57 Target Cells Not Reportable 11/25/19 05:57 Tear Drop Cells Not Reportable 11/25/19 05:57 Ovalocytes Not Reportable 11/25/19 05:57 Helmet Cells Not Reportable 11/25/19 05:57 [place] Bodies Not Reportable 11/25/19 05:57 [place] Rings Not Reportable 11/25/19 05:57 Alisha Cells Few 11/25/19 05:57 Bite Cells Not Reportable 11/25/19 05:57 Crenated Cell Not Reportable 11/25/19 05:57 Elliptocytes Not Reportable 11/25/19 05:57 Acanthocytes (Spur) Not Reportable 11/25/19 05:57 Rouleaux Not Reportable 11/25/19 05:57 Hemoglobin C Crystals Not Reportable 11/25/19 05:57 Schistocytes Rare 11/25/19 05:57 Malaria parasites Not Reportable 11/25/19 05:57 Adarsh Bodies Not Reportable 11/25/19 05:57 Hem Pathologist Commnt No 11/25/19 05:57 PT 21.1 Sec. (12.2-14.9) H 11/22/19 07:40 INR 1.78 (0.87-1.13) H 11/22/19 07:40 APTT 38.8 Sec. (24.2-36.6) H 11/20/19 21:22 D-Dimer 596.16 ng/mlDDU (0-234) H 11/20/19 21:22 ABG pH 7.424 pH Units (7.350-7.450) 11/22/19 15:24 ABG pCO2 30.2 mm Hg 11/22/19 15:24 ABG pO2 66.5 mm Hg (80.0-90.0) L 11/22/19 15:24 ABG HCO3 19.3 mmol/L (20.0-26.0) L 11/22/19 15:24 ABG O2 Saturation 94.0 % (95.0-99.0) L 11/22/19 15:24 ABG O2 Content 11.5 (0.0-44) 11/22/19 15:24 ABG Base Excess -4.4 mmol/L (-2.0-3.0) L 11/22/19 15:24 ABG Hemoglobin 8.9 gm/dl (12.0-16.0) L 11/22/19 15:24 ABG Carboxyhemoglobin 1.7 % (0.0-5.0) 11/22/19 15:24 ABG Methemoglobin 0.6 % (0.0-1.5) 11/22/19 15:24 Oxyhemoglobin 91.8 % (95.0-99.0) L 11/22/19 15:24 FiO2 28 % 11/22/19 15:24 Sodium 137 mmol/L (137-145) 11/27/19 07:21 Potassium 3.8 mmol/L (3.6-5.0) 11/27/19 07:21 Chloride 102.6 mmol/L (98-107) 11/27/19 07:21 Carbon Dioxide 22 mmol/L (22-30) 11/27/19 07:21 Anion Gap 16 mmol/L 11/27/19 07:21 BUN 29 mg/dL (7-17) H 11/27/19 07:21 Creatinine 1.6 mg/dL (0.6-1.2) H 11/27/19 07:21 Estimated GFR 39 ml/min 11/27/19 07:21 BUN/Creatinine Ratio 18 % 11/27/19 07:21 Glucose 235 mg/dL (65-100) H 11/27/19 07:21 POC Glucose 186 (70-105) H 11/27/19 21:56 Calcium 7.8 mg/dL (8.4-10.2) L 11/27/19 07:21 Phosphorus 2.70 mg/dL (2.5-4.5) 11/24/19 04:50 Total Bilirubin 0.20 mg/dL (0.1-1.2) 11/20/19 21:22 AST 13 units/L (5-40) 11/20/19 21:22 ALT 15 units/L (7-56) 11/20/19 21:22 Alkaline Phosphatase 81 units/L (35-129) 11/20/19 21:22 Troponin T 0.023 ng/mL (0.00-0.029) 11/21/19 10:02 C-Reactive Protein 19.70 mg/dL (0.00-1.30) H 11/26/19 14:42 NT-Pro-B Natriuret Pep 3993 pg/mL (0-900) H 11/20/19 21:22 Total Protein 7.1 g/dL (6.3-8.2) 11/20/19 21:22 Albumin 2.9 g/dL (3.9-5) L 11/20/19 21:22 Albumin/Globulin Ratio 0.7 % 11/20/19 21:22 Triglycerides 214 mg/dL (2-149) H 11/20/19 21:22 Cholesterol 139 mg/dL (50-199) 11/20/19 21:22 LDL Cholesterol Direct 96 mg/dL (50-130) 11/20/19 21:22 HDL Cholesterol 30 mg/dL (40-59) L 11/20/19 21:22 Cholesterol/HDL Ratio 4.63 % 11/20/19 21:22 Procalcitonin 15.13 ng/mL (<0.15) 11/24/19 13:44 TSH 1.430 mlU/mL (0.270-4.200) 11/20/19 21:22 Free T4 1.34 ng/dL (0.76-1.46) 11/20/19 21:22 PTH Intact 62.13 pg/mL (15-65) 11/24/19 04:50 Urine Color Yellow (Yellow) 11/22/19 Unknown Urine Turbidity Turbid (Clear) 11/22/19 Unknown Urine pH 5.0 (5.0-7.0) 11/22/19 Unknown Ur Specific [place] 1.017 (1.003-1.030) 11/22/19 Unknown Urine Protein 30 mg/dl mg/dL (Negative) 11/22/19 Unknown Urine Glucose (UA) 50 mg/dL (Negative) 11/22/19 Unknown Urine Ketones Neg mg/dL (Negative) 11/22/19 Unknown Urine Blood Mod (Negative) 11/22/19 Unknown Urine Nitrite Neg (Negative) 11/22/19 Unknown Urine Bilirubin Neg (Negative) 11/22/19 Unknown Urine Urobilinogen < 2.0 mg/dL (<2.0) 11/22/19 Unknown Ur Leukocyte Esterase Lg (Negative) 11/22/19 Unknown Urine WBC (Auto) 159.0 /HPF (0.0-6.0) H 11/22/19 Unknown Urine RBC (Auto) 68.0 /HPF (0.0-6.0) 11/22/19 Unknown U Epithel Cells (Auto) 2.0 /HPF (0-13.0) 11/22/19 Unknown Urine Bacteria (Auto) 3+ /HPF (Negative) 11/22/19 Unknown Urine WBC Clumps 3+ /HPF 11/22/19 Unknown Uric Acid Crystals Not Reportable 11/22/19 Unknown Urine Yeast (Budding) 3+ /HPF 11/22/19 Unknown Nasal Screen MRSA (PCR) Positive (Negative) 11/21/19 Unknown Random Vancomycin 9.6 ug/mL (0-40.0) 11/23/19 08:57 Microbiology: Microbiology 11/24/19 13:44 Peripheral/Venous Blood Culture - Preliminary NO GROWTH AFTER 72 HOURS 11/24/19 13:44 Peripheral/Venous Blood Culture - Preliminary NO GROWTH AFTER 72 HOURS - Diagnostic Impressions Diagnostic Impressions: Echocardiogram 11/21/19 03:29 Transthoracic Echocardiogram Indication: Chest Pain BP: 107/66 HR: 50 Conclusions *The study is technically very limited due to patient body habitus. Patient unable to consent to Optison. *Global left ventricular systolic function is normal. *The estimated ejection fraction is 50-55%. *Abnormal left ventricular diastolic function is observed. *There is no pericardial effusion. Findings Procedure Info: The study is technically limited due to patient body habitus. Patient unable to consent to Optison. The study was technically limited due to the patient's inability to lay in the left lateral decubitus position. Left Ventricle: The left ventricle is not well visualized. Global left ventricular systolic function is normal. The estimated ejection fraction is 50-55%. Abnormal left ventricular diastolic function is observed. Left Atrium: The left atrium is not well visualized. Right Ventricle: The right ventricle is not well visualized. Right Atrium: The right atrium is not well visualized. Aortic Valve: The aortic valve is not well visualized. Mitral Valve: There is mitral annular calcification. The mitral valve leaflets are mildly thickened. There is trace of mitral regurgitation. Tricuspid Valve: The tricuspid valve is not well visualized. There is mild tricuspid regurgitation. Pulmonic Valve: The pulmonic valve is not well visualized. Pericardium: There is no pericardial effusion. Aorta: The aorta appears normal. Venous: The inferior vena cava is dilated. Measurements Chambers 2D Name Value Normal Range IVSd (2D) 1.3 cm (0.6 - 1.1) LVPWd (2D) 0.37 cm (0.6 - 1.1) LVIDd (2D) 4.89 cm (3.7 - 5.6) LVIDs (2D) 3.78 cm (2 - 3.8) LV FS (2D) 22.67 % - EF Teichholz (2D) 45.46 % - Ao root diameter (2D) 2.64 cm (2 - 3.7) Volumes/Mass Name Value Normal Range LA ESV SP 2CH (A/L) 85.32 ml - LA ESV SP 2CH (MOD) 78.59 ml - Diastolic/Systolic Function Name Value Normal Range MV E-wave Vmax 0.75 m/sec - MV deceleration time 351.73 msec - MV A-wave Vmax 0.88 m/sec - MV E:A ratio 0.86 ratio - Aortic Valve Name Value Normal Range LVOT diameter 1.97 cm - Mitral Valve Name Value Normal Range MV Vmax 0.92 m/sec - MV VTI 35.79 cm - MV peak gradient 3.4 mmHg - MV mean gradient 0.88 mmHg - MV PHT 133.09 msec - MVA (PHT) 1.65 cm2 - Tricuspid Valve Name Value Normal Range TR Vmax 2.8 m/sec - TR peak gradient 31.39 mmHg - IVC diameter 2.42 cm (1.2 - 2.3) Pulmonic Valve/Qp:Qs Name Value Normal Range PV Vmax 0.96 m/sec - PV VTI 22.47 cm - PV peak gradient 3.69 mmHg - PV mean gradient 1.34 mmHg - [place] end-diastolic Vmax 0.93 m/sec - RVOT Vmax 0.73 m/sec - RVOT VTI 17.4 cm - RVOT peak gradient 2.14 mmHg - Izquierdo/IV: Voiding Method External Female Catheter IV Catheter Type [Left Forearm INT / Saline Lock ] IV Catheter Type [Right INT / Saline Lock Forearm] IV Catheter Type [Left Hand] INT / Saline Lock IV Catheter Type [Right INT / Saline Lock Antecubital] Active Medications - Current Medications Current Medications: Generic Name Dose Route Start Last Admin Trade Name Freq PRN Reason Stop Dose Admin Acetaminophen 650 mg 11/21/19 03:19 11/25/19 17:33 Tylenol PO 650 mg Q4H PRN Administration Pain MILD(1-3)/Fever >100.5/AVERY Acetaminophen 650 mg 11/22/19 21:06 11/22/19 21:15 Tylenol [place] 650 mg Q4H PRN Administration Pain, Mild (1-3) Apixaban 2.5 mg 11/22/19 22:00 11/27/19 11:14 Eliquis PO 2.5 mg Q12HR GABRIELLE Administration Protocol Aspirin 81 mg 11/22/19 10:00 11/27/19 11:14 Baby Aspirin PO 81 mg QDAY GABRIELLE Administration Atorvastatin Calcium 40 mg 11/21/19 22:00 11/26/19 21:55 Lipitor PO 40 mg QHS GABRIELLE Administration Clopidogrel Bisulfate 75 mg 11/22/19 10:00 11/27/19 11:15 Plavix PO 75 mg QDAY GABRIELLE Administration Dextrose 0 ml 11/21/19 03:19 D50w (25gm) Syringe IV Q30MIN PRN Hypoglycemia Protocol Fluconazole 150 mg 11/25/19 10:00 11/25/19 14:28 Diflucan PO 12/02/19 10:01 150 mg Tu GABRIELLE Administration Hydralazine HCl 10 mg 11/21/19 03:19 Apresoline IV Q6H PRN FOR SBP > target Linezolid 600 mg in 300 mls @ 300 mls/hr 11/24/19 14:00 11/27/19 11:24 Zyvox 600mg/300ml IV 11/27/19 23:59 300 mls/hr Q12HR GABRIELLE Administration Protocol Ceftriaxone Sodium 2 gm in 100 mls @ 200 mls/hr 11/27/19 13:00 11/27/19 16:46 Rocephin/Ns 2 Gm/100 Ml IV 200 mls/hr Q24HR GABRIELLE Administration Protocol Insulin Human Isoph/Insulin Regular 10 unit 11/25/19 17:00 11/27/19 16:47 Humulin 70/30 SUB-Q Not Given BIDDIAB GABRIELLE Insulin Human Lispro 0 unit 11/21/19 07:30 11/27/19 17:58 Humalog SUB-Q 4 unit ACHS GABRIELLE Administration Protocol Isosorbide Mononitrate 30 mg 11/22/19 10:00 11/27/19 11:25 Imdur PO 30 mg QDAY GABRIELLE Administration Linezolid 600 mg 11/28/19 10:00 Zyvox PO BID GABRIELLE Morphine Sulfate 2 mg 11/26/19 03:02 11/26/19 21:56 Morphine IV 2 mg Q4H PRN Administration Pain, Moderate (4-6) Nitroglycerin 0.4 mg 11/21/19 03:19 Nitrostat SL Q5M PRN Chest Pain Ondansetron HCl 4 mg 11/21/19 03:19 Zofran IV Q8H PRN Nausea And Vomiting Sodium Bicarbonate 650 mg 11/23/19 14:00 11/27/19 16:47 Sodium Bicarbonate PO 650 mg TID GABRIELLE Administration Sodium Chloride 10 ml 11/21/19 10:00 11/27/19 11:16 Sodium Chloride Flush Syringe 10 Ml IV 10 ml BID GABRIELLE Administration Sodium Chloride 10 ml 11/21/19 03:19 Sodium Chloride Flush Syringe 10 Ml IV PRN PRN LINE FLUSH Nutrition/Malnutrition Assess - Dietary Evaluation Nutrition/Malnutrition Findings: Nutrition Notes Start: 11/21/19 14:25 Freq: Status: Active Protocol: Document 11/27/19 13:45 [facility] [place] (Rec: 11/27/19 13:56 [facility]- [id number]) Nutrition Notes Initial or Follow up Reassessment Current Diagnosis CKD(stage I-IV),Diabetes, Hypertension,Heart Failure, Respiratory Failure Other Pertinent Diagnosis Bilat LE cellulitis Current Diet Consistent CHO + Glucerna BID Labs/Tests BUN 29 Cr 1.6 BG 235 Pertinent Medications Humulin 70/30 Height 5 ft 6 in Weight 127.8 kg [place] Body Weight (kg) 59.09 BMI 45.4 Weight Status Morbidly Obese Subjective/Other Information Spoke with RN via phone at 12: 50; doubtful that pt consumed 100% of meals yesterday, as pt consumed none of lunch today and remains confused. Average PO intake as documented in charts: 85%. Burn Absent Trauma Absent #1 Nutrition Diagnosis Predicted suboptimal energy intake,Inadequate oral intake Comments: CHANGED Etiology alert and oriented x 1 As Evidenced by Signs and Symptoms pt likely consuming <50% of meals on average Is patient on ventilator? No Is Patient Ambulatory and/or Out of Bed No REE-([facility]-confined to bed) 2200.596 Kcal/Kg value to use for calculation 13 Approximate Energy Requirements Using 1661 kcal/Kg Calculation Used for Recommendations Kcal/kg Additional Notes Pro needs 0.8-0.9g/kg adjBW: 75-84g/day Fluid needs 1ml/kcal Nutrition Intervention Change Diet Order: Continue current diet order - encourage PO intake at meal times Add Supplement/Snack (indicate name/kcal Glucerna BID /protein ) Provides kCal: 440 Provides Protein (gm) 20 Goal #1 PO intakes of meals plus ONS to meet at least 75% energy and pro needs Follow-Up By: 12/01/19 Additional Comments F/U: intakes (meals/ONS), wt
[2019-11-28] MEDS: INSULIN LISPRO 100 UNIT/ML VIAL 3 mL SUB-Q SCH ×4 (09:01→22:28)
[2019-11-28] MEDS: INSULIN NPH/REGULAR 70/30 INJ SUB-Q SCH ×2 (09:01→18:35)
[2019-11-28] MEDS ORDERED: LORazepam 2 MG/ML VIAL IV SCH (10:30)
[2019-11-28] MEDS: ASPIRIN 81 MG TAB CHEW PO SCH (10:53)
[2019-11-28] MEDS: APIXABAN 2.5 MG TAB PO SCH ×2 (10:54→21:53)
[2019-11-28] MEDS: CLOPIDOGREL 75 MG TAB PO SCH (10:54)
[2019-11-28] MEDS: LINEZOLID 600 MG TAB PO SCH ×2 (10:55→21:52)
[2019-11-28] MEDS: cefTRIAXone/NS 2 GM/100 ML 2 GM/100 ML BAG IV SCH (10:57)
[2019-11-28] MEDS: SODIUM BICARBONATE 650 MG TAB PO SCH ×3 (10:57→22:28)
--- NOTE | 2019-11-28 11:00 | Progress Note ---
Assessment and Plan 1. Acute kidney injury: Vasomotor JI superimposed on CKD stage 3 in the setting of hypotension. Renal US normal R kidney and non-visualization of L kidney. Urine studies ordered. Monitor renal function. Creatinine level is improving. Avoid nephrotoxic agents. Meds dosage based on GFR. No lab results from today. 2. FEN: Metabolic acidosis, PO Sodium bicarbonate, monitor. Monitor lytes and volume status. 3. Acute combined systolic and diastolic HFrEF: Followed by Cardiology. TTE done 10/12/2019 showed EF 35-40% with grade 1 diastolic dysfunction Daily weights, monitor in's and O's. 4. Elevated troponin-NSTEMI type II: Continue medical management, Cardiology following. 5. Acute hypoxic respiratory failure: O2 sat on room air was 85%. Likely due to CHF exacerbation. Supplemental O2. 6. SIRS: Leukocytosis. UTI vs LE wound infection. Continue abx. 7. Acute metabolic encephalopathy, POA. Continue supportive care. 8. Hypertension: Monitor BP. 9. Normochromic anemia, POA. 10. Diabetes mellitus type 2: Consistent low carb diet and sliding scale of insulin. 11. Chronic lymphedema. 12. Elevated d-dimer: V/Q scan showed low probability for PE. - Subjective: Patient was seen and examined at the bedside. No new complaint. - General Appearance General appearance: well-developed, well-nourished, appears stated age, obese, no distress HEENT: ATNC, PERRL, hearing intact, vision intact Neck: neck supple, trachea midline Respiratory: Clear to Ascultation Heart: regular, S1S2, no murmurs Gastrointestinal: obese, normoactive bowel sounds, not tenderness Integumentary: chronic venous stasis, R leg dressing Neurologic: confused, disoriented, able to move extremities Ext: b/l LE lymphedema noted, R TMA Psychiatric: cooperative Subjective Date of service: 11/28/19 Principal diagnosis: HF; CKD; PVD Objective - Vital Signs Vital signs: Vital Signs - 12hr 11/27/19 11/28/19 11/28/19 23:56 00:00 04:42 Temperature 99.1 F 98.3 F Pulse Rate 78 76 Respiratory 20 20 20 Rate Blood Pressure 133/59 150/74 O2 Sat by Pulse 98 100 Oximetry 11/28/19 11/28/19 08:25 10:53 Temperature 98.5 F Pulse Rate 77 77 Respiratory 20 Rate Blood Pressure 141/78 141/78 O2 Sat by Pulse 99 Oximetry - Lab 11/27/19 07:21 11/27/19 07:21 Most recent lab results ABG pH 7.424 pH Units (7.350-7.450) 11/22/19 15:24 ABG pCO2 30.2 mm Hg 11/22/19 15:24 ABG pO2 66.5 mm Hg (80.0-90.0) L 11/22/19 15:24 ABG HCO3 19.3 mmol/L (20.0-26.0) L 11/22/19 15:24 ABG O2 Saturation 94.0 % (95.0-99.0) L 11/22/19 15:24 Calcium 7.8 mg/dL (8.4-10.2) L 11/27/19 07:21 Phosphorus 2.70 mg/dL (2.5-4.5) 11/24/19 04:50 Medications & Allergies - Medications Allergies/Adverse Reactions: Allergies Sulfa (Sulfonamide Antibiotics) Allergy (Verified 11/20/19 20:05) Unknown Home Medications: Home Medications Medication Instructions Recorded Confirmed Last Taken Type Unobtainable 11/20/19 11/20/19 Unknown History Active Medications: Generic Name Dose Route Start Last Admin Trade Name Todq PRN Reason Stop Dose Admin Acetaminophen 650 mg 11/21/19 03:19 11/25/19 17:33 Tylenol PO 650 mg Q4H PRN Administration Pain MILD(1-3)/Fever >100.5/AVERY Acetaminophen 650 mg 11/22/19 21:06 11/22/19 21:15 Tylenol [place] 650 mg Q4H PRN Administration Pain, Mild (1-3) Apixaban 2.5 mg 11/22/19 22:00 11/28/19 10:54 Eliquis PO 2.5 mg Q12HR GABRIELLE Administration Protocol Aspirin 81 mg 11/22/19 10:00 11/28/19 10:53 Baby Aspirin PO 81 mg QDAY GABRIELLE Administration Atorvastatin Calcium 40 mg 11/21/19 22:00 11/27/19 23:12 Lipitor PO 40 mg QHS GABRIELLE Administration Clopidogrel Bisulfate 75 mg 11/22/19 10:00 11/28/19 10:54 Plavix PO 75 mg QDAY GABRIELLE Administration Dextrose 0 ml 11/21/19 03:19 D50w (25gm) Syringe IV Q30MIN PRN Hypoglycemia Protocol Fluconazole 150 mg 11/25/19 10:00 11/25/19 14:28 Diflucan PO 12/02/19 10:01 150 mg Tu GABRIELLE Administration Hydralazine HCl 10 mg 11/21/19 03:19 Apresoline IV Q6H PRN FOR SBP > target Ceftriaxone Sodium 2 gm in 100 mls @ 200 mls/hr 11/27/19 13:00 11/28/19 10:57 Rocephin/Ns 2 Gm/100 Ml IV 200 mls/hr Q24HR GABRIELLE Administration Protocol Insulin Human Isoph/Insulin Regular 10 unit 11/25/19 17:00 11/28/19 09:01 Humulin 70/30 SUB-Q 10 unit BIDDIAB GABRIELLE Administration Insulin Human Lispro 0 unit 11/21/19 07:30 11/28/19 09:01 Humalog SUB-Q 2 unit ACHS GABRIELLE Administration Protocol Isosorbide Mononitrate 30 mg 11/22/19 10:00 11/28/19 10:53 Imdur PO 30 mg QDAY GABRIELLE Administration Linezolid 600 mg 11/28/19 10:00 11/28/19 10:55 Zyvox PO 600 mg BID GABRIELLE Administration Lorazepam 1 mg 11/28/19 10:30 Ativan IV 11/28/19 17:00 ONCE GABRIELLE Morphine Sulfate 2 mg 11/26/19 03:02 11/26/19 21:56 Morphine IV 2 mg Q4H PRN Administration Pain, Moderate (4-6) Nitroglycerin 0.4 mg 11/21/19 03:19 Nitrostat SL Q5M PRN Chest Pain Ondansetron HCl 4 mg 11/21/19 03:19 Zofran IV Q8H PRN Nausea And Vomiting Sodium Bicarbonate 650 mg 11/23/19 14:00 11/28/19 10:57 Sodium Bicarbonate PO 650 mg TID GABRIELLE Administration Sodium Chloride 10 ml 11/21/19 10:00 11/28/19 10:55 Sodium Chloride Flush Syringe 10 Ml IV 10 ml BID GABRIELLE Administration Sodium Chloride 10 ml 11/21/19 03:19 Sodium Chloride Flush Syringe 10 Ml IV PRN PRN LINE FLUSH
--- NOTE | 2019-11-28 12:11 | Progress Note ---
Assessment and Plan Cultures: MRSA PCR positive Urine cx 10-100 mixed Blood cultures 11/21/2019 no growth today Blood cultures 11/24/2019 no growth today Assessment: 69 years old female with history of hypertension, diabetes mellitus, morbid obesity, bilateral leg lymphedema, CHF, possible DVT on Eliquis, admitted on 11/20/2019 due to 24 hours history of worsening shortness of breath and chest pain: #Sepsis: fever and leukocytosis improving, source likely UTI / ?legs cellulitis. #UTI: urine culture mixed bacteria #Right heel pressure ulcer: ?cellulitis (not impressive) does not look infected, XR no osteomyelitis. CRP 19 - very high #Bilateral lymphedema with stasis dermatitis > cellulitis #Possible CHF exacerbation #Acute kidney disease: renally adjust abx, improving #Diabetes mellitus with hyperglycemia, uncontrolled #Vaginal/perineal intertrigo s/p fluconazole x 1 #Thrombocytosis: likely reactive to right foot infection Recommendations: -right foot MRI w/o contrast - ordered - if osteomyelitis then will need IV abx for 6 weeks -pending MRI screening not done -right heel offloading -Follow-up blood culture and urine culture -Continue ceftriaxone 2 g IV once a day -Continue linezolid day 5 -tight glucose control Dr. Sandoval will be covering the weekend, Dr. Stack will be rounding on Sunday. Will follow. Jacqueline Ac MD Infectious Diseases Manager [facility] ([facility]) M [phone] O [phone] Subjective Date of service: 11/28/19 Principal diagnosis: HF; CKD; PVD Interval history: Patient feels ok, tearful, nonverbal, no fever Objective - Exam Narrative Exam: General appearance: Alert tearful, crying, nonverbal in NAD Eyes: anicteric sclerae, moist conjunctivae; no lid-lag; PERRLA HENT: Atraumatic; oropharynx limited Lungs: CTA CV: RRR no murmur Abdomen: Soft, non-tender; unbilicus with nodules Extremities: alanna marked edema papillomatosis Skin: alanna legs lymphadema skin changes, right foot TMA healed, right heel ulcer clean, draining serosanguinous Psych: no agitated confused Neuro: alert and oriented x 2 non focal - Constitutional Vitals: Vital Signs Temp Pulse Resp BP Pulse Ox 98.1 F 74 18 153/76 95 11/28/19 12:03 11/28/19 12:03 11/28/19 12:03 11/28/19 12:03 11/28/19 12:03 Temperature -Last 24 Hours Temperature 98.1 F Temperature 98.5 F Temperature 98.3 F Temperature 99.1 F Temperature 98.3 F - Labs CBC & Chem 7: 11/27/19 07:21 11/27/19 07:21 Labs: Abnormal lab results 11/27/19 11/27/19 11/28/19 Range/Units 16:46 21:56 08:24 POC Glucose 281 H 186 H 193 H (70-105) 11/28/19 Range/Units 11:56 POC Glucose 243 H (70-105)
[2019-11-28] MEDS: MORPHINE 2 MG/1 ML INJ IV PRN ×2 (13:30→21:55)
--- NOTE | 2019-11-28 16:57 | Magnetic Resonance Report ---
MRI RIGHT FOOT WITHOUT CONTRAST INDICATION / CLINICAL INFORMATION: Evaluate for calcaneal osteomyelitis. TECHNIQUE: Multiplanar, multisequence MR images were obtained. COMPARISON: Radiographs dated 11/25/2019. FINDINGS: Examination is limited by motion artifact. BONES: Prior amputation of the toes to the level of the mid metatarsal diaphyses. No significant bone marrow edema. No fracture. No osseous lesion. JOINTS: No significant arthritis. No significant joint effusion or synovitis. SOFT TISSUES: Diffuse circumferential subcutaneous edema throughout the foot and ankle. Focal shallow ulcer along the plantar posterior aspect of calcaneus. MUSCLES: Diffuse atrophy of the muscles of the foot. FLEXOR TENDONS: No significant abnormality. EXTENSOR TENDONS: No significant abnormality. LIGAMENTS: No significant abnormality. ADDITIONAL FINDINGS: Moderate thickening of the Achilles tendon characteristic for tendinosis IMPRESSION: 1. Shallow superficial ulcer plantar posterior aspect of calcaneus. 2. No evidence of osteomyelitis. 3. Prior amputation of the toes to the level of the mid metatarsals. 4. Mild Achilles tendinosis. 5. Diffuse circumferential subcutaneous edema throughout the right ankle and foot represent celluliti s. No abscess Report dictated by: Marvel Rodrigues MD Report dictated on: 11/28/2019 3:30 PM I have reviewed the images, agree with this report, and edited this report as needed. Signer Name: Brandon Ken MD Signed: 11/28/2019 4:52 PM Workstation Name: [id number]
--- NOTE | 2019-11-28 21:21 | Progress Note ---
Assessment and Plan Assessment and plan: --Acute hypoxic respiratory failure -O2 sat on room air is 85% -Likely due to CHF exacerbation, continue diuretics and breathing treatment -Supplemental O2 to keep oxygen saturation greater than 92% --Bilateral lower extremity cellulitis, continue antibiotics, Right foot MRI without contrast --Leukocytosis with sepsis -likely from UTI and bilateral lower extremity cellulitis UA suggestive for UTI, patient also have significant bilateral lower extremity erythremia and rash cont on antibiotics, follow blood culture consulted ID, ordered CT chest/abdomen/pelvis --UTI with sepsis continue antibiotics for now follow culture --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) Continue current management, cardiology following TTE done 10/12/2019 showed EF 35-40% with grade 1 diastolic dysfunction Input output monitoring, low-sodium diet, fluid restriction --CKD (chronic kidney disease) per [facility] records, cr fluctuates between 2-3 cr today 2.9, will consult nephrology --HTN (hypertension); moderate control Continue current antihypertensives and PRN medications -- Diabetes mellitus type 2; uncontrolled Increase Novolin 70/30 to 15 units twice a day Consistent carb diet, sliding scale of insulin --PVD (peripheral vascular disease) Continue aspirin and statin --S/P transmetatarsal amputation of foot Continue supportive care --Chronic lymphedema IV diuretics as tolerated -- Elevated troponin-NSTEMI type II Continue medical management, cardiology following --Morbid obesity -Dietary education when clinically stable --Elevated d-dimer, VQ scan showed low probability for PE --DVT prophylaxis, continue on Eliquis Monitor closely and adjust management as needed Plan of care reviewed with the patient and her nurse History Interval history: I have seen and examined the patient at the bedside Patient feels slightly better, Scheduled for MRI foot today Patient with sepsis UTI bilateral dermatitis vaginal infection on Rocephin Diflucan and Zyvox Patient has no new complaints Vital signs reviewed Hospitalist Physical - Constitutional Vitals: Temp Pulse Resp BP Pulse Ox 98.4 F 67 18 188/75 96 11/28/19 19:29 11/28/19 19:29 11/28/19 19:29 11/28/19 19:29 11/28/19 19:29 General appearance: Present: no acute distress, well-nourished, obese - EENT Eyes: Present: PERRL, EOM intact - Neck Neck: Present: supple, normal ROM - Respiratory Respiratory effort: normal Respiratory: bilateral: diminished, negative: rales, rhonchi, wheezing - Cardiovascular Rhythm: regular Heart Sounds: Present: S1 & S2 - Extremities Extremities: no ischemia, No edema - Abdominal General gastrointestinal: soft, non-tender, non-distended, normal bowel sounds - Integumentary Integumentary: Present: clear, warm - Psychiatric Psychiatric: appropriate mood/affect, cooperative - Neurologic Neurologic: moves all extremities HEART Score - HEART Score Troponin: Troponin T 0.023 ng/mL (0.00-0.029) 11/21/19 10:02 Results - Labs CBC & Chem 7: 11/27/19 07:21 11/27/19 07:21 Labs: Laboratory Last Values WBC 12.2 K/mm3 (4.5-11.0) H 11/27/19 07:21 RBC 2.81 M/mm3 (3.65-5.03) L 11/27/19 07:21 Hgb 7.7 gm/dl (10.1-14.3) L 11/27/19 07:21 Hct 23.6 % (30.3-42.9) L 11/27/19 07:21 MCV 84 fl (79-97) 11/27/19 07:21 MCH 27 pg (28-32) L 11/27/19 07:21 MCHC 33 % (30-34) 11/27/19 07:21 RDW 15.5 % (13.2-15.2) H 11/27/19 07:21 Plt Count 480 K/mm3 (140-440) H 11/27/19 07:21 Lymph % (Auto) 13.7 % (13.4-35.0) 11/27/19 07:21 [place] % (Auto) 6.7 % (0.0-7.3) 11/27/19 07:21 Eos % (Auto) 4.4 % (0.0-4.3) H 11/27/19 07:21 Baso % (Auto) 0.7 % (0.0-1.8) 11/27/19 07:21 Lymph # 1.7 K/mm3 (1.2-5.4) 11/27/19 07:21 [place] # 0.8 K/mm3 (0.0-0.8) 11/27/19 07:21 Eos # 0.5 K/mm3 (0.0-0.4) H 11/27/19 07:21 Baso # 0.1 K/mm3 (0.0-0.1) 11/27/19 07:21 Add Manual Diff Complete 11/25/19 05:57 Total Counted 100 11/25/19 05:57 Seg Neutrophils % 74.5 % (40.0-70.0) H 11/27/19 07:21 Seg Neuts % (Manual) 95.0 % (40.0-70.0) H 11/25/19 05:57 Band Neutrophils % 0 % 11/25/19 05:57 Lymphocytes % (Manual) 2.0 % (13.4-35.0) L 11/25/19 05:57 Reactive Lymphs % (Man) 0 % 11/25/19 05:57 Monocytes % (Manual) 3.0 % (0.0-7.3) 11/25/19 05:57 Eosinophils % (Manual) 0 % (0.0-4.3) 11/25/19 05:57 Basophils % (Manual) 0 % (0.0-1.8) 11/25/19 05:57 Metamyelocytes % 0 % 11/25/19 05:57 Myelocytes % 0 % 11/25/19 05:57 Promyelocytes % 0 % 11/25/19 05:57 Blast Cells % 0 % 11/25/19 05:57 Nucleated RBC % Not Reportable 11/25/19 05:57 Seg Neutrophils # 9.1 K/mm3 (1.8-7.7) H 11/27/19 07:21 Seg Neutrophils # Man 18.0 K/mm3 (1.8-7.7) H 11/25/19 05:57 Band Neutrophils # 0.0 K/mm3 11/25/19 05:57 Lymphocytes # (Manual) 0.4 K/mm3 (1.2-5.4) L 11/25/19 05:57 Abs React Lymphs (Man) 0.0 K/mm3 11/25/19 05:57 Monocytes # (Manual) 0.6 K/mm3 (0.0-0.8) 11/25/19 05:57 Eosinophils # (Manual) 0.0 K/mm3 (0.0-0.4) 11/25/19 05:57 Basophils # (Manual) 0.0 K/mm3 (0.0-0.1) 11/25/19 05:57 Metamyelocytes # 0.0 K/mm3 11/25/19 05:57 Myelocytes # 0.0 K/mm3 11/25/19 05:57 Promyelocytes # 0.0 K/mm3 11/25/19 05:57 Blast Cells # 0.0 K/mm3 11/25/19 05:57 WBC Morphology Not Reportable 11/25/19 05:57 Hypersegmented Neuts Not Reportable 11/25/19 05:57 Hyposegmented Neuts Not Reportable 11/25/19 05:57 Hypogranular Neuts Not Reportable 11/25/19 05:57 Smudge Cells Not Reportable 11/25/19 05:57 Toxic Granulation Not Reportable 11/25/19 05:57 Toxic Vacuolation Not Reportable 11/25/19 05:57 Dohle Bodies Not Reportable 11/25/19 05:57 Pelger-Huet Anomaly Not Reportable 11/25/19 05:57 Daniel Rods Not Reportable 11/25/19 05:57 Platelet Estimate Consistent w auto 11/25/19 05:57 Clumped Platelets Not Reportable 11/25/19 05:57 Plt Clumps, EDTA Not Reportable 11/25/19 05:57 Large Platelets Not Reportable 11/25/19 05:57 Giant Platelets Not Reportable 11/25/19 05:57 Platelet Satelliting Not Reportable 11/25/19 05:57 Plt Morphology Comment Not Reportable 11/25/19 05:57 RBC Morphology Not Reportable 11/25/19 05:57 Dimorphic RBCs Not Reportable 11/25/19 05:57 Polychromasia Not Reportable 11/25/19 05:57 Hypochromasia Not Reportable 11/25/19 05:57 Poikilocytosis Not Reportable 11/25/19 05:57 Anisocytosis Few 11/25/19 05:57 Microcytosis Not Reportable 11/25/19 05:57 Macrocytosis Not Reportable 11/25/19 05:57 Spherocytes Not Reportable 11/25/19 05:57 Pappenheimer Bodies Not Reportable 11/25/19 05:57 Sickle Cells Not Reportable 11/25/19 05:57 Target Cells Not Reportable 11/25/19 05:57 Tear Drop Cells Not Reportable 11/25/19 05:57 Ovalocytes Not Reportable 11/25/19 05:57 Helmet Cells Not Reportable 11/25/19 05:[address] [place] Bodies Not Reportable 11/25/19 05:57 [place] Rings Not Reportable 11/25/19 05:57 [place] Cells Few 11/25/19 05:57 Bite Cells Not Reportable 11/25/19 05:57 Crenated Cell Not Reportable 11/25/19 05:57 Elliptocytes Not Reportable 11/25/19 05:57 Acanthocytes (Spur) Not Reportable 11/25/19 05:57 Rouleaux Not Reportable 11/25/19 05:57 Hemoglobin C Crystals Not Reportable 11/25/19 05:57 Schistocytes Rare 11/25/19 05:57 Malaria parasites Not Reportable 11/25/19 05:57 Adarsh Bodies Not Reportable 11/25/19 05:57 Hem Pathologist Commnt No 11/25/19 05:57 PT 21.1 Sec. (12.2-14.9) H 11/22/19 07:40 INR 1.78 (0.87-1.13) H 11/22/19 07:40 APTT 38.8 Sec. (24.2-36.6) H 11/20/19 21:22 D-Dimer 596.16 ng/mlDDU (0-234) H 11/20/19 21:22 ABG pH 7.424 pH Units (7.350-7.450) 11/22/19 15:24 ABG pCO2 30.2 mm Hg 11/22/19 15:24 ABG pO2 66.5 mm Hg (80.0-90.0) L 11/22/19 15:24 ABG HCO3 19.3 mmol/L (20.0-26.0) L 11/22/19 15:24 ABG O2 Saturation 94.0 % (95.0-99.0) L 11/22/19 15:24 ABG O2 Content 11.5 (0.0-44) 11/22/19 15:24 ABG Base Excess -4.4 mmol/L (-2.0-3.0) L 11/22/19 15:24 ABG Hemoglobin 8.9 gm/dl (12.0-16.0) L 11/22/19 15:24 ABG Carboxyhemoglobin 1.7 % (0.0-5.0) 11/22/19 15:24 ABG Methemoglobin 0.6 % (0.0-1.5) 11/22/19 15:24 Oxyhemoglobin 91.8 % (95.0-99.0) L 11/22/19 15:24 FiO2 28 % 11/22/19 15:24 Sodium 137 mmol/L (137-145) 11/27/19 07:21 Potassium 3.8 mmol/L (3.6-5.0) 11/27/19 07:21 Chloride 102.6 mmol/L (98-107) 11/27/19 07:21 Carbon Dioxide 22 mmol/L (22-30) 11/27/19 07:21 Anion Gap 16 mmol/L 11/27/19 07:21 BUN 29 mg/dL (7-17) H 11/27/19 07:21 Creatinine 1.6 mg/dL (0.6-1.2) H 11/27/19 07:21 Estimated GFR 39 ml/min 11/27/19 07:21 BUN/Creatinine Ratio 18 % 11/27/19 07:21 Glucose 235 mg/dL (65-100) H 11/27/19 07:21 POC Glucose 279 (70-105) H 11/28/19 16:53 Calcium 7.8 mg/dL (8.4-10.2) L 11/27/19 07:21 Phosphorus 2.70 mg/dL (2.5-4.5) 11/24/19 04:50 Total Bilirubin 0.20 mg/dL (0.1-1.2) 11/20/19 21:22 AST 13 units/L (5-40) 11/20/19 21:22 ALT 15 units/L (7-56) 11/20/19 21:22 Alkaline Phosphatase 81 units/L (35-129) 11/20/19 21:22 Troponin T 0.023 ng/mL (0.00-0.029) 11/21/19 10:02 C-Reactive Protein 19.70 mg/dL (0.00-1.30) H 11/26/19 14:42 NT-Pro-B Natriuret Pep 3993 pg/mL (0-900) H 11/20/19 21:22 Total Protein 7.1 g/dL (6.3-8.2) 11/20/19 21:22 Albumin 2.9 g/dL (3.9-5) L 11/20/19 21:22 Albumin/Globulin Ratio 0.7 % 11/20/19 21:22 Triglycerides 214 mg/dL (2-149) H 11/20/19 21:22 Cholesterol 139 mg/dL (50-199) 11/20/19 21:22 LDL Cholesterol Direct 96 mg/dL (50-130) 11/20/19 21:22 HDL Cholesterol 30 mg/dL (40-59) L 11/20/19 21:22 Cholesterol/HDL Ratio 4.63 % 11/20/19 21:22 Procalcitonin 15.13 ng/mL (<0.15) 11/24/19 13:44 TSH 1.430 mlU/mL (0.270-4.200) 11/20/19 21:22 Free T4 1.34 ng/dL (0.76-1.46) 11/20/19 21:22 PTH Intact 62.13 pg/mL (15-65) 11/24/19 04:50 Urine Color Yellow (Yellow) 11/22/19 Unknown Urine Turbidity Turbid (Clear) 11/22/19 Unknown Urine pH 5.0 (5.0-7.0) 11/22/19 Unknown Ur Specific Scott 1.017 (1.003-1.030) 11/22/19 Unknown Urine Protein 30 mg/dl mg/dL (Negative) 11/22/19 Unknown Urine Glucose (UA) 50 mg/dL (Negative) 11/22/19 Unknown Urine Ketones Neg mg/dL (Negative) 11/22/19 Unknown Urine Blood Mod (Negative) 11/22/19 Unknown Urine Nitrite Neg (Negative) 11/22/19 Unknown Urine Bilirubin Neg (Negative) 11/22/19 Unknown Urine Urobilinogen < 2.0 mg/dL (<2.0) 11/22/19 Unknown Ur Leukocyte Esterase Lg (Negative) 11/22/19 Unknown Urine WBC (Auto) 159.0 /HPF (0.0-6.0) H 11/22/19 Unknown Urine RBC (Auto) 68.0 /HPF (0.0-6.0) 11/22/19 Unknown U Epithel Cells (Auto) 2.0 /HPF (0-13.0) 11/22/19 Unknown Urine Bacteria (Auto) 3+ /HPF (Negative) 11/22/19 Unknown Urine WBC Clumps 3+ /HPF 11/22/19 Unknown Uric Acid Crystals Not Reportable 11/22/19 Unknown Urine Yeast (Budding) 3+ /HPF 11/22/19 Unknown Nasal Screen MRSA (PCR) Positive (Negative) 11/21/19 Unknown Random Vancomycin 9.6 ug/mL (0-40.0) 11/23/19 08:57 Microbiology: Microbiology 11/24/19 13:44 Peripheral/Venous Blood Culture - Preliminary NO GROWTH AFTER 4 DAYS 11/24/19 13:44 Peripheral/Venous Blood Culture - Preliminary NO GROWTH AFTER 4 DAYS - Diagnostic Impressions Diagnostic Impressions: Echocardiogram 11/21/19 03:29 Transthoracic Echocardiogram Indication: Chest Pain BP: 107/66 HR: 50 Conclusions *The study is technically very limited due to patient body habitus. Patient unable to consent to Optison. *Global left ventricular systolic function is normal. *The estimated ejection fraction is 50-55%. *Abnormal left ventricular diastolic function is observed. *There is no pericardial effusion. Findings Procedure Info: The study is technically limited due to patient body habitus. Patient unable to consent to Optison. The study was technically limited due to the patient's inability to lay in the left lateral decubitus position. Left Ventricle: The left ventricle is not well visualized. Global left ventricular systolic function is normal. The estimated ejection fraction is 50-55%. Abnormal left ventricular diastolic function is observed. Left Atrium: The left atrium is not well visualized. Right Ventricle: The right ventricle is not well visualized. Right Atrium: The right atrium is not well visualized. Aortic Valve: The aortic valve is not well visualized. Mitral Valve: There is mitral annular calcification. The mitral valve leaflets are mildly thickened. There is trace of mitral regurgitation. Tricuspid Valve: The tricuspid valve is not well visualized. There is mild tricuspid regurgitation. Pulmonic Valve: The pulmonic valve is not well visualized. Pericardium: There is no pericardial effusion. Aorta: The aorta appears normal. Venous: The inferior vena cava is dilated. Measurements Chambers 2D Name Value Normal Range IVSd (2D) 1.3 cm (0.6 - 1.1) LVPWd (2D) 0.37 cm (0.6 - 1.1) LVIDd (2D) 4.89 cm (3.7 - 5.6) LVIDs (2D) 3.78 cm (2 - 3.8) LV FS (2D) 22.67 % - EF Teichholz (2D) 45.46 % - Ao root diameter (2D) 2.64 cm (2 - 3.7) Volumes/Mass Name Value Normal Range LA ESV SP 2CH (A/L) 85.32 ml - LA ESV SP 2CH (MOD) 78.59 ml - Diastolic/Systolic Function Name Value Normal Range MV E-wave Vmax 0.75 m/sec - MV deceleration time 351.73 msec - MV A-wave Vmax 0.88 m/sec - MV E:A ratio 0.86 ratio - Aortic Valve Name Value Normal Range LVOT diameter 1.97 cm - Mitral Valve Name Value Normal Range MV Vmax 0.92 m/sec - MV VTI 35.79 cm - MV peak gradient 3.4 mmHg - MV mean gradient 0.88 mmHg - MV PHT 133.09 msec - MVA (PHT) 1.65 cm2 - Tricuspid Valve Name Value Normal Range TR Vmax 2.8 m/sec - TR peak gradient 31.39 mmHg - IVC diameter 2.42 cm (1.2 - 2.3) Pulmonic Valve/Qp:Qs Name Value Normal Range PV Vmax 0.96 m/sec - PV VTI 22.47 cm - PV peak gradient 3.69 mmHg - PV mean gradient 1.34 mmHg - FL end-diastolic Vmax 0.93 m/sec - RVOT Vmax 0.73 m/sec - RVOT VTI 17.4 cm - RVOT peak gradient 2.14 mmHg - Izquierdo/IV: Voiding Method External Female Catheter IV Catheter Type [Left Forearm INT / Saline Lock ] IV Catheter Type [Right INT / Saline Lock Forearm] IV Catheter Type [Left Hand] INT / Saline Lock IV Catheter Type [Right INT / Saline Lock Antecubital] Active Medications - Current Medications Current Medications: Generic Name Dose Route Start Last Admin Trade Name Freq PRN Reason Stop Dose Admin Acetaminophen 650 mg 11/21/19 03:19 11/25/19 17:33 Tylenol PO 650 mg Q4H PRN Administration Pain MILD(1-3)/Fever >100.5/AVERY Acetaminophen 650 mg 11/22/19 21:06 11/22/19 21:15 Tylenol FL 650 mg Q4H PRN Administration Pain, Mild (1-3) Apixaban 2.5 mg 11/22/19 22:00 11/28/19 10:54 Eliquis PO 2.5 mg Q12HR GABRIELLE Administration Protocol Aspirin 81 mg 11/22/19 10:00 11/28/19 10:53 Baby Aspirin PO 81 mg QDAY GABRIELLE Administration Atorvastatin Calcium 40 mg 11/21/19 22:00 11/27/19 23:12 Lipitor PO 40 mg QHS GABRIELLE Administration Clopidogrel Bisulfate 75 mg 11/22/19 10:00 11/28/19 10:54 Plavix PO 75 mg QDAY GABRIELLE Administration Dextrose 0 ml 11/21/19 03:19 D50w (25gm) Syringe IV Q30MIN PRN Hypoglycemia Protocol Fluconazole 150 mg 11/25/19 10:00 11/25/19 14:28 Diflucan PO 12/02/19 10:01 150 mg Tu GABRIELLE Administration Hydralazine HCl 10 mg 11/21/19 03:19 Apresoline IV Q6H PRN FOR SBP > target Ceftriaxone Sodium 2 gm in 100 mls @ 200 mls/hr 11/27/19 13:00 11/28/19 10:57 Rocephin/Ns 2 Gm/100 Ml IV 200 mls/hr Q24HR GABRIELLE Administration Protocol Insulin Human Isoph/Insulin Regular 10 unit 11/25/19 17:00 11/28/19 18:35 Humulin 70/30 SUB-Q 10 unit BIDDIAB GABRIELLE Administration Insulin Human Lispro 0 unit 11/21/19 07:30 11/28/19 18:32 Humalog SUB-Q 4 unit ACHS GABRIELLE Administration Protocol Isosorbide Mononitrate 30 mg 11/22/19 10:00 11/28/19 10:53 Imdur PO 30 mg QDAY GABRIELLE Administration Linezolid 600 mg 11/28/19 10:00 11/28/19 10:55 Zyvox PO 600 mg BID GABRIELLE Administration Morphine Sulfate 2 mg 11/26/19 03:02 11/28/19 13:30 Morphine IV 2 mg Q4H PRN Administration Pain, Moderate (4-6) Nitroglycerin 0.4 mg 11/21/19 03:19 Nitrostat SL Q5M PRN Chest Pain Ondansetron HCl 4 mg 11/21/19 03:19 Zofran IV Q8H PRN Nausea And Vomiting Sodium Bicarbonate 650 mg 11/23/19 14:00 11/28/19 18:35 Sodium Bicarbonate PO 650 mg TID GABRIELLE Administration Sodium Chloride 10 ml 11/21/19 10:00 11/28/19 10:55 Sodium Chloride Flush Syringe 10 Ml IV 10 ml BID GABRIELLE Administration Sodium Chloride 10 ml 11/21/19 03:19 Sodium Chloride Flush Syringe 10 Ml IV PRN PRN LINE FLUSH Nutrition/Malnutrition Assess - Dietary Evaluation Nutrition/Malnutrition Findings: Nutrition Notes Start: 11/21/19 14:25 Freq: Status: Active Protocol: Document 11/27/19 13:45 MARIBELL (Rec: 11/27/19 13:56 MARIBELL [email or web address] [email or web address]) Nutrition Notes Initial or Follow up Reassessment Current Diagnosis CKD(stage I-IV),Diabetes, Hypertension,Heart Failure, Respiratory Failure Other Pertinent Diagnosis Bilat LE cellulitis Current Diet Consistent CHO + Glucerna BID Labs/Tests BUN 29 Cr 1.6 BG 235 Pertinent Medications Humulin 70/30 Height 5 ft 6 in Weight 127.8 kg [place] Body Weight (kg) 59.09 BMI 45.4 Weight Status Morbidly Obese Subjective/Other Information Spoke with RN via phone at 12: 50; doubtful that pt consumed 100% of meals yesterday, as pt consumed none of lunch today and remains confused. Average PO intake as documented in charts: 85%. Burn Absent Trauma Absent #1 Nutrition Diagnosis Predicted suboptimal energy intake,Inadequate oral intake Comments: CHANGED Etiology alert and oriented x 1 As Evidenced by Signs and Symptoms pt likely consuming <50% of meals on average Is patient on ventilator? No Is Patient Ambulatory and/or Out of Bed No REE-([place]-confined to bed) [phone] Kcal/Kg value to use for calculation 13 Approximate Energy Requirements Using 1661 kcal/Kg Calculation Used for Recommendations Kcal/kg Additional Notes Pro needs 0.8-0.9g/kg adjBW: 75-84g/day Fluid needs 1ml/kcal Nutrition Intervention Change Diet Order: Continue current diet order - encourage PO intake at meal times Add Supplement/Snack (indicate name/kcal Glucerna BID /protein ) Provides kCal: 440 Provides Protein (gm) 20 Goal #1 PO intakes of meals plus ONS to meet at least 75% energy and pro needs Follow-Up By: 12/01/19 Additional Comments F/U: intakes (meals/ONS), wt
[2019-11-28] MEDS ORDERED: INSULIN NPH/REGULAR 70/30 INJ SUB-Q SCH (21:23)
[2019-11-29 07:27] LABS: Calcium 8.1 mg/dL (8.4-10.2)
--- NOTE | 2019-11-29 10:14 | Progress Note ---
Assessment and Plan 1. Acute kidney injury: Vasomotor JI superimposed on CKD stage 3 in the setting of hypotension. Renal US normal R kidney and non-visualization of L kidney. Urine studies ordered. Monitor renal function. Creatinine level is improving. Avoid nephrotoxic agents. Meds dosage based on GFR. No lab results from today. 2. FEN: Metabolic acidosis, PO Sodium bicarbonate, monitor. Monitor lytes and volume status. 3. Acute combined systolic and diastolic HFrEF: Followed by Cardiology. TTE done 10/12/2019 showed EF 35-40% with grade 1 diastolic dysfunction Daily weights, monitor in's and O's. 4. Elevated troponin-NSTEMI type II: Continue medical management, Cardiology following. 5. Acute hypoxic respiratory failure: O2 sat on room air was 85%. Likely due to CHF exacerbation. Supplemental O2. 6. SIRS: Leukocytosis. UTI vs LE wound infection. Continue abx. 7. Acute metabolic encephalopathy, POA. Continue supportive care. 8. Hypertension: Monitor BP. 9. Normochromic anemia, POA. 10. Diabetes mellitus type 2: Consistent low carb diet and sliding scale of insulin. 11. Chronic lymphedema. 12. Elevated d-dimer: V/Q scan showed low probability for PE. - Subjective: Patient was seen and examined at the bedside. No new complaint. - General Appearance General appearance: well-developed, well-nourished, appears stated age, obese, no distress HEENT: ATNC, PERRL, hearing intact, vision intact Neck: neck supple, trachea midline Respiratory: Clear to Ascultation Heart: regular, S1S2, no murmurs Gastrointestinal: obese, normoactive bowel sounds, not tenderness Integumentary: chronic venous stasis, R leg dressing Neurologic: confused, disoriented, able to move extremities Ext: b/l LE lymphedema noted, R TMA Psychiatric: cooperative Subjective Date of service: 11/29/19 Principal diagnosis: HF; CKD; PVD Objective - Vital Signs Vital signs: Vital Signs - 12hr 11/29/19 11/29/19 11/29/19 00:00 00:15 03:58 Temperature 98.0 F 98.0 F Pulse Rate 99 H 65 Respiratory 20 18 18 Rate Blood Pressure 147/95 160/71 O2 Sat by Pulse 93 96 Oximetry 11/29/19 07:58 Temperature 98.4 F Pulse Rate 81 Respiratory 20 Rate Blood Pressure 155/71 O2 Sat by Pulse 98 Oximetry - Lab 11/27/19 07:21 11/29/19 06:24 Most recent lab results ABG pH 7.424 pH Units (7.350-7.450) 11/22/19 15:24 ABG pCO2 30.2 mm Hg 11/22/19 15:24 ABG pO2 66.5 mm Hg (80.0-90.0) L 11/22/19 15:24 ABG HCO3 19.3 mmol/L (20.0-26.0) L 11/22/19 15:24 ABG O2 Saturation 94.0 % (95.0-99.0) L 11/22/19 15:24 Calcium 8.1 mg/dL (8.4-10.2) L 11/29/19 06:24 Phosphorus 2.70 mg/dL (2.5-4.5) 11/24/19 04:50 Medications & Allergies - Medications Allergies/Adverse Reactions: Allergies Sulfa (Sulfonamide Antibiotics) Allergy (Verified 11/20/19 20:05) Unknown Home Medications: Home Medications Medication Instructions Recorded Confirmed Last Taken Type Unobtainable 11/20/19 11/20/19 Unknown History Active Medications: Generic Name Dose Route Start Last Admin Trade Name Freq PRN Reason Stop Dose Admin Acetaminophen 650 mg 11/21/19 03:19 11/25/19 17:33 Tylenol PO 650 mg Q4H PRN Administration Pain MILD(1-3)/Fever >100.5/AVERY Acetaminophen 650 mg 11/22/19 21:06 11/22/19 21:15 Tylenol NV 650 mg Q4H PRN Administration Pain, Mild (1-3) Apixaban 2.5 mg 11/22/19 22:00 11/28/19 21:53 Eliquis PO 2.5 mg Q12HR GABRIELLE Administration Protocol Aspirin 81 mg 11/22/19 10:00 11/28/19 10:53 Baby Aspirin PO 81 mg QDAY GABRIELLE Administration Atorvastatin Calcium 40 mg 11/21/19 22:00 11/28/19 21:53 Lipitor PO 40 mg QHS GABRIELLE Administration Clopidogrel Bisulfate 75 mg 11/22/19 10:00 11/28/19 10:54 Plavix PO 75 mg QDAY GABRIELLE Administration Dextrose 0 ml 11/21/19 03:19 D50w (25gm) Syringe IV Q30MIN PRN Hypoglycemia Protocol Fluconazole 150 mg 11/25/19 10:00 11/25/19 14:28 Diflucan PO 12/02/19 10:01 150 mg Tu GABRIELLE Administration Hydralazine HCl 10 mg 11/21/19 03:19 11/28/19 21:55 Apresoline IV 10 mg Q6H PRN Administration FOR SBP > target Ceftriaxone Sodium 2 gm in 100 mls @ 200 mls/hr 11/27/19 13:00 11/28/19 10:57 Rocephin/Ns 2 Gm/100 Ml IV 200 mls/hr Q24HR GABRIELLE Administration Protocol Insulin Human Isoph/Insulin Regular 15 unit 11/28/19 21:23 Humulin 70/30 SUB-Q BIDDIAB GABRIELLE Insulin Human Lispro 0 unit 11/21/19 07:30 11/28/19 22:28 Humalog SUB-Q 4 unit ACHS GABRIELLE Administration Protocol Isosorbide Mononitrate 30 mg 11/22/19 10:00 11/28/19 10:53 Imdur PO 30 mg QDAY GABRIELLE Administration Linezolid 600 mg 11/28/19 10:00 11/28/19 21:52 Zyvox PO 600 mg BID GABRIELLE Administration Morphine Sulfate 2 mg 11/26/19 03:02 11/28/19 21:55 Morphine IV 2 mg Q4H PRN Administration Pain, Moderate (4-6) Nitroglycerin 0.4 mg 11/21/19 03:19 Nitrostat SL Q5M PRN Chest Pain Ondansetron HCl 4 mg 11/21/19 03:19 Zofran IV Q8H PRN Nausea And Vomiting Sodium Bicarbonate 650 mg 11/23/19 14:00 11/28/19 22:28 Sodium Bicarbonate PO 650 mg TID GABRIELLE Administration Sodium Chloride 10 ml 11/21/19 10:00 11/28/19 22:32 Sodium Chloride Flush Syringe 10 Ml IV 10 ml BID GABRIELLE Administration Sodium Chloride 10 ml 11/21/19 03:19 Sodium Chloride Flush Syringe 10 Ml IV PRN PRN LINE FLUSH
[2019-11-29] MEDS: cefTRIAXone/NS 2 GM/100 ML 2 GM/100 ML BAG IV SCH (10:28)
[2019-11-29] MEDS: LINEZOLID 600 MG TAB PO SCH ×2 (10:29→22:28)
[2019-11-29] MEDS: ASPIRIN 81 MG TAB CHEW PO SCH (10:29)
[2019-11-29] MEDS: CLOPIDOGREL 75 MG TAB PO SCH (10:29)
[2019-11-29] MEDS: APIXABAN 2.5 MG TAB PO SCH ×2 (10:29→22:28)
[2019-11-29] MEDS: SODIUM BICARBONATE 650 MG TAB PO SCH ×3 (10:30→22:28)
[2019-11-29] MEDS: INSULIN LISPRO 100 UNIT/ML VIAL 3 mL SUB-Q SCH ×4 (10:31→22:29)
--- NOTE | 2019-11-29 12:04 | Progress Note ---
Assessment and Plan Assessment and plan: -- Diabetes mellitus type 2; uncontrolled Increase Novolin 70/30 to 22 units twice a day Consistent carb diet, sliding scale of insulin --Acute hypoxic respiratory failure -O2 sat on room air is 85% -Likely due to CHF exacerbation, continue diuretics and breathing treatment -Supplemental O2 to keep oxygen saturation greater than 92% --Bilateral lower extremity cellulitis, continue antibiotics, Right foot MRI without contrast; shallow superficial ulcer, no osteomyelitis Soft tissue swelling ankle and foot --Leukocytosis with sepsis -likely from UTI and bilateral lower extremity cellulitis UA suggestive for UTI, patient also have significant bilateral lower extremity erythremia and rash cont on antibiotics, follow blood culture consulted ID, ordered CT chest/abdomen/pelvis --UTI with sepsis continue antibiotics for now follow culture --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) Continue current management, cardiology following TTE done 10/12/2019 showed EF 35-40% with grade 1 diastolic dysfunction Input output monitoring, low-sodium diet, fluid restriction --CKD (chronic kidney disease) per [facility] records, cr fluctuates between 2-3 cr today 2.9, will consult nephrology --HTN (hypertension); moderate control Continue current antihypertensives and PRN medications --PVD (peripheral vascular disease) Continue aspirin and statin --S/P transmetatarsal amputation of foot Continue supportive care --Chronic lymphedema IV diuretics as tolerated -- Elevated troponin-NSTEMI type II Continue medical management, cardiology following --Morbid obesity -Dietary education when clinically stable --Elevated d-dimer, VQ scan showed low probability for PE --DVT prophylaxis, continue on Eliquis Monitor closely and adjust management as needed Plan of care reviewed with the patient and her nurse 11/29/19; blood sugars are uncontrolled, increase Novolin 70/30 to 22 units twice a day Monitor closely History Interval history: I have seen and examined the patient at the bedside this morning Patient's chart and medications reviewed Patient feels slightly better, blood sugars are uncontrolled Denies any chest pain or shortness of breath Vital signs reviewed Hospitalist Physical - Constitutional Vitals: Temp Pulse Resp BP Pulse Ox 98.4 F 81 20 155/71 97 11/29/19 07:58 11/29/19 07:58 11/29/19 07:58 11/29/19 07:58 11/29/19 10:00 General appearance: Present: no acute distress, well-nourished, obese - EENT Eyes: Present: PERRL, EOM intact - Neck Neck: Present: supple, normal ROM - Respiratory Respiratory effort: normal Respiratory: bilateral: diminished, negative: rales, rhonchi, wheezing - Cardiovascular Rhythm: regular Heart Sounds: Present: S1 & S2 - Extremities Extremities: no ischemia, No edema - Abdominal General gastrointestinal: soft, non-tender, non-distended, normal bowel sounds - Integumentary Integumentary: Present: warm, dry - Psychiatric Psychiatric: cooperative - Neurologic Neurologic: moves all extremities HEART Score - HEART Score Troponin: Troponin T 0.023 ng/mL (0.00-0.029) 11/21/19 10:02 Results - Labs CBC & Chem 7: 11/27/19 07:21 11/29/19 06:24 Labs: Laboratory Last Values WBC 12.2 K/mm3 (4.5-11.0) H 11/27/19 07:21 RBC 2.81 M/mm3 (3.65-5.03) L 11/27/19 07:21 Hgb 7.7 gm/dl (10.1-14.3) L 11/27/19 07:21 Hct 23.6 % (30.3-42.9) L 11/27/19 07:21 MCV 84 fl (79-97) 11/27/19 07:21 MCH 27 pg (28-32) L 11/27/19 07:21 MCHC 33 % (30-34) 11/27/19 07:21 RDW 15.5 % (13.2-15.2) H 11/27/19 07:21 Plt Count 480 K/mm3 (140-440) H 11/27/19 07:21 Lymph % (Auto) 13.7 % (13.4-35.0) 11/27/19 07:21 [place] % (Auto) 6.7 % (0.0-7.3) 11/27/19 07:21 Eos % (Auto) 4.4 % (0.0-4.3) H 11/27/19 07:21 Baso % (Auto) 0.7 % (0.0-1.8) 11/27/19 07:21 Lymph # 1.7 K/mm3 (1.2-5.4) 11/27/19 07:21 [place] # 0.8 K/mm3 (0.0-0.8) 11/27/19 07:21 Eos # 0.5 K/mm3 (0.0-0.4) H 11/27/19 07:21 Baso # 0.1 K/mm3 (0.0-0.1) 11/27/19 07:21 Add Manual Diff Complete 11/25/19 05:57 Total Counted 100 11/25/19 05:57 Seg Neutrophils % 74.5 % (40.0-70.0) H 11/27/19 07:21 Seg Neuts % (Manual) 95.0 % (40.0-70.0) H 11/25/19 05:57 Band Neutrophils % 0 % 11/25/19 05:57 Lymphocytes % (Manual) 2.0 % (13.4-35.0) L 11/25/19 05:57 Reactive Lymphs % (Man) 0 % 11/25/19 05:57 Monocytes % (Manual) 3.0 % (0.0-7.3) 11/25/19 05:57 Eosinophils % (Manual) 0 % (0.0-4.3) 11/25/19 05:57 Basophils % (Manual) 0 % (0.0-1.8) 11/25/19 05:57 Metamyelocytes % 0 % 11/25/19 05:57 Myelocytes % 0 % 11/25/19 05:57 Promyelocytes % 0 % 11/25/19 05:57 Blast Cells % 0 % 11/25/19 05:57 Nucleated RBC % Not Reportable 11/25/19 05:57 Seg Neutrophils # 9.1 K/mm3 (1.8-7.7) H 11/27/19 07:21 Seg Neutrophils # Man 18.0 K/mm3 (1.8-7.7) H 11/25/19 05:57 Band Neutrophils # 0.0 K/mm3 11/25/19 05:57 Lymphocytes # (Manual) 0.4 K/mm3 (1.2-5.4) L 11/25/19 05:57 Abs React Lymphs (Man) 0.0 K/mm3 11/25/19 05:57 Monocytes # (Manual) 0.6 K/mm3 (0.0-0.8) 11/25/19 05:57 Eosinophils # (Manual) 0.0 K/mm3 (0.0-0.4) 11/25/19 05:57 Basophils # (Manual) 0.0 K/mm3 (0.0-0.1) 11/25/19 05:57 Metamyelocytes # 0.0 K/mm3 11/25/19 05:57 Myelocytes # 0.0 K/mm3 11/25/19 05:57 Promyelocytes # 0.0 K/mm3 11/25/19 05:57 Blast Cells # 0.0 K/mm3 11/25/19 05:57 WBC Morphology Not Reportable 11/25/19 05:57 Hypersegmented Neuts Not Reportable 11/25/19 05:57 Hyposegmented Neuts Not Reportable 11/25/19 05:57 Hypogranular Neuts Not Reportable 11/25/19 05:57 Smudge Cells Not Reportable 11/25/19 05:57 Toxic Granulation Not Reportable 11/25/19 05:57 Toxic Vacuolation Not Reportable 11/25/19 05:57 Dohle Bodies Not Reportable 11/25/19 05:57 Pelger-Huet Anomaly Not Reportable 11/25/19 05:57 Daniel Rods Not Reportable 11/25/19 05:57 Platelet Estimate Consistent w auto 11/25/19 05:57 Clumped Platelets Not Reportable 11/25/19 05:57 Plt Clumps, EDTA Not Reportable 11/25/19 05:57 Large Platelets Not Reportable 11/25/19 05:57 Giant Platelets Not Reportable 11/25/19 05:57 Platelet Satelliting Not Reportable 11/25/19 05:57 Plt Morphology Comment Not Reportable 11/25/19 05:57 RBC Morphology Not Reportable 11/25/19 05:57 Dimorphic RBCs Not Reportable 11/25/19 05:57 Polychromasia Not Reportable 11/25/19 05:57 Hypochromasia Not Reportable 11/25/19 05:57 Poikilocytosis Not Reportable 11/25/19 05:57 Anisocytosis Few 11/25/19 05:57 Microcytosis Not Reportable 11/25/19 05:57 Macrocytosis Not Reportable 11/25/19 05:57 Spherocytes Not Reportable 11/25/19 05:57 Pappenheimer Bodies Not Reportable 11/25/19 05:57 Sickle Cells Not Reportable 11/25/19 05:57 Target Cells Not Reportable 11/25/19 05:57 Tear Drop Cells Not Reportable 11/25/19 05:57 Ovalocytes Not Reportable 11/25/19 05:57 Helmet Cells Not Reportable 11/25/19 05:57 Dailey-[place] Bodies Not Reportable 11/25/19 05:57 [place] Rings Not Reportable 11/25/19 05:57 [place] Cells Few 11/25/19 05:57 Bite Cells Not Reportable 11/25/19 05:57 Crenated Cell Not Reportable 11/25/19 05:57 Elliptocytes Not Reportable 11/25/19 05:57 Acanthocytes (Spur) Not Reportable 11/25/19 05:57 Rouleaux Not Reportable 11/25/19 05:57 Hemoglobin C Crystals Not Reportable 11/25/19 05:57 Schistocytes Rare 11/25/19 05:57 Malaria parasites Not Reportable 11/25/19 05:57 Adarsh Bodies Not Reportable 11/25/19 05:57 Hem Pathologist Commnt No 11/25/19 05:57 PT 21.1 Sec. (12.2-14.9) H 11/22/19 07:40 INR 1.78 (0.87-1.13) H 11/22/19 07:40 APTT 38.8 Sec. (24.2-36.6) H 11/20/19 21:22 D-Dimer 596.16 ng/mlDDU (0-234) H 11/20/19 21:22 ABG pH 7.424 pH Units (7.350-7.450) 11/22/19 15:24 ABG pCO2 30.2 mm Hg 11/22/19 15:24 ABG pO2 66.5 mm Hg (80.0-90.0) L 11/22/19 15:24 ABG HCO3 19.3 mmol/L (20.0-26.0) L 11/22/19 15:24 ABG O2 Saturation 94.0 % (95.0-99.0) L 11/22/19 15:24 ABG O2 Content 11.5 (0.0-44) 11/22/19 15:24 ABG Base Excess -4.4 mmol/L (-2.0-3.0) L 11/22/19 15:24 ABG Hemoglobin 8.9 gm/dl (12.0-16.0) L 11/22/19 15:24 ABG Carboxyhemoglobin 1.7 % (0.0-5.0) 11/22/19 15:24 ABG Methemoglobin 0.6 % (0.0-1.5) 11/22/19 15:24 Oxyhemoglobin 91.8 % (95.0-99.0) L 11/22/19 15:24 FiO2 28 % 11/22/19 15:24 Sodium 137 mmol/L (137-145) 11/29/19 06:24 Potassium 4.1 mmol/L (3.6-5.0) 11/29/19 06:24 Chloride 104.5 mmol/L (98-107) 11/29/19 06:24 Carbon Dioxide 22 mmol/L (22-30) 11/29/19 06:24 Anion Gap 15 mmol/L 11/29/19 06:24 BUN 20 mg/dL (7-17) H 11/29/19 06:24 Creatinine 1.5 mg/dL (0.6-1.2) H 11/29/19 06:24 Estimated GFR 42 ml/min 11/29/19 06:24 BUN/Creatinine Ratio 13 % 11/29/19 06:24 Glucose 225 mg/dL (65-100) H 11/29/19 06:24 POC Glucose 267 (70-105) H 11/29/19 08:18 Calcium 8.1 mg/dL (8.4-10.2) L 11/29/19 06:24 Phosphorus 2.70 mg/dL (2.5-4.5) 11/24/19 04:50 Total Bilirubin 0.20 mg/dL (0.1-1.2) 11/20/19 21:22 AST 13 units/L (5-40) 11/20/19 21:22 ALT 15 units/L (7-56) 11/20/19 21:22 Alkaline Phosphatase 81 units/L (35-129) 11/20/19 21:22 Troponin T 0.023 ng/mL (0.00-0.029) 11/21/19 10:02 C-Reactive Protein 19.70 mg/dL (0.00-1.30) H 11/26/19 14:42 NT-Pro-B Natriuret Pep 3993 pg/mL (0-900) H 11/20/19 21:22 Total Protein 7.1 g/dL (6.3-8.2) 11/20/19 21:22 Albumin 2.9 g/dL (3.9-5) L 11/20/19 21:22 Albumin/Globulin Ratio 0.7 % 11/20/19 21:22 Triglycerides 214 mg/dL (2-149) H 11/20/19 21:22 Cholesterol 139 mg/dL (50-199) 11/20/19 21:22 LDL Cholesterol Direct 96 mg/dL (50-130) 11/20/19 21:22 HDL Cholesterol 30 mg/dL (40-59) L 11/20/19 21:22 Cholesterol/HDL Ratio 4.63 % 11/20/19 21:22 Procalcitonin 15.13 ng/mL (<0.15) 11/24/19 13:44 TSH 1.430 mlU/mL (0.270-4.200) 11/20/19 21:22 Free T4 1.34 ng/dL (0.76-1.46) 11/20/19 21:22 PTH Intact 62.13 pg/mL (15-65) 11/24/19 04:50 Urine Color Yellow (Yellow) 11/22/19 Unknown Urine Turbidity Turbid (Clear) 11/22/19 Unknown Urine pH 5.0 (5.0-7.0) 11/22/19 Unknown Ur Specific [place] 1.017 (1.003-1.030) 11/22/19 Unknown Urine Protein 30 mg/dl mg/dL (Negative) 11/22/19 Unknown Urine Glucose (UA) 50 mg/dL (Negative) 11/22/19 Unknown Urine Ketones Neg mg/dL (Negative) 11/22/19 Unknown Urine Blood Mod (Negative) 11/22/19 Unknown Urine Nitrite Neg (Negative) 11/22/19 Unknown Urine Bilirubin Neg (Negative) 11/22/19 Unknown Urine Urobilinogen < 2.0 mg/dL (<2.0) 11/22/19 Unknown Ur Leukocyte Esterase Lg (Negative) 11/22/19 Unknown Urine WBC (Auto) 159.0 /HPF (0.0-6.0) H 11/22/19 Unknown Urine RBC (Auto) 68.0 /HPF (0.0-6.0) 11/22/19 Unknown U Epithel Cells (Auto) 2.0 /HPF (0-13.0) 11/22/19 Unknown Urine Bacteria (Auto) 3+ /HPF (Negative) 11/22/19 Unknown Urine WBC Clumps 3+ /HPF 11/22/19 Unknown Uric Acid Crystals Not Reportable 11/22/19 Unknown Urine Yeast (Budding) 3+ /HPF 11/22/19 Unknown Nasal Screen MRSA (PCR) Positive (Negative) 11/21/19 Unknown Random Vancomycin 9.6 ug/mL (0-40.0) 11/23/19 08:57 Microbiology: Microbiology 11/24/19 13:44 Peripheral/Venous Blood Culture - Preliminary NO GROWTH AFTER 4 DAYS 11/24/19 13:44 Peripheral/Venous Blood Culture - Preliminary NO GROWTH AFTER 4 DAYS - Diagnostic Impressions Diagnostic Impressions: Echocardiogram 11/21/19 03:29 Transthoracic Echocardiogram Indication: Chest Pain BP: 107/66 HR: 50 Conclusions *The study is technically very limited due to patient body habitus. Patient unable to consent to Optison. *Global left ventricular systolic function is normal. *The estimated ejection fraction is 50-55%. *Abnormal left ventricular diastolic function is observed. *There is no pericardial effusion. Findings Procedure Info: The study is technically limited due to patient body habitus. Patient unable to consent to Optison. The study was technically limited due to the patient's inability to lay in the left lateral decubitus position. Left Ventricle: The left ventricle is not well visualized. Global left ventricular systolic function is normal. The estimated ejection fraction is 50-55%. Abnormal left ventricular diastolic function is observed. Left Atrium: The left atrium is not well visualized. Right Ventricle: The right ventricle is not well visualized. Right Atrium: The right atrium is not well visualized. Aortic Valve: The aortic valve is not well visualized. Mitral Valve: There is mitral annular calcification. The mitral valve leaflets are mildly thickened. There is trace of mitral regurgitation. Tricuspid Valve: The tricuspid valve is not well visualized. There is mild tricuspid regurgitation. Pulmonic Valve: The pulmonic valve is not well visualized. Pericardium: There is no pericardial effusion. Aorta: The aorta appears normal. Venous: The inferior vena cava is dilated. Measurements Chambers 2D Name Value Normal Range IVSd (2D) 1.3 cm (0.6 - 1.1) LVPWd (2D) 0.37 cm (0.6 - 1.1) LVIDd (2D) 4.89 cm (3.7 - 5.6) LVIDs (2D) 3.78 cm (2 - 3.8) LV FS (2D) 22.67 % - EF Teichholz (2D) 45.46 % - Ao root diameter (2D) 2.64 cm (2 - 3.7) Volumes/Mass Name Value Normal Range LA ESV SP 2CH (A/L) 85.32 ml - LA ESV SP 2CH (MOD) 78.59 ml - Diastolic/Systolic Function Name Value Normal Range MV E-wave Vmax 0.75 m/sec - MV deceleration time 351.73 msec - MV A-wave Vmax 0.88 m/sec - MV E:A ratio 0.86 ratio - Aortic Valve Name Value Normal Range LVOT diameter 1.97 cm - Mitral Valve Name Value Normal Range MV Vmax 0.92 m/sec - MV VTI 35.79 cm - MV peak gradient 3.4 mmHg - MV mean gradient 0.88 mmHg - MV PHT 133.09 msec - MVA (PHT) 1.65 cm2 - Tricuspid Valve Name Value Normal Range TR Vmax 2.8 m/sec - TR peak gradient 31.39 mmHg - IVC diameter 2.42 cm (1.2 - 2.3) Pulmonic Valve/Qp:Qs Name Value Normal Range PV Vmax 0.96 m/sec - PV VTI 22.47 cm - PV peak gradient 3.69 mmHg - PV mean gradient 1.34 mmHg - OK end-diastolic Vmax 0.93 m/sec - RVOT Vmax 0.73 m/sec - RVOT VTI 17.4 cm - RVOT peak gradient 2.14 mmHg - Izquierdo/IV: Voiding Method External Female Catheter IV Catheter Type [Left Forearm INT / Saline Lock ] IV Catheter Type [Right INT / Saline Lock Forearm] IV Catheter Type [Left Hand] INT / Saline Lock IV Catheter Type [Right INT / Saline Lock Antecubital] Active Medications - Current Medications Current Medications: Generic Name Dose Route Start Last Admin Trade Name Freq PRN Reason Stop Dose Admin Acetaminophen 650 mg 11/21/19 03:19 11/25/19 17:33 Tylenol PO 650 mg Q4H PRN Administration Pain MILD(1-3)/Fever >100.5/AVERY Acetaminophen 650 mg 11/22/19 21:06 11/22/19 21:15 Tylenol [place] 650 mg Q4H PRN Administration Pain, Mild (1-3) Apixaban 2.5 mg 11/22/19 22:00 11/29/19 10:29 Eliquis PO 2.5 mg Q12HR GABRIELLE Administration Protocol Aspirin 81 mg 11/22/19 10:00 11/29/19 10:29 Baby Aspirin PO 81 mg QDAY GABRIELLE Administration Atorvastatin Calcium 40 mg 11/21/19 22:00 11/28/19 21:53 Lipitor PO 40 mg QHS GABRIELLE Administration Clopidogrel Bisulfate 75 mg 11/22/19 10:00 11/29/19 10:29 Plavix PO 75 mg QDAY GABRIELLE Administration Dextrose 0 ml 11/21/19 03:19 D50w (25gm) Syringe IV Q30MIN PRN Hypoglycemia Protocol Fluconazole 150 mg 11/25/19 10:00 11/25/19 14:28 Diflucan PO 12/02/19 10:01 150 mg Tu GABRIELLE Administration Hydralazine HCl 10 mg 11/21/19 03:19 11/28/19 21:55 Apresoline IV 10 mg Q6H PRN Administration FOR SBP > target Ceftriaxone Sodium 2 gm in 100 mls @ 200 mls/hr 11/27/19 13:00 11/29/19 10:28 Rocephin/Ns 2 Gm/100 Ml IV 200 mls/hr Q24HR GABRIELLE Administration Protocol Insulin Human Isoph/Insulin Regular 15 unit 11/28/19 21:23 11/29/19 10:29 Humulin 70/30 SUB-Q 15 unit BIDDIAB GABRIELLE Administration Insulin Human Lispro 0 unit 11/21/19 07:30 11/29/19 10:31 Humalog SUB-Q 4 unit ACHS GABRIELLE Administration Protocol Isosorbide Mononitrate 30 mg 11/22/19 10:00 11/29/19 10:29 Imdur PO 30 mg QDAY GABRIELLE Administration Linezolid 600 mg 11/28/19 10:00 11/29/19 10:29 Zyvox PO 600 mg BID GABRIELLE Administration Morphine Sulfate 2 mg 11/26/19 03:02 11/28/19 21:55 Morphine IV 2 mg Q4H PRN Administration Pain, Moderate (4-6) Nitroglycerin 0.4 mg 11/21/19 03:19 Nitrostat SL Q5M PRN Chest Pain Ondansetron HCl 4 mg 11/21/19 03:19 Zofran IV Q8H PRN Nausea And Vomiting Sodium Bicarbonate 650 mg 11/23/19 14:00 11/29/19 10:30 Sodium Bicarbonate PO 650 mg TID AGBRIELLE Administration Sodium Chloride 10 ml 11/21/19 10:00 11/29/19 10:29 Sodium Chloride Flush Syringe 10 Ml IV 10 ml BID GABRIELLE Administration Sodium Chloride 10 ml 11/21/19 03:19 Sodium Chloride Flush Syringe 10 Ml IV PRN PRN LINE FLUSH Nutrition/Malnutrition Assess - Dietary Evaluation Nutrition/Malnutrition Findings: Nutrition Notes Start: 11/21/19 14:25 Freq: Status: Active Protocol: Document 11/27/19 13:45 MARIBELL (Rec: 11/27/19 13:56 MARIBELL [email or web address] [email or web address]) Nutrition Notes Initial or Follow up Reassessment Current Diagnosis CKD(stage I-IV),Diabetes, Hypertension,Heart Failure, Respiratory Failure Other Pertinent Diagnosis Bilat LE cellulitis Current Diet Consistent CHO + Glucerna BID Labs/Tests BUN 29 Cr 1.6 BG 235 Pertinent Medications Humulin 70/30 Height 5 ft 6 in Weight 127.8 kg [place] Body Weight (kg) 59.09 BMI 45.4 Weight Status Morbidly Obese Subjective/Other Information Spoke with RN via phone at 12: 50; doubtful that pt consumed 100% of meals yesterday, as pt consumed none of lunch today and remains confused. Average PO intake as documented in charts: 85%. Burn Absent Trauma Absent #1 Nutrition Diagnosis Predicted suboptimal energy intake,Inadequate oral intake Comments: CHANGED Etiology alert and oriented x 1 As Evidenced by Signs and Symptoms pt likely consuming <50% of meals on average Is patient on ventilator? No Is Patient Ambulatory and/or Out of Bed No REE-([place]-St. Jeor-confined to bed) 2200.596 Kcal/Kg value to use for calculation 13 Approximate Energy Requirements Using 1661 kcal/Kg Calculation Used for Recommendations Kcal/kg Additional Notes Pro needs 0.8-0.9g/kg adjBW: 75-84g/day Fluid needs 1ml/kcal Nutrition Intervention Change Diet Order: Continue current diet order - encourage PO intake at meal times Add Supplement/Snack (indicate name/kcal Glucerna BID /protein ) Provides kCal: 440 Provides Protein (gm) 20 Goal #1 PO intakes of meals plus ONS to meet at least 75% energy and pro needs Follow-Up By: 12/01/19 Additional Comments F/U: intakes (meals/ONS), wt
[2019-11-29] MEDS: MORPHINE 2 MG/1 ML INJ IV PRN (14:17)
[2019-11-29] MEDS ORDERED: INSULIN NPH/REGULAR 70/30 INJ SUB-Q SCH (17:00)
[2019-11-29] MEDS: INSULIN NPH/REGULAR 70/30 INJ SUB-Q SCH (18:09)
[2019-11-30] MEDS: MORPHINE 2 MG/1 ML INJ IV PRN ×4 (04:02→21:01)
[2019-11-30] MEDS: INSULIN NPH/REGULAR 70/30 INJ SUB-Q SCH ×2 (10:05→17:20)
[2019-11-30] MEDS: ASPIRIN 81 MG TAB CHEW PO SCH (10:06)
[2019-11-30] MEDS: CLOPIDOGREL 75 MG TAB PO SCH (10:06)
[2019-11-30] MEDS: SODIUM BICARBONATE 650 MG TAB PO SCH ×3 (10:06→21:00)
[2019-11-30] MEDS: LINEZOLID 600 MG TAB PO SCH ×2 (10:07→21:00)
[2019-11-30] MEDS: cefTRIAXone/NS 2 GM/100 ML 2 GM/100 ML BAG IV SCH (10:07)
[2019-11-30] MEDS: APIXABAN 2.5 MG TAB PO SCH ×2 (10:07→21:00)
[2019-11-30] MEDS: INSULIN LISPRO 100 UNIT/ML VIAL 3 mL SUB-Q SCH ×4 (10:07→23:13)
--- NOTE | 2019-11-30 15:23 | Progress Note ---
Assessment and Plan 1. Acute kidney injury: Vasomotor JI superimposed on CKD stage 3 in the setting of hypotension. Renal US normal R kidney and non-visualization of L kidney. Urine studies ordered. Monitor renal function. Creatinine level is better since admission. Avoid nephrotoxic agents. Meds dosage based on GFR. 2. FEN: Metabolic acidosis, PO Sodium bicarbonate, monitor. Monitor lytes and volume status. 3. Acute combined systolic and diastolic HFrEF: Followed by Cardiology. TTE done 10/12/2019 showed EF 35-40% with grade 1 diastolic dysfunction Daily weights, monitor in's and O's. 4. Elevated troponin-NSTEMI type II: Continue medical management, Cardiology following. 5. Acute hypoxic respiratory failure: O2 sat on room air was 85%. Likely due to CHF exacerbation. Supplemental O2. 6. SIRS: Leukocytosis. UTI vs LE wound infection. Continue abx. 7. Acute metabolic encephalopathy, POA. Continue supportive care. 8. Hypertension: Monitor BP. 9. Normochromic anemia, POA. 10. Diabetes mellitus type 2: Consistent low carb diet and sliding scale of insulin. 11. Chronic lymphedema. 12. Elevated d-dimer: V/Q scan showed low probability for PE. - Subjective: Patient was seen and examined at the bedside. No new complaint. - General Appearance General appearance: well-developed, well-nourished, appears stated age, obese, no distress HEENT: ATNC, PERRL, hearing intact, vision intact Neck: neck supple, trachea midline Respiratory: Clear to Ascultation Heart: regular, S1S2, no murmurs Gastrointestinal: obese, normoactive bowel sounds, not tenderness Integumentary: chronic venous stasis, R leg dressing Neurologic: confused, disoriented, able to move extremities Ext: b/l LE lymphedema noted, R TMA Psychiatric: cooperative Subjective Date of service: 11/30/19 Principal diagnosis: HF; CKD; PVD Objective - Vital Signs Vital signs: Vital Signs - 12hr 11/30/19 11/30/19 11/30/19 04:59 08:56 09:26 Temperature 98.1 F 98.2 F Pulse Rate 80 76 Respiratory 20 20 Rate Blood Pressure 146/81 153/80 O2 Sat by Pulse 98 98 97 Oximetry 11/30/19 12:46 Temperature 97.7 F Pulse Rate 72 Respiratory 20 Rate Blood Pressure 146/74 O2 Sat by Pulse 99 Oximetry - Lab 11/27/19 07:21 11/30/19 14:15 Most recent lab results ABG pH 7.424 pH Units (7.350-7.450) 11/22/19 15:24 ABG pCO2 30.2 mm Hg 11/22/19 15:24 ABG pO2 66.5 mm Hg (80.0-90.0) L 11/22/19 15:24 ABG HCO3 19.3 mmol/L (20.0-26.0) L 11/22/19 15:24 ABG O2 Saturation 94.0 % (95.0-99.0) L 11/22/19 15:24 Calcium 8.1 mg/dL (8.4-10.2) L 11/29/19 06:24 Phosphorus 2.70 mg/dL (2.5-4.5) 11/24/19 04:50 Medications & Allergies - Medications Allergies/Adverse Reactions: Allergies Sulfa (Sulfonamide Antibiotics) Allergy (Verified 11/20/19 20:05) Unknown Home Medications: Home Medications Medication Instructions Recorded Confirmed Last Taken Type Unobtainable 11/20/19 11/20/19 Unknown History Active Medications: Generic Name Dose Route Start Last Admin Trade Name Freq PRN Reason Stop Dose Admin Acetaminophen 650 mg 11/21/19 03:19 11/25/19 17:33 Tylenol PO 650 mg Q4H PRN Administration Pain MILD(1-3)/Fever >100.5/AVERY Acetaminophen 650 mg 11/22/19 21:06 11/22/19 21:15 Tylenol [place] 650 mg Q4H PRN Administration Pain, Mild (1-3) Apixaban 2.5 mg 11/22/19 22:00 11/30/19 10:07 Eliquis PO 2.5 mg Q12HR GABRIELLE Administration Protocol Aspirin 81 mg 11/22/19 10:00 11/30/19 10:06 Baby Aspirin PO 81 mg QDAY GABRIELLE Administration Atorvastatin Calcium 40 mg 11/21/19 22:00 11/29/19 22:28 Lipitor PO 40 mg QHS GABRIELLE Administration Clopidogrel Bisulfate 75 mg 11/22/19 10:00 11/30/19 10:06 Plavix PO 75 mg QDAY GABRIELLE Administration Dextrose 0 ml 11/21/19 03:19 D50w (25gm) Syringe IV Q30MIN PRN Hypoglycemia Protocol Fluconazole 150 mg 11/25/19 10:00 11/25/19 14:28 Diflucan PO 12/02/19 10:01 150 mg Tu GABRIELLE Administration Hydralazine HCl 10 mg 11/21/19 03:19 11/28/19 21:55 Apresoline IV 10 mg Q6H PRN Administration FOR SBP > target Ceftriaxone Sodium 2 gm in 100 mls @ 200 mls/hr 11/27/19 13:00 11/30/19 10:07 Rocephin/Ns 2 Gm/100 Ml IV 200 mls/hr Q24HR GABRIELLE Administration Protocol Insulin Human Isoph/Insulin Regular 22 unit 11/29/19 17:00 11/30/19 10:05 Humulin 70/30 SUB-Q 22 unit BIDDIAB GABRIELLE Administration Insulin Human Lispro 0 unit 11/21/19 07:30 11/30/19 12:00 Humalog SUB-Q 3 unit ACHS GABRIELLE Administration Protocol Isosorbide Mononitrate 30 mg 11/22/19 10:00 11/30/19 10:06 Imdur PO 30 mg QDAY GABRIELLE Administration Linezolid 600 mg 11/28/19 10:00 11/30/19 10:07 Zyvox PO 600 mg BID GABRIELLE Administration Morphine Sulfate 2 mg 11/26/19 03:02 11/30/19 14:58 Morphine IV 2 mg Q4H PRN Administration Pain, Moderate (4-6) Nitroglycerin 0.4 mg 11/21/19 03:19 Nitrostat SL Q5M PRN Chest Pain Ondansetron HCl 4 mg 11/21/19 03:19 Zofran IV Q8H PRN Nausea And Vomiting Sodium Bicarbonate 650 mg 11/23/19 14:00 11/30/19 14:19 Sodium Bicarbonate PO 650 mg TID GABRIELLE Administration Sodium Chloride 10 ml 11/21/19 10:00 11/30/19 10:07 Sodium Chloride Flush Syringe 10 Ml IV 10 ml BID GABRIELLE Administration Sodium Chloride 10 ml 11/21/19 03:19 Sodium Chloride Flush Syringe 10 Ml IV PRN PRN LINE FLUSH
[2019-11-30 15:46] LABS: Calcium 8.6 mg/dL (8.4-10.2)
--- NOTE | 2019-11-30 19:40 | Progress Note ---
Assessment and Plan Assessment and plan: -- Diabetes mellitus type 2; better controlled Blood sugars today between 118 -200 on 22 units 70/30 twice daily Increased Novolin 70/30 to 22 units twice a day on 11/28 Consistent carb diet, sliding scale of insulin --Acute hypoxic respiratory failure -O2 sat on room air is 85% -Likely due to CHF exacerbation, continue diuretics and breathing treatment -Supplemental O2 to keep oxygen saturation greater than 92% --Bilateral lower extremity cellulitis, continue antibiotics, Right foot MRI without contrast; no evidence of osteomyelitis shallow superficial ulcer Soft tissue swelling ankle and foot --Leukocytosis with sepsis -likely from UTI and bilateral lower extremity cellulitis UA suggestive for UTI, patient also have significant bilateral lower extremity erythremia and rash cont on antibiotics, follow blood culture consulted ID, ordered CT chest/abdomen/pelvis --UTI with sepsis continue antibiotics for now follow culture --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) Continue current management, cardiology following TTE done 10/12/2019 showed EF 35-40% with grade 1 diastolic dysfunction Input output monitoring, low-sodium diet, fluid restriction --CKD (chronic kidney disease) per [facility] records, cr fluctuates between 2-3 cr today 2.9, will consult nephrology --HTN (hypertension); moderate control Continue current antihypertensives and PRN medications --PVD (peripheral vascular disease) Continue aspirin and statin --S/P transmetatarsal amputation of foot Continue supportive care --Chronic lymphedema IV diuretics as tolerated -- Elevated troponin-NSTEMI type II Continue medical management, cardiology following --Morbid obesity -Dietary education when clinically stable --Elevated d-dimer, VQ scan showed low probability for PE --DVT prophylaxis, continue on Eliquis Monitor closely and adjust management as needed Plan of care reviewed with the patient and her nurse 11/29/19; blood sugars are uncontrolled, increase Novolin 70/30 to 22 units twice a day.Monitor closely 11/29; patient's blood sugars are little better controlled range between 118-200, monitor closely and adjust MRI no osteomyelitis. Disposition per ID History Interval history: I have seen and examined the patient at the bedside Patient's chart and medications reviewed Patient feels slightly better Sepsis on multiple antibiotics Vital signs noted Hospitalist Physical - Constitutional Vitals: Temp Pulse Resp BP Pulse Ox 98.3 F 74 20 153/80 98 11/30/19 17:39 11/30/19 17:39 11/30/19 17:39 11/30/19 17:39 11/30/19 17:39 General appearance: Present: no acute distress, well-nourished, obese - EENT Eyes: Present: PERRL, EOM intact - Neck Neck: Present: supple, normal ROM - Respiratory Respiratory effort: normal, labored - Cardiovascular Rhythm: regular Heart Sounds: Present: S1 & S2 - Extremities Extremities: no ischemia, pulses intact - Abdominal General gastrointestinal: soft, non-tender, non-distended, normal bowel sounds - Integumentary Integumentary: Present: clear, warm - Psychiatric Psychiatric: appropriate mood/affect, cooperative - Neurologic Neurologic: moves all extremities HEART Score - HEART Score Troponin: Troponin T 0.023 ng/mL (0.00-0.029) 11/21/19 10:02 Results - Labs CBC & Chem 7: 11/27/19 07:21 11/30/19 14:15 Labs: Laboratory Last Values WBC 12.2 K/mm3 (4.5-11.0) H 11/27/19 07:21 RBC 2.81 M/mm3 (3.65-5.03) L 11/27/19 07:21 Hgb 7.7 gm/dl (10.1-14.3) L 11/27/19 07:21 Hct 23.6 % (30.3-42.9) L 11/27/19 07:21 MCV 84 fl (79-97) 11/27/19 07:21 MCH 27 pg (28-32) L 11/27/19 07:21 MCHC 33 % (30-34) 11/27/19 07:21 RDW 15.5 % (13.2-15.2) H 11/27/19 07:21 Plt Count 480 K/mm3 (140-440) H 11/27/19 07:21 Lymph % (Auto) 13.7 % (13.4-35.0) 11/27/19 07:21 [place] % (Auto) 6.7 % (0.0-7.3) 11/27/19 07:21 Eos % (Auto) 4.4 % (0.0-4.3) H 11/27/19 07:21 Baso % (Auto) 0.7 % (0.0-1.8) 11/27/19 07:21 Lymph # 1.7 K/mm3 (1.2-5.4) 11/27/19 07:21 Forrest # 0.8 K/mm3 (0.0-0.8) 11/27/19 07:21 Eos # 0.5 K/mm3 (0.0-0.4) H 11/27/19 07:21 Baso # 0.1 K/mm3 (0.0-0.1) 11/27/19 07:21 Add Manual Diff Complete 11/25/19 05:57 Total Counted 100 11/25/19 05:57 Seg Neutrophils % 74.5 % (40.0-70.0) H 11/27/19 07:21 Seg Neuts % (Manual) 95.0 % (40.0-70.0) H 11/25/19 05:57 Band Neutrophils % 0 % 11/25/19 05:57 Lymphocytes % (Manual) 2.0 % (13.4-35.0) L 11/25/19 05:57 Reactive Lymphs % (Man) 0 % 11/25/19 05:57 Monocytes % (Manual) 3.0 % (0.0-7.3) 11/25/19 05:57 Eosinophils % (Manual) 0 % (0.0-4.3) 11/25/19 05:57 Basophils % (Manual) 0 % (0.0-1.8) 11/25/19 05:57 Metamyelocytes % 0 % 11/25/19 05:57 Myelocytes % 0 % 11/25/19 05:57 Promyelocytes % 0 % 11/25/19 05:57 Blast Cells % 0 % 11/25/19 05:57 Nucleated RBC % Not Reportable 11/25/19 05:57 Seg Neutrophils # 9.1 K/mm3 (1.8-7.7) H 11/27/19 07:21 Seg Neutrophils # Man 18.0 K/mm3 (1.8-7.7) H 11/25/19 05:57 Band Neutrophils # 0.0 K/mm3 11/25/19 05:57 Lymphocytes # (Manual) 0.4 K/mm3 (1.2-5.4) L 11/25/19 05:57 Abs React Lymphs (Man) 0.0 K/mm3 11/25/19 05:57 Monocytes # (Manual) 0.6 K/mm3 (0.0-0.8) 11/25/19 05:57 Eosinophils # (Manual) 0.0 K/mm3 (0.0-0.4) 11/25/19 05:57 Basophils # (Manual) 0.0 K/mm3 (0.0-0.1) 11/25/19 05:57 Metamyelocytes # 0.0 K/mm3 11/25/19 05:57 Myelocytes # 0.0 K/mm3 11/25/19 05:57 Promyelocytes # 0.0 K/mm3 11/25/19 05:57 Blast Cells # 0.0 K/mm3 11/25/19 05:57 WBC Morphology Not Reportable 11/25/19 05:57 Hypersegmented Neuts Not Reportable 11/25/19 05:57 Hyposegmented Neuts Not Reportable 11/25/19 05:57 Hypogranular Neuts Not Reportable 11/25/19 05:57 Smudge Cells Not Reportable 11/25/19 05:57 Toxic Granulation Not Reportable 11/25/19 05:57 Toxic Vacuolation Not Reportable 11/25/19 05:57 Dohle Bodies Not Reportable 11/25/19 05:57 Pelger-Huet Anomaly Not Reportable 11/25/19 05:57 Daniel Rods Not Reportable 11/25/19 05:57 Platelet Estimate Consistent w auto 11/25/19 05:57 Clumped Platelets Not Reportable 11/25/19 05:57 Plt Clumps, EDTA Not Reportable 11/25/19 05:57 Large Platelets Not Reportable 11/25/19 05:57 Giant Platelets Not Reportable 11/25/19 05:57 Platelet Satelliting Not Reportable 11/25/19 05:57 Plt Morphology Comment Not Reportable 11/25/19 05:57 RBC Morphology Not Reportable 11/25/19 05:57 Dimorphic RBCs Not Reportable 11/25/19 05:57 Polychromasia Not Reportable 11/25/19 05:57 Hypochromasia Not Reportable 11/25/19 05:57 Poikilocytosis Not Reportable 11/25/19 05:57 Anisocytosis Few 11/25/19 05:57 Microcytosis Not Reportable 11/25/19 05:57 Macrocytosis Not Reportable 11/25/19 05:57 Spherocytes Not Reportable 11/25/19 05:57 Pappenheimer Bodies Not Reportable 11/25/19 05:57 Sickle Cells Not Reportable 11/25/19 05:57 Target Cells Not Reportable 11/25/19 05:57 Tear Drop Cells Not Reportable 11/25/19 05:57 Ovalocytes Not Reportable 11/25/19 05:57 Helmet Cells Not Reportable 11/25/19 05:57 [place] Bodies Not Reportable 11/25/19 05:57 [place] Rings Not Reportable 11/25/19 05:57 [place] Cells Few 11/25/19 05:57 Bite Cells Not Reportable 11/25/19 05:57 Crenated Cell Not Reportable 11/25/19 05:57 Elliptocytes Not Reportable 11/25/19 05:57 Acanthocytes (Spur) Not Reportable 11/25/19 05:57 Rouleaux Not Reportable 11/25/19 05:57 Hemoglobin C Crystals Not Reportable 11/25/19 05:57 Schistocytes Rare 11/25/19 05:57 Malaria parasites Not Reportable 11/25/19 05:57 Adarsh Bodies Not Reportable 11/25/19 05:57 Hem Pathologist Commnt No 11/25/19 05:57 PT 21.1 Sec. (12.2-14.9) H 11/22/19 07:40 INR 1.78 (0.87-1.13) H 11/22/19 07:40 APTT 38.8 Sec. (24.2-36.6) H 11/20/19 21:22 D-Dimer 596.16 ng/mlDDU (0-234) H 11/20/19 21:22 ABG pH 7.424 pH Units (7.350-7.450) 11/22/19 15:24 ABG pCO2 30.2 mm Hg 11/22/19 15:24 ABG pO2 66.5 mm Hg (80.0-90.0) L 11/22/19 15:24 ABG HCO3 19.3 mmol/L (20.0-26.0) L 11/22/19 15:24 ABG O2 Saturation 94.0 % (95.0-99.0) L 11/22/19 15:24 ABG O2 Content 11.5 (0.0-44) 11/22/19 15:24 ABG Base Excess -4.4 mmol/L (-2.0-3.0) L 11/22/19 15:24 ABG Hemoglobin 8.9 gm/dl (12.0-16.0) L 11/22/19 15:24 ABG Carboxyhemoglobin 1.7 % (0.0-5.0) 11/22/19 15:24 ABG Methemoglobin 0.6 % (0.0-1.5) 11/22/19 15:24 Oxyhemoglobin 91.8 % (95.0-99.0) L 11/22/19 15:24 FiO2 28 % 11/22/19 15:24 Sodium 138 mmol/L (137-145) 11/30/19 14:15 Potassium 4.6 mmol/L (3.6-5.0) 11/30/19 14:15 Chloride 104.0 mmol/L (98-107) 11/30/19 14:15 Carbon Dioxide 22 mmol/L (22-30) 11/30/19 14:15 Anion Gap 17 mmol/L 11/30/19 14:15 BUN 15 mg/dL (7-17) 11/30/19 14:15 Creatinine 1.7 mg/dL (0.6-1.2) H 11/30/19 14:15 Estimated GFR 36 ml/min 11/30/19 14:15 BUN/Creatinine Ratio 9 % 11/30/19 14:15 Glucose 198 mg/dL (65-100) H 11/30/19 14:15 POC Glucose 164 (70-105) H 11/30/19 17:03 Calcium 8.6 mg/dL (8.4-10.2) 11/30/19 14:15 Phosphorus 2.70 mg/dL (2.5-4.5) 11/24/19 04:50 Total Bilirubin 0.20 mg/dL (0.1-1.2) 11/20/19 21:22 AST 13 units/L (5-40) 11/20/19 21:22 ALT 15 units/L (7-56) 11/20/19 21:22 Alkaline Phosphatase 81 units/L (35-129) 11/20/19 21:22 Troponin T 0.023 ng/mL (0.00-0.029) 11/21/19 10:02 C-Reactive Protein 19.70 mg/dL (0.00-1.30) H 11/26/19 14:42 NT-Pro-B Natriuret Pep 3993 pg/mL (0-900) H 11/20/19 21:22 Total Protein 7.1 g/dL (6.3-8.2) 11/20/19 21:22 Albumin 2.9 g/dL (3.9-5) L 11/20/19 21:22 Albumin/Globulin Ratio 0.7 % 11/20/19 21:22 Triglycerides 214 mg/dL (2-149) H 11/20/19 21:22 Cholesterol 139 mg/dL (50-199) 11/20/19 21:22 LDL Cholesterol Direct 96 mg/dL (50-130) 11/20/19 21:22 HDL Cholesterol 30 mg/dL (40-59) L 11/20/19 21:22 Cholesterol/HDL Ratio 4.63 % 11/20/19 21:22 Procalcitonin 15.13 ng/mL (<0.15) 11/24/19 13:44 TSH 1.430 mlU/mL (0.270-4.200) 11/20/19 21:22 Free T4 1.34 ng/dL (0.76-1.46) 11/20/19 21:22 PTH Intact 62.13 pg/mL (15-65) 11/24/19 04:50 Urine Color Yellow (Yellow) 11/22/19 Unknown Urine Turbidity Turbid (Clear) 11/22/19 Unknown Urine pH 5.0 (5.0-7.0) 11/22/19 Unknown Ur Specific [place] 1.017 (1.003-1.030) 11/22/19 Unknown Urine Protein 30 mg/dl mg/dL (Negative) 11/22/19 Unknown Urine Glucose (UA) 50 mg/dL (Negative) 11/22/19 Unknown Urine Ketones Neg mg/dL (Negative) 11/22/19 Unknown Urine Blood Mod (Negative) 11/22/19 Unknown Urine Nitrite Neg (Negative) 11/22/19 Unknown Urine Bilirubin Neg (Negative) 11/22/19 Unknown Urine Urobilinogen < 2.0 mg/dL (<2.0) 11/22/19 Unknown Ur Leukocyte Esterase Lg (Negative) 11/22/19 Unknown Urine WBC (Auto) 159.0 /HPF (0.0-6.0) H 11/22/19 Unknown Urine RBC (Auto) 68.0 /HPF (0.0-6.0) 11/22/19 Unknown U Epithel Cells (Auto) 2.0 /HPF (0-13.0) 11/22/19 Unknown Urine Bacteria (Auto) 3+ /HPF (Negative) 11/22/19 Unknown Urine WBC Clumps 3+ /HPF 11/22/19 Unknown Uric Acid Crystals Not Reportable 11/22/19 Unknown Urine Yeast (Budding) 3+ /HPF 11/22/19 Unknown Nasal Screen MRSA (PCR) Positive (Negative) 11/21/19 Unknown Random Vancomycin 9.6 ug/mL (0-40.0) 11/23/19 08:57 - Diagnostic Impressions Diagnostic Impressions: Echocardiogram 11/21/19 03:29 Transthoracic Echocardiogram Indication: Chest Pain BP: 107/66 HR: 50 Conclusions *The study is technically very limited due to patient body habitus. Patient unable to consent to Optison. *Global left ventricular systolic function is normal. *The estimated ejection fraction is 50-55%. *Abnormal left ventricular diastolic function is observed. *There is no pericardial effusion. Findings Procedure Info: The study is technically limited due to patient body habitus. Patient unable to consent to Optison. The study was technically limited due to the patient's inability to lay in the left lateral decubitus position. Left Ventricle: The left ventricle is not well visualized. Global left ventricular systolic function is normal. The estimated ejection fraction is 50-55%. Abnormal left ventricular diastolic function is observed. Left Atrium: The left atrium is not well visualized. Right Ventricle: The right ventricle is not well visualized. Right Atrium: The right atrium is not well visualized. Aortic Valve: The aortic valve is not well visualized. Mitral Valve: There is mitral annular calcification. The mitral valve leaflets are mildly thickened. There is trace of mitral regurgitation. Tricuspid Valve: The tricuspid valve is not well visualized. There is mild tricuspid regurgitation. Pulmonic Valve: The pulmonic valve is not well visualized. Pericardium: There is no pericardial effusion. Aorta: The aorta appears normal. Venous: The inferior vena cava is dilated. Measurements Chambers 2D Name Value Normal Range IVSd (2D) 1.3 cm (0.6 - 1.1) LVPWd (2D) 0.37 cm (0.6 - 1.1) LVIDd (2D) 4.89 cm (3.7 - 5.6) LVIDs (2D) 3.78 cm (2 - 3.8) LV FS (2D) 22.67 % - EF Teichholz (2D) 45.46 % - Ao root diameter (2D) 2.64 cm (2 - 3.7) Volumes/Mass Name Value Normal Range LA ESV SP 2CH (A/L) 85.32 ml - LA ESV SP 2CH (MOD) 78.59 ml - Diastolic/Systolic Function Name Value Normal Range MV E-wave Vmax 0.75 m/sec - MV deceleration time 351.73 msec - MV A-wave Vmax 0.88 m/sec - MV E:A ratio 0.86 ratio - Aortic Valve Name Value Normal Range LVOT diameter 1.97 cm - Mitral Valve Name Value Normal Range MV Vmax 0.92 m/sec - MV VTI 35.79 cm - MV peak gradient 3.4 mmHg - MV mean gradient 0.88 mmHg - MV PHT 133.09 msec - MVA (PHT) 1.65 cm2 - Tricuspid Valve Name Value Normal Range TR Vmax 2.8 m/sec - TR peak gradient 31.39 mmHg - IVC diameter 2.42 cm (1.2 - 2.3) Pulmonic Valve/Qp:Qs Name Value Normal Range PV Vmax 0.96 m/sec - PV VTI 22.47 cm - PV peak gradient 3.69 mmHg - PV mean gradient 1.34 mmHg - SD end-diastolic Vmax 0.93 m/sec - RVOT Vmax 0.73 m/sec - RVOT VTI 17.4 cm - RVOT peak gradient 2.14 mmHg - Izquierdo/IV: Voiding Method External Female Catheter IV Catheter Type [Left Forearm INT / Saline Lock ] IV Catheter Type [Right INT / Saline Lock Forearm] IV Catheter Type [Left Hand] INT / Saline Lock IV Catheter Type [Right INT / Saline Lock Antecubital] Active Medications - Current Medications Current Medications: Generic Name Dose Route Start Last Admin Trade Name Freq PRN Reason Stop Dose Admin Acetaminophen 650 mg 11/21/19 03:19 11/25/19 17:33 Tylenol PO 650 mg Q4H PRN Administration Pain MILD(1-3)/Fever >100.5/AVERY Acetaminophen 650 mg 11/22/19 21:06 11/22/19 21:15 Tylenol SD 650 mg Q4H PRN Administration Pain, Mild (1-3) Apixaban 2.5 mg 11/22/19 22:00 11/30/19 10:07 Eliquis PO 2.5 mg Q12HR GABRIELLE Administration Protocol Aspirin 81 mg 11/22/19 10:00 11/30/19 10:06 Baby Aspirin PO 81 mg QDAY GABRIELLE Administration Atorvastatin Calcium 40 mg 11/21/19 22:00 11/29/19 22:28 Lipitor PO 40 mg QHS GABRIELLE Administration Clopidogrel Bisulfate 75 mg 11/22/19 10:00 11/30/19 10:06 Plavix PO 75 mg QDAY GABRIELLE Administration Dextrose 0 ml 11/21/19 03:19 D50w (25gm) Syringe IV Q30MIN PRN Hypoglycemia Protocol Fluconazole 150 mg 11/25/19 10:00 11/25/19 14:28 Diflucan PO 12/02/19 10:01 150 mg Tu GABRIELLE Administration Hydralazine HCl 10 mg 11/21/19 03:19 11/28/19 21:55 Apresoline IV 10 mg Q6H PRN Administration FOR SBP > target Ceftriaxone Sodium 2 gm in 100 mls @ 200 mls/hr 11/27/19 13:00 11/30/19 10:07 Rocephin/Ns 2 Gm/100 Ml IV 200 mls/hr Q24HR GABRIELLE Administration Protocol Insulin Human Isoph/Insulin Regular 22 unit 11/29/19 17:00 11/30/19 17:20 Humulin 70/30 SUB-Q 22 unit BIDDIAB GABRIELLE Administration Insulin Human Lispro 0 unit 11/21/19 07:30 11/30/19 17:19 Humalog SUB-Q 2 unit ACHS GABRIELLE Administration Protocol Isosorbide Mononitrate 30 mg 11/22/19 10:00 11/30/19 10:06 Imdur PO 30 mg QDAY GABRIELLE Administration Linezolid 600 mg 11/28/19 10:00 11/30/19 10:07 Zyvox PO 600 mg BID GABRIELLE Administration Morphine Sulfate 2 mg 11/26/19 03:02 11/30/19 14:58 Morphine IV 2 mg Q4H PRN Administration Pain, Moderate (4-6) Nitroglycerin 0.4 mg 11/21/19 03:19 Nitrostat SL Q5M PRN Chest Pain Ondansetron HCl 4 mg 11/21/19 03:19 Zofran IV Q8H PRN Nausea And Vomiting Sodium Bicarbonate 650 mg 11/23/19 14:00 11/30/19 14:19 Sodium Bicarbonate PO 650 mg TID GABRIELLE Administration Sodium Chloride 10 ml 11/21/19 10:00 11/30/19 10:07 Sodium Chloride Flush Syringe 10 Ml IV 10 ml BID GABRIELLE Administration Sodium Chloride 10 ml 11/21/19 03:19 Sodium Chloride Flush Syringe 10 Ml IV PRN PRN LINE FLUSH Nutrition/Malnutrition Assess - Dietary Evaluation Nutrition/Malnutrition Findings: Nutrition Notes Start: 11/21/19 14:25 Freq: Status: Active Protocol: Document 11/27/19 13:45 MARIBELL (Rec: 11/27/19 13:56 [email or web address] [id number]) Nutrition Notes Initial or Follow up Reassessment Current Diagnosis CKD(stage I-IV),Diabetes, Hypertension,Heart Failure, Respiratory Failure Other Pertinent Diagnosis Bilat LE cellulitis Current Diet Consistent CHO + Glucerna BID Labs/Tests BUN 29 Cr 1.6 BG 235 Pertinent Medications Humulin 70/30 Height 5 ft 6 in Weight 127.8 kg [place] Body Weight (kg) 59.09 BMI 45.4 Weight Status Morbidly Obese Subjective/Other Information Spoke with RN via phone at 12: 50; doubtful that pt consumed 100% of meals yesterday, as pt consumed none of lunch today and remains confused. Average PO intake as documented in charts: 85%. Burn Absent Trauma Absent #1 Nutrition Diagnosis Predicted suboptimal energy intake,Inadequate oral intake Comments: CHANGED Etiology alert and oriented x 1 As Evidenced by Signs and Symptoms pt likely consuming <50% of meals on average Is patient on ventilator? No Is Patient Ambulatory and/or Out of Bed No REE-([facility]-confined to bed) 2200.596 Kcal/Kg value to use for calculation 13 Approximate Energy Requirements Using 1661 kcal/Kg Calculation Used for Recommendations Kcal/kg Additional Notes Pro needs 0.8-0.9g/kg adjBW: 75-84g/day Fluid needs 1ml/kcal Nutrition Intervention Change Diet Order: Continue current diet order - encourage PO intake at meal times Add Supplement/Snack (indicate name/kcal Glucerna BID /protein ) Provides kCal: 440 Provides Protein (gm) 20 Goal #1 PO intakes of meals plus ONS to meet at least 75% energy and pro needs Follow-Up By: 12/01/19 Additional Comments F/U: intakes (meals/ONS), wt
[2019-12-01 05:34] LABS: Calcium 8.7 mg/dL (8.4-10.2)
--- NOTE | 2019-12-01 08:50 | Progress Note ---
Assessment and Plan Assessment and plan: --Severe sepsis; secondary to UTI, bilateral lower extremity cellulitis/right heel pressure ulcer MRI foot; negative for osteomyelitis Continue current management with Rocephin, Zyvox and Diflucan per ID --Bilateral lower extremity cellulitis, continue antibiotics, Right foot MRI without contrast; no evidence of osteomyelitis shallow superficial ulcer Soft tissue swelling ankle and foot --Leukocytosis with sepsis -likely from UTI and bilateral lower extremity cellulitis UA suggestive for UTI, patient also have significant bilateral lower extremity erythremia and rash cont on antibiotics, follow blood culture consulted ID, ordered CT chest/abdomen/pelvis --UTI with sepsis continue antibiotics for now follow culture -- Diabetes mellitus type 2; better controlled Blood sugars today between 118 -200 on 22 units 70/30 twice daily Increased Novolin 70/30 to 22 units twice a day on 11/28 Consistent carb diet, sliding scale of insulin --Acute hypoxic respiratory failure -O2 sat on room air is 85% -Likely due to CHF exacerbation, continue diuretics and breathing treatment -Supplemental O2 to keep oxygen saturation greater than 92% --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) Continue current management, cardiology following TTE done 10/12/2019 showed EF 35-40% with grade 1 diastolic dysfunction Input output monitoring, low-sodium diet, fluid restriction --CKD (chronic kidney disease) per [facility] records, cr fluctuates between 2-3 cr today 2.9, will consult nephrology --HTN (hypertension); moderate control Continue current antihypertensives and PRN medications --PVD (peripheral vascular disease) Continue aspirin and statin --S/P transmetatarsal amputation of foot Continue supportive care --Chronic lymphedema IV diuretics as tolerated -- Elevated troponin-NSTEMI type II Continue medical management, cardiology following --Morbid obesity -Dietary education when clinically stable --Elevated d-dimer, VQ scan showed low probability for PE --DVT prophylaxis, continue on Eliquis Monitor closely and adjust management as needed Plan of care reviewed with the patient and her nurse 11/29/19; blood sugars are uncontrolled, increase Novolin 70/30 to 22 units twice a day.Monitor closely 11/29; patient's blood sugars are little better controlled range between 118-200, monitor closely and adjust MRI no osteomyelitis. Disposition per ID 11/30; MRI no osteomyelitis, ID DC'd all antibiotics, no osteomyelitis Possible discharge tomorrow, DC planning per case management History Interval history: I have seen and examined the patient at the bedside Patient's chart and medical records reviewed MRI negative for osteomyelitis Hospitalist Physical - Constitutional Vitals: Temp Pulse Resp BP Pulse Ox 98.0 F 76 20 153/72 98 12/01/19 04:00 12/01/19 04:00 12/01/19 04:00 12/01/19 04:00 12/01/19 04:00 General appearance: Present: no acute distress, well-nourished, obese - EENT Eyes: Present: PERRL, EOM intact - Neck Neck: Present: supple, normal ROM - Respiratory Respiratory effort: normal Respiratory: bilateral: diminished, negative: rales, rhonchi, wheezing - Cardiovascular Rhythm: regular Heart Sounds: Present: S1 & S2 - Extremities Extremities: no ischemia Extremity abnormal: black - Abdominal General gastrointestinal: soft, non-tender, non-distended - Integumentary Integumentary: Present: clear, warm - Psychiatric Psychiatric: appropriate mood/affect - Neurologic Neurologic: CNII-XII intact, moves all extremities HEART Score - HEART Score Troponin: Troponin T 0.023 ng/mL (0.00-0.029) 11/21/19 10:02 Results - Labs CBC & Chem 7: 11/27/19 07:21 12/01/19 04:36 Labs: Laboratory Last Values WBC 12.2 K/mm3 (4.5-11.0) H 11/27/19 07:21 RBC 2.81 M/mm3 (3.65-5.03) L 11/27/19 07:21 Hgb 7.7 gm/dl (10.1-14.3) L 11/27/19 07:21 Hct 23.6 % (30.3-42.9) L 11/27/19 07:21 MCV 84 fl (79-97) 11/27/19 07:21 MCH 27 pg (28-32) L 11/27/19 07:21 MCHC 33 % (30-34) 11/27/19 07:21 RDW 15.5 % (13.2-15.2) H 11/27/19 07:21 Plt Count 480 K/mm3 (140-440) H 11/27/19 07:21 Lymph % (Auto) 13.7 % (13.4-35.0) 11/27/19 07:21 Mckean % (Auto) 6.7 % (0.0-7.3) 11/27/19 07:21 Eos % (Auto) 4.4 % (0.0-4.3) H 11/27/19 07:21 Baso % (Auto) 0.7 % (0.0-1.8) 11/27/19 07:21 Lymph # 1.7 K/mm3 (1.2-5.4) 11/27/19 07:21 Mckean # 0.8 K/mm3 (0.0-0.8) 11/27/19 07:21 Eos # 0.5 K/mm3 (0.0-0.4) H 11/27/19 07:21 Baso # 0.1 K/mm3 (0.0-0.1) 11/27/19 07:21 Add Manual Diff Complete 11/25/19 05:57 Total Counted 100 11/25/19 05:57 Seg Neutrophils % 74.5 % (40.0-70.0) H 11/27/19 07:21 Seg Neuts % (Manual) 95.0 % (40.0-70.0) H 11/25/19 05:57 Band Neutrophils % 0 % 11/25/19 05:57 Lymphocytes % (Manual) 2.0 % (13.4-35.0) L 11/25/19 05:57 Reactive Lymphs % (Man) 0 % 11/25/19 05:57 Monocytes % (Manual) 3.0 % (0.0-7.3) 11/25/19 05:57 Eosinophils % (Manual) 0 % (0.0-4.3) 11/25/19 05:57 Basophils % (Manual) 0 % (0.0-1.8) 11/25/19 05:57 Metamyelocytes % 0 % 11/25/19 05:57 Myelocytes % 0 % 11/25/19 05:57 Promyelocytes % 0 % 11/25/19 05:57 Blast Cells % 0 % 11/25/19 05:57 Nucleated RBC % Not Reportable 11/25/19 05:57 Seg Neutrophils # 9.1 K/mm3 (1.8-7.7) H 11/27/19 07:21 Seg Neutrophils # Man 18.0 K/mm3 (1.8-7.7) H 11/25/19 05:57 Band Neutrophils # 0.0 K/mm3 11/25/19 05:57 Lymphocytes # (Manual) 0.4 K/mm3 (1.2-5.4) L 11/25/19 05:57 Abs React Lymphs (Man) 0.0 K/mm3 11/25/19 05:57 Monocytes # (Manual) 0.6 K/mm3 (0.0-0.8) 11/25/19 05:57 Eosinophils # (Manual) 0.0 K/mm3 (0.0-0.4) 11/25/19 05:57 Basophils # (Manual) 0.0 K/mm3 (0.0-0.1) 11/25/19 05:57 Metamyelocytes # 0.0 K/mm3 11/25/19 05:57 Myelocytes # 0.0 K/mm3 11/25/19 05:57 Promyelocytes # 0.0 K/mm3 11/25/19 05:57 Blast Cells # 0.0 K/mm3 11/25/19 05:57 WBC Morphology Not Reportable 11/25/19 05:57 Hypersegmented Neuts Not Reportable 11/25/19 05:57 Hyposegmented Neuts Not Reportable 11/25/19 05:57 Hypogranular Neuts Not Reportable 11/25/19 05:57 Smudge Cells Not Reportable 11/25/19 05:57 Toxic Granulation Not Reportable 11/25/19 05:57 Toxic Vacuolation Not Reportable 11/25/19 05:57 Dohle Bodies Not Reportable 11/25/19 05:57 Pelger-Huet Anomaly Not Reportable 11/25/19 05:57 Daniel Rods Not Reportable 11/25/19 05:57 Platelet Estimate Consistent w auto 11/25/19 05:57 Clumped Platelets Not Reportable 11/25/19 05:57 Plt Clumps, EDTA Not Reportable 11/25/19 05:57 Large Platelets Not Reportable 11/25/19 05:57 Giant Platelets Not Reportable 11/25/19 05:57 Platelet Satelliting Not Reportable 11/25/19 05:57 Plt Morphology Comment Not Reportable 11/25/19 05:57 RBC Morphology Not Reportable 11/25/19 05:57 Dimorphic RBCs Not Reportable 11/25/19 05:57 Polychromasia Not Reportable 11/25/19 05:57 Hypochromasia Not Reportable 11/25/19 05:57 Poikilocytosis Not Reportable 11/25/19 05:57 Anisocytosis Few 11/25/19 05:57 Microcytosis Not Reportable 11/25/19 05:57 Macrocytosis Not Reportable 11/25/19 05:57 Spherocytes Not Reportable 11/25/19 05:57 Pappenheimer Bodies Not Reportable 11/25/19 05:57 Sickle Cells Not Reportable 11/25/19 05:57 Target Cells Not Reportable 11/25/19 05:57 Tear Drop Cells Not Reportable 11/25/19 05:57 Ovalocytes Not Reportable 11/25/19 05:57 Helmet Cells Not Reportable 11/25/19 05:57 Dailey-M[place] Bodies Not Reportable 11/25/19 05:57 [place] Rings Not Reportable 11/25/19 05:57 Alisha Cells Few 11/25/19 05:57 Bite Cells Not Reportable 11/25/19 05:57 Crenated Cell Not Reportable 11/25/19 05:57 Elliptocytes Not Reportable 11/25/19 05:57 Acanthocytes (Spur) Not Reportable 11/25/19 05:57 Rouleaux Not Reportable 11/25/19 05:57 Hemoglobin C Crystals Not Reportable 11/25/19 05:57 Schistocytes Rare 11/25/19 05:57 Malaria parasites Not Reportable 11/25/19 05:57 Adarsh Bodies Not Reportable 11/25/19 05:57 Hem Pathologist Commnt No 11/25/19 05:57 PT 21.1 Sec. (12.2-14.9) H 11/22/19 07:40 INR 1.78 (0.87-1.13) H 11/22/19 07:40 APTT 38.8 Sec. (24.2-36.6) H 11/20/19 21:22 D-Dimer 596.16 ng/mlDDU (0-234) H 11/20/19 21:22 ABG pH 7.424 pH Units (7.350-7.450) 11/22/19 15:24 ABG pCO2 30.2 mm Hg 11/22/19 15:24 ABG pO2 66.5 mm Hg (80.0-90.0) L 11/22/19 15:24 ABG HCO3 19.3 mmol/L (20.0-26.0) L 11/22/19 15:24 ABG O2 Saturation 94.0 % (95.0-99.0) L 11/22/19 15:24 ABG O2 Content 11.5 (0.0-44) 11/22/19 15:24 ABG Base Excess -4.4 mmol/L (-2.0-3.0) L 11/22/19 15:24 ABG Hemoglobin 8.9 gm/dl (12.0-16.0) L 11/22/19 15:24 ABG Carboxyhemoglobin 1.7 % (0.0-5.0) 11/22/19 15:24 ABG Methemoglobin 0.6 % (0.0-1.5) 11/22/19 15:24 Oxyhemoglobin 91.8 % (95.0-99.0) L 11/22/19 15:24 FiO2 28 % 11/22/19 15:24 Sodium 139 mmol/L (137-145) 12/01/19 04:36 Potassium 3.9 mmol/L (3.6-5.0) 12/01/19 04:36 Chloride 103.7 mmol/L (98-107) 12/01/19 04:36 Carbon Dioxide 24 mmol/L (22-30) 12/01/19 04:36 Anion Gap 15 mmol/L 12/01/19 04:36 BUN 13 mg/dL (7-17) 12/01/19 04:36 Creatinine 1.5 mg/dL (0.6-1.2) H 12/01/19 04:36 Estimated GFR 42 ml/min 12/01/19 04:36 BUN/Creatinine Ratio 9 % 12/01/19 04:36 Glucose 120 mg/dL (65-100) H 12/01/19 04:36 POC Glucose 141 (70-105) H 11/30/19 22:08 Calcium 8.7 mg/dL (8.4-10.2) 12/01/19 04:36 Phosphorus 2.70 mg/dL (2.5-4.5) 11/24/19 04:50 Total Bilirubin 0.20 mg/dL (0.1-1.2) 11/20/19 21:22 AST 13 units/L (5-40) 11/20/19 21:22 ALT 15 units/L (7-56) 11/20/19 21:22 Alkaline Phosphatase 81 units/L (35-129) 11/20/19 21:22 Troponin T 0.023 ng/mL (0.00-0.029) 11/21/19 10:02 C-Reactive Protein 19.70 mg/dL (0.00-1.30) H 11/26/19 14:42 NT-Pro-B Natriuret Pep 3993 pg/mL (0-900) H 11/20/19 21:22 Total Protein 7.1 g/dL (6.3-8.2) 11/20/19 21:22 Albumin 2.9 g/dL (3.9-5) L 11/20/19 21:22 Albumin/Globulin Ratio 0.7 % 11/20/19 21:22 Triglycerides 214 mg/dL (2-149) H 11/20/19 21:22 Cholesterol 139 mg/dL (50-199) 11/20/19 21:22 LDL Cholesterol Direct 96 mg/dL (50-130) 11/20/19 21:22 HDL Cholesterol 30 mg/dL (40-59) L 11/20/19 21:22 Cholesterol/HDL Ratio 4.63 % 11/20/19 21:22 Procalcitonin 15.13 ng/mL (<0.15) 11/24/19 13:44 TSH 1.430 mlU/mL (0.270-4.200) 11/20/19 21:22 Free T4 1.34 ng/dL (0.76-1.46) 11/20/19 21:22 PTH Intact 62.13 pg/mL (15-65) 11/24/19 04:50 Urine Color Yellow (Yellow) 11/22/19 Unknown Urine Turbidity Turbid (Clear) 11/22/19 Unknown Urine pH 5.0 (5.0-7.0) 11/22/19 Unknown Ur Specific [place] 1.017 (1.003-1.030) 11/22/19 Unknown Urine Protein 30 mg/dl mg/dL (Negative) 11/22/19 Unknown Urine Glucose (UA) 50 mg/dL (Negative) 11/22/19 Unknown Urine Ketones Neg mg/dL (Negative) 11/22/19 Unknown Urine Blood Mod (Negative) 11/22/19 Unknown Urine Nitrite Neg (Negative) 11/22/19 Unknown Urine Bilirubin Neg (Negative) 11/22/19 Unknown Urine Urobilinogen < 2.0 mg/dL (<2.0) 11/22/19 Unknown Ur Leukocyte Esterase Lg (Negative) 11/22/19 Unknown Urine WBC (Auto) 159.0 /HPF (0.0-6.0) H 11/22/19 Unknown Urine RBC (Auto) 68.0 /HPF (0.0-6.0) 11/22/19 Unknown U Epithel Cells (Auto) 2.0 /HPF (0-13.0) 11/22/19 Unknown Urine Bacteria (Auto) 3+ /HPF (Negative) 11/22/19 Unknown Urine WBC Clumps 3+ /HPF 11/22/19 Unknown Uric Acid Crystals Not Reportable 11/22/19 Unknown Urine Yeast (Budding) 3+ /HPF 11/22/19 Unknown Nasal Screen MRSA (PCR) Positive (Negative) 11/21/19 Unknown Random Vancomycin 9.6 ug/mL (0-40.0) 11/23/19 08:57 - Diagnostic Impressions Diagnostic Impressions: Echocardiogram 11/21/19 03:29 Transthoracic Echocardiogram Indication: Chest Pain BP: 107/66 HR: 50 Conclusions *The study is technically very limited due to patient body habitus. Patient unable to consent to Optison. *Global left ventricular systolic function is normal. *The estimated ejection fraction is 50-55%. *Abnormal left ventricular diastolic function is observed. *There is no pericardial effusion. Findings Procedure Info: The study is technically limited due to patient body habitus. Patient unable to consent to Optison. The study was technically limited due to the patient's inability to lay in the left lateral decubitus position. Left Ventricle: The left ventricle is not well visualized. Global left ventricular systolic function is normal. The estimated ejection fraction is 50-55%. Abnormal left ventricular diastolic function is observed. Left Atrium: The left atrium is not well visualized. Right Ventricle: The right ventricle is not well visualized. Right Atrium: The right atrium is not well visualized. Aortic Valve: The aortic valve is not well visualized. Mitral Valve: There is mitral annular calcification. The mitral valve leaflets are mildly thickened. There is trace of mitral regurgitation. Tricuspid Valve: The tricuspid valve is not well visualized. There is mild tricuspid regurgitation. Pulmonic Valve: The pulmonic valve is not well visualized. Pericardium: There is no pericardial effusion. Aorta: The aorta appears normal. Venous: The inferior vena cava is dilated. Measurements Chambers 2D Name Value Normal Range IVSd (2D) 1.3 cm (0.6 - 1.1) LVPWd (2D) 0.37 cm (0.6 - 1.1) LVIDd (2D) 4.89 cm (3.7 - 5.6) LVIDs (2D) 3.78 cm (2 - 3.8) LV FS (2D) 22.67 % - EF Teichholz (2D) 45.46 % - Ao root diameter (2D) 2.64 cm (2 - 3.7) Volumes/Mass Name Value Normal Range LA ESV SP 2CH (A/L) 85.32 ml - LA ESV SP 2CH (MOD) 78.59 ml - Diastolic/Systolic Function Name Value Normal Range MV E-wave Vmax 0.75 m/sec - MV deceleration time 351.73 msec - MV A-wave Vmax 0.88 m/sec - MV E:A ratio 0.86 ratio - Aortic Valve Name Value Normal Range LVOT diameter 1.97 cm - Mitral Valve Name Value Normal Range MV Vmax 0.92 m/sec - MV VTI 35.79 cm - MV peak gradient 3.4 mmHg - MV mean gradient 0.88 mmHg - MV PHT 133.09 msec - MVA (PHT) 1.65 cm2 - Tricuspid Valve Name Value Normal Range TR Vmax 2.8 m/sec - TR peak gradient 31.39 mmHg - IVC diameter 2.42 cm (1.2 - 2.3) Pulmonic Valve/Qp:Qs Name Value Normal Range PV Vmax 0.96 m/sec - PV VTI 22.47 cm - PV peak gradient 3.69 mmHg - PV mean gradient 1.34 mmHg - NC end-diastolic Vmax 0.93 m/sec - RVOT Vmax 0.73 m/sec - RVOT VTI 17.4 cm - RVOT peak gradient 2.14 mmHg - Izquierdo/IV: Voiding Method External Female Catheter IV Catheter Type [Left Forearm INT / Saline Lock ] IV Catheter Type [Right INT / Saline Lock Forearm] IV Catheter Type [Left Hand] INT / Saline Lock IV Catheter Type [Right INT / Saline Lock Antecubital] Active Medications - Current Medications Current Medications: Generic Name Dose Route Start Last Admin Trade Name Freq PRN Reason Stop Dose Admin Acetaminophen 650 mg 11/21/19 03:19 11/25/19 17:33 Tylenol PO 650 mg Q4H PRN Administration Pain MILD(1-3)/Fever >100.5/AVERY Acetaminophen 650 mg 11/22/19 21:06 11/22/19 21:15 Tylenol [place] 650 mg Q4H PRN Administration Pain, Mild (1-3) Apixaban 2.5 mg 11/22/19 22:00 11/30/19 21:00 Eliquis PO 2.5 mg Q12HR GABRIELLE Administration Protocol Aspirin 81 mg 11/22/19 10:00 11/30/19 10:06 Baby Aspirin PO 81 mg QDAY GABRIELLE Administration Atorvastatin Calcium 40 mg 11/21/19 22:00 11/30/19 21:00 Lipitor PO 40 mg QHS GABRIELLE Administration Clopidogrel Bisulfate 75 mg 11/22/19 10:00 11/30/19 10:06 Plavix PO 75 mg QDAY GABRIELLE Administration Dextrose 0 ml 11/21/19 03:19 D50w (25gm) Syringe IV Q30MIN PRN Hypoglycemia Protocol Fluconazole 150 mg 11/25/19 10:00 11/25/19 14:28 Diflucan PO 12/02/19 10:01 150 mg Tu GABRIELLE Administration Hydralazine HCl 10 mg 11/21/19 03:19 11/28/19 21:55 Apresoline IV 10 mg Q6H PRN Administration FOR SBP > target Ceftriaxone Sodium 2 gm in 100 mls @ 200 mls/hr 11/27/19 13:00 11/30/19 10:07 Rocephin/Ns 2 Gm/100 Ml IV 200 mls/hr Q24HR GABRIELLE Administration Protocol Insulin Human Isoph/Insulin Regular 22 unit 11/29/19 17:00 11/30/19 17:20 Humulin 70/30 SUB-Q 22 unit BIDDIAB GABRIELLE Administration Insulin Human Lispro 0 unit 11/21/19 07:30 11/30/19 23:13 Humalog SUB-Q Not Given ACHS [facility] Protocol Isosorbide Mononitrate 30 mg 11/22/19 10:00 11/30/19 10:06 Imdur PO 30 mg QDAY GABRIELLE Administration Linezolid 600 mg 11/28/19 10:00 11/30/19 21:00 Zyvox PO 600 mg BID GABRIELLE Administration Morphine Sulfate 2 mg 11/26/19 03:02 11/30/19 21:01 Morphine IV 2 mg Q4H PRN Administration Pain, Moderate (4-6) Nitroglycerin 0.4 mg 11/21/19 03:19 Nitrostat SL Q5M PRN Chest Pain Ondansetron HCl 4 mg 11/21/19 03:19 Zofran IV Q8H PRN Nausea And Vomiting Sodium Bicarbonate 650 mg 11/23/19 14:00 11/30/19 21:00 Sodium Bicarbonate PO 650 mg TID GABRIELLE Administration Sodium Chloride 10 ml 11/21/19 10:00 11/30/19 21:02 Sodium Chloride Flush Syringe 10 Ml IV 10 ml BID GABRIELLE Administration Sodium Chloride 10 ml 11/21/19 03:19 Sodium Chloride Flush Syringe 10 Ml IV PRN PRN LINE FLUSH Nutrition/Malnutrition Assess - Dietary Evaluation Nutrition/Malnutrition Findings: Nutrition Notes Start: 11/21/19 14:25 Freq: Status: Active Protocol: Document 11/27/19 13:45 MARIBELL (Rec: 11/27/19 13:56 MARIBELL [email or web address]) Nutrition Notes Initial or Follow up Reassessment Current Diagnosis CKD(stage I-IV),Diabetes, Hypertension,Heart Failure, Respiratory Failure Other Pertinent Diagnosis Bilat LE cellulitis Current Diet Consistent CHO + Glucerna BID Labs/Tests BUN 29 Cr 1.6 BG 235 Pertinent Medications Humulin 70/30 Height 5 ft 6 in Weight 127.8 kg [place] Body Weight (kg) 59.09 BMI 45.4 Weight Status Morbidly Obese Subjective/Other Information Spoke with RN via phone at 12: 50; doubtful that pt consumed 100% of meals yesterday, as pt consumed none of lunch today and remains confused. Average PO intake as documented in charts: 85%. Burn Absent Trauma Absent #1 Nutrition Diagnosis Predicted suboptimal energy intake,Inadequate oral intake Comments: CHANGED Etiology alert and oriented x 1 As Evidenced by Signs and Symptoms pt likely consuming <50% of meals on average Is patient on ventilator? No Is Patient Ambulatory and/or Out of Bed No REE-([facility]-confined to bed) 2200.596 Kcal/Kg value to use for calculation 13 Approximate Energy Requirements Using 1661 kcal/Kg Calculation Used for Recommendations Kcal/kg Additional Notes Pro needs 0.8-0.9g/kg adjBW: 75-84g/day Fluid needs 1ml/kcal Nutrition Intervention Change Diet Order: Continue current diet order - encourage PO intake at meal times Add Supplement/Snack (indicate name/kcal Glucerna BID /protein ) Provides kCal: 440 Provides Protein (gm) 20 Goal #1 PO intakes of meals plus ONS to meet at least 75% energy and pro needs Follow-Up By: 12/01/19 Additional Comments F/U: intakes (meals/ONS), wt
[2019-12-01] MEDS: INSULIN LISPRO 100 UNIT/ML VIAL 3 mL SUB-Q SCH ×4 (10:11→22:00)
--- NOTE | 2019-12-01 10:18 | Progress Note ---
Assessment and Plan 1. Acute kidney injury: Vasomotor JI superimposed on CKD stage 3 in the setting of hypotension. Renal US normal R kidney and non-visualization of L kidney. Urine studies ordered. Monitor renal function. Creatinine level is better since admission. Avoid nephrotoxic agents. Meds dosage based on GFR. 2. FEN: Metabolic acidosis, PO Sodium bicarbonate, monitor. Monitor lytes and volume status. 3. Acute combined systolic and diastolic HFrEF: Followed by Cardiology. TTE done 10/12/2019 showed EF 35-40% with grade 1 diastolic dysfunction Daily weights, monitor in's and O's. 4. Elevated troponin-NSTEMI type II: Continue medical management. 5. Acute hypoxic respiratory failure: O2 sat on room air was 85%. Likely due to CHF exacerbation. Supplemental O2. 6. SIRS: Leukocytosis. UTI vs LE wound infection. S/p abx. 7. Acute metabolic encephalopathy, POA. Continue supportive care. 8. Hypertension: Monitor BP. 9. Normochromic anemia, POA. 10. Diabetes mellitus type 2: Consistent low carb diet and sliding scale of insulin. 11. Chronic lymphedema. 12. Elevated d-dimer: V/Q scan showed low probability for PE. - Subjective: Patient was seen and examined at the bedside. No new complaint. - General Appearance General appearance: well-developed, well-nourished, appears stated age, obese, no distress HEENT: ATNC, PERRL, hearing intact, vision intact Neck: neck supple, trachea midline Respiratory: Clear to Ascultation Heart: regular, S1S2, no murmurs Gastrointestinal: obese, normoactive bowel sounds, not tenderness Integumentary: chronic venous stasis, R leg dressing Neurologic: confused, disoriented, able to move extremities Ext: b/l LE lymphedema noted, R TMA Psychiatric: cooperative Subjective Date of service: 12/01/19 Principal diagnosis: HF; CKD; PVD Objective - Vital Signs Vital signs: Vital Signs - 12hr 12/01/19 12/01/19 12/01/19 00:00 02:00 04:00 Temperature 98.3 F 98.0 F Pulse Rate 83 76 Pulse Rate [ 86 From Monitor] Respiratory 20 20 20 Rate Blood Pressure 153/72 Blood Pressure 143/81 [Left] O2 Sat by Pulse 95 98 Oximetry 12/01/19 08:52 Temperature 97.3 F L Pulse Rate 82 Pulse Rate [ From Monitor] Respiratory 18 Rate Blood Pressure 172/94 Blood Pressure [Left] O2 Sat by Pulse 100 Oximetry - Lab 11/27/19 07:21 12/01/19 04:36 Most recent lab results ABG pH 7.424 pH Units (7.350-7.450) 11/22/19 15:24 ABG pCO2 30.2 mm Hg 11/22/19 15:24 ABG pO2 66.5 mm Hg (80.0-90.0) L 11/22/19 15:24 ABG HCO3 19.3 mmol/L (20.0-26.0) L 11/22/19 15:24 ABG O2 Saturation 94.0 % (95.0-99.0) L 11/22/19 15:24 Calcium 8.7 mg/dL (8.4-10.2) 12/01/19 04:36 Phosphorus 2.70 mg/dL (2.5-4.5) 11/24/19 04:50 Medications & Allergies - Medications Allergies/Adverse Reactions: Allergies Sulfa (Sulfonamide Antibiotics) Allergy (Verified 11/20/19 20:05) Unknown Home Medications: Home Medications Medication Instructions Recorded Confirmed Last Taken Type Unobtainable 11/20/19 11/20/19 Unknown History Active Medications: Generic Name Dose Route Start Last Admin Trade Name Todq PRN Reason Stop Dose Admin Acetaminophen 650 mg 11/21/19 03:19 11/25/19 17:33 Tylenol PO 650 mg Q4H PRN Administration Pain MILD(1-3)/Fever >100.5/AVERY Acetaminophen 650 mg 11/22/19 21:06 11/22/19 21:15 Tylenol [place] 650 mg Q4H PRN Administration Pain, Mild (1-3) Apixaban 2.5 mg 11/22/19 22:00 11/30/19 21:00 Eliquis PO 2.5 mg Q12HR GABRIELLE Administration Protocol Aspirin 81 mg 11/22/19 10:00 11/30/19 10:06 Baby Aspirin PO 81 mg QDAY GABRIELLE Administration Atorvastatin Calcium 40 mg 11/21/19 22:00 11/30/19 21:00 Lipitor PO 40 mg QHS GABRIELLE Administration Clopidogrel Bisulfate 75 mg 11/22/19 10:00 11/30/19 10:06 Plavix PO 75 mg QDAY GABRIELLE Administration Dextrose 0 ml 11/21/19 03:19 D50w (25gm) Syringe IV Q30MIN PRN Hypoglycemia Protocol Fluconazole 150 mg 11/25/19 10:00 11/25/19 14:28 Diflucan PO 12/02/19 10:01 150 mg Tu GABRIELLE Administration Hydralazine HCl 10 mg 11/21/19 03:19 11/28/19 21:55 Apresoline IV 10 mg Q6H PRN Administration FOR SBP > target Ceftriaxone Sodium 2 gm in 100 mls @ 200 mls/hr 11/27/19 13:00 11/30/19 10:07 Rocephin/Ns 2 Gm/100 Ml IV 200 mls/hr Q24HR GABRIELLE Administration Protocol Insulin Human Isoph/Insulin Regular 22 unit 11/29/19 17:00 11/30/19 17:20 Humulin 70/30 SUB-Q 22 unit BIDDIAB GABRIELLE Administration Insulin Human Lispro 0 unit 11/21/19 07:30 12/01/19 10:11 Humalog SUB-Q Not Given A[facility]S [facility] Protocol Isosorbide Mononitrate 30 mg 11/22/19 10:00 11/30/19 10:06 Imdur PO 30 mg QDAY GABRIELLE Administration Linezolid 600 mg 11/28/19 10:00 11/30/19 21:00 Zyvox PO 600 mg BID GABRIELLE Administration Morphine Sulfate 2 mg 11/26/19 03:02 11/30/19 21:01 Morphine IV 2 mg Q4H PRN Administration Pain, Moderate (4-6) Nitroglycerin 0.4 mg 11/21/19 03:19 Nitrostat SL Q5M PRN Chest Pain Ondansetron HCl 4 mg 11/21/19 03:19 Zofran IV Q8H PRN Nausea And Vomiting Sodium Bicarbonate 650 mg 11/23/19 14:00 11/30/19 21:00 Sodium Bicarbonate PO 650 mg TID GABRIELLE Administration Sodium Chloride 10 ml 11/21/19 10:00 11/30/19 21:02 Sodium Chloride Flush Syringe 10 Ml IV 10 ml BID GABRIELLE Administration Sodium Chloride 10 ml 11/21/19 03:19 Sodium Chloride Flush Syringe 10 Ml IV PRN PRN LINE FLUSH
[2019-12-01] MEDS: INSULIN NPH/REGULAR 70/30 INJ SUB-Q SCH ×2 (11:00→17:35)
[2019-12-01] MEDS: APIXABAN 2.5 MG TAB PO SCH ×2 (11:00→21:27)
[2019-12-01] MEDS: cefTRIAXone/NS 2 GM/100 ML 2 GM/100 ML BAG IV SCH (11:00)
[2019-12-01] MEDS: ASPIRIN 81 MG TAB CHEW PO SCH (11:00)
[2019-12-01] MEDS: LINEZOLID 600 MG TAB PO SCH (11:00)
[2019-12-01] MEDS: CLOPIDOGREL 75 MG TAB PO SCH (11:00)
[2019-12-01] MEDS: SODIUM BICARBONATE 650 MG TAB PO SCH ×3 (11:00→20:50)
[2019-12-01] MEDS: MORPHINE 2 MG/1 ML INJ IV PRN ×2 (11:24→16:07)
--- NOTE | 2019-12-01 12:46 | Progress Note ---
Assessment and Plan Cultures: MRSA PCR positive Urine cx 10-100 mixed Blood cultures 11/21/2019 no growth today Blood cultures 11/24/2019 no growth today Assessment: 69 years old female with history of hypertension, diabetes mellitus, morbid obesity, bilateral leg lymphedema, CHF, possible DVT on Eliquis, admitted on 11/20/2019 due to 24 hours history of worsening shortness of breath and chest pain: #Sepsis: fever and leukocytosis improving, source likely UTI / ?leg cellulitis. #UTI: urine culture mixed bacteria #Right heel pressure ulcer: ?cellulitis (not impressive) does not look infected, XR and MRI with no osteomyelitis. CRP 19 - very high. Completed empiric short course of abx. #Bilateral lymphedema with stasis dermatitis > cellulitis #Possible CHF exacerbation #Acute kidney disease: renally adjust abx, improving #Diabetes mellitus with hyperglycemia, uncontrolled #Vaginal/perineal intertrigo s/p fluconazole x 1 #Thrombocytosis: likely reactive Recommendations: -abx course completed, no additional abx needed, MRI negative for osteomyelitis -right heel offloading and wound care d/W Dr. Alonso. Will sign off. Please call with questions. Narinder Stack MD, FACP [facility] ([facility] C: [phone] O: [phone] Subjective Date of service: 12/01/19 Principal diagnosis: HF; CKD; PVD Interval history: No fever. No new complaints. Eating her lunch. Objective - Exam Narrative Exam: General appearance: awake, alert, no distress Eyes: anicteric sclerae, moist conjunctivae; no lid-lag; PERRLA HENT: Atraumatic; oropharynx limited Lungs: CTA CV: RRR no murmur Abdomen: Soft, non-tender; unbilicus with nodules Extremities: alanna marked lymphedema Skin: alanna legs lymphedema skin changes, right foot TMA healed, right heel ulcer clean, superficial Psych: not agitated or confused Neuro: awake, alert - Constitutional Vitals: Vital Signs Temp Pulse Resp BP Pulse Ox 97.3 F L 82 18 172/94 93 12/01/19 08:52 12/01/19 11:37 12/01/19 08:52 12/01/19 10:59 12/01/19 10:24 Temperature -Last 24 Hours Temperature 97.3 F Temperature 98.0 F Temperature 98.3 F Temperature 98.2 F Temperature 98.3 F Temperature 97.7 F - Labs CBC & Chem 7: 11/27/19 07:21 12/01/19 04:36 Labs: Abnormal lab results 11/30/19 11/30/19 11/30/19 Range/Units 12:59 14:15 17:03 Creatinine 1.7 H (0.6-1.2) mg/dL Glucose 198 H (65-100) mg/dL POC Glucose 200 H 164 H (70-105) 11/30/19 12/01/19 12/01/19 Range/Units 22:08 04:36 09:09 Creatinine 1.5 H (0.6-1.2) mg/dL Glucose 120 H (65-100) mg/dL POC Glucose 141 H 134 H (70-105) 12/01/19 Range/Units 12:25 Creatinine (0.6-1.2) mg/dL Glucose (65-100) mg/dL POC Glucose 196 H (70-105)
[2019-12-02] MEDS: INSULIN LISPRO 100 UNIT/ML VIAL 3 mL SUB-Q SCH ×4 (07:30→22:11)
[2019-12-02 07:48] LABS: Calcium 8.3 mg/dL (8.4-10.2)
[2019-12-02] MEDS: INSULIN NPH/REGULAR 70/30 INJ SUB-Q SCH ×2 (10:49→17:17)
[2019-12-02] MEDS: SODIUM BICARBONATE 650 MG TAB PO SCH ×3 (10:51→22:10)
[2019-12-02] MEDS: FLUCONAZOLE 100 MG TAB PO SCH (10:52)
[2019-12-02] MEDS: CLOPIDOGREL 75 MG TAB PO SCH (10:52)
[2019-12-02] MEDS: ASPIRIN 81 MG TAB CHEW PO SCH (10:52)
[2019-12-02] MEDS: APIXABAN 2.5 MG TAB PO SCH ×2 (10:52→22:11)
--- NOTE | 2019-12-02 11:03 | Progress Note ---
Assessment and Plan 1. Acute kidney injury: Vasomotor JI superimposed on CKD stage 3 in the setting of hypotension. Renal US; normal R kidney and non-visualization of L kidney. Urine studies ordered. Monitor renal function. Creatinine level is better since admission. Avoid nephrotoxic agents. Meds dosage based on GFR. 2. FEN: Metabolic acidosis, PO Sodium bicarbonate, monitor. Monitor lytes and volume status. 3. Acute combined systolic and diastolic HFrEF: Followed by Cardiology. TTE done 10/12/2019 showed EF 35-40% with grade 1 diastolic dysfunction Daily weights, monitor in's and O's. 4. Elevated troponin-NSTEMI type II: Continue medical management. 5. Acute hypoxic respiratory failure: Likely due to CHF exacerbation. Supplemental O2. 6. SIRS: Leukocytosis. UTI vs LE wound infection. S/p abx. 7. Acute metabolic encephalopathy, POA. Continue supportive care. 8. Hypertension: Monitor BP. 9. Normochromic anemia, POA. 10. Diabetes mellitus type 2: Consistent low carb diet and sliding scale of insulin. 11. Chronic lymphedema. 12. Elevated d-dimer: V/Q scan showed low probability for PE. - Subjective: Patient was seen and examined at the bedside. No new complaint. - General Appearance General appearance: well-developed, well-nourished, appears stated age, obese, no distress HEENT: ATNC, PERRL, hearing intact, vision intact Neck: neck supple, trachea midline Respiratory: Clear to Ascultation Heart: regular, S1S2, no murmurs Gastrointestinal: obese, normoactive bowel sounds, not tenderness Integumentary: chronic venous stasis, R leg dressing Neurologic: confused, disoriented, able to move extremities Ext: b/l LE lymphedema noted, R TMA Psychiatric: cooperative Subjective Date of service: 12/02/19 Principal diagnosis: HF; CKD; PVD Objective - Vital Signs Vital signs: Vital Signs - 12hr 12/01/19 12/02/19 12/02/19 23:13 03:34 07:26 Temperature 98.0 F 97.8 F 98.0 F Pulse Rate 78 85 77 Respiratory 18 18 18 Rate Blood Pressure 146/64 160/79 162/68 O2 Sat by Pulse 97 96 93 Oximetry 12/02/19 09:08 Temperature Pulse Rate Respiratory Rate Blood Pressure O2 Sat by Pulse 93 Oximetry - Lab 11/27/19 07:21 12/02/19 07:09 Most recent lab results ABG pH 7.424 pH Units (7.350-7.450) 11/22/19 15:24 ABG pCO2 30.2 mm Hg 11/22/19 15:24 ABG pO2 66.5 mm Hg (80.0-90.0) L 11/22/19 15:24 ABG HCO3 19.3 mmol/L (20.0-26.0) L 11/22/19 15:24 ABG O2 Saturation 94.0 % (95.0-99.0) L 11/22/19 15:24 Calcium 8.3 mg/dL (8.4-10.2) L 12/02/19 07:09 Phosphorus 2.70 mg/dL (2.5-4.5) 11/24/19 04:50 Medications & Allergies - Medications Allergies/Adverse Reactions: Allergies Sulfa (Sulfonamide Antibiotics) Allergy (Verified 11/20/19 20:05) Unknown Home Medications: Home Medications Medication Instructions Recorded Confirmed Last Taken Type Unobtainable 11/20/19 11/20/19 Unknown History Active Medications: Generic Name Dose Route Start Last Admin Trade Name Freq PRN Reason Stop Dose Admin Acetaminophen 650 mg 11/21/19 03:19 11/25/19 17:33 Tylenol PO 650 mg Q4H PRN Administration Pain MILD(1-3)/Fever >100.5/AVERY Acetaminophen 650 mg 11/22/19 21:06 11/22/19 21:15 Tylenol OK 650 mg Q4H PRN Administration Pain, Mild (1-3) Apixaban 2.5 mg 11/22/19 22:00 12/02/19 10:52 Eliquis PO 2.5 mg Q12HR GABRIELLE Administration Protocol Aspirin 81 mg 11/22/19 10:00 12/02/19 10:52 Baby Aspirin PO 81 mg QDAY GABRIELLE Administration Atorvastatin Calcium 40 mg 11/21/19 22:00 12/01/19 21:27 Lipitor PO 40 mg QHS GABRIELLE Administration Clopidogrel Bisulfate 75 mg 11/22/19 10:00 12/02/19 10:52 Plavix PO 75 mg QDAY GABRIELLE Administration Dextrose 0 ml 11/21/19 03:19 D50w (25gm) Syringe IV Q30MIN PRN Hypoglycemia Protocol Hydralazine HCl 10 mg 11/21/19 03:19 11/28/19 21:55 Apresoline IV 10 mg Q6H PRN Administration FOR SBP > target Insulin Human Isoph/Insulin Regular 22 unit 11/29/19 17:00 12/02/19 10:49 Humulin 70/30 SUB-Q 22 unit BIDDIAB GABRIELLE Administration Insulin Human Lispro 0 unit 11/21/19 07:30 12/02/19 07:30 Humalog SUB-Q Not Given ACHS [facility] Protocol Isosorbide Mononitrate 30 mg 11/22/19 10:00 12/02/19 10:52 Imdur PO 30 mg QDAY GABRIELLE Administration Morphine Sulfate 2 mg 11/26/19 03:02 12/01/19 16:07 Morphine IV 2 mg Q4H PRN Administration Pain, Moderate (4-6) Nitroglycerin 0.4 mg 11/21/19 03:19 Nitrostat SL Q5M PRN Chest Pain Ondansetron HCl 4 mg 11/21/19 03:19 Zofran IV Q8H PRN Nausea And Vomiting Sodium Bicarbonate 650 mg 11/23/19 14:00 12/02/19 10:51 Sodium Bicarbonate PO 650 mg TID GABRIELLE Administration Sodium Chloride 10 ml 11/21/19 10:00 12/01/19 21:28 Sodium Chloride Flush Syringe 10 Ml IV 10 ml BID GABRIELLE Administration Sodium Chloride 10 ml 11/21/19 03:19 Sodium Chloride Flush Syringe 10 Ml IV PRN PRN LINE FLUSH
[2019-12-02] MEDS: MORPHINE 2 MG/1 ML INJ IV PRN (11:35)
--- NOTE | 2019-12-02 14:45 | Progress Note ---
Assessment and Plan Assessment and plan: --Severe sepsis; secondary to UTI, bilateral lower extremity cellulitis/right heel pressure ulcer MRI foot; negative for osteomyelitis Continue current management with Rocephin, Zyvox and Diflucan per ID --Bilateral lower extremity cellulitis, continue antibiotics, Right foot MRI without contrast; no evidence of osteomyelitis shallow superficial ulcer Soft tissue swelling ankle and foot --Leukocytosis with sepsis -likely from UTI and bilateral lower extremity cellulitis UA suggestive for UTI, patient also have significant bilateral lower extremity erythremia and rash cont on antibiotics, follow blood culture consulted ID, ordered CT chest/abdomen/pelvis --UTI with sepsis continue antibiotics for now follow culture -- Diabetes mellitus type 2; better controlled Blood sugars today between 118 -200 on 22 units 70/30 twice daily Increased Novolin 70/30 to 22 units twice a day on 11/28 Consistent carb diet, sliding scale of insulin --Acute hypoxic respiratory failure -O2 sat on room air is 85% -Likely due to CHF exacerbation, continue diuretics and breathing treatment -Supplemental O2 to keep oxygen saturation greater than 92% --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) Continue current management, cardiology following TTE done 10/12/2019 showed EF 35-40% with grade 1 diastolic dysfunction Input output monitoring, low-sodium diet, fluid restriction --CKD (chronic kidney disease) per [facility] records, cr fluctuates between 2-3 cr today 2.9, will consult nephrology --HTN (hypertension); moderate control Continue current antihypertensives and PRN medications --PVD (peripheral vascular disease) Continue aspirin and statin --S/P transmetatarsal amputation of foot Continue supportive care --Chronic lymphedema IV diuretics as tolerated -- Elevated troponin-NSTEMI type II Continue medical management, cardiology following --Morbid obesity -Dietary education when clinically stable --Elevated d-dimer, VQ scan showed low probability for PE --DVT prophylaxis, continue on Eliquis Monitor closely and adjust management as needed Plan of care reviewed with the patient and her nurse 11/29/19; blood sugars are uncontrolled, increase Novolin 70/30 to 22 units twice a day.Monitor closely 11/29; patient's blood sugars are little better controlled range between 118-200, monitor closely and adjust MRI no osteomyelitis. Disposition per ID 11/30; MRI no osteomyelitis, ID DC'd all antibiotics, no osteomyelitis Possible discharge tomorrow, DC planning per case management 12/01; physical therapy evaluation, possible discharge tomorrow if stable History Interval history: I have seen and examined the patient at the bedside this morning Patient's chart and medications tests and reports nurses charting reviewed Patient feels slightly better No new complaints Vital signs noted Hospitalist Physical - Constitutional Vitals: Temp Pulse Resp BP Pulse Ox 98.0 F 77 18 162/68 93 12/02/19 07:26 12/02/19 07:26 12/02/19 07:26 12/02/19 07:26 12/02/19 09:08 General appearance: Present: no acute distress, well-nourished, obese - EENT Eyes: Present: PERRL, EOM intact - Neck Neck: Present: supple, normal ROM - Respiratory Respiratory effort: normal Respiratory: bilateral: diminished, negative: rales, rhonchi, wheezing - Cardiovascular Rhythm: regular Heart Sounds: Present: S1 & S2 - Extremities Extremities: no ischemia, No edema, abnormal (Right TMA) - Abdominal General gastrointestinal: soft, non-tender, non-distended, normal bowel sounds - Integumentary Integumentary: Present: clear, warm - Psychiatric Psychiatric: appropriate mood/affect, cooperative HEART Score - HEART Score Troponin: Troponin T 0.023 ng/mL (0.00-0.029) 11/21/19 10:02 Results - Labs CBC & Chem 7: 11/27/19 07:21 12/02/19 07:09 Labs: Laboratory Last Values WBC 12.2 K/mm3 (4.5-11.0) H 11/27/19 07:21 RBC 2.81 M/mm3 (3.65-5.03) L 11/27/19 07:21 Hgb 7.7 gm/dl (10.1-14.3) L 11/27/19 07:21 Hct 23.6 % (30.3-42.9) L 11/27/19 07:21 MCV 84 fl (79-97) 11/27/19 07:21 MCH 27 pg (28-32) L 11/27/19 07:21 MCHC 33 % (30-34) 11/27/19 07:21 RDW 15.5 % (13.2-15.2) H 11/27/19 07:21 Plt Count 480 K/mm3 (140-440) H 11/27/19 07:21 Lymph % (Auto) 13.7 % (13.4-35.0) 11/27/19 07:21 [place] % (Auto) 6.7 % (0.0-7.3) 11/27/19 07:21 Eos % (Auto) 4.4 % (0.0-4.3) H 11/27/19 07:21 Baso % (Auto) 0.7 % (0.0-1.8) 11/27/19 07:21 Lymph # 1.7 K/mm3 (1.2-5.4) 11/27/19 07:21 [place] # 0.8 K/mm3 (0.0-0.8) 11/27/19 07:21 Eos # 0.5 K/mm3 (0.0-0.4) H 11/27/19 07:21 Baso # 0.1 K/mm3 (0.0-0.1) 11/27/19 07:21 Add Manual Diff Complete 11/25/19 05:57 Total Counted 100 11/25/19 05:57 Seg Neutrophils % 74.5 % (40.0-70.0) H 11/27/19 07:21 Seg Neuts % (Manual) 95.0 % (40.0-70.0) H 11/25/19 05:57 Band Neutrophils % 0 % 11/25/19 05:57 Lymphocytes % (Manual) 2.0 % (13.4-35.0) L 11/25/19 05:57 Reactive Lymphs % (Man) 0 % 11/25/19 05:57 Monocytes % (Manual) 3.0 % (0.0-7.3) 11/25/19 05:57 Eosinophils % (Manual) 0 % (0.0-4.3) 11/25/19 05:57 Basophils % (Manual) 0 % (0.0-1.8) 11/25/19 05:57 Metamyelocytes % 0 % 11/25/19 05:57 Myelocytes % 0 % 11/25/19 05:57 Promyelocytes % 0 % 11/25/19 05:57 Blast Cells % 0 % 11/25/19 05:57 Nucleated RBC % Not Reportable 11/25/19 05:57 Seg Neutrophils # 9.1 K/mm3 (1.8-7.7) H 11/27/19 07:21 Seg Neutrophils # Man 18.0 K/mm3 (1.8-7.7) H 11/25/19 05:57 Band Neutrophils # 0.0 K/mm3 11/25/19 05:57 Lymphocytes # (Manual) 0.4 K/mm3 (1.2-5.4) L 11/25/19 05:57 Abs React Lymphs (Man) 0.0 K/mm3 11/25/19 05:57 Monocytes # (Manual) 0.6 K/mm3 (0.0-0.8) 11/25/19 05:57 Eosinophils # (Manual) 0.0 K/mm3 (0.0-0.4) 11/25/19 05:57 Basophils # (Manual) 0.0 K/mm3 (0.0-0.1) 11/25/19 05:57 Metamyelocytes # 0.0 K/mm3 11/25/19 05:57 Myelocytes # 0.0 K/mm3 11/25/19 05:57 Promyelocytes # 0.0 K/mm3 11/25/19 05:57 Blast Cells # 0.0 K/mm3 11/25/19 05:57 WBC Morphology Not Reportable 11/25/19 05:57 Hypersegmented Neuts Not Reportable 11/25/19 05:57 Hyposegmented Neuts Not Reportable 11/25/19 05:57 Hypogranular Neuts Not Reportable 11/25/19 05:57 Smudge Cells Not Reportable 11/25/19 05:57 Toxic Granulation Not Reportable 11/25/19 05:57 Toxic Vacuolation Not Reportable 11/25/19 05:57 Dohle Bodies Not Reportable 11/25/19 05:57 Pelger-Huet Anomaly Not Reportable 11/25/19 05:57 Daniel Rods Not Reportable 11/25/19 05:57 Platelet Estimate Consistent w auto 11/25/19 05:57 Clumped Platelets Not Reportable 11/25/19 05:57 Plt Clumps, EDTA Not Reportable 11/25/19 05:57 Large Platelets Not Reportable 11/25/19 05:57 Giant Platelets Not Reportable 11/25/19 05:57 Platelet Satelliting Not Reportable 11/25/19 05:57 Plt Morphology Comment Not Reportable 11/25/19 05:57 RBC Morphology Not Reportable 11/25/19 05:57 Dimorphic RBCs Not Reportable 11/25/19 05:57 Polychromasia Not Reportable 11/25/19 05:57 Hypochromasia Not Reportable 11/25/19 05:57 Poikilocytosis Not Reportable 11/25/19 05:57 Anisocytosis Few 11/25/19 05:57 Microcytosis Not Reportable 11/25/19 05:57 Macrocytosis Not Reportable 11/25/19 05:57 Spherocytes Not Reportable 11/25/19 05:57 Pappenheimer Bodies Not Reportable 11/25/19 05:57 Sickle Cells Not Reportable 11/25/19 05:57 Target Cells Not Reportable 11/25/19 05:57 Tear Drop Cells Not Reportable 11/25/19 05:57 Ovalocytes Not Reportable 11/25/19 05:57 Helmet Cells Not Reportable 11/25/19 05:57 [place] Bodies Not Reportable 11/25/19 05:57 Schriever Rings Not Reportable 11/25/19 05:57 [place] Cells Few 11/25/19 05:57 Bite Cells Not Reportable 11/25/19 05:57 Crenated Cell Not Reportable 11/25/19 05:57 Elliptocytes Not Reportable 11/25/19 05:57 Acanthocytes (Spur) Not Reportable 11/25/19 05:57 Rouleaux Not Reportable 11/25/19 05:57 Hemoglobin C Crystals Not Reportable 11/25/19 05:57 Schistocytes Rare 11/25/19 05:57 Malaria parasites Not Reportable 11/25/19 05:57 Adarsh Bodies Not Reportable 11/25/19 05:57 Hem Pathologist Commnt No 11/25/19 05:57 PT 21.1 Sec. (12.2-14.9) H 11/22/19 07:40 INR 1.78 (0.87-1.13) H 11/22/19 07:40 APTT 38.8 Sec. (24.2-36.6) H 11/20/19 21:22 D-Dimer 596.16 ng/mlDDU (0-234) H 11/20/19 21:22 ABG pH 7.424 pH Units (7.350-7.450) 11/22/19 15:24 ABG pCO2 30.2 mm Hg 11/22/19 15:24 ABG pO2 66.5 mm Hg (80.0-90.0) L 11/22/19 15:24 ABG HCO3 19.3 mmol/L (20.0-26.0) L 11/22/19 15:24 ABG O2 Saturation 94.0 % (95.0-99.0) L 11/22/19 15:24 ABG O2 Content 11.5 (0.0-44) 11/22/19 15:24 ABG Base Excess -4.4 mmol/L (-2.0-3.0) L 11/22/19 15:24 ABG Hemoglobin 8.9 gm/dl (12.0-16.0) L 11/22/19 15:24 ABG Carboxyhemoglobin 1.7 % (0.0-5.0) 11/22/19 15:24 ABG Methemoglobin 0.6 % (0.0-1.5) 11/22/19 15:24 Oxyhemoglobin 91.8 % (95.0-99.0) L 11/22/19 15:24 FiO2 28 % 11/22/19 15:24 Sodium 140 mmol/L (137-145) 12/02/19 07:09 Potassium 4.7 mmol/L (3.6-5.0) D 12/02/19 07:09 Chloride 105.8 mmol/L (98-107) 12/02/19 07:09 Carbon Dioxide 24 mmol/L (22-30) 12/02/19 07:09 Anion Gap 15 mmol/L 12/02/19 07:09 BUN 12 mg/dL (7-17) 12/02/19 07:09 Creatinine 1.6 mg/dL (0.6-1.2) H 12/02/19 07:09 Estimated GFR 39 ml/min 12/02/19 07:09 BUN/Creatinine Ratio 8 % 12/02/19 07:09 Glucose 96 mg/dL (65-100) 12/02/19 07:09 POC Glucose 179 (70-105) H 12/02/19 11:22 Calcium 8.3 mg/dL (8.4-10.2) L 12/02/19 07:09 Phosphorus 2.70 mg/dL (2.5-4.5) 11/24/19 04:50 Total Bilirubin 0.20 mg/dL (0.1-1.2) 11/20/19 21:22 AST 13 units/L (5-40) 11/20/19 21:22 ALT 15 units/L (7-56) 11/20/19 21:22 Alkaline Phosphatase 81 units/L (35-129) 11/20/19 21:22 Troponin T 0.023 ng/mL (0.00-0.029) 11/21/19 10:02 C-Reactive Protein 19.70 mg/dL (0.00-1.30) H 11/26/19 14:42 NT-Pro-B Natriuret Pep 3993 pg/mL (0-900) H 11/20/19 21:22 Total Protein 7.1 g/dL (6.3-8.2) 11/20/19 21:22 Albumin 2.9 g/dL (3.9-5) L 11/20/19 21:22 Albumin/Globulin Ratio 0.7 % 11/20/19 21:22 Triglycerides 214 mg/dL (2-149) H 11/20/19 21:22 Cholesterol 139 mg/dL (50-199) 11/20/19 21:22 LDL Cholesterol Direct 96 mg/dL (50-130) 11/20/19 21:22 HDL Cholesterol 30 mg/dL (40-59) L 11/20/19 21:22 Cholesterol/HDL Ratio 4.63 % 11/20/19 21:22 Procalcitonin 15.13 ng/mL (<0.15) 11/24/19 13:44 TSH 1.430 mlU/mL (0.270-4.200) 11/20/19 21:22 Free T4 1.34 ng/dL (0.76-1.46) 11/20/19 21:22 PTH Intact 62.13 pg/mL (15-65) 11/24/19 04:50 Urine Color Yellow (Yellow) 11/22/19 Unknown Urine Turbidity Turbid (Clear) 11/22/19 Unknown Urine pH 5.0 (5.0-7.0) 11/22/19 Unknown Ur Specific [place] 1.017 (1.003-1.030) 11/22/19 Unknown Urine Protein 30 mg/dl mg/dL (Negative) 11/22/19 Unknown Urine Glucose (UA) 50 mg/dL (Negative) 11/22/19 Unknown Urine Ketones Neg mg/dL (Negative) 11/22/19 Unknown Urine Blood Mod (Negative) 11/22/19 Unknown Urine Nitrite Neg (Negative) 11/22/19 Unknown Urine Bilirubin Neg (Negative) 11/22/19 Unknown Urine Urobilinogen < 2.0 mg/dL (<2.0) 11/22/19 Unknown Ur Leukocyte Esterase Lg (Negative) 11/22/19 Unknown Urine WBC (Auto) 159.0 /HPF (0.0-6.0) H 11/22/19 Unknown Urine RBC (Auto) 68.0 /HPF (0.0-6.0) 11/22/19 Unknown U Epithel Cells (Auto) 2.0 /HPF (0-13.0) 11/22/19 Unknown Urine Bacteria (Auto) 3+ /HPF (Negative) 11/22/19 Unknown Urine WBC Clumps 3+ /HPF 11/22/19 Unknown Uric Acid Crystals Not Reportable 11/22/19 Unknown Urine Yeast (Budding) 3+ /HPF 11/22/19 Unknown Nasal Screen MRSA (PCR) Positive (Negative) 11/21/19 Unknown Random Vancomycin 9.6 ug/mL (0-40.0) 11/23/19 08:57 - Diagnostic Impressions Diagnostic Impressions: Echocardiogram 11/21/19 03:29 Transthoracic Echocardiogram Indication: Chest Pain BP: 107/66 HR: 50 Conclusions *The study is technically very limited due to patient body habitus. Patient unable to consent to Optison. *Global left ventricular systolic function is normal. *The estimated ejection fraction is 50-55%. *Abnormal left ventricular diastolic function is observed. *There is no pericardial effusion. Findings Procedure Info: The study is technically limited due to patient body habitus. Patient unable to consent to Optison. The study was technically limited due to the patient's inability to lay in the left lateral decubitus position. Left Ventricle: The left ventricle is not well visualized. Global left ventricular systolic function is normal. The estimated ejection fraction is 50-55%. Abnormal left ventricular diastolic function is observed. Left Atrium: The left atrium is not well visualized. Right Ventricle: The right ventricle is not well visualized. Right Atrium: The right atrium is not well visualized. Aortic Valve: The aortic valve is not well visualized. Mitral Valve: There is mitral annular calcification. The mitral valve leaflets are mildly thickened. There is trace of mitral regurgitation. Tricuspid Valve: The tricuspid valve is not well visualized. There is mild tricuspid regurgitation. Pulmonic Valve: The pulmonic valve is not well visualized. Pericardium: There is no pericardial effusion. Aorta: The aorta appears normal. Venous: The inferior vena cava is dilated. Measurements Chambers 2D Name Value Normal Range IVSd (2D) 1.3 cm (0.6 - 1.1) LVPWd (2D) 0.37 cm (0.6 - 1.1) LVIDd (2D) 4.89 cm (3.7 - 5.6) LVIDs (2D) 3.78 cm (2 - 3.8) LV FS (2D) 22.67 % - EF Teichholz (2D) 45.46 % - Ao root diameter (2D) 2.64 cm (2 - 3.7) Volumes/Mass Name Value Normal Range LA ESV SP 2CH (A/L) 85.32 ml - LA ESV SP 2CH (MOD) 78.59 ml - Diastolic/Systolic Function Name Value Normal Range MV E-wave Vmax 0.75 m/sec - MV deceleration time 351.73 msec - MV A-wave Vmax 0.88 m/sec - MV E:A ratio 0.86 ratio - Aortic Valve Name Value Normal Range LVOT diameter 1.97 cm - Mitral Valve Name Value Normal Range MV Vmax 0.92 m/sec - MV VTI 35.79 cm - MV peak gradient 3.4 mmHg - MV mean gradient 0.88 mmHg - MV PHT 133.09 msec - MVA (PHT) 1.65 cm2 - Tricuspid Valve Name Value Normal Range TR Vmax 2.8 m/sec - TR peak gradient 31.39 mmHg - IVC diameter 2.42 cm (1.2 - 2.3) Pulmonic Valve/Qp:Qs Name Value Normal Range PV Vmax 0.96 m/sec - PV VTI 22.47 cm - PV peak gradient 3.69 mmHg - PV mean gradient 1.34 mmHg - MA end-diastolic Vmax 0.93 m/sec - RVOT Vmax 0.73 m/sec - RVOT VTI 17.4 cm - RVOT peak gradient 2.14 mmHg - Izquierdo/IV: Voiding Method External Female Catheter IV Catheter Type [Left Forearm INT / Saline Lock ] IV Catheter Type [Right INT / Saline Lock Forearm] IV Catheter Type [Left Hand] INT / Saline Lock IV Catheter Type [Right INT / Saline Lock Antecubital] Active Medications - Current Medications Current Medications: Generic Name Dose Route Start Last Admin Trade Name Freq PRN Reason Stop Dose Admin Acetaminophen 650 mg 11/21/19 03:19 11/25/19 17:33 Tylenol PO 650 mg Q4H PRN Administration Pain MILD(1-3)/Fever >100.5/AVERY Acetaminophen 650 mg 11/22/19 21:06 11/22/19 21:15 Tylenol MA 650 mg Q4H PRN Administration Pain, Mild (1-3) Apixaban 2.5 mg 11/22/19 22:00 12/02/19 10:52 Eliquis PO 2.5 mg Q12HR GABRIELLE Administration Protocol Aspirin 81 mg 11/22/19 10:00 12/02/19 10:52 Baby Aspirin PO 81 mg QDAY GABRIELLE Administration Atorvastatin Calcium 40 mg 11/21/19 22:00 12/01/19 21:27 Lipitor PO 40 mg QHS GABRIELLE Administration Clopidogrel Bisulfate 75 mg 11/22/19 10:00 12/02/19 10:52 Plavix PO 75 mg QDAY GABRIELLE Administration Dextrose 0 ml 11/21/19 03:19 D50w (25gm) Syringe IV Q30MIN PRN Hypoglycemia Protocol Hydralazine HCl 10 mg 11/21/19 03:19 11/28/19 21:55 Apresoline IV 10 mg Q6H PRN Administration FOR SBP > target Insulin Human Isoph/Insulin Regular 22 unit 11/29/19 17:00 12/02/19 10:49 Humulin 70/30 SUB-Q 22 unit BIDDIAB GABRIELLE Administration Insulin Human Lispro 0 unit 11/21/19 07:30 12/02/19 11:10 Humalog SUB-Q 2 unit ACHS GABRIELLE Administration Protocol Isosorbide Mononitrate 30 mg 11/22/19 10:00 12/02/19 10:52 Imdur PO 30 mg QDAY GABRIELLE Administration Morphine Sulfate 2 mg 11/26/19 03:02 12/02/19 11:35 Morphine IV 2 mg Q4H PRN Administration Pain, Moderate (4-6) Nitroglycerin 0.4 mg 11/21/19 03:19 Nitrostat SL Q5M PRN Chest Pain Ondansetron HCl 4 mg 11/21/19 03:19 Zofran IV Q8H PRN Nausea And Vomiting Sodium Bicarbonate 650 mg 11/23/19 14:00 12/02/19 10:51 Sodium Bicarbonate PO 650 mg TID GABRIELLE Administration Sodium Chloride 10 ml 11/21/19 10:00 12/02/19 11:05 Sodium Chloride Flush Syringe 10 Ml IV 10 ml BID GABRIELLE Administration Sodium Chloride 10 ml 11/21/19 03:19 Sodium Chloride Flush Syringe 10 Ml IV PRN PRN LINE FLUSH Nutrition/Malnutrition Assess - Dietary Evaluation Nutrition/Malnutrition Findings: Nutrition Notes Start: 11/21/19 14:25 Freq: Status: Active Protocol: Document 12/01/19 12:13 [facility] (Rec: 12/01/19 12:18 [facility] SRW- [id number]) Nutrition Notes Initial or Follow up Reassessment Current Diagnosis CKD(stage I-IV),Diabetes, Hypertension,Heart Failure, Respiratory Failure Other Pertinent Diagnosis Bilat LE cellulitis Current Diet Consistent CHO + Glucerna BID Labs/Tests Cr 1.5 Pertinent Medications reviewed Height 5 ft 6 in Weight 131.5 kg [place] Body Weight (kg) 59.09 BMI 46.7 Weight change and time frame Wt gain noted - pt with hx of chronic lymphedema Weight Status Morbidly Obese Subjective/Other Information Pt consumed 67% of meals since last assessment. Spoke with RN via phone at 11:45 - reports that pt ate breakfast this am and occasionally drinks ONS. Percent of energy/protein needs met: 82% energy 79% pro Burn Absent Trauma Absent #1 Nutrition Diagnosis Inadequate oral intake As Evidenced by Signs and Symptoms PO intakes meeting >50% energy and pro needs Diagnosis Progress(for reassessment Improved documentation) Is patient on ventilator? No Is Patient Ambulatory and/or Out of Bed No REE-([facility]-confined to bed) 2244.960 Kcal/Kg value to use for calculation 13 Approximate Energy Requirements Using 1710 kcal/Kg Calculation Used for Recommendations Kcal/kg Additional Notes Pro needs 0.8-0.9g/kg adjBW: 76-86g/day Fluid needs 1ml/kcal Nutrition Intervention Change Diet Order: Continue current diet order - encourage PO intake at meal times Add Supplement/Snack (indicate name/kcal Glucerna BID /protein ) Provides kCal: 440 Provides Protein (gm) 20 Goal #1 PO intakes of meals plus ONS to meet at least 75% energy and pro needs Follow-Up By: 12/05/19 Additional Comments F/U: intakes (meals/ONS)
[2019-12-03 08:01] LABS: Calcium 8.2 mg/dL (8.4-10.2)
--- NOTE | 2019-12-03 09:41 | Progress Note ---
Assessment and Plan 1. Acute kidney injury: Vasomotor JI superimposed on CKD stage 3 in the setting of hypotension. Renal US; normal R kidney and non-visualization of L kidney. Urine studies ordered. Monitor renal function. Creatinine level is better since admission. Avoid nephrotoxic agents. Meds dosage based on GFR. 2. FEN: Metabolic acidosis, PO Sodium bicarbonate, monitor. Monitor lytes and volume status. 3. Acute combined systolic and diastolic HFrEF: Followed by Cardiology. TTE done 10/12/2019 showed EF 35-40% with grade 1 diastolic dysfunction Daily weights, monitor in's and O's. 4. Elevated troponin-NSTEMI type II: Continue medical management. 5. Acute hypoxic respiratory failure: Likely due to CHF exacerbation. Supplemental O2. 6. Severe sepsis: Leukocytosis. UTI vs LE wound infection. S/p abx. 7. Acute metabolic encephalopathy, POA. Continue supportive care. 8. Hypertension: Monitor BP. 9. Normochromic anemia, POA. 10. Diabetes mellitus type 2: Consistent low carb diet and sliding scale of insulin. 11. Chronic lymphedema. 12. Elevated d-dimer: V/Q scan showed low probability for PE. - Subjective: Patient was seen and examined at the bedside. No new complaint. - General Appearance General appearance: well-developed, well-nourished, appears stated age, obese, no distress HEENT: ATNC, PERRL, hearing intact, vision intact Neck: neck supple, trachea midline Respiratory: Clear to Ascultation Heart: regular, S1S2, no murmurs Gastrointestinal: obese, normoactive bowel sounds, not tenderness Integumentary: chronic venous stasis, R leg dressing Neurologic: confused, disoriented, able to move extremities Ext: b/l LE lymphedema noted, R TMA Psychiatric: cooperative Subjective Date of service: 12/03/19 Principal diagnosis: HF; CKD; PVD Objective - Vital Signs Vital signs: Vital Signs - 12hr 12/02/19 12/02/19 12/03/19 22:00 22:50 03:24 Temperature 98.4 F 98.2 F Pulse Rate 82 77 Respiratory 17 18 Rate Blood Pressure 132/69 146/70 O2 Sat by Pulse 97 96 98 Oximetry 12/03/19 09:31 Temperature Pulse Rate Respiratory Rate Blood Pressure O2 Sat by Pulse 98 Oximetry - Lab 11/27/19 07:21 12/03/19 07:11 Most recent lab results ABG pH 7.424 pH Units (7.350-7.450) 11/22/19 15:24 ABG pCO2 30.2 mm Hg 11/22/19 15:24 ABG pO2 66.5 mm Hg (80.0-90.0) L 11/22/19 15:24 ABG HCO3 19.3 mmol/L (20.0-26.0) L 11/22/19 15:24 ABG O2 Saturation 94.0 % (95.0-99.0) L 11/22/19 15:24 Calcium 8.2 mg/dL (8.4-10.2) L 12/03/19 07:11 Phosphorus 2.70 mg/dL (2.5-4.5) 11/24/19 04:50 Medications & Allergies - Medications Allergies/Adverse Reactions: Allergies Sulfa (Sulfonamide Antibiotics) Allergy (Verified 11/20/19 20:05) Unknown Home Medications: Home Medications Medication Instructions Recorded Confirmed Last Taken Type Unobtainable 11/20/19 11/20/19 Unknown History Active Medications: Generic Name Dose Route Start Last Admin Trade Name Freq PRN Reason Stop Dose Admin Acetaminophen 650 mg 11/21/19 03:19 11/25/19 17:33 Tylenol PO 650 mg Q4H PRN Administration Pain MILD(1-3)/Fever >100.5/AVERY Acetaminophen 650 mg 11/22/19 21:06 11/22/19 21:15 Tylenol [place] 650 mg Q4H PRN Administration Pain, Mild (1-3) Apixaban 2.5 mg 11/22/19 22:00 12/02/19 22:11 Eliquis PO 2.5 mg Q12HR GABRIELLE Administration Protocol Aspirin 81 mg 11/22/19 10:00 12/02/19 10:52 Baby Aspirin PO 81 mg QDAY GABRIELLE Administration Atorvastatin Calcium 40 mg 11/21/19 22:00 12/02/19 22:10 Lipitor PO 40 mg QHS GABRIELLE Administration Clopidogrel Bisulfate 75 mg 11/22/19 10:00 12/02/19 10:52 Plavix PO 75 mg QDAY GABRIELLE Administration Dextrose 0 ml 11/21/19 03:19 D50w (25gm) Syringe IV Q30MIN PRN Hypoglycemia Protocol Hydralazine HCl 10 mg 11/21/19 03:19 11/28/19 21:55 Apresoline IV 10 mg Q6H PRN Administration FOR SBP > target Insulin Human Isoph/Insulin Regular 22 unit 11/29/19 17:00 12/02/19 17:17 Humulin 70/30 SUB-Q Not Given BIDDIAB [facility] Insulin Human Lispro 0 unit 11/21/19 07:30 12/02/19 22:11 Humalog SUB-Q Not Given ACHS [facility] Protocol Isosorbide Mononitrate 30 mg 11/22/19 10:00 12/02/19 10:52 Imdur PO 30 mg QDAY [facility] Administration Morphine Sulfate 2 mg 11/26/19 03:02 12/02/19 11:35 Morphine IV 2 mg Q4H PRN Administration Pain, Moderate (4-6) Nitroglycerin 0.4 mg 11/21/19 03:19 Nitrostat SL Q5M PRN Chest Pain Ondansetron HCl 4 mg 11/21/19 03:19 Zofran IV Q8H PRN Nausea And Vomiting Sodium Bicarbonate 650 mg 11/23/19 14:00 12/02/19 22:10 Sodium Bicarbonate PO 650 mg TID [facility] Administration Sodium Chloride 10 ml 11/21/19 10:00 12/02/19 22:11 Sodium Chloride Flush Syringe 10 Ml IV 10 ml BID GABRIELLE Administration Sodium Chloride 10 ml 11/21/19 03:19 Sodium Chloride Flush Syringe 10 Ml IV PRN PRN LINE FLUSH
[2019-12-03] MEDS: SODIUM BICARBONATE 650 MG TAB PO SCH ×3 (10:29→21:59)
[2019-12-03] MEDS: CLOPIDOGREL 75 MG TAB PO SCH (10:30)
[2019-12-03] MEDS: APIXABAN 2.5 MG TAB PO SCH ×2 (10:30→21:59)
[2019-12-03] MEDS: ASPIRIN 81 MG TAB CHEW PO SCH (10:31)
[2019-12-03] MEDS: INSULIN LISPRO 100 UNIT/ML VIAL 3 mL SUB-Q SCH ×4 (10:33→22:00)
[2019-12-03] MEDS: INSULIN NPH/REGULAR 70/30 INJ SUB-Q SCH ×2 (10:34→18:33)
--- NOTE | 2019-12-03 21:18 | Progress Note ---
Assessment and Plan Assessment and plan: --Severe sepsis; secondary to UTI, bilateral lower extremity cellulitis/right heel pressure ulcer MRI foot; negative for osteomyelitis Antibiotics discontinued, Monitor off antibiotics --Bilateral lower extremity cellulitis, continue antibiotics, Right foot MRI without contrast; no evidence of osteomyelitis shallow superficial ulcer Soft tissue swelling ankle and foot --Leukocytosis with sepsis -likely from UTI and bilateral lower extremity cellulitis UA suggestive for UTI, patient also have significant bilateral lower extremity erythremia and rash Antibiotics discontinued, follow blood culture consulted ID, ordered CT chest/abdomen/pelvis --UTI with sepsis monitor off antibiotics -- Diabetes mellitus type 2; better controlled Blood sugars today between 118 -200 on 22 units 70/30 twice daily Increased Novolin 70/30 to 22 units twice a day on 11/28 Consistent carb diet, sliding scale of insulin --Acute hypoxic respiratory failure -O2 sat on room air is 85% -Likely due to CHF exacerbation, continue diuretics and breathing treatment -Supplemental O2 to keep oxygen saturation greater than 92% --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) Continue current management, cardiology following TTE done 10/12/2019 showed EF 35-40% with grade 1 diastolic dysfunction Input output monitoring, low-sodium diet, fluid restriction --CKD (chronic kidney disease) per [place] records, cr fluctuates between 2-3 cr today 2.9, will consult nephrology --HTN (hypertension); moderate control Continue current antihypertensives and PRN medications --PVD (peripheral vascular disease) Continue aspirin and statin --S/P transmetatarsal amputation of foot Continue supportive care --Chronic lymphedema IV diuretics as tolerated -- Elevated troponin-NSTEMI type II Continue medical management, cardiology following --Morbid obesity -Dietary education when clinically stable --Elevated d-dimer, VQ scan showed low probability for PE --DVT prophylaxis, continue on Eliquis Monitor closely and adjust management as needed Plan of care reviewed with the patient and her nurse 11/29/19; blood sugars are uncontrolled, increase Novolin 70/30 to 22 units twice a day.Monitor closely 11/29; patient's blood sugars are little better controlled range between 118-200, monitor closely and adjust MRI no osteomyelitis. Disposition per ID 11/30; MRI no osteomyelitis, ID DC'd all antibiotics, no osteomyelitis Possible discharge tomorrow, DC planning per case management 12/01; physical therapy evaluation, possible discharge tomorrow if stable 12/02; PT recommend home with home health, DC home tomorrow if stable History Interval history: Patient seen and examined Patient's chart and medications reviewed Patient complains of generalized weakness Vital signs reviewed Hospitalist Physical - Constitutional Vitals: Temp Pulse Resp BP Pulse Ox 98.0 F 60 20 154/71 100 12/03/19 19:20 12/03/19 19:20 12/03/19 19:20 12/03/19 19:20 12/03/19 19:20 General appearance: Present: no acute distress, well-nourished, obese - EENT Eyes: Present: PERRL, EOM intact - Neck Neck: Present: supple, normal ROM - Respiratory Respiratory effort: normal Respiratory: bilateral: diminished, negative: rales, rhonchi, wheezing - Cardiovascular Rhythm: regular Heart Sounds: Present: S1 & S2 - Extremities Extremities: abnormal (Right foot TMA) Extremity abnormal: edema - Abdominal General gastrointestinal: soft, non-tender, non-distended, normal bowel sounds - Integumentary Integumentary: Present: clear, warm - Psychiatric Psychiatric: appropriate mood/affect, cooperative - Neurologic Neurologic: moves all extremities HEART Score - HEART Score Troponin: Troponin T 0.023 ng/mL (0.00-0.029) 11/21/19 10:02 Results - Labs CBC & Chem 7: 11/27/19 07:21 12/03/19 07:11 Labs: Laboratory Last Values WBC 12.2 K/mm3 (4.5-11.0) H 11/27/19 07:21 RBC 2.81 M/mm3 (3.65-5.03) L 11/27/19 07:21 Hgb 7.7 gm/dl (10.1-14.3) L 11/27/19 07:21 Hct 23.6 % (30.3-42.9) L 11/27/19 07:21 MCV 84 fl (79-97) 11/27/19 07:21 MCH 27 pg (28-32) L 11/27/19 07:21 MCHC 33 % (30-34) 11/27/19 07:21 RDW 15.5 % (13.2-15.2) H 11/27/19 07:21 Plt Count 480 K/mm3 (140-440) H 11/27/19 07:21 Lymph % (Auto) 13.7 % (13.4-35.0) 11/27/19 07:21 Sharp % (Auto) 6.7 % (0.0-7.3) 11/27/19 07:21 Eos % (Auto) 4.4 % (0.0-4.3) H 11/27/19 07:21 Baso % (Auto) 0.7 % (0.0-1.8) 11/27/19 07:21 Lymph # 1.7 K/mm3 (1.2-5.4) 11/27/19 07:21 Sharp # 0.8 K/mm3 (0.0-0.8) 11/27/19 07:21 Eos # 0.5 K/mm3 (0.0-0.4) H 11/27/19 07:21 Baso # 0.1 K/mm3 (0.0-0.1) 11/27/19 07:21 Add Manual Diff Complete 11/25/19 05:57 Total Counted 100 11/25/19 05:57 Seg Neutrophils % 74.5 % (40.0-70.0) H 11/27/19 07:21 Seg Neuts % (Manual) 95.0 % (40.0-70.0) H 11/25/19 05:57 Band Neutrophils % 0 % 11/25/19 05:57 Lymphocytes % (Manual) 2.0 % (13.4-35.0) L 11/25/19 05:57 Reactive Lymphs % (Man) 0 % 11/25/19 05:57 Monocytes % (Manual) 3.0 % (0.0-7.3) 11/25/19 05:57 Eosinophils % (Manual) 0 % (0.0-4.3) 11/25/19 05:57 Basophils % (Manual) 0 % (0.0-1.8) 11/25/19 05:57 Metamyelocytes % 0 % 11/25/19 05:57 Myelocytes % 0 % 11/25/19 05:57 Promyelocytes % 0 % 11/25/19 05:57 Blast Cells % 0 % 11/25/19 05:57 Nucleated RBC % Not Reportable 11/25/19 05:57 Seg Neutrophils # 9.1 K/mm3 (1.8-7.7) H 11/27/19 07:21 Seg Neutrophils # Man 18.0 K/mm3 (1.8-7.7) H 11/25/19 05:57 Band Neutrophils # 0.0 K/mm3 11/25/19 05:57 Lymphocytes # (Manual) 0.4 K/mm3 (1.2-5.4) L 11/25/19 05:57 Abs React Lymphs (Man) 0.0 K/mm3 11/25/19 05:57 Monocytes # (Manual) 0.6 K/mm3 (0.0-0.8) 11/25/19 05:57 Eosinophils # (Manual) 0.0 K/mm3 (0.0-0.4) 11/25/19 05:57 Basophils # (Manual) 0.0 K/mm3 (0.0-0.1) 11/25/19 05:57 Metamyelocytes # 0.0 K/mm3 11/25/19 05:57 Myelocytes # 0.0 K/mm3 11/25/19 05:57 Promyelocytes # 0.0 K/mm3 11/25/19 05:57 Blast Cells # 0.0 K/mm3 11/25/19 05:57 WBC Morphology Not Reportable 11/25/19 05:57 Hypersegmented Neuts Not Reportable 11/25/19 05:57 Hyposegmented Neuts Not Reportable 11/25/19 05:57 Hypogranular Neuts Not Reportable 11/25/19 05:57 Smudge Cells Not Reportable 11/25/19 05:57 Toxic Granulation Not Reportable 11/25/19 05:57 Toxic Vacuolation Not Reportable 11/25/19 05:57 Dohle Bodies Not Reportable 11/25/19 05:57 Pelger-Huet Anomaly Not Reportable 11/25/19 05:57 Daniel Rods Not Reportable 11/25/19 05:57 Platelet Estimate Consistent w auto 11/25/19 05:57 Clumped Platelets Not Reportable 11/25/19 05:57 Plt Clumps, EDTA Not Reportable 11/25/19 05:57 Large Platelets Not Reportable 11/25/19 05:57 Giant Platelets Not Reportable 11/25/19 05:57 Platelet Satelliting Not Reportable 11/25/19 05:57 Plt Morphology Comment Not Reportable 11/25/19 05:57 RBC Morphology Not Reportable 11/25/19 05:57 Dimorphic RBCs Not Reportable 11/25/19 05:57 Polychromasia Not Reportable 11/25/19 05:57 Hypochromasia Not Reportable 11/25/19 05:57 Poikilocytosis Not Reportable 11/25/19 05:57 Anisocytosis Few 11/25/19 05:57 Microcytosis Not Reportable 11/25/19 05:57 Macrocytosis Not Reportable 11/25/19 05:57 Spherocytes Not Reportable 11/25/19 05:57 Pappenheimer Bodies Not Reportable 11/25/19 05:57 Sickle Cells Not Reportable 11/25/19 05:57 Target Cells Not Reportable 11/25/19 05:57 Tear Drop Cells Not Reportable 11/25/19 05:57 Ovalocytes Not Reportable 11/25/19 05:57 Helmet Cells Not Reportable 11/25/19 05:57 Dailey-Othello Bodies Not Reportable 11/25/19 05:57 [place] Rings Not Reportable 11/25/19 05:57 Alisha Cells Few 11/25/19 05:57 Bite Cells Not Reportable 11/25/19 05:57 Crenated Cell Not Reportable 11/25/19 05:57 Elliptocytes Not Reportable 11/25/19 05:57 Acanthocytes (Spur) Not Reportable 11/25/19 05:57 Rouleaux Not Reportable 11/25/19 05:57 Hemoglobin C Crystals Not Reportable 11/25/19 05:57 Schistocytes Rare 11/25/19 05:57 Malaria parasites Not Reportable 11/25/19 05:57 Adarsh Bodies Not Reportable 11/25/19 05:57 Hem Pathologist Commnt No 11/25/19 05:57 PT 21.1 Sec. (12.2-14.9) H 11/22/19 07:40 INR 1.78 (0.87-1.13) H 11/22/19 07:40 APTT 38.8 Sec. (24.2-36.6) H 11/20/19 21:22 D-Dimer 596.16 ng/mlDDU (0-234) H 11/20/19 21:22 ABG pH 7.424 pH Units (7.350-7.450) 11/22/19 15:24 ABG pCO2 30.2 mm Hg 11/22/19 15:24 ABG pO2 66.5 mm Hg (80.0-90.0) L 11/22/19 15:24 ABG HCO3 19.3 mmol/L (20.0-26.0) L 11/22/19 15:24 ABG O2 Saturation 94.0 % (95.0-99.0) L 11/22/19 15:24 ABG O2 Content 11.5 (0.0-44) 11/22/19 15:24 ABG Base Excess -4.4 mmol/L (-2.0-3.0) L 11/22/19 15:24 ABG Hemoglobin 8.9 gm/dl (12.0-16.0) L 11/22/19 15:24 ABG Carboxyhemoglobin 1.7 % (0.0-5.0) 11/22/19 15:24 ABG Methemoglobin 0.6 % (0.0-1.5) 11/22/19 15:24 Oxyhemoglobin 91.8 % (95.0-99.0) L 11/22/19 15:24 FiO2 28 % 11/22/19 15:24 Sodium 137 mmol/L (137-145) 12/03/19 07:11 Potassium 4.6 mmol/L (3.6-5.0) 12/03/19 07:11 Chloride 106.2 mmol/L (98-107) 12/03/19 07:11 Carbon Dioxide 20 mmol/L (22-30) L 12/03/19 07:11 Anion Gap 15 mmol/L 12/03/19 07:11 BUN 13 mg/dL (7-17) 12/03/19 07:11 Creatinine 1.5 mg/dL (0.6-1.2) H 12/03/19 07:11 Estimated GFR 42 ml/min 12/03/19 07:11 BUN/Creatinine Ratio 9 % 12/03/19 07:11 Glucose 109 mg/dL (65-100) H 12/03/19 07:11 POC Glucose 177 (70-105) H 12/03/19 16:53 Calcium 8.2 mg/dL (8.4-10.2) L 12/03/19 07:11 Phosphorus 2.70 mg/dL (2.5-4.5) 11/24/19 04:50 Total Bilirubin 0.20 mg/dL (0.1-1.2) 11/20/19 21:22 AST 13 units/L (5-40) 11/20/19 21:22 ALT 15 units/L (7-56) 11/20/19 21:22 Alkaline Phosphatase 81 units/L (35-129) 11/20/19 21:22 Troponin T 0.023 ng/mL (0.00-0.029) 11/21/19 10:02 C-Reactive Protein 19.70 mg/dL (0.00-1.30) H 11/26/19 14:42 NT-Pro-B Natriuret Pep 3993 pg/mL (0-900) H 11/20/19 21:22 Total Protein 7.1 g/dL (6.3-8.2) 11/20/19 21:22 Albumin 2.9 g/dL (3.9-5) L 11/20/19 21:22 Albumin/Globulin Ratio 0.7 % 11/20/19 21:22 Triglycerides 214 mg/dL (2-149) H 11/20/19 21:22 Cholesterol 139 mg/dL (50-199) 11/20/19 21:22 LDL Cholesterol Direct 96 mg/dL (50-130) 11/20/19 21:22 HDL Cholesterol 30 mg/dL (40-59) L 11/20/19 21:22 Cholesterol/HDL Ratio 4.63 % 11/20/19 21:22 Procalcitonin 15.13 ng/mL (<0.15) 11/24/19 13:44 TSH 1.430 mlU/mL (0.270-4.200) 11/20/19 21:22 Free T4 1.34 ng/dL (0.76-1.46) 11/20/19 21:22 PTH Intact 62.13 pg/mL (15-65) 11/24/19 04:50 Urine Color Yellow (Yellow) 11/22/19 Unknown Urine Turbidity Turbid (Clear) 11/22/19 Unknown Urine pH 5.0 (5.0-7.0) 11/22/19 Unknown Ur Specific [place] 1.017 (1.003-1.030) 11/22/19 Unknown Urine Protein 30 mg/dl mg/dL (Negative) 11/22/19 Unknown Urine Glucose (UA) 50 mg/dL (Negative) 11/22/19 Unknown Urine Ketones Neg mg/dL (Negative) 11/22/19 Unknown Urine Blood Mod (Negative) 11/22/19 Unknown Urine Nitrite Neg (Negative) 11/22/19 Unknown Urine Bilirubin Neg (Negative) 11/22/19 Unknown Urine Urobilinogen < 2.0 mg/dL (<2.0) 11/22/19 Unknown Ur Leukocyte Esterase Lg (Negative) 11/22/19 Unknown Urine WBC (Auto) 159.0 /HPF (0.0-6.0) H 11/22/19 Unknown Urine RBC (Auto) 68.0 /HPF (0.0-6.0) 11/22/19 Unknown U Epithel Cells (Auto) 2.0 /HPF (0-13.0) 11/22/19 Unknown Urine Bacteria (Auto) 3+ /HPF (Negative) 11/22/19 Unknown Urine WBC Clumps 3+ /HPF 11/22/19 Unknown Uric Acid Crystals Not Reportable 11/22/19 Unknown Urine Yeast (Budding) 3+ /HPF 11/22/19 Unknown Nasal Screen MRSA (PCR) Positive (Negative) 11/21/19 Unknown Random Vancomycin 9.6 ug/mL (0-40.0) 11/23/19 08:57 - Diagnostic Impressions Diagnostic Impressions: Echocardiogram 11/21/19 03:29 Transthoracic Echocardiogram Indication: Chest Pain BP: 107/66 HR: 50 Conclusions *The study is technically very limited due to patient body habitus. Patient unable to consent to Optison. *Global left ventricular systolic function is normal. *The estimated ejection fraction is 50-55%. *Abnormal left ventricular diastolic function is observed. *There is no pericardial effusion. Findings Procedure Info: The study is technically limited due to patient body habitus. Patient unable to consent to Optison. The study was technically limited due to the patient's inability to lay in the left lateral decubitus position. Left Ventricle: The left ventricle is not well visualized. Global left ventricular systolic function is normal. The estimated ejection fraction is 50-55%. Abnormal left ventricular diastolic function is observed. Left Atrium: The left atrium is not well visualized. Right Ventricle: The right ventricle is not well visualized. Right Atrium: The right atrium is not well visualized. Aortic Valve: The aortic valve is not well visualized. Mitral Valve: There is mitral annular calcification. The mitral valve leaflets are mildly thickened. There is trace of mitral regurgitation. Tricuspid Valve: The tricuspid valve is not well visualized. There is mild tricuspid regurgitation. Pulmonic Valve: The pulmonic valve is not well visualized. Pericardium: There is no pericardial effusion. Aorta: The aorta appears normal. Venous: The inferior vena cava is dilated. Measurements Chambers 2D Name Value Normal Range IVSd (2D) 1.3 cm (0.6 - 1.1) LVPWd (2D) 0.37 cm (0.6 - 1.1) LVIDd (2D) 4.89 cm (3.7 - 5.6) LVIDs (2D) 3.78 cm (2 - 3.8) LV FS (2D) 22.67 % - EF Teichholz (2D) 45.46 % - Ao root diameter (2D) 2.64 cm (2 - 3.7) Volumes/Mass Name Value Normal Range LA ESV SP 2CH (A/L) 85.32 ml - LA ESV SP 2CH (MOD) 78.59 ml - Diastolic/Systolic Function Name Value Normal Range MV E-wave Vmax 0.75 m/sec - MV deceleration time 351.73 msec - MV A-wave Vmax 0.88 m/sec - MV E:A ratio 0.86 ratio - Aortic Valve Name Value Normal Range LVOT diameter 1.97 cm - Mitral Valve Name Value Normal Range MV Vmax 0.92 m/sec - MV VTI 35.79 cm - MV peak gradient 3.4 mmHg - MV mean gradient 0.88 mmHg - MV PHT 133.09 msec - MVA (PHT) 1.65 cm2 - Tricuspid Valve Name Value Normal Range TR Vmax 2.8 m/sec - TR peak gradient 31.39 mmHg - IVC diameter 2.42 cm (1.2 - 2.3) Pulmonic Valve/Qp:Qs Name Value Normal Range PV Vmax 0.96 m/sec - PV VTI 22.47 cm - PV peak gradient 3.69 mmHg - PV mean gradient 1.34 mmHg - SD end-diastolic Vmax 0.93 m/sec - RVOT Vmax 0.73 m/sec - RVOT VTI 17.4 cm - RVOT peak gradient 2.14 mmHg - Izquierdo/IV: Voiding Method External Female Catheter IV Catheter Type [Left Forearm INT / Saline Lock ] IV Catheter Type [Right INT / Saline Lock Forearm] IV Catheter Type [Left Hand] INT / Saline Lock IV Catheter Type [Right INT / Saline Lock Antecubital] Active Medications - Current Medications Current Medications: Generic Name Dose Route Start Last Admin Trade Name Freq PRN Reason Stop Dose Admin Acetaminophen 650 mg 11/21/19 03:19 11/25/19 17:33 Tylenol PO 650 mg Q4H PRN Administration Pain MILD(1-3)/Fever >100.5/AVERY Acetaminophen 650 mg 11/22/19 21:06 11/22/19 21:15 Tylenol SD 650 mg Q4H PRN Administration Pain, Mild (1-3) Apixaban 2.5 mg 11/22/19 22:00 12/03/19 10:30 Eliquis PO 2.5 mg Q12HR GABRIELLE Administration Protocol Aspirin 81 mg 11/22/19 10:00 12/03/19 10:31 Baby Aspirin PO 81 mg QDAY GABRIELLE Administration Atorvastatin Calcium 40 mg 11/21/19 22:00 12/02/19 22:10 Lipitor PO 40 mg QHS GABRIELLE Administration Clopidogrel Bisulfate 75 mg 11/22/19 10:00 12/03/19 10:30 Plavix PO 75 mg QDAY GABRIELLE Administration Dextrose 0 ml 11/21/19 03:19 D50w (25gm) Syringe IV Q30MIN PRN Hypoglycemia Protocol Hydralazine HCl 10 mg 11/21/19 03:19 11/28/19 21:55 Apresoline IV 10 mg Q6H PRN Administration FOR SBP > target Insulin Human Isoph/Insulin Regular 22 unit 11/29/19 17:00 12/03/19 18:33 Humulin 70/30 SUB-Q 22 unit BIDDIAB GABRIELLE Administration Insulin Human Lispro 0 unit 11/21/19 07:30 12/03/19 18:33 Humalog SUB-Q 2 unit ACHS GABRIELLE Administration Protocol Isosorbide Mononitrate 30 mg 11/22/19 10:00 12/03/19 10:30 Imdur PO 30 mg QDAY GABRIELLE Administration Morphine Sulfate 2 mg 11/26/19 03:02 12/02/19 11:35 Morphine IV 2 mg Q4H PRN Administration Pain, Moderate (4-6) Nitroglycerin 0.4 mg 11/21/19 03:19 Nitrostat SL Q5M PRN Chest Pain Ondansetron HCl 4 mg 11/21/19 03:19 Zofran IV Q8H PRN Nausea And Vomiting Sodium Bicarbonate 650 mg 11/23/19 14:00 12/03/19 13:52 Sodium Bicarbonate PO 650 mg TID GABRIELLE Administration Sodium Chloride 10 ml 11/21/19 10:00 12/03/19 10:33 Sodium Chloride Flush Syringe 10 Ml IV 10 ml BID GABRIELLE Administration Sodium Chloride 10 ml 11/21/19 03:19 Sodium Chloride Flush Syringe 10 Ml IV PRN PRN LINE FLUSH Nutrition/Malnutrition Assess - Dietary Evaluation Nutrition/Malnutrition Findings: Nutrition Notes Start: 11/21/19 14:25 Freq: Status: Active Protocol: Document 12/01/19 12:13 MARIBELL (Rec: 12/01/19 12:18 [facility] SR[facility]- [id number]) Nutrition Notes Initial or Follow up Reassessment Current Diagnosis CKD(stage I-IV),Diabetes, Hypertension,Heart Failure, Respiratory Failure Other Pertinent Diagnosis Bilat LE cellulitis Current Diet Consistent CHO + Glucerna BID Labs/Tests Cr 1.5 Pertinent Medications reviewed Height 5 ft 6 in Weight 131.5 kg [place] Body Weight (kg) 59.09 BMI 46.7 Weight change and time frame Wt gain noted - pt with hx of chronic lymphedema Weight Status Morbidly Obese Subjective/Other Information Pt consumed 67% of meals since last assessment. Spoke with RN via phone at 11:45 - reports that pt ate breakfast this am and occasionally drinks ONS. Percent of energy/protein needs met: 82% energy 79% pro Burn Absent Trauma Absent #1 Nutrition Diagnosis Inadequate oral intake As Evidenced by Signs and Symptoms PO intakes meeting >50% energy and pro needs Diagnosis Progress(for reassessment Improved documentation) Is patient on ventilator? No Is Patient Ambulatory and/or Out of Bed No REE-([facility]-confined to bed) 2244.960 Kcal/Kg value to use for calculation 13 Approximate Energy Requirements Using 1710 kcal/Kg Calculation Used for Recommendations Kcal/kg Additional Notes Pro needs 0.8-0.9g/kg adjBW: 76-86g/day Fluid needs 1ml/kcal Nutrition Intervention Change Diet Order: Continue current diet order - encourage PO intake at meal times Add Supplement/Snack (indicate name/kcal Glucerna BID /protein ) Provides kCal: 440 Provides Protein (gm) 20 Goal #1 PO intakes of meals plus ONS to meet at least 75% energy and pro needs Follow-Up By: 12/05/19 Additional Comments F/U: intakes (meals/ONS)
[2019-12-04] MEDS: INSULIN LISPRO 100 UNIT/ML VIAL 3 mL SUB-Q SCH ×3 (08:02→16:36)
[2019-12-04] MEDS: SODIUM BICARBONATE 650 MG TAB PO SCH ×2 (09:14→14:59)
[2019-12-04] MEDS: CLOPIDOGREL 75 MG TAB PO SCH (09:14)
[2019-12-04] MEDS: ASPIRIN 81 MG TAB CHEW PO SCH (09:14)
[2019-12-04] MEDS: APIXABAN 2.5 MG TAB PO SCH (09:14)
[2019-12-04] MEDS: INSULIN NPH/REGULAR 70/30 INJ SUB-Q SCH ×2 (09:14→18:21)
--- NOTE | 2019-12-04 09:38 | Progress Note ---
Assessment and Plan 1. Acute kidney injury: Vasomotor JI superimposed on CKD stage 3 in the setting of hypotension. Renal US; normal R kidney and non-visualization of L kidney. Urine studies ordered. Monitor renal function. Creatinine level is better since admission. Avoid nephrotoxic agents. Meds dosage based on GFR. 2. FEN: Metabolic acidosis, PO Sodium bicarbonate, monitor. Monitor lytes and volume status. 3. Acute combined systolic and diastolic HFrEF: Followed by Cardiology. TTE done 10/12/2019 showed EF 35-40% with grade 1 diastolic dysfunction Daily weights, monitor in's and O's. 4. Elevated troponin-NSTEMI type II: Continue medical management. 5. Acute hypoxic respiratory failure: Likely due to CHF exacerbation. Supplemental O2. 6. Severe sepsis: Leukocytosis. UTI vs LE wound infection. S/p abx. 7. Acute metabolic encephalopathy, POA. Continue supportive care. 8. Hypertension: Monitor BP. 9. Normochromic anemia, POA. 10. Diabetes mellitus type 2: Consistent low carb diet and sliding scale of insulin. 11. Chronic lymphedema. 12. Elevated d-dimer: V/Q scan showed low probability for PE. - Subjective: Patient was seen and examined at the bedside. No new complaint. - General Appearance General appearance: well-developed, well-nourished, appears stated age, obese, no distress HEENT: ATNC, PERRL, hearing intact, vision intact Neck: neck supple, trachea midline Respiratory: Clear to Ascultation Heart: regular, S1S2, no murmurs Gastrointestinal: obese, normoactive bowel sounds, not tenderness Integumentary: chronic venous stasis, R leg dressing Neurologic: confused, disoriented, able to move extremities Ext: b/l LE lymphedema noted, R TMA Psychiatric: cooperative Subjective Date of service: 12/04/19 Principal diagnosis: HF; CKD; PVD Objective - Vital Signs Vital signs: Vital Signs - 12hr 12/03/19 12/04/19 12/04/19 23:43 04:15 08:00 Temperature 98.0 F 98.0 F Pulse Rate 79 80 Respiratory 18 18 20 Rate Blood Pressure 150/58 154/77 O2 Sat by Pulse 99 97 Oximetry - Lab 11/27/19 07:21 12/03/19 07:11 Most recent lab results ABG pH 7.424 pH Units (7.350-7.450) 11/22/19 15:24 ABG pCO2 30.2 mm Hg 11/22/19 15:24 ABG pO2 66.5 mm Hg (80.0-90.0) L 11/22/19 15:24 ABG HCO3 19.3 mmol/L (20.0-26.0) L 11/22/19 15:24 ABG O2 Saturation 94.0 % (95.0-99.0) L 11/22/19 15:24 Calcium 8.2 mg/dL (8.4-10.2) L 12/03/19 07:11 Phosphorus 2.70 mg/dL (2.5-4.5) 11/24/19 04:50 Medications & Allergies - Medications Allergies/Adverse Reactions: Allergies Sulfa (Sulfonamide Antibiotics) Allergy (Verified 11/20/19 20:05) Unknown Home Medications: Home Medications Medication Instructions Recorded Confirmed Last Taken Type Apixaban [Eliquis] 2.5 mg PO Q12HR #60 tablet 12/04/19 Unknown Rx AtorvaSTATin [Lipitor] 40 mg PO QHS #30 tablet 12/04/19 Unknown Rx Clopidogrel [Plavix] 75 mg PO QDAY #30 tablet 12/04/19 Unknown Rx ISOSORBIDE MONOnitrate [Imdur ER] 30 mg PO QDAY #30 tablet 12/04/19 Unknown Rx Insulin NPH/Regular [NovoLIN 70/30] 22 unit SUB-Q BIDDIAB #2 vial 12/04/19 Un known Rx Sodium Bicarbonate 650 mg PO TID #30 tablet 12/04/19 Unknown Rx Active Medications: Generic Name Dose Route Start Last Admin Trade Name Freq PRN Reason Stop Dose Admin Acetaminophen 650 mg 11/21/19 03:19 11/25/19 17:33 Tylenol PO 650 mg Q4H PRN Administration Pain MILD(1-3)/Fever >100.5/AVERY Acetaminophen 650 mg 11/22/19 21:06 11/22/19 21:15 Tylenol IA 650 mg Q4H PRN Administration Pain, Mild (1-3) Apixaban 2.5 mg 11/22/19 22:00 12/04/19 09:14 Eliquis PO 2.5 mg Q12HR GABRIELLE Administration Protocol Aspirin 81 mg 11/22/19 10:00 12/04/19 09:14 Baby Aspirin PO 81 mg QDAY GABRIELLE Administration Atorvastatin Calcium 40 mg 11/21/19 22:00 12/03/19 21:59 Lipitor PO 40 mg QHS GABRIELLE Administration Clopidogrel Bisulfate 75 mg 11/22/19 10:00 12/04/19 09:14 Plavix PO 75 mg QDAY GABRIELLE Administration Dextrose 0 ml 11/21/19 03:19 D50w (25gm) Syringe IV Q30MIN PRN Hypoglycemia Protocol Hydralazine HCl 10 mg 11/21/19 03:19 11/28/19 21:55 Apresoline IV 10 mg Q6H PRN Administration FOR SBP > target Insulin Human Isoph/Insulin Regular 22 unit 11/29/19 17:00 12/04/19 09:14 Humulin 70/30 SUB-Q 22 unit BIDDIAB GABRIELLE Administration Insulin Human Lispro 0 unit 11/21/19 07:30 12/04/19 08:02 Humalog SUB-Q Not Given ACHS [facility] Protocol Isosorbide Mononitrate 30 mg 11/22/19 10:00 12/04/19 09:14 Imdur PO 30 mg QDAY GABRIELLE Administration Morphine Sulfate 2 mg 11/26/19 03:02 12/02/19 11:35 Morphine IV 2 mg Q4H PRN Administration Pain, Moderate (4-6) Nitroglycerin 0.4 mg 11/21/19 03:19 Nitrostat SL Q5M PRN Chest Pain Ondansetron HCl 4 mg 11/21/19 03:19 Zofran IV Q8H PRN Nausea And Vomiting Sodium Bicarbonate 650 mg 11/23/19 14:00 12/04/19 09:14 Sodium Bicarbonate PO 650 mg TID GABRIELLE Administration Sodium Chloride 10 ml 11/21/19 10:00 12/04/19 09:15 Sodium Chloride Flush Syringe 10 Ml IV 10 ml BID GABRIELLE Administration Sodium Chloride 10 ml 11/21/19 03:19 Sodium Chloride Flush Syringe 10 Ml IV PRN PRN LINE FLUSH
[2019-12-04 12:36] VITALS: BP 164/79
--- NOTE | 2019-12-04 16:01 | Discharge Summary ---
Providers - Providers Date of Admission: 11/22/19 14:42 Date of discharge: 12/04/19 Attending physician: NETTE SMITH 11/21/19 Consult to Cardiac Rehabilitation [CONS] Routine Reason For Exam: Phase I 11/21/19 00:18 Consult to Physician [CONS] Urgent Comment: Consulting Provider: KEREN RUIZ Physician Instructions: Reason For Exam: elevated temp 11/21/19 03:20 Consult to Dietitian/Nutrition [CONS] Routine Physician Instructions: Reason For Exam: Reason for Consult: Diet education 11/22/19 05:10 Consult to Physician [CONS] Routine Comment: Consulting Provider: KEREN RUIZ Physician Instructions: Reason For Exam: elevated temperature 11/22/19 05:18 Consult to Wound/ET Nurse [CONS] Routine Reason For Exam: wound eval 11/22/19 14:39 Physical Therapy Evaluation and Treat [CONS] Routine Comment: Reason For Exam: placement 11/22/19 14:54 Consult to Physician [CONS] Routine Comment: Consulting Provider: KEREN RUIZ Physician Instructions: Reason For Exam: sepsis 11/22/19 14:56 Consult to Physician [CONS] Routine Comment: Consulting Provider: AILEEN MANLEY Physician Instructions: Reason For Exam: shayy on CKD 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 Patient was recently discharged from [facility] for similar symptoms and COVID test was negative at that time .here patient's initial work-up is consistent with UTI and lower extremity cellulitis with sepsis. Managed appropriately evaluated by ID, medications optimized, cultures negative to date. MRSA nares positive. VQ scan low probability for PE, Blood pressures blood sugars closely monitored medications optimized. Patient has acute combined systolic and diastolic congestive heart failure evaluate by cardiology medications optimized' Patient's MRI of the right foot negative for osteomyelitis. Patient symptoms significantly improved, cleared by all the specialists for discharge Today she is comfortable, no new complaints, vital signs stable physical exam unremarkable Stable at discharge with home health Discharge diagnosis; And management --Severe sepsis; secondary to UTI, bilateral lower extremity cellulitis/right heel pressure ulcer Completed antibiotics , per ID MRI foot; negative for osteomyelitis --Bilateral lower extremity cellulitis, Right foot MRI no evidence of osteomyelitis shallow superficial ulcer Soft tissue swelling ankle and foot,dc antibiotics per ID, --Leukocytosis with sepsis -likely from UTI and bilateral lower extremity cellulitis UA suggestive for UTI, patient also has significant bilateral lower extremity erythremia and rash Improved antibiotics discontinued, but ID -- Diabetes mellitus type 2; better controlled Blood sugars today between 118 -200 Increased Novolin 70/30 to 22 units twice a day on 11/28 Improved, advised to comply with medications --Acute hypoxic respiratory failure -O2 sat on room air is 85% -Likely due to CHF exacerbation, continue diuretics and breathing treatment -Supplemental O2 to keep oxygen saturation greater than 92% --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) Continue current management, cardiology following TTE done 10/12/2019 showed EF 35-40% with grade 1 diastolic dysfunction Input output monitoring, low-sodium diet, fluid restriction --CKD (chronic kidney disease) per [facility] records, cr fluctuates between 2-3 cr today 2.9, nephrology following --HTN (hypertension); moderate control Continue current antihypertensives and PRN medications --PVD (peripheral vascular disease), Continue aspirin and statin --S/P transmetatarsal amputation of foot, supportive care --Chronic lymphedema IV diuretics as tolerated, -- Elevated troponin-NSTEMI type II Continue medical management, cardiology following --Morbid obesity ;Dietary education, weight reduction when clinically stable --Elevated d-dimer, VQ scan low probability for PE --DVT prophylaxis, continue on Eliquis Monitor closely and adjust management as needed Plan of care reviewed with the patient and her nurse 11/29/19; blood sugars are uncontrolled, increase Novolin 70/30 to 22 units twice a day.Monitor closely 11/29; patient's blood sugars are little better controlled range between 118-200, monitor closely and adjust MRI no osteomyelitis. Disposition per ID 11/30; MRI no osteomyelitis, ID DC'd all antibiotics, no osteomyelitis Possible discharge tomorrow, DC planning per case management 12/01; physical therapy evaluation, possible discharge tomorrow if stable 12/02; PT recommend home with home health, DC home tomorrow if stable Disposition: [id number] HOME UNDER [facility] Time spent for discharge: 32 min Core Measure Documentation - Palliative Care Palliative Care/ Comfort Measures: Not Applicable - Core Measures Any of the following diagnoses?: none Exam - Constitutional Vitals: Temp Pulse Resp BP Pulse Ox 98.5 F 75 20 164/79 100 12/04/19 11:18 12/04/19 11:18 12/04/19 11:18 12/04/19 11:18 12/04/19 11:18 General appearance: Present: no acute distress, well-nourished - EENT Eyes: Present: PERRL, EOM intact - Neck Neck: Present: supple, normal ROM - Respiratory Respiratory effort: normal Respiratory: bilateral: diminished, negative: rales, rhonchi, wheezing - Cardiovascular Rhythm: regular Heart Sounds: Present: S1 & S2 - Extremities Extremities: no ischemia, No edema, abnormal (Right TMA) - Abdominal General gastrointestinal: Present: soft, non-tender, non-distended, normal bowel sounds - Integumentary Integumentary: Present: clear, warm - Musculoskeletal Musculoskeletal: strength equal bilaterally, generalized weakness - Psychiatric Psychiatric: appropriate mood/affect, cooperative - Neurologic Neurologic: moves all extremities Plan Activity: advance as tolerated, fall precautions Diet: diabetic Additional Instructions: If you have worsening symptoms contact MD or go to emergency room. Fall precautions Follow up with: PRIMARY CARE, [Primary Care Provider] - 3-5 Days AILEEN MANLEY MD [Staff Physician] - 7 Days Prescriptions: Apixaban [Eliquis] 2.5 mg PO Q12HR #60 tablet ISOSORBIDE MONOnitrate [Imdur ER] 30 mg PO QDAY #30 tablet AtorvaSTATin [Lipitor] 40 mg PO QHS #30 tablet Insulin NPH/Regular [NovoLIN 70/30] 22 unit SUB-Q BIDDIAB #2 vial Clopidogrel [Plavix] 75 mg PO QDAY #30 tablet Sodium Bicarbonate 650 mg PO TID #30 tablet
== END 2019-12-04 19:15 | disposition home health service (06) | DRG 871 ==
LOC: ED 19:24 → 4A 11-21 01:45 → OBSVTOIN 11-22 14:42
PROVIDERS: ADMIT Internal Medicine Geriatric Medicine; ATTEND Internal Medicine
PROC: 4A033R1 Measurement of Arterial Saturation, Peripheral, Percutaneous Approach (ICD-10-PCS; principal; 2019-11-22)
DX: A41.9 Sepsis, unspecified organism (principal); J96.01 Acute respiratory failure with hypoxia; I21.A1 Myocardial infarction type 2; I50.43 Acute on chronic combined systolic (congestive) and diastolic (congestive) heart failure; G93.41 Metabolic encephalopathy; E66.01 Morbid (severe) obesity due to excess calories; I13.0 Hypertensive heart and chronic kidney disease with heart failure and stage 1 through stage 4 chronic kidney disease, or unspecified chronic kidney disease; E11.22 Type 2 diabetes mellitus with diabetic chronic kidney disease; E11.51 Type 2 diabetes mellitus with diabetic peripheral angiopathy without gangrene; I89.0 Lymphedema, not elsewhere classified; N39.0 Urinary tract infection, site not specified; R65.20 Severe sepsis without septic shock; L03.116 Cellulitis of left lower limb; L03.115 Cellulitis of right lower limb; L89.619 Pressure ulcer of right heel, unspecified stage; D47.3 Essential (hemorrhagic) thrombocythemia; I42.9 Cardiomyopathy, unspecified; E11.65 Type 2 diabetes mellitus with hyperglycemia; N18.3 Chronic kidney disease, stage 3 (moderate); Z68.42 Body mass index [BMI] 45.0-49.9, adult; Z79.01 Long term (current) use of anticoagulants; Z89.431 Acquired absence of right foot; Z86.718 Personal history of other venous thrombosis and embolism; Z86.711 Personal history of pulmonary embolism; Z88.2 Allergy status to sulfonamides
CPT/HCPCS: 36415; 36600; 71045; 76770; 78580; 80048; 80053; 80061; 80202; 81001; 82803; 82962; 83880; 83970; 84100; 84145; 84439; 84443; 84484; 85007; 85025; 85027; 85379; 85610; 85730; 86140; 87040; 87086; 87641; 93005; 93306; 94760; G0378; A9270-GY; A9540; J0360; J0696; J1644; J1815; J1940; J2020; J2060; J2270; J2405; J3370; J7040